=== PATIENT | male | born 1960 | race African-American/Black ===

== ENCOUNTER 2016-09-19 06:49 | Inpatient (IN) | payer SELFPAY ==
[2016-09-19] VITALS (16 sets, daily range): BP systolic 96–126; BP diastolic 43–58; PULSE 84–100; RESP 20–50; TEMP 97.7–98.3; O2SAT 97–100
[~2016-09-19] VITALS: Ht 188 cm; Wt 101.2 kg
[~2016-09-19 06:49] MED LIST: Z.0.NO CURRENT MEDS
[2016-09-19] MEDS ORDERED: SODIUM CHLOR 0.9% 1000 ML INJ 1,000 ML IV ONE ×3 (07:30→08:45)
[2016-09-19] MEDS ORDERED: VANCOMYCIN INJ 1,800 MG in SODIUM CHLORID 0.9% 500 ML INJ 500 ML IV STA (07:30)
[2016-09-19] MEDS ORDERED: PIPERACIL-TAZO 3.375 GM PREMIX 50 ML IV ONE (07:30)
[2016-09-19 07:40] LABS: AUTOMATED NEUTROPHIL # 16.5 TH/MM3 (1.8-7.7); BASOPHIL % 0.1 % (0.0-2.0); HEMO FLAGS DIFF FINAL; LYMPH % 4.4 % (9.0-44.0); LYMPHOCYTE # 0.8 TH/MM3 (1.0-4.8); MEAN CELL VOLUME 91.9 FL (80.0-100.0); MEAN CORPUSCULAR HEMOGLOBIN 30.7 PG (27.0-34.0); MEAN CORPUSCULAR HGB CONC 33.4 % (32.0-36.0); MONO % 6.6 % (0.0-8.0); NEUT % 88.9 % (16.0-70.0); PLATELET COUNT 249 TH/MM3 (150-450); RED CELL DISTRIBUTION WIDTH 16.2 % (11.6-17.2); WHITE BLOOD COUNT 18.6 TH/MM3 (4.0-11.0)
[2016-09-19 07:47] LABS: APTT (PATIENT) 27.5 SEC (24.3-30.1); INTERNATIONAL NORMALIZED RATIO 1.2 RATIO; PROTHROMBIN TIME - PATIENT 13.5 SEC (9.8-11.6)
[2016-09-19] MEDS ORDERED: LISI10TA3 PO (07:50)
[2016-09-19 08:00] LABS: ALT (GPT) 60 U/L (12-78); ANION GAP 16 MEQ/L (5-15); AST (GOT) 208 U/L (15-37); BICARBONATE 17.3 MEQ/L (21.0-32.0); BLOOD UREA NITROGEN 58 MG/DL (7-18); CHLORIDE 102 MEQ/L (98-107); GLOMERULAR FILTRATION RATE 24 ML/MIN (>89); POTASSIUM 3.6 MEQ/L (3.5-5.1); SODIUM (NA) 135 MEQ/L (136-145)
[2016-09-19 08:03] LABS: ALKALINE PHOSPHATASE 83 U/L (45-117); TOTAL BILIRUBIN ADULT 1.3 MG/DL (0.2-1.0)
--- NOTE | 2016-09-19 08:19 | PD ---
HPI Chief Complaint: Altered Mental Status Time Seen by Provider: 07:03 Travel History International Travel<30 days: No Contact w/Intl Traveler<30days: No Traveled to known affect area: No History of Present Illness HPI 56-year-old male arrives due to altered mental status. The patient's significant other provides the history. The patient was asked if he had pain and he stated "not now." The patient is alert and oriented 3 on exam however offers no additional history regarding his symptoms otherwise. No other historical information was offered by the patient. Yesterday throughout the course of the day the patient sat on his couch in his garage and was very inactive. He had no appetite. Over the course of the evening the patient again was very inactive. Significant other tried to bring the patient to the ED yesterday however he refused. This morning he was agreeable with the plan and that's why he came. He is reported to have a neoplastic lesion about the region of the left knee posteriorly. PFSH Past Medical History Cancer: No Cardiovascular Problems: No Chemotherapy: No Diabetes: No Endocrine: No Gastrointestinal Disorders: No Genitourinary: No Immune Disorder: No Implanted Vascular Access Dvce: No Musculoskeletal: Yes Neurologic: No Psychiatric: No Reproductive: No Respiratory: No Radiation Therapy: No Tetanus Vaccination: Never Vaccinated Past Surgical History Other Surgery: No Social History Alcohol Use: Yes Tobacco Use: Yes Substance Use: No Allergies-Medications (Allergen,Severity, Reaction): Uncoded Allergies: NKDA (Allergy, Severe, 11/03/11) Reported Meds & Prescriptions Reported Meds & Active Scripts Active Reported Lisinopril 10 Mg Tab 10 Mg PO DAILY Review of Systems ROS Limitations: Clinical Condition, Altered Mental Status Physical Exam Narrative GENERAL: 56-year-old male well-nourished well-developed pain AO 3, though very hesitant to answer questions SKIN: Generally skin is warm and dry. Posterior to the knee there is a 10 cm ulcerated raised neoplastic appearing lesion with what appears to be pus, foul odor present. No crepitus about the calf or thigh. HEAD: Atraumatic. Normocephalic. EYES: Pupils equal and round. No scleral icterus. No injection or drainage. ENT: No nasal bleeding or discharge. Mucous membranes pink and moist. NECK: Trachea midline. No JVD. CARDIOVASCULAR: Tachycardia present. Regular rhythm. RESPIRATORY: No accessory muscle use. Clear to auscultation. Breath sounds equal bilaterally. GASTROINTESTINAL: Abdomen soft, non-tender, nondistended. Hepatic and splenic margins not palpable. MUSCULOSKELETAL: No obvious deformities. No clubbing. No cyanosis. No edema. Neoplastic lesion as described above. 2+ dorsalis pedis bilaterally. NEUROLOGICAL: Awake and alert. No obvious cranial nerve deficits. Motor grossly within normal limits. Normal speech. PSYCHIATRIC: Appropriate mood and affect; insight and judgment normal. Data Data Last Documented VS Vital Signs Date Time Temp Pulse Resp B/P Pulse Ox O2 Delivery O2 Flow Rate FiO2 09/19/16 08:19 93 20 102/52 98 Room Air 09/19/16 07:10 98.3 Vital signs reviewed Orders Complete Blood Count With Diff (09/19/16 07:17) Comprehensive Metabolic Panel (09/19/16 07:17) Urinalysis - C+S If Indicated (09/19/16 07:17) Lactic Acid Sepsis Protocol (09/19/16 07:17) Blood Culture (09/19/16 07:17) Iv Access Insert/Monitor (09/19/16 07:17) Oxygen Administration (09/19/16 07:17) Oximetry (09/19/16 07:17) Blood Glucose (09/19/16 07:17) Act Partial Throm Time (Ptt) (09/19/16 07:26) Prothrombin Time / Inr (Pt) (09/19/16 07:26) Vancomycin Inj (Vancomycin Inj) (09/19/16 07:30) Piperacil-Tazo 3.375 Gm Premix (Zosyn 3. (09/19/16 07:30) Sodium Chlor 0.9% 1000 Ml Inj (Ns 1000 M (09/19/16 07:30) Sodium Chlor 0.9% 1000 Ml Inj (Ns 1000 M (09/19/16 07:30) Tibia/Fibula (Ap/Lat) (09/19/16 ) Knee, Ltd (1 Or 2vws) (09/19/16 ) Knee, Ltd (1 Or 2vws) (09/19/16 ) Sodium Chlor 0.9% 1000 Ml Inj (Ns 1000 M (09/19/16 08:45) Admit Order (Ed Use Only) (09/19/16 08:37) Labs Laboratory Tests Test 09/19/16 07:25 White Blood Count 18.6 TH/MM3 Red Blood Count 2.50 MIL/MM3 Hemoglobin 7.7 GM/DL Hematocrit 23.0 % Mean Corpuscular Volume 91.9 FL Mean Corpuscular Hemoglobin 30.7 PG Mean Corpuscular Hemoglobin 33.4 % Concent Red Cell Distribution Width 16.2 % Platelet Count 249 TH/MM3 Mean Platelet Volume 8.0 FL Neutrophils (%) (Auto) 88.9 % Lymphocytes (%) (Auto) 4.4 % Monocytes (%) (Auto) 6.6 % Eosinophils (%) (Auto) 0.0 % Basophils (%) (Auto) 0.1 % Neutrophils # (Auto) 16.5 TH/MM3 Lymphocytes # (Auto) 0.8 TH/MM3 Monocytes # (Auto) 1.2 TH/MM3 Eosinophils # (Auto) 0.0 TH/MM3 Basophils # (Auto) 0.0 TH/MM3 CBC Comment DIFF FINAL Differential Comment Prothrombin Time 13.5 SEC Prothromb Time International 1.2 RATIO Ratio Activated Partial 27.5 SEC Thromboplast Time Sodium Level 135 MEQ/L Potassium Level 3.6 MEQ/L Chloride Level 102 MEQ/L Carbon Dioxide Level 17.3 MEQ/L Anion Gap 16 MEQ/L Blood Urea Nitrogen 58 MG/DL Creatinine 3.27 MG/DL Estimat Glomerular Filtration 24 ML/MIN Rate Random Glucose 155 MG/DL Lactic Acid Level 4.5 mmol/L Calcium Level 8.5 MG/DL Total Bilirubin 1.3 MG/DL Aspartate Amino Transf 208 U/L (AST/SGOT) Alanine Aminotransferase 60 U/L (ALT/SGPT) Alkaline Phosphatase 83 U/L Total Protein 7.1 GM/DL Albumin 2.1 GM/DL [facility] Medical Decision Making Medical Screen Exam Complete: Yes Emergency Medical Condition: Yes Medical Record Reviewed: Yes Differential Diagnosis Sepsis, necrotizing fasciitis, cellulitis, abscess, skin cancer Narrative Course CBC & BMP Diagram 09/19/16 07:25 AST 208 Albumin 2.1 The films of the left knee and tib-fib don't demonstrate the entirety of the soft tissue and repeat imaging will be ordered. No evidence of free air/gas/ necrotizing fasciitis on the films visualized. The patient has received vancomycin and Zosyn. 2 L normal saline infused. A third will be ordered. The patient meets septic shock criteria by numerical values however he is hemodynamically stable. Upon reassessment at 8:20 AM the patient states he feels "fair and partly cloudy" in good humor. The pt is hd stable. residential counselor service will be called for admission. At 0820 HR 92 and BP approx 102/52. D/w Dr Burnham at 835AM. Admit to Dr Helm. Sepsis Criteria SIRS Criteria (2 or more): Heart rate over 90, WBC > 70595, < 4000 or > 10% bands Sepsis Criteria (SIRS+source): Infect source susp/known Severe Sepsis (+one): Lactate >2, Acute Oliguria/Renal Failure Septic Shock Criteria: Lactic acid >=4 Diagnosis Primary Impression: Septic shock Additional Impressions: Mass of left lower extremity Cellulitis Qualified Code: L03.116 - Cellulitis of left lower extremity Admitting Information Admitting Physician Requests: Marcio Hernandez MD Sep 19, 2016 08:19
[2016-09-19] MEDS ORDERED: SODIUM CHLOR 0.9% 250 ML INJ 250 ML IV ONE ×3 (08:45→23:15)
--- NOTE | 2016-09-19 08:46 | RADRPT ---
EXAM DATE/TIME: 09/19/2016 07:43 [facility] COMPARISON: No previous studies available for comparison. INDICATIONS : Pain and swelling with open wound left proximal tibia. Denies injury MEDICAL HISTORY : None. SURGICAL HISTORY : None. ENCOUNTER: Initial ACUITY: >1 year PAIN SCORE: 3/10 LOCATION: Left Tibia FINDINGS: No definite fractures, or dislocations are identified. No definite lytic or sclerotic lesion is seen . There is calcification involving the recent chronic in nature with a small calcaneal spur at the at tachment site of the plantar aponeurosis. There are degenerative changes in the joints. CONCLUSION: Chronic changes and no evidence for acute fracture. Claudio Barroso MD on September 19, 2016 at 8:44 Board Certified Radiologist. This report was verified electronically.
--- NOTE | 2016-09-19 08:47 | RADRPT ---
EXAM DATE/TIME: 09/19/2016 07:43 [facility] COMPARISON: No previous studies available for comparison. INDICATIONS : Pain, swelling with open wound left distal knee, denies injury MEDICAL HISTORY : None. SURGICAL HISTORY : None. ENCOUNTER: Initial ACUITY: >1 year PAIN SCORE: 3/10 LOCATION: Left Knee FINDINGS: No definite fractures, dislocations, lytic, or sclerotic lesions are seen. There is osteoarthritis wi th tricompartment worse in the patellofemoral joint. CONCLUSION: Chronic changes and no evidence for acute fracture. Claudio Barroso MD on September 19, 2016 at 8:45 Board Certified Radiologist. This report was verified electronically.
--- NOTE | 2016-09-19 09:07 | HHI.HP ---
HPI Service Family Medicine Primary Care Physician No Primary Care Physician Admission Diagnosis Septic Shock (Cellulitic LLE Mass); Anemia Diagnoses: International Travel<30 Days: No Contact w/Intl Traveler<30days: No Known Affected Area: No History of Present Illness Mr. Burnham is a 56 y/o AAM with a PMHx of HTN presenting with AMS and a LLE wound. He is accompanied by his Sister, Joana Callahan, who is the primary historian , but the patient is able to participate in the interview and exam. 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 However she states that yesterday the patient would not communicate and just "sat on the couch all day." He also has had decreased PO intake over the last 24 hours. This morning she found that he had not moved from the cough since the night before and was disoriented so she decided to bring him to the ER for evaluation. She reports that he has had an ulceration on the posterior aspect of his L knee that she has noticed since May, but she reports that the patient has stated before that the wound had been there for up to a nam. He has had it evaluated by Dr. Juarez at [facility] who believes it is likely neoplastic. He was supposed to have imaging of the mass completed, however never had this completed. Biopsy has not been completed as well. She reports that he has had roughly a 10 pound weight loss over the last month. He endorses lower back pain over the last few days as well that is nonradiating with some chills. Otherwise he denies any chest pain, SOB, NVD, or calf tenderness. (Brian Guadalupe MD R1) Review of Systems Constitutional: COMPLAINS OF: Chills (For 24 hours), DENIES: Fever Endocrine: DENIES: Polyuria Eyes: DENIES: Diplopia Ears, nose, mouth, throat: DENIES: Throat pain, Running Nose Respiratory: DENIES: Cough, Shortness of breath Cardiovascular: COMPLAINS OF: Palpitations, DENIES: Chest pain Gastrointestinal: DENIES: Abdominal pain, Bloody stools, Diarrhea, Nausea, Vomiting Genitourinary: DENIES: Dysuria Musculoskeletal: COMPLAINS OF: Back pain Integumentary: DENIES: Rash Hematologic/lymphatic: DENIES: Lymphadenopathy Neurologic: DENIES: Headache Psychiatric: COMPLAINS OF: Mood changes (Brian Guadalupe MD R1) Past Family Social History Past Medical History Denies PMHx Per chart review from prior visit with Dr. Daniles, possible schizophrenia with depressive features. HTN - on Lisinopril Past Surgical History Denies PSHx (Brian Guadalupe MD R1) Allergies: Uncoded Allergies: NKDA (Allergy, Severe, 11/03/11) Family History Father - HTN, DM, Mother - Colon cancer at 69, Social History Tobacco - Prior history Alcohol - Denies Illicit - Denies Lives with his Sister in [facility]. 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 Full Code (Brian Guadalupe MD R1) Physical Exam Vital Signs Vital Signs Date Time Temp Pulse Resp B/P Pulse Ox O2 Delivery O2 Flow Rate FiO2 09/19/16 08:49 90 20 113/55 99 Room Air 09/19/16 08:34 91 20 100/51 Room Air 09/19/16 08:19 93 20 102/52 98 Room Air 09/19/16 07:38 99 Room Air 09/19/16 07:38 99 Room Air 09/19/16 07:16 100 20 96/49 100 Room Air 09/19/16 07:10 98.3 100 20 105/47 Physical Exam GENERAL: 56 y/o AAM lying in bed diaphoretic and mildly tachypneic. SKIN: Warm and moist. HEENT: Atraumatic, normocephalic with EOMI. Oropharynx clear without exudate. Mucus membranes dry with midline. No LAD. CARDIOVASCULAR: Regular rate and rhythm with 3/6 diastolic murmur more pronounced at the right sternal border. RESPIRATORY: CTAB with very shallow breathing BL. Mildly tachypneic with increased work of breathing. GASTROINTESTINAL: Abdomen soft, non-tender, nondistended with +BS. No masses appreciated. MUSCULOSKELETAL: Extremities without cyanosis or edema. No calf tenderness BL. 2 + DP BL, 2+ PT on RLE, no palpable pulse on LLE likely due to epidermis changes. LLE: 8.5 X 10.5CM circular, fungating, ulcerative lesion on the posterior aspect of the L knee. No hemorrhage or necrosis appreciated. Lesion is foul smelling and appears to involve skin and subcutaneous tissue; does not appear to involve the muscle or bone. 2+ from the ankle to the knee. NEUROLOGICAL: AAOx3, however not at baseline per his Sister. Slowed speech with very short sentences. Laboratory Laboratory Tests Test 09/19/16 07:25 White Blood Count 18.6 Red Blood Count 2.50 Hemoglobin 7.7 Hematocrit 23.0 Mean Corpuscular Volume 91.9 Mean Corpuscular Hemoglobin 30.7 Mean Corpuscular Hemoglobin 33.4 Concent Red Cell Distribution Width 16.2 Platelet Count 249 Mean Platelet Volume 8.0 Neutrophils (%) (Auto) 88.9 Lymphocytes (%) (Auto) 4.4 Monocytes (%) (Auto) 6.6 Eosinophils (%) (Auto) 0.0 Basophils (%) (Auto) 0.1 Neutrophils # (Auto) 16.5 Lymphocytes # (Auto) 0.8 Monocytes # (Auto) 1.2 Eosinophils # (Auto) 0.0 Basophils # (Auto) 0.0 CBC Comment DIFF FINAL Differential Comment Prothrombin Time 13.5 Prothromb Time International 1.2 Ratio Activated Partial 27.5 Thromboplast Time Sodium Level 135 Potassium Level 3.6 Chloride Level 102 Carbon Dioxide Level 17.3 Anion Gap 16 Blood Urea Nitrogen 58 Creatinine 3.27 Estimat Glomerular Filtration 24 Rate Random Glucose 155 Lactic Acid Level 4.5 Calcium Level 8.5 Total Bilirubin 1.3 Aspartate Amino Transf 208 (AST/SGOT) Alanine Aminotransferase 60 (ALT/SGPT) Alkaline Phosphatase 83 Total Protein 7.1 Albumin 2.1 Date/Time Procedure Status Source Growth 09/19/16 07:25 Aerobic Blood Culture Received Blood Peripheral Pending 09/19/16 07:25 Anaerobic Blood Culture Received Blood Peripheral Pending (Brian Guadalupe MD R1) Result Diagram: 09/19/1625 09/19/16724 Imaging Last 72 hours Impressions Tibia/Fibula X-Ray 09/19/16 0000 Signed Impressions: Service Date/Time: Monday, September 19, 2016 07:43 - CONCLUSION: Chronic changes and no evidence for acute fracture. Claudio Barroso MD Renal Ultrasound 09/19/16 0000 Signed Impressions: Service Date/Time: Monday, September 19, 2016 10:40 - CONCLUSION: Unremarkable renal ultrasound. Claudio Barroso MD Lower Extremity MRI 09/19/16 0000 Signed Impressions: Service Date/Time: Monday, September 19, 2016 10:15 - CONCLUSION: Large mass most likely originating from the patient's skin with infiltration of subcutaneous fat and no definite involvement of the muscular structures or marrow. A malignant mass should be entertained and clinical correlation is needed. Claudio Barroso MD Knee X-Ray 09/19/16 0000 Signed Impressions: Service Date/Time: Monday, September 19, 2016 07:43 - CONCLUSION: Osteoarthritis. Claudio Barroso MD Knee X-Ray 09/19/16 0000 Signed Impressions: Service Date/Time: Monday, September 19, 2016 07:43 - CONCLUSION: Chronic changes and no evidence for acute fracture. 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 Claudio Barroso MD (Brian Guadalupe MD R1) Septic Shock Reassessment Lungs: Clear (Brian Guadalupe MD R1) Assessment and Plan Assessment and Plan Mr. Burnham is a 56 y/o AAM with a PMHx of HTN presenting with AMS and a LLE wound found to be in septic shock. Code Status FULL Discussed Condition With Dr. Garcia, ER physician Dr. Alicja Burnham (Brian Guadalupe MD R1) Attending Attestation THIS CASE WAS DISCUSSED WITH THE RESIDENT PHYSICIANS. I HAVE REVIEWED THE RECORD AND AGREE WITH THE ABOVE NOTE AND PLAN OF CARE WAS DISCUSSED. I HAVE AUTHORIZED THE ORDER FOR ADMISSION TO AN IN-PATIENT STATUS. (Jason Helm MD) Problem List: (1) Septic shock Status: Acute Plan: Patient presented with altered mental status left lower extremity lesion. Patient found to be tachycardic to 100 bpm with a white blood cell count of 18.6. Likely source of infection is his left lower extremity lesion. Found to have a lactic acid of 4.5 not responsive to fluid resuscitation. Patient placed on sepsis protocol and [place] [facility] [place]. CBC: WBC 18.6 with 88.9% neutrophils Lactic acid 4.5, repeat 4.3, repeat pending AB.41/14/107/9 Blood cultures 2 09/19: Pending UC: Pending Wound culture: Pending Intensive care consulted, appreciate recommendations Medications: NS 1L bolus x3, continue bolus per protocol NS at 210 mL/h Vancomycin 1 g twice a day, pharmacy consulted Zosyn 2.25 g every 6 hours (2) Skin ulcer of left lower leg, limited to breakdown of skin Status: Acute Plan: Patient with circular, fungating, ulcerative lesion on the posterior aspect of the L knee with edema of the lower extremity. Patient denies any pain currently. Lower extremity neurovascularly intact with appropriate capillary refill. Knee x-ray: Chronic changes with no evidence of acute fracture Tubularfibula x-ray: Chronic changes and no evidence of acute fractures. Lower extremity MRI: Large mass most likely originating from the patient's skin with infiltration of subcutaneous fat and no definite involvement of the muscular structures her marrow. A malignant mass should be entertained and clinical correlation is needed. Consider Gen. surgery consult when patient is more stable for possible biopsy and resection. (3) Acute renal failure (ARF) Status: Acute Plan: Patient found to have a BUN of 58 with a creatinine of 3.27 on admission likely secondary to septic shock. Per chart review, admission in 2012 showed creatinine of 0.81. CMP: BUN 58, creatinine 3.27 Renal ultrasound: Unremarkable Strict I/Os, David catheter placed by urology due to phimosis Avoid nephrotoxic agents Medications: NS 1L bolus x3 NS at 210 mL/h (4) ST segment depression Status: Acute Plan: Patient found to have ST depression in leads aVF, V5, and V6 per medical team's read of EMS strip. Patient currently denying any chest pain, shortness of breath, or palpitations. EKG: Pending 3 every 6 hours Troponin and CK-MB: Pending 3 every 6 hours Cardiac Telemetry (5) Anemia Status: Acute Plan: Patient found to be anemic on admission without prior history. CBC: H/H 7.12/26 Repeat H/H at 1500 Team will plan to transfuse with hemoglobin <7 as needed Hemoccult negative, performed in ER 09/19 (6) Medical contraindication to deep vein thrombosis (DVT) prophylaxis Status: Acute Plan: Pharmacologic prophylaxis contraindicated due to patient's anemia SCD/TEDs (7) Nutrition, metabolism, and development symptoms Status: Acute Plan: Fluids: NS at 210 mL/h and per lactic acid protocol Diet: NPO except medications due to current mental status Electrolytes: Sodium 135, continue to monitor Prophylaxis: Mentor/Morphine when necessary for pain, Tylenol when necessary for fever, Zofran when necessary for nausea or vomiting (Brian Guadalupe MD R1) Physician Certification 2 Midnight Certification Type: Admission for Inpatient Services Order for Inpatient Services The services are ordered in accordance with Medicare regulations or non- Medicare payer requirements, as applicable. In the case of services not specified as inpatient-only, they are appropriately provided as inpatient services in accordance with the 2-midnight benchmark. Estimated LOS (days): 3 3 days is the estimated time the patient will need to remain in the hospital, assuming treatment plan goals are met and no additional complications. Post-Hospital Plan: Home (Brian Guadalupe MD R1) Problem Qualifiers (1) Acute renal failure (ARF): Qualified Code: N17.9 - Acute renal failure, unspecified acute renal failure type Brian Guadalupe MD R1 Sep 19, 2016 09:07 Jason Helm MD Sep 20, 2016 11:07
[2016-09-19 09:34] LABS: LACTIC ACID GHOST NOT REPORTABLE
[2016-09-19] MEDS ORDERED: SODIUM CHLOR 0.9% 1000 ML INJ 1,000 ML IV SCH ×2 (09:40→17:32)
[2016-09-19] MEDS ORDERED: ACETAMINOPHEN/HYDROcodone 325 MG/7.5 MG TAB PO PRN (09:45)
[2016-09-19] MEDS ORDERED: ACETAMINOPHEN 500 MG CPLT PO PRN (09:45)
[2016-09-19] MEDS ORDERED: Vancomycin Consult Pharmacy 1 EA OTHER SCH ×2 (09:45→17:45)
[2016-09-19] MEDS ORDERED: ACETAMINOPHEN/HYDROcodone 325 MG/5 MG TAB PO PRN (09:45)
[2016-09-19] MEDS ORDERED: SODIUM CHLORIDE 0.9% FLUSH 10 ML FLUSH IV FLUSH PRN ×2 (09:45→17:45)
[2016-09-19] MEDS ORDERED: ONDANSETRON HCL 4 MG/2 ML VIAL IV PRN ×2 (10:00→17:45)
[2016-09-19] MEDS ORDERED: SODIUM CHLORIDE 0.9% FLUSH 10 ML FLUSH PRN (10:00)
[2016-09-19] MEDS ORDERED: MORPHINE SULFATE 4 MG/ML INJ IV PRN (10:00)
[2016-09-19] MEDS ORDERED: NALOXONE HCL 0.4 MG/ML AMP IV PRN (10:00)
--- NOTE | 2016-09-19 10:13 | RADRPT ---
EXAM DATE/TIME: 09/19/2016 07:43 [facility] COMPARISON: No previous studies available for comparison. INDICATIONS : Swelling and pain left knee, denies injury Evaluate soft tissue MEDICAL HISTORY : None. SURGICAL HISTORY : None. ENCOUNTER: Initial ACUITY: >1 year PAIN SCORE: 3/10 LOCATION: Left Knee FINDINGS: No definite fractures, dislocations, lytic, or sclerotic lesions are seen. Tricompartment osteoarthri tis is seen worse in the medial compartment and patellofemoral joint. CONCLUSION: Osteoarthritis. K. Segundo Barroso MD on September 19, 2016 at 10:11 Board Certified Radiologist. This report was verified electronically.
[2016-09-19] MEDS ORDERED: DIATRIZOATE MEGLUM/DIATRIZOATE SOD 9 ML CUP PO ONE (10:15)
[2016-09-19] MEDS ORDERED: PIPERACIL-TAZO 3.375 GM PREMIX 50 ML IV SCH (10:15)
[2016-09-19] MEDS ORDERED: VANCOMYCIN INJ 1,000 MG in SODIUM CHLOR 0.9% 250 ML INJ 250 ML IV SCH (10:45)
--- NOTE | 2016-09-19 11:05 | RADRPT ---
EXAM DATE/TIME: 09/19/2016 10:15 [facility] COMPARISON: TIBIA/FIBULA LEFT (AP/LAT), September 19, 2016, 7:43. INDICATIONS : Mass. Left lower extremity mass. MEDICAL HISTORY : None. SURGICAL HISTORY : None. ENCOUNTER: Initial ACUITY: 1 day PAIN SCORE: 0/10 LOCATION: Left leg TECHNIQUE: Multiplanar multisequence MRI examination of the lower leg was performed without contrast. FINDINGS: There are degenerative changes within the knee joint with slight joint effusion. There is edema in the subcutaneous tissues of the lower extremity with a mass which measures almost 9 cm in size in the medial aspect of the patient's calf appears to be basically skin related with infiltration of the subcutaneous fat, however there is no involvement of the adjacent muscular structures. The marrow si gnal appears intact. CONCLUSION: Large mass most likely originating from the patient's skin with infiltration of subcutaneous fat and no definite involvement of the muscular structures or marrow. A malignant mass should be entertained and clinical correlation is needed. Claudio Barroso MD on September 19, 2016 at 11:01 Board Certified Radiologist. This report was verified electronically.
--- NOTE | 2016-09-19 11:43 | RADRPT ---
EXAM DATE/TIME: 09/19/2016 10:40 [facility] COMPARISON: No previous studies available for comparison. INDICATIONS : Increased Bun and Creatinine. MEDICAL HISTORY : Increased Bun and Creatinine. SURGICAL HISTORY : None. ENCOUNTER: Initial ACUITY: 1 day PAIN SCORE: 0/10 LOCATION: Bilateral flank MEASUREMENTS: RIGHT KIDNEY: ?12.8 x 6.1 x 6.2 cm LEFT KIDNEY: 12.9 x 5.9 x 6.2 cm FINDINGS: There is no hydronephrosis. No definite solid mass is identified. No definite stone is identified f or technique. The bladder is grossly intact for technique and not being completely distended during t he exam. CONCLUSION: Unremarkable renal ultrasound. Claudio Barroso MD on September 19, 2016 at 11:41 Board Certified Radiologist. This report was verified electronically.
--- NOTE | 2016-09-19 12:05 | RADRPT ---
EXAM DATE/TIME: 09/19/2016 11:32 [facility] COMPARISON: CT BRAIN W/O CONTRAST, July 01, 2012, 15:56. INDICATIONS : Altered mental status. RADIATION DOSE: 54.45 CTDIvol (mGy) MEDICAL HISTORY : None SURGICAL HISTORY : None. ENCOUNTER: Initial ACUITY: 1 day PAIN SCALE: 0/10 LOCATION: cranial TECHNIQUE: Multiple contiguous axial images were obtained of the head. Using automated exposure control and adj ustment of the mA and/or kV according to patient size, radiation dose was kept as low as reasonably a chievable to obtain optimal diagnostic quality images. FINDINGS: There is no evidence for intracranial hemorrhage, mass effect, mass lesions, edema, or extra-axial fl uid collections. The visualized bony structures appear intact. The ventricles are normal size for t he patient's age. There are no signs of acute infarction for technique. There is encephalomalacia in the watershed distribution of right CORINNE MCA not present previously. 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 Claudio Barroso MD on September 19, 2016 at 12:02 Board Certified Radiologist. This report was verified electronically.
[2016-09-19 12:34] LABS: BLOOD GAS BASE EXCESS -15.5 mmol/L (-2-2); BLOOD GAS CARBOXYHEMOGLOBIN 1.9 % (0-4); BLOOD GAS HCO3 9 mmol/L (22-26); BLOOD GAS METHEMOGLOBIN 0.5 % (0-2); BLOOD GAS O2 HGB SATURATION 96 % (90-100); BLOOD GAS OXYGEN CONTENT 9.2 Vol % (12.0-20.0); BLOOD GAS PCO2 14 mmHg (38-42); BLOOD GAS PO2 107 mmHG (61-120); BLOOD GAS TOTAL HGB 6.7 G/DL (12.0-16.0); TEMP CORR TO 98.6
[2016-09-19 12:36] LABS: CRITICAL VALUE YES; DRAW SITE RT RADIAL; LITER FLOW 2 L/M; NUMBER OF ARTERIAL PUNCTURES 1; OXYGEN DEVICE NASAL CANNULA; STAT YES; ULNAR PULSE PRESENT
--- NOTE | 2016-09-19 15:09 | MB ---
cc: EVAN BARRIENTOS MD DATE OF CONSULTATION: 09/19/2016. REASON FOR CONSULTATION: Abnormal EKG and elevated troponin. HISTORY OF PRESENT ILLNESS: The patient is a 56-year-old gentleman who comes in with altered mental status found to have multiple metabolic abnormalities including an abnormal troponin and thus I was consulted. The patient is unable to provide any history except for saying that he has low back pain but he denies any chest pain. He is a very difficult historian. On arrival and initial workup, he was found to have multiple metabolic abnormalities including an elevated white count, a low hematocrit, lactic acidosis, renal failure, and a significantly abnormal troponin. PAST MEDICAL HISTORY: 1. Hypertension. 2. Possible schizophrenia. ALLERGIES: NO KNOWN DRUG ALLERGIES. HOME MEDICATIONS: Lisinopril. PHYSICAL EXAMINATION: VITAL SIGNS: Afebrile, pulse 92, respiratory rate 16, blood pressure 115/43, satting 100 in room air. GENERAL: Altered -Thai gentleman who does indicate he has no chest pain but history is very difficult. NECK: No jugular venous distention. LUNGS: Clear to auscultation bilaterally. CARDIOVASCULAR: A 3/6 murmur with both systolic and diastolic components is appreciated. ABDOMEN: Benign. LABORATORY DATA: Sodium 135, potassium 3.6, chloride 102, bicarbonate 17.3, BUN 58, creatinine 3.27. Lactic acid is 4.5. Troponin is 11.8. Total CK is 6__98. White count 18.6, hematocrit 23.0, platelets 249,000. EKG shows sinus rhythm with diffuse S-T changes, perhaps minimal S-T elevation in aVr. IMAGING STUDIES: Lower extremity MRI shows most likely originating from the patient's skin with infiltration of subcutaneous fat. IMPRESSION: 1. Sepsis. The patient appears to have signs and symptoms of sepsis with multiple metabolic derangements. His EKG and troponin are negative, though it does not appear that he is having any active chest pain. Certainly with his acute renal failure and lack of chest pain and given the unknown chronicity of any possible cardiac findings, I would not consider him a candidate for acute cardiac catheterization. Thus, he will be medically managed from a cardiac standpoint until his other metabolic conditions have resolved. Further recommendations will be based on the clinical course. Thank you again for the opportunity to participate in this patient's care. MD SINA Maloney/HAYLEE /2:14 PM /2:51 PM
--- NOTE | 2016-09-19 16:04 | EC ---
Study Study Date:09/19/2016 STUDY CONCLUSIONS SUMMARY - Aortic valve: There was a mobile vegetation on the left ventricular aspect. Severe regurgitation directed eccentrically in the LVOT. Valve area: 2.59cm^2(VTI). Valve area: 2.7cm^2 (Vmax). - Left ventricle: The cavity size was normal. Wall thickness was normal. Systolic function was normal. The estimated ejection fraction was in the range of 50% to 55%. Wall motion was normal; there were no regional wall motion abnormalities. - Mitral valve: Mild regurgitation. - Tricuspid valve: Mild regurgitation. - Pulmonary arteries: Systolic pressure was moderately increased. PA peak pressure: 52mm Hg (S). If LV function is below 40, please consider prescribing an ACEI or ARB or document rationale for non-use. PROCEDURE DATA STUDY STATUS: Elective. Procedure: Transthoracic echocardiography. Image quality was good. Scanning was performed from the parasternal, apical, and subcostal acoustic windows. Study completion: The patient tolerated the procedure well. Transthoracic echocardiography. M-mode, complete 2D, complete spectral Doppler, and color Doppler. Height: Height: 73in. Weight: Weight: 199.6lb. Body mass index: BMI: 26.4kg/m^2. Body surface area: BSA: 2.15m^2. Patient status: Inpatient. CARDIAC ANATOMY LEFT VENTRICLE: The cavity size was normal. Wall thickness was normal. Systolic function was normal. The estimated ejection fraction was in the range of 50% to 55%. Wall motion was normal; there were no regional wall motion abnormalities. AORTIC VALVE: Trileaflet; normal thickness leaflets. There was a mobile vegetation on the left ventricular aspect. Doppler: Transvalvular velocity was within the normal range. There was no stenosis. Severe regurgitation directed eccentrically in the LVOT. Valve area: 2.59cm^2(VTI). Indexed valve area: 1.2cm^2/m^2 (VTI). Valve area: 2.7cm^2 (Vmax). Indexed valve area: 1.26cm^2/m^2 (Vmax). Mean gradient: 9mm Hg (S). Peak gradient: 19mm Hg (S). AORTA: Aortic root: The aortic root was normal in size. MITRAL VALVE: Structurally normal valve. Doppler: Transvalvular velocity was within the normal range. There was no evidence for stenosis. Mild regurgitation. Peak gradient: 5mm Hg (D). LEFT ATRIUM: The atrium was normal in size. RIGHT VENTRICLE: The cavity size was normal. Wall thickness was normal. PULMONIC VALVE: Doppler: Transvalvular velocity was within the normal range. There was no evidence for stenosis. No regurgitation. TRICUSPID VALVE: Structurally normal valve. Doppler: Transvalvular velocity was within the normal range. Mild regurgitation. PULMONARY ARTERY: The main pulmonary artery was normal-sized. Systolic pressure was moderately increased. RIGHT ATRIUM: The atrium was normal in size. PERICARDIUM: There was no pericardial effusion. SYSTEMIC VEINS: Inferior vena cava: The vessel was normal in size. Patient weight: 199.6lb _Ejection fraction:_ 65-75% _Fractional shortening:_ 32% up to 5Kg 5-11.5Kg 11.6-22.9Kg 23-45Kg 45-57Kg Aortic Root 7-13 <17 13-22 17-27 17-27 LA diam 6-13 <23 24-38 33-47 37-40 RVID 10-17 7-15 7-15 7-18 8-17 LVIDd 12-22 <32 24-38 33-47 37-40 LVPW 2-4 3-6 5-7 6-8 7-8 IVS 2-4 3-6 5-7 6-8 7-8 BASIC MEASUREMENTS ADULT NORMAL Left ventricle LV internal dimension, ED, chordal *61.7 mm 43-52 level, PLAX LV internal dimension, ES, chordal *47.7 mm 23-38 level, PLAX Fractional shortening, chordal level, *23 % >29 PLAX LV posterior wall thickness, ED 7.98 mm IVS/LVPW ratio, ED 0.99 <1.3 Ventricular septum Septal thickness, ED 7.89 mm Aortic valve Leaflet separation 23 mm 15-26 Aorta Root diameter, ED 34 mm Left atrium Anterior-posterior dimension 48 mm Anterior-posterior dimension index *2.23 cm/m^2 <2.2 Right ventricle RV internal dimension, ED, PLAX *48.4 mm 19-38 BASIC MEASUREMENTS ADULT NORMAL Aortic valve Leaflet separation 23 mm 15-26 DOPPLER MEASUREMENTS ADULT NORMAL Main pulmonary artery Pressure, S *52 mm Hg =30 Aortic valve Peak velocity, S 218 cm/s Mean velocity, S 133 cm/s VTI, S 35.9 cm Mean gradient, S 9 mm Hg Peak gradient, S 19 mm Hg Valve area, VTI 2.59 cm^2 Valve area index, VTI 1.2 cm^2/m^2 Valve area, Vmax 2.7 cm^2 Valve area index, Vmax 1.26 cm^2/m^2 Regurgitant velocity, ED 478 cm/s Regurgitant deceleration 25419 cm/s^2 Regurgitant pressure half-time 118 ms Regurgitant gradient, ED 91 mm Hg Mitral valve Peak E-wave velocity 108 cm/s Peak A-wave velocity 28.6 cm/s Deceleration time 162 ms 150-230 Peak gradient, D 5 mm Hg Peak E/A ratio 3.8 Tricuspid valve Regurgitant peak velocity 326 cm/s Peak RV-RA gradient, S 43 mm Hg Maximal regurgitant velocity 326 cm/s Systemic veins Estimated CVP 10 mm Hg Right ventricle RV pressure, S *53 mm Hg <30 Pulmonic valve Peak velocity, S 43.6 cm/s LEGEND: Mean values are shown as u=mean value. Asterisk (*) rosario values outside specified normal range. Prepared and signed by Schuyler Coombs [id number]
[2016-09-19 16:20] LABS: AMPHETAMINE, URINE NEG (NEG); BARBITURATES, URINE NEG (NEG); COCAINE, URINE NEG (NEG)
[2016-09-19 16:22] LABS: BACTERIA, URINE RARE /hpf; BLOOD, URINE TRACE (NEG); COMMENT (UR) CULTURE INDICATED; CULTURE IF INDICATED CULTURE INDICATED; GLUCOSE,URINE NEG (NEG); HYALINE CAST, URINE 4 /lpf (RARE); KETONE, URINE NEG (NEG); MUCUS URINE FEW /lpf (OCC); NITRITE,URINE NEG (NEG); SQUAMOUS EPITHELIAL CELL URINE 1 /hpf (0-5)
[2016-09-19 16:25] LABS: URINE COLOR ORANGE (YELLW/STRAW)
--- NOTE | 2016-09-19 17:24 | RADRPT ---
EXAM DATE/TIME: 09/19/2016 16:50 [facility] COMPARISON: No previous studies available for comparison. INDICATIONS : Short of breath MEDICAL HISTORY : None. SURGICAL HISTORY : None. ENCOUNTER: Initial ACUITY: 1 day PAIN SCORE: Non-responsive. LOCATION: Bilateral chest FINDINGS: There is cardiomegaly. Mild basilar density most characteristic of atelectasis. Elevated right hemidi aphragm. No effusion. No pneumothorax. CONCLUSION: 1. Minimal basilar atelectasis. Elevated right hemidiaphragm. No effusion. Osteochondral defect right humeral head. Raul Merlos MD on September 19, 2016 at 17:20 Board Certified Radiologist. This report was verified electronically.
[2016-09-19] MEDS: HEPARIN SODIUM - SQ 10,000 UNITS/ML VIAL SQ SCH (17:26)
[2016-09-19] MEDS ORDERED: SODIUM BICARBONATE 8.4% INJ 50 MEQ/50 ML SYR IV PUSH ONE ×2 (17:30→21:45)
[2016-09-19] MEDS: PIPERACIL-TAZO 2.25 GM PREMIX 50 ML IV SCH ×2 (17:41→22:30)
[2016-09-19] MEDS ORDERED: GLUCAGON 1 MG/ML VIAL OTHER PRN ×2 (17:45)
[2016-09-19] MEDS ORDERED: ACETAMINOPHEN 325 MG TAB PO PRN (17:45)
[2016-09-19] MEDS ORDERED: MISCELLANEOUS NURSING INFORMATION XX SCH (17:45)
[2016-09-19] MEDS ORDERED: CHLORHEXIDINE GLUCONATE 2 % 1 PACK (2 CLOTHS) TOP PRN (17:45)
[2016-09-19] MEDS ORDERED: RESP: ALBUTEROL 2.5 MG/IPRATROPIUM 0.5 MG NEB (PRN) INH (17:45)
[2016-09-19] MEDS ORDERED: DEXTROSE 50% IN WATER 50 ML VIAL(D50) IV PUSH PRN (17:45)
--- NOTE | 2016-09-19 18:04 | HHI.HP ---
HPI Service Critical Care Medicine Primary Care Physician No Primary Care Physician Admission Diagnosis Septic Shock (Cellulitic LLE Mass); Anemia Diagnosis: Travel History International Travel<30 Days: No Contact w/Intl Traveler <30 Da: No Traveled to Known Affected Are: No History of Present Illness This is a 56-year-old male that presented secondary to altered mental status. The patient's sister provided the medical information. The patient is alert and oriented 3 .the patient was noted to have a lesion on his left lower extremity and was seen at [facility] by Dr. Carpio at all is felt to be a malignant lesion however the patient was scheduled for follow-up and was noncompliant .over the last several days the patient had began to feel generalized malaise and he lives with his sister who noted that he began to have altered mental status and he presented to the ED .upon presentation to the ED the patient's blood pressure systolic blood pressure was in the 80s laboratory and imaging studies reveal septic shock , with a lactate of 4.5. The patient was bolused with 4 L of normal saline is currently hemodynamically stable , tachypnea , secondary to a bicarbonate level of 9 . He is reported to have a neoplastic lesion about the region of the left knee posteriorly, recent imaging studies suggest malignant neoplasm. The patient underwent a TTE in the ED by Dr. Ryder was noted to have cardiac vegetations tentative plan for a AGUSTIN in the am. Critical care medicine's consult for management. History PFSH Past Medical History Cancer: No Cardiovascular Problems: No Chemotherapy: No Diabetes: No Endocrine: No Gastrointestinal Disorders: No Genitourinary: No Immune Disorder: No Implanted Vascular Access Dvce: No Musculoskeletal: Yes Neurologic: No Psychiatric: No Reproductive: No Respiratory: No Radiation Therapy: No Tetanus Vaccination: Never Vaccinated Past Surgical History Other Surgery: No Social History Alcohol Use: Yes Tobacco Use: Yes Substance Use: No Allergies-Medications Allergies-Medications (Allergen,Severity, Reaction): Uncoded Allergies: NKDA (Allergy, Severe, 11/03/11) Reported Meds & Prescriptions Reported Meds & Active Scripts Active Reported Lisinopril 10 Mg Tab 10 Mg PO DAILY ROS Review of Systems ROS Limitations: Clinical Condition, Altered Mental Status Physical Exam Vital Signs Vital Signs Date Time Temp Pulse Resp B/P Pulse Ox O2 Delivery O2 Flow Rate FiO2 09/19/16 17:30 87 34 111/53 100 Nasal Cannula 2 09/19/16 16:28 89 36 124/54 97 Nasal Cannula 2 09/19/16 12:25 98.0 92 36 117/43 100 Room Air 09/19/16 08:49 90 20 113/55 99 Room Air 09/19/16 08:34 91 20 100/51 Room Air 09/19/16 08:19 93 20 102/52 98 Room Air 09/19/16 07:38 99 Room Air 09/19/16 07:38 99 Room Air 09/19/16 07:16 100 20 96/49 100 Room Air 09/19/16 07:10 98.3 100 20 105/47 Physical Exam GENERAL: This is a clear appearing gentleman answering responding to questions with single word answers, sisters providing medical history. Patient has tachypnea with labored breathing SKIN: Warm and dry. HEAD: Atraumatic. Normocephalic. EYES: Pupils equal and round. No scleral icterus. No injection or drainage. ENT: No nasal bleeding or discharge. Mucous membranes pink and moist. NECK: Trachea midline. No JVD. CARDIOVASCULAR: Normal rate, tachycardia. RESPIRATORY: No accessory muscle use. Clear to auscultation. Breath sounds equal bilaterally. GASTROINTESTINAL: Abdomen soft, non-tender, nondistended. No guarding. MUSCULOSKELETAL: Extremities without clubbing, cyanosis, or edema. No obvious deformities. Noted left lower leg posterior knee lesion wrapped with white gauze currently denies pain. Bilateral feet cool to touch capillary refill greater than 2 seconds, noted 2+ pitting edema left lower extremity NEUROLOGICAL: Awake and alert. RASS 0. No gross focal/sensory deficits. Follows commands in all 4 extremities. Laboratory Laboratory Tests Test 09/19/16 09/19/16 09/19/16 09/19/16 07:25 09:15 11:55 12:28 White Blood Count 18.6 Red Blood Count 2.50 Hemoglobin 7.7 Hematocrit 23.0 Mean Corpuscular Volume 91.9 Mean Corpuscular Hemoglobin 30.7 Mean Corpuscular Hemoglobin 33.4 Concent Red Cell Distribution Width 16.2 Platelet Count 249 Mean Platelet Volume 8.0 Neutrophils (%) (Auto) 88.9 Lymphocytes (%) (Auto) 4.4 Monocytes (%) (Auto) 6.6 Eosinophils (%) (Auto) 0.0 Basophils (%) (Auto) 0.1 Neutrophils # (Auto) 16.5 Lymphocytes # (Auto) 0.8 Monocytes # (Auto) 1.2 Eosinophils # (Auto) 0.0 Basophils # (Auto) 0.0 CBC Comment DIFF FINAL Differential Comment Prothrombin Time 13.5 Prothromb Time International 1.2 Ratio Activated Partial 27.5 Thromboplast Time Sodium Level 135 Potassium Level 3.6 Chloride Level 102 Carbon Dioxide Level 17.3 Anion Gap 16 Blood Urea Nitrogen 58 Creatinine 3.27 Estimat Glomerular Filtration 24 Rate Random Glucose 155 Lactic Acid Level 4.5 4.3 Calcium Level 8.5 Total Bilirubin 1.3 Aspartate Amino Transf 208 (AST/SGOT) Alanine Aminotransferase 60 (ALT/SGPT) Alkaline Phosphatase 83 Total Protein 7.1 Albumin 2.1 Total Creatine Kinase 6698 Creatine Kinase MB 73.0 Creatine Kinase MB % 1.1 Troponin I 11.80 Ethyl Alcohol Level LESS THAN 3 Blood Gas Puncture Site RT RADIAL Blood Gas Patient Temperature 98.6 Blood Gas HCO3 9 Blood Gas Base Excess -15.5 Blood Gas Oxygen Saturation 96 Arterial Blood pH 7.41 Arterial Blood Partial 14 Pressure CO2 Arterial Blood Partial 107 Pressure O2 Arterial Blood Oxygen Content 9.2 Arterial Blood 1.9 Carboxyhemoglobin Arterial Blood Methemoglobin 0.5 Blood Gas Hemoglobin 6.7 Oxygen Delivery Device NASAL CANNULA Blood Gas Liter Flow 2 Test 09/19/16 09/19/16 12:35 15:50 Lactic Acid Level 4.2 Urine Color ORANGE Urine Turbidity HAZY Urine pH 5.0 Urine Specific [place] 1.021 Urine Protein 30 Urine Glucose (UA) NEG Urine Ketones NEG Urine Occult Blood TRACE Urine Nitrite NEG Urine Bilirubin NEG Urine Urobilinogen 2.0 Urine Leukocyte Esterase NEG Urine RBC 7 Urine WBC 14 Urine WBC Clumps MANY Urine Squamous Epithelial 1 Cells Urine Bacteria RARE Urine Hyaline Casts 4 Urine Mucus FEW Microscopic Urinalysis Comment CULTURE INDICATED Urine Opiates Screen NEG Urine Barbiturates Screen NEG Urine Amphetamines Screen NEG Urine Benzodiazepines Screen NEG Urine Cocaine Screen NEG Urine Cannabinoids Screen NEG Date/Time Procedure Status Source Growth 09/19/16 15:50 Urine Culture Received Urine Clean Catch Pending 09/19/16 07:30 Gram Stain - Final Resulted Wound Leg 09/19/16 07:30 Wound Culture Resulted Wound Leg Pending 09/19/16 07:25 Aerobic Blood Culture Received Blood Peripheral Pending 09/19/16 07:25 Anaerobic Blood Culture Received Blood Peripheral Pending Result Diagram: 09/19/16 0725 09/19/16 0725 Imaging Last Impressions Tibia/Fibula X-Ray 09/19/16 0000 Signed Impressions: Service Date/Time: Monday, September 19, 2016 07:43 - CONCLUSION: Chronic changes and no evidence for acute fracture. Claudio Barroso MD Renal Ultrasound 09/19/16 0000 Signed Impressions: Service Date/Time: Monday, September 19, 2016 10:40 - CONCLUSION: Unremarkable renal ultrasound. Claudio Barroso MD Lower Extremity MRI 09/19/16 0000 Signed Impressions: Service Date/Time: Monday, September 19, 2016 10:15 - CONCLUSION: Large mass most likely originating from the patient's skin with infiltration of subcutaneous fat and no definite involvement of the muscular structures or marrow. A malignant mass should be entertained and clinical correlation is needed. Claudio Barroso MD Knee X-Ray 09/19/16 0000 Signed Impressions: Service Date/Time: Monday, September 19, 2016 07:43 - CONCLUSION: Osteoarthritis. 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 Claudio Barroso MD Chest X-Ray 09/19/16 0000 Signed Impressions: Service Date/Time: Monday, September 19, 2016 16:50 - CONCLUSION: 1. Minimal basilar atelectasis. Elevated right hemidiaphragm. No effusion. Osteochondral defect right humeral head. Raul Merlos MD Septic Shock Reassessment Peripheral Pulses: Bounding Right Radial Bounding Left Radial Assessment and Plan Assessment and Plan Plan by systems: Neurologic: CVA infarct Possible schizophrenia Metabolic encephalopathy secondary to sepsis Neurochecks per ICU protocol CT brain old infarction on the right Discontinue sedatives, sedating agent Acetaminophen 650 mg every 6 hours when necessary pain Respiratory: Tachypnea Metabolic acidosis Bronchodilators every 6 hours he has still every 2 hours when necessary Obtain O2 sat greater than 92%, O2 at 2 L nasal cannula Monitor ABG-7.1/14/107/9/-15.5 Cardiovascular: Cardiac vegetations Hypertension Scheduled AGUSTIN in a.m. Cardiology consulted- Dr. [id number] recommendations Elevated .80 follow-up trend, most likely secondary to renal failure and sepsis-patient denies chest pain Renal: Acute kidney injury secondary to sepsis Sodium bicarbonate 100 mEq IV push now Begin sodium bicarbonate infusion at 100 cc/hour Repeat ABG -- Strict I/Os FEN/GI: Dehydration The patient was bolused with 4 L of normal saline in ED currently normal saline at 100 cc/hour Maintain NPO status Follow-up BMP Heme/ID: Chronic anemia Leukocytosis Septic shock Monitor CBC WBC 18, lactate 4.5 Follow up lactate level Empiric antibiotics-Begin vancomycin, continue Zosyn 4.5 g every 6 hours Follow-up blood urine and sputum cultures Endocrine: Hyperglycemia critical illness Glucose monitoring per ICU protocol-low dose regimen Msk: Probable neoplastic lesion left lower extremity Patient complaining of lower back pain spinous processes consider MRI/PET -Dependent on results consider hematology oncology consult, as well as surgical oncology consult -- SSI Prophylaxis: GI Prophylaxis Pepcid twice a day DVT Prophylaxis -- SCDs Heparin SQ Lines: Peripheral IVs 2 Dispo: my billing statement This patient remains critically ill with one or more organ systems which are or may become a threat to life. I have spent in excess of 55 minutes discontinuously in the care and management of this patient. This time is exclusive of procedures, and includes, but is not limited to, evaluation of the patient, review of the medical record, discussions with family, consultants, nursing staff, or respiratory therapy, and documentation in the medical record. Code Status Full Discussed Condition With Dr. Brian Guadalupe, Dr. Garica and family at bedside. Mary Lou Lloyd MD Sep 19, 2016 18:04
[2016-09-19] MEDS ORDERED: SODIUM BICARBONATE 8.4% INJ 150 MEQ in SODIUM CHLOR 0.45% 1000 ML INJ 850 ML IV SCH (19:00)
--- NOTE | 2016-09-19 19:31 | MB ---
cc: MARQUES VENTURA MD DATE OF CONSULTATION: 09/19/2016. REASON FOR CONSULTATION: 1. Phimosis. 2. Difficult David catheter placement. HISTORY OF PRESENT ILLNESS: The patient is a 56-year-old -[place] male who presented to the [place] emergency room earlier this morning with altered mental status and a left lower extremity wound. He is accompanied by his sister, Ms. Bernard , who is the primary historian. The patient's sister states that over the past 24 hours, he was not acting like his normal self lying around on the couch and did not get up. While undergoing evaluation, he did have a septic like picture with a white count of 18,000 and with an elevated creatinine up to 3.27 as well as EKG changes, possibly consistent with myocardial infarction. A David catheter was attempted to be inserted in the emergency room by several different nurses but was unsuccessful due to inability to find his urethral meatus. Urology was consulted for catheter placement. The patient is alert and awake and able to participate in the taking of his own history and physical. He denies any problems urinating other than some mild hesitancy but he states he has a good stream when he gets up several times a night and feels like he empties his bladder. He denies dysuria, hematuria or urinary incontinence. He denies any history of kidney stones or urinary tract infections in the past. He currently denies any pain including abdominal pain or flank pain. He also denies any fever or chills at this time. REVIEW OF SYSTEMS: See the history of present illness, otherwise all systems reviewed are otherwise negative. PAST MEDICAL HISTORY: 1. Hypertension. 2. Questionable schizophrenia. PAST SURGICAL HISTORY: None. ALLERGIES: NO KNOWN DRUG ALLERGIES. FAMILY HISTORY: Negative for urolithiasis. Negative for genitourinary disease. SOCIAL HISTORY: History of tobacco use. Denies alcohol or illicit drugs. He lives with his sister in [place]. 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 PHYSICAL EXAMINATION: VITAL SIGNS: Temperature 98, pulse 92, respiratory rate 36, blood pressure 117/43, satting 100% on room air. GENERAL: He is awake and alert and in no acute distress. He does mumble his words with a slight stutter. SKIN: No evidence any rashes or ulcers: HEAD, EYES, EARS, NOSE, THROAT: Head is normocephalic, atraumatic. Eyes - no scleral icterus. Extraocular muscles intact. NECK: Trachea is midline. No jugular venous distention or lymphadenopathy. The neck is supple. CARDIOVASCULAR: Regular rate and rhythm without murmurs, gallops or rubs. RESPIRATORY: Clear to auscultation bilaterally. No wheezes, rales or rhonchi. Slightly labored inspiration. ABDOMEN: The abdomen is soft, nontender and nondistended. Positive bowel sounds. GENITOURINARY: His penis is uncircumcised with a very tight phimosis, unable to visualize the urethral meatus but his glans is soft. Testes descended bilaterally and normal size and consistent without mass. RECTAL: Exam not indicated time. EXTREMITIES: Nontender. No clubbing, cyanosis, edema. NEUROLOGIC: Cranial nerves II through XII are grossly intact. Strength 05/05 in all four extremities. PSYCHIATRIC: Flat affect. LABORATORY DATA: White count 18.6, hemoglobin 17.7, hematocrit 23.0, platelet count 249,000. Chemistry: Sodium 135, potassium 3.6, chloride 102, bicarbonate 17.3, creatinine 3.27, BUN 58, glucose 155. Troponin 11.8. Lactic acid 4.5. IMAGING STUDIES: Renal ultrasound: Images were reviewed. Agree with the radiologist's report. No evidence of any hydronephrosis, mass or stones. The bladder is nondistended. PLAN: The patient is a 56-year-old -[place] male admitted with altered mental status, possible septic picture due to a lower extremity wound with acute renal failure and phimosis and difficulty with catheter placement. I was able to place a 16 [place] Coude catheter without difficulty. Dark concentrated urine did return. Recommend continuing the David catheter and a void trial just prior to discharge. His ultrasound was reviewed and it was negative for any obstructive uropathy. His acute renal currently likely resolved, possible acute tubular necrosis or intrinsic renal disease. We will send a urine for culture and sensitivity. Thank you for this consult. Will follow along with you. Marques Ventura MD EMEmma/HAYLEE /3:35 PM /7:17 PM
[2016-09-19 20:03] LABS: CKMB 94.5 NG/ML (0.5-3.6)
[2016-09-19 20:58] LABS: BLOOD GAS BASE EXCESS -13.6 mmol/L (-2-2); BLOOD GAS CARBOXYHEMOGLOBIN 1.9 % (0-4); BLOOD GAS HCO3 10 mmol/L (22-26); BLOOD GAS METHEMOGLOBIN 0.6 % (0-2); BLOOD GAS O2 HGB SATURATION 90 % (90-100); BLOOD GAS OXYGEN CONTENT 8.5 Vol % (12.0-20.0); BLOOD GAS PCO2 16 mmHg (38-42); BLOOD GAS PO2 66 mmHG (61-120); BLOOD GAS TOTAL HGB 6.7 G/DL (12.0-16.0); TEMP CORR TO 98.6
[2016-09-19 20:59] LABS: CRITICAL VALUE YES; DRAW SITE RT RADIAL; FIO2 21 %; NUMBER OF ARTERIAL PUNCTURES 1; OXYGEN DEVICE ROOM AIR; STAT YES; ULNAR PULSE PRESENT
[2016-09-19] MEDS ORDERED: SODIUM CHLORIDE 0.9% FLUSH 10 ML FLUSH SCH (21:00)
[2016-09-19] MEDS ORDERED: SODIUM CHLORIDE 0.9% FLUSH 10 ML FLUSH IV FLUSH SCH (21:00)
[2016-09-19] MEDS ORDERED: INSULIN NovoLIN REGULAR SUPPLEMENTAL SCALE SQ SCH (21:00)
[2016-09-19] MEDS ORDERED: FAMOTIDINE 20 MG/2 ML VIAL IV PUSH SCH (21:00)
[2016-09-19 21:06] LABS: LACTIC ACID GHOST NOT REPORTABLE
--- NOTE | 2016-09-19 21:42 | HHI.HP ---
HPI Service Family Medicine Primary Care Physician No Primary Care Physician Admission Diagnosis Septic Shock (Cellulitic LLE Mass); Anemia Diagnoses: (1) Septic shock (2) Acute renal failure (ARF) (3) ST segment depression (4) Skin ulcer of left lower leg, limited to breakdown of skin (5) Anemia International Travel<30 Days: No Contact w/Intl Traveler<30days: No Known Affected Area: No History of Present Illness 56 yo M presenting to the ED with progressive decline of health and altered mental status. He is accompanied by his sister who is the primary historian. She describes Mr. Burnham as a generally active and independent individual, however over the last 2-3 days he has been acting "off" - stating he has been somewhat lethargic, fatigued, and had decreased appetite. Over the last 24 hours he became confused and disoriented, he was unable to walk or care for himself, sleeping on a couch in the garage and unable to get up to walk or bathe. His sister then called for [facility] to bring him to the hospital. He has had a "nodule" on the back of his left knee that has been growing over the last several months. He was supposed to follow with a surgeon to have this removed, however he has been noncompliant in getting this evaluated. He has been able to walk on this leg prior to the last several days. They were told at another hospital that this was cancer and it needed to be removed, however it has never been biopsied or tested. He endorses recent chills associated with decreased appetite and approximately a 10 lb weight loss over the last several months. He denies pain in his legs but has been having some low back pain over the last month or so. His left leg has become swollen from the foot to the thigh. He denies any chest pain, denies nausea/vomiting, denies abdominal pain, denies constipation or diarrhea, denies neck pain. Review of Systems ROS Limitations: Clinical Condition, Altered Mental Status Constitutional: COMPLAINS OF: Fatigue, Weight loss, Chills, DENIES: Fever Eyes: DENIES: Blurred vision Respiratory: DENIES: Cough, Wheezing, Shortness of breath Cardiovascular: COMPLAINS OF: Lower Extremity Edema, DENIES: Chest pain, Palpitations, Dyspnea on Exertion Gastrointestinal: DENIES: Abdominal pain, Bloody stools, Constipation, Diarrhea , Nausea, Vomiting, Difficulty Swallowing Musculoskeletal: COMPLAINS OF: Joint pain, Back pain, DENIES: Muscle aches, Joint Swelling Neurologic: DENIES: Abnormal gait Past Family Social History Past Medical History Denies PMHx Per chart review from prior visit with Dr. Daniels, possible schizophrenia with depressive features. HTN - on Lisinopril Past Surgical History Denies PSHx Allergies: Uncoded Allergies: NKDA (Allergy, Severe, 11/03/11) Family History Father - HTN, DM, Mother - Colon cancer at 69, Social History Tobacco - Prior history Alcohol - Denies Illicit - Denies Lives with his Sister in [facility]. 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 Full Code Physical Exam Vital Signs Vital Signs Date Time Temp Pulse Resp B/P Pulse Ox O2 Delivery O2 Flow Rate FiO2 09/19/16 21:09 90 50 111/52 99 Nasal Cannula 2 09/19/16 19:00 89 36 99 Room Air 09/19/16 18:59 90 36 123/53 99 Nasal Cannula 2 09/19/16 18:00 86 38 110/51 99 Nasal Cannula 2 09/19/16 17:30 87 34 111/53 100 Nasal Cannula 2 09/19/16 16:28 89 36 124/54 97 Nasal Cannula 2 09/19/16 16:00 84 125/56 97 09/19/16 14:00 90 126/58 98 Room Air 09/19/16 12:25 98.0 92 36 117/43 100 Room Air 09/19/16 08:49 90 20 113/55 99 Room Air 09/19/16 08:34 91 20 100/51 Room Air 09/19/16 08:19 93 20 102/52 98 Room Air 09/19/16 07:38 99 Room Air 09/19/16 07:38 99 Room Air 09/19/16 07:16 100 20 96/49 100 Room Air 09/19/16 07:10 98.3 100 20 105/47 Physical Exam GENERAL: 56 y/o AAM lying in bed diaphoretic and mildly tachypneic. SKIN: Warm and moist. HEENT: Atraumatic, normocephalic with EOMI. Oropharynx clear without exudate. Mucus membranes dry with midline. No LAD. CARDIOVASCULAR: Regular rate and rhythm with 2/6 diastolic murmur more pronounced at the right sternal border. RESPIRATORY: CTAB with very shallow breathing BL. Mildly tachypneic with increased work of breathing. GASTROINTESTINAL: Abdomen soft, non-tender, nondistended with +BS. No masses appreciated. MUSCULOSKELETAL: Extremities without cyanosis or edema. No calf tenderness BL. 2 + DP BL, 2+ PT on RLE, no palpable pulse on LLE likely due to epidermis changes. LLE: 8.5 X 10.5CM circular, fungating, ulcerative lesion on the posterior aspect of the L knee. No hemorrhage or necrosis appreciated. Lesion is foul smelling and appears to involve skin and subcutaneous tissue; does not appear to involve the muscle or bone. NEUROLOGICAL: AAOx3, however not at baseline per his Sister. Slowed speech with very short sentences. Laboratory Laboratory Tests Test 09/19/16 09/19/16 09/19/16 09/19/16 07:25 09:15 11:55 12:28 White Blood Count 18.6 Red Blood Count 2.50 Hemoglobin 7.7 Hematocrit 23.0 Mean Corpuscular Volume 91.9 Mean Corpuscular Hemoglobin 30.7 Mean Corpuscular Hemoglobin 33.4 Concent Red Cell Distribution Width 16.2 Platelet Count 249 Mean Platelet Volume 8.0 Neutrophils (%) (Auto) 88.9 Lymphocytes (%) (Auto) 4.4 Monocytes (%) (Auto) 6.6 Eosinophils (%) (Auto) 0.0 Basophils (%) (Auto) 0.1 Neutrophils # (Auto) 16.5 Lymphocytes # (Auto) 0.8 Monocytes # (Auto) 1.2 Eosinophils # (Auto) 0.0 Basophils # (Auto) 0.0 CBC Comment DIFF FINAL Differential Comment Prothrombin Time 13.5 Prothromb Time International 1.2 Ratio Activated Partial 27.5 Thromboplast Time Sodium Level 135 Potassium Level 3.6 Chloride Level 102 Carbon Dioxide Level 17.3 Anion Gap 16 Blood Urea Nitrogen 58 Creatinine 3.27 Estimat Glomerular Filtration 24 Rate Random Glucose 155 Lactic Acid Level 4.5 4.3 Calcium Level 8.5 Total Bilirubin 1.3 Aspartate Amino Transf 208 (AST/SGOT) Alanine Aminotransferase 60 (ALT/SGPT) Alkaline Phosphatase 83 Total Protein 7.1 Albumin 2.1 Total Creatine Kinase 6698 Creatine Kinase MB 73.0 Creatine Kinase MB % 1.1 Troponin I 11.80 Ethyl Alcohol Level LESS THAN 3 Blood Gas Puncture Site RT RADIAL Blood Gas Patient Temperature 98.6 Blood Gas HCO3 9 Blood Gas Base Excess -15.5 Blood Gas Oxygen Saturation 96 Arterial Blood pH 7.41 Arterial Blood Partial 14 Pressure CO2 Arterial Blood Partial 107 Pressure O2 Arterial Blood Oxygen Content 9.2 Arterial Blood 1.9 Carboxyhemoglobin Arterial Blood Methemoglobin 0.5 Blood Gas Hemoglobin 6.7 Oxygen Delivery Device NASAL CANNULA Blood Gas Liter Flow 2 Test 09/19/16 09/19/16 09/19/16 09/19/16 12:35 15:50 19:00 20:42 Lactic Acid Level 4.2 8.7 Urine Color ORANGE Urine Turbidity HAZY Urine pH 5.0 Urine Specific [place] 1.021 Urine Protein 30 Urine Glucose (UA) NEG Urine Ketones NEG Urine Occult Blood TRACE Urine Nitrite NEG Urine Bilirubin NEG Urine Urobilinogen 2.0 Urine Leukocyte Esterase NEG Urine RBC 7 Urine WBC 14 Urine WBC Clumps MANY Urine Squamous Epithelial 1 Cells Urine Bacteria RARE Urine Hyaline Casts 4 Urine Mucus FEW Microscopic Urinalysis Comment CULTURE INDICATED Urine Opiates Screen NEG Urine Barbiturates Screen NEG Urine Amphetamines Screen NEG Urine Benzodiazepines Screen NEG Urine Cocaine Screen NEG Urine Cannabinoids Screen NEG Total Creatine Kinase 7480 Creatine Kinase MB 94.5 Creatine Kinase MB % 1.3 Troponin I 12.40 Blood Gas Puncture Site RT RADIAL Blood Gas Patient Temperature 98.6 Blood Gas HCO3 10 Blood Gas Base Excess -13.6 Blood Gas Oxygen Saturation 90 Arterial Blood pH 7.43 Arterial Blood Partial 16 Pressure CO2 Arterial Blood Partial 66 Pressure O2 Arterial Blood Oxygen Content 8.5 Arterial Blood 1.9 Carboxyhemoglobin Arterial Blood Methemoglobin 0.6 Blood Gas Hemoglobin 6.7 Oxygen Delivery Device ROOM AIR Blood Gas Inspired Oxygen 21 Date/Time Procedure Status Source Growth 09/19/16 15:50 Urine Culture Received Urine Clean Catch Pending 09/19/16 07:30 Gram Stain - Final Resulted Wound Leg 09/19/16 07:30 Wound Culture Resulted Wound Leg Pending 09/19/16 07:25 Aerobic Blood Culture Received Blood Peripheral Pending 09/19/16 07:25 Anaerobic Blood Culture Received Blood Peripheral Pending Result Diagram: 09/19/16 0725 09/19/16 0725 Imaging Last 72 hours Impressions Tibia/Fibula X-Ray 09/19/16 0000 Signed Impressions: Service Date/Time: Monday, September 19, 2016 07:43 - CONCLUSION: Chronic changes and no evidence for acute fracture. Claudio Barroso MD Renal Ultrasound 09/19/16 0000 Signed Impressions: Service Date/Time: Monday, September 19, 2016 10:40 - CONCLUSION: Unremarkable renal ultrasound. Claudio Barroso MD Lower Extremity MRI 09/19/16 0000 Signed Impressions: Service Date/Time: Monday, September 19, 2016 10:15 - CONCLUSION: Large mass most likely originating from the patient's skin with infiltration of subcutaneous fat and no definite involvement of the muscular structures or marrow. A malignant mass should be entertained and clinical correlation is needed. Claudio Barroso MD Knee X-Ray 09/19/16 0000 Signed Impressions: Service Date/Time: Monday, September 19, 2016 07:43 - CONCLUSION: Osteoarthritis. Claudio Barroso MD Knee X-Ray 09/19/16 0000 Signed Impressions: Service Date/Time: Monday, September 19, 2016 07:43 - CONCLUSION: Chronic changes and no evidence for acute fracture. 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 Claudio Barroso MD Septic Shock Reassessment Heart: Regular rate and rhythm, Murmur Lungs: Diminished Skin: Cold, [place] Peripheral Pulses: Bounding Right Radial Bounding Left Radial Capillary Refill: Brisk Assessment and Plan Assessment and Plan 56 yo M presenting with septic shock and likely endocarditis - source may be from an ulcerated lesion on the left lower leg Problem List: (1) Septic shock Status: Acute Plan: Pt. presented to the hospital hypotensive with tachycardia and WBC of 18.6 - Lactic acid 4.5 on arrival Likely source of infection is from the ulcerated lesion on the post. left lower leg Sepsis protocol initiated: - received 4L NS bolus - continue IV fluids of NS at 100ml/hr with sodium bicarb - Broad spectrum ABX with Vancomycin / Zosyn - ID consult placed - Blood cultures - Urine Culture - Wound culture Patient will be placed in the [facility] and critical care consult placed Continue to monitor closely and repeat lactic acid per protocol (2) Endocarditis of aortic valve Status: Acute Plan: Echocardiogram shows mobile vegetation of aortic valve - scheduled for AGUSTIN tomorrow (09/20) with cardiology - CT surgery consult placed - ID consult placed Continue broad spectrum abx with Vancomycin / Zosyn - follow blood cultures (3) Acute renal failure (ARF) Status: Acute Plan: Likely due to severe septic shock and hypoperfusion Renal ultrasound performed showing no hydronephrosis or structural abnormality - Urology was consulted as salmeron catheter could not be placed Monitor strict I's/O's Fluid resuscitation as above with septic shock Follow daily labs Avoid nephrotoxic agents (4) ST segment depression Status: Acute Plan: Diffuse ST depression with initial troponin of 11.8 - No complaints of chest pain Could be due to severe sepsis/shock with acute renal failure - Cardiology has evaluated patient - medical management of sepsis to stabilize patient Monitor on telemetry Cycle cardiac enzymes Resuscitation as above for septic shock Possible catheterization when more stable (5) Skin ulcer of left lower leg, limited to breakdown of skin Status: Acute Plan: MRI of left lower leg shows likely malignant lesion originating from the skin and involving the subcutaneous fat - No involvement of muscle or other tissue Consider general surgery evaluation when patient is more stable (6) Anemia Status: Acute Plan: Multifactorial with septic shock and progressive illness - Monitor H/H and transfuse as needed Physician Certification 2 Midnight Certification Type: Admission for Inpatient Services Order for Inpatient Services The services are ordered in accordance with Medicare regulations or non- Medicare payer requirements, as applicable. In the case of services not specified as inpatient-only, they are appropriately provided as inpatient services in accordance with the 2-midnight benchmark. Estimated LOS (days): 2 2 days is the estimated time the patient will need to remain in the hospital, assuming treatment plan goals are met and no additional complications. Post-Hospital Plan: Not yet determined Problem Qualifiers (1) Acute renal failure (ARF): Qualified Code: N17.9 - Acute renal failure, unspecified acute renal failure type Jason Helm MD Sep 19, 2016 21:42
[2016-09-19] MEDS ORDERED: ETOMIDATE 20 MG/10 ML VIAL IV PUSH ONE (21:45)
[2016-09-19] MEDS ORDERED: ROCURONIUM INJ 50 MG/5 ML VIAL IV ONE (21:45)
--- NOTE | 2016-09-19 22:49 | PD.PROCEDR ---
Procedure Note Procedure PROCEDURE NOTE PROCEDURE: Endotracheal intubation INDICATION: Acute respiratory failure DETAILS OF PROCEDURE: The patient was placed in optimal position and preoxygenated with 100% FiO2 via [id number]. Oximeter oxygen saturation of 100% was obtained prior to direct laryngoscopy. The patient was administered Etomidate 20 mg IV for sedation and rocuronium 50 mg IV. Laryngoscopy was performed with a 4 Glidescope blade and a grade I Cormack-Lehane view was obtained. On single attempt a size 8.0 endotracheal tube was visualized passing through the cords. Correct placement was confirmed with colorimetric CO2 detector. Breath sounds were equal bilaterally. No sounds auscultated over the stomach. The endotracheal tube was secured with a commercial tube sanchez at a depth of 24 cm at the lips. The patient was connected to the ventilator. The patient tolerated the procedure well without any apparent complication. Oxygen saturations were maintained greater than 99% at all times. Stat chest x-ray was ordered. Harleen Rodriguez MD Sep 19, 2016 22:48
[2016-09-19] MEDS: PROPOFOL 1000 MG/100 ML INJ 100 ML IV SCH (22:57)
[2016-09-19] MEDS: SODIUM BICARBONATE 8.4% INJ 150 MEQ in WATER STERILE FOR INJ 850 ML IV SCH (22:58)
[2016-09-19 23:05] LABS: REVIEW FLAG FINAL
--- NOTE | 2016-09-19 23:07 | RADRPT ---
EXAM DATE/TIME: 09/19/2016 22:57 [facility] COMPARISON: No previous studies available for comparison. INDICATIONS : Post reduction. MEDICAL HISTORY : None. SURGICAL HISTORY : None. ENCOUNTER: Initial ACUITY: 1 day PAIN SCORE: 0/10 LOCATION: Bilateral chest FINDINGS: A single view of the chest demonstrates interval placement of the endotracheal tube. Catheter overlie s the left internal jugular region but extends across midline with its tip overlying the right lung a pex. The cardiomediastinal contours are unremarkable. Osseous structures are intact. CONCLUSION: Endotracheal tube is in good position. Central line as described above Sidney Holland MD on September 19, 2016 at 23:04 Board Certified Radiologist. This report was verified electronically.
--- NOTE | 2016-09-19 23:12 | PD.PROCEDR ---
Procedure Note Procedure DATE: 09/19/16 CENTRAL LINE PLACEMENT: Left internal jugular vein. Ultrasound-guided INDICATION: Central venous access CONSENT Patient is not capacitated for medical decision-making. Procedure was performed emergently as patient is in septic shock and in need of central venous access. DESCRIPTION OF THE PROCEDURE The patient was placed in supine position, mild Trendelenburg. The skin was cleansed with Chloraprep x4. Additional barrier precautions included large sterile drape, sterile gloves, sterile gown, face mask, and hat. 1 % lidocaine was used for local anesthesia. Initial attemp x3 at L subclavian site unsucessful. Under direct ultrasound guidance and on single attempt, the left IJ vein was accessed with an introducer needle. The guide wire was advanced and the tract was dilated. Using Seldinger technique a 7 Maori 20 cm antimicrobial coated triple-lumen catheter was advanced to a depth of 20 centimeters. The guide wire was removed. All ports had good return of dark venous blood and flushed easily with saline. The central line was secured with 2.0 silk. A sterile dressing with antibiotic disc was applied. ESTIMATED BLOOD LOSS: Minimal COMPLICATIONS: STAT chest x-ray demonstrates left IJ line with line crossing midline and tip going into distal right IJ region Harleen Rodriguez MD Sep 19, 2016 23:12
[2016-09-19] MEDS: SODIUM CHLORIDE 0.9% FLUSH 10 ML FLUSH IV FLUSH SCH (23:34)
[2016-09-19 23:43] LABS: BLOOD GAS BASE EXCESS -14.4 mmol/L (-2-2); BLOOD GAS CARBOXYHEMOGLOBIN 1.5 % (0-4); BLOOD GAS HCO3 11 mmol/L (22-26); BLOOD GAS METHEMOGLOBIN 0.8 % (0-2); BLOOD GAS O2 HGB SATURATION 97 % (90-100); BLOOD GAS PCO2 22 mmHg (38-42); BLOOD GAS PO2 261 mmHg (61-120); BLOOD GAS TOTAL HGB 6.1 G/DL (12.0-16.0); CRITICAL VALUE YES; OXYGEN DEVICE VENTILATOR; TEMP CORR TO 98.6
[2016-09-19 23:44] LABS: DRAW SITE ART LINE; FIO2 50 %; STAT NO; ULNAR PULSE PRESENT; VENT SETTINGS PRVC/AC
[2016-09-19 23:48] LABS: BLOOD GAS VENOUS BASE EXCESS -12.8 mmol/L (-2-2); BLOOD GAS VENOUS HCO3 13 mmol/L (22-26); BLOOD GAS VENOUS O2 CONTENT 3.8 Vol % (9.0-17.0); BLOOD GAS VENOUS O2 HGB SAT 42 % (70-76); BLOOD GAS VENOUS PCO2 32 mmHg (44-48); BLOOD GAS VENOUS PO2 35 mmHg (35-40); BLOOD GAS VENOUS pH 7.24 (7.360-7.400); TEMP CORR TO 98.6
[2016-09-19 23:49] LABS: CRITICAL VALUE YES; OXYGEN DEVICE VENTILATOR
[2016-09-19 23:50] LABS: DRAW SITE ART LINE; FIO2 50 %; STAT YES; VENT SETTINGS PRVC/AC
[2016-09-20] VITALS (21 sets, daily range): BP systolic 88–135; BP diastolic 28–44; PULSE 70–84; RESP 24–33; TEMP 96.3–98.8; O2SAT 100
[2016-09-20 00:10] LABS: ANION GAP 20 MEQ/L (5-15); BICARBONATE 14.1 MEQ/L (21.0-32.0); BLOOD UREA NITROGEN 73 MG/DL (7-18); CHLORIDE 107 MEQ/L (98-107); CREATINE KINASE 6715 U/L (39-308); GLOMERULAR FILTRATION RATE 25 ML/MIN (>89); HDL CHOLESTEROL 12.1 MG/DL (40.0-60.0); LDH SERUM 609 U/L (87-241); LDL CHOLESTEROL 55 MG/DL (0-99); POTASSIUM 4.4 MEQ/L (3.5-5.1); SODIUM (NA) 141 MEQ/L (136-145); TRANSFERRIN IRON PROFILE 109 MG/DL (200-360)
[2016-09-20] MEDS ORDERED: LACTATED RINGER'S 1000 ML INJ 1,000 ML IV ONE (00:30)
[2016-09-20 00:38] LABS: CKMB 86.5 NG/ML (0.5-3.6)
[2016-09-20] MEDS: PROPOFOL 1000 MG/100 ML INJ 100 ML IV SCH ×5 (00:45→13:39)
[2016-09-20] MEDS: fentaNYL DRIP 250 ML IV SCH (00:56)
[2016-09-20] MEDS ORDERED: TERBUTALINE INJ 1 MG/ML AMP SQ PRN (01:00)
[2016-09-20] MEDS ORDERED: VASOPRESSIN INJ 20 UNITS/ML VIAL ONE (01:13)
[2016-09-20] MEDS: VASOPRESSIN INJ 40 UNITS in DEXTROSE 5% IN WATER 100ML INJ 98 ML IV SCH ×4 (01:34→23:09)
[2016-09-20] MEDS: HYDROCORTISONE SOD SUCCINATE 100 MG VIAL IV PUSH SCH ×4 (02:00→22:12)
[2016-09-20] MEDS: PIPERACIL-TAZO 2.25 GM PREMIX 50 ML IV SCH ×4 (02:00→19:56)
[2016-09-20] MEDS: NOREPINEPHRINE-DEXTROSE DRIP 250 ML IV SCH ×4 (02:00→18:41)
[2016-09-20 03:50] LABS: AUTOMATED NEUTROPHIL # 13.5 TH/MM3 (1.8-7.7); BASOPHIL % 0.2 % (0.0-2.0); HEMO FLAGS DIFF FINAL; LYMPH % 9.8 % (9.0-44.0); LYMPHOCYTE # 1.6 TH/MM3 (1.0-4.8); MEAN CELL VOLUME 92.2 FL (80.0-100.0); MEAN CORPUSCULAR HEMOGLOBIN 29.8 PG (27.0-34.0); MEAN CORPUSCULAR HGB CONC 32.3 % (32.0-36.0); MONO % 7.6 % (0.0-8.0); NEUT % 82.4 % (16.0-70.0); PLATELET COUNT 127 TH/MM3 (150-450); RED BLOOD COUNT 2.61 MIL/MM3 (4.50-5.90); RED CELL DISTRIBUTION WIDTH 18.1 % (11.6-17.2); WHITE BLOOD COUNT 16.4 TH/MM3 (4.0-11.0)
[2016-09-20] MEDS: RESP: ALBUTEROL 2.5 MG/IPRATROPIUM 0.5 MG NEB (SCH) INH ×4 (04:11→20:57)
[2016-09-20] MEDS: CHLORHEXIDINE GLUCONATE 2 % 1 PACK (2 CLOTHS) TOP SCH (04:42)
[2016-09-20] MEDS ORDERED: SODIUM CHLOR 0.9% 250 ML INJ 250 ML IV ONE (04:45)
[2016-09-20] MEDS: INSULIN ASPART SUPPLEMENTAL SCALE SQ SCH ×5 (05:00→21:00)
[2016-09-20] MEDS ORDERED: DEXTROSE 50% IN WATER 50 ML VIAL(D50) IV PUSH PRN (05:00)
[2016-09-20] MEDS ORDERED: SODIUM BICARBONATE 8.4% INJ 150 MEQ in SODIUM CHLOR 0.45% 1000 ML INJ 850 ML IV SCH ×2 (05:00→23:00)
[2016-09-20] MEDS ORDERED: GLUCAGON 1 MG/ML VIAL OTHER PRN (05:00)
[2016-09-20] MEDS ORDERED: DEXMEDETOMIDINE INJ 200 MCG in SODIUM CHLORIDE 0.9% INJ 50 ML IV SCH (05:15)
[2016-09-20] MEDS: SODIUM BICARBONATE 8.4% INJ 150 MEQ in WATER STERILE FOR INJ 850 ML IV SCH ×2 (05:26→12:05)
[2016-09-20 05:38] LABS: BLOOD GAS BASE EXCESS -16.2 mmol/L (-2-2); BLOOD GAS CARBOXYHEMOGLOBIN 1.1 % (0-4); BLOOD GAS HCO3 10 mmol/L (22-26); BLOOD GAS METHEMOGLOBIN 0.9 % (0-2); BLOOD GAS O2 HGB SATURATION 97 % (90-100); BLOOD GAS OXYGEN CONTENT 11.3 Vol % (12.0-20.0); BLOOD GAS PCO2 23 mmHg (38-42); BLOOD GAS PO2 207 mmHg (61-120); BLOOD GAS TOTAL HGB 7.9 G/DL (12.0-16.0); CRITICAL VALUE YES; TEMP CORR TO 98.6
[2016-09-20 05:39] LABS: DRAW SITE ART LINE; FIO2 40 %; OXYGEN DEVICE VENTILATOR; STAT NO; VENT SETTINGS PRVC/AC
[2016-09-20 05:48] LABS: AUTOMATED NEUTROPHIL # 15.1 TH/MM3 (1.8-7.7); BASOPHIL % 0.2 % (0.0-2.0); HEMATOCRIT 23.4 % (39.0-51.0); HEMO FLAGS DIFF FINAL; LYMPH % 5.6 % (9.0-44.0); MEAN CELL VOLUME 90.7 FL (80.0-100.0); MEAN CORPUSCULAR HEMOGLOBIN 30.6 PG (27.0-34.0); MEAN CORPUSCULAR HGB CONC 33.8 % (32.0-36.0); MONO % 6.2 % (0.0-8.0); PLATELET COUNT 129 TH/MM3 (150-450); RED BLOOD COUNT 2.58 MIL/MM3 (4.50-5.90); RED CELL DISTRIBUTION WIDTH 18.8 % (11.6-17.2); WHITE BLOOD COUNT 17.2 TH/MM3 (4.0-11.0)
[2016-09-20 05:55] LABS: APTT (PATIENT) 27.2 SEC (24.3-30.1); INTERNATIONAL NORMALIZED RATIO 1.4 RATIO; PROTHROMBIN TIME - PATIENT 16.1 SEC (9.8-11.6)
[2016-09-20] MEDS: HEPARIN SODIUM - SQ 10,000 UNITS/ML VIAL SQ SCH ×2 (06:00→17:20)
[2016-09-20 06:01] LABS: BICARBONATE 11.2 MEQ/L (21.0-32.0); POTASSIUM 4.9 MEQ/L (3.5-5.1)
[2016-09-20 06:10] LABS: FREE T3 1.1 PG/ML (2.18-3.98)
--- NOTE | 2016-09-20 07:06 | RADRPT ---
EXAM DATE/TIME: 09/20/2016 05:22 [facility] COMPARISON: CHEST SINGLE AP, September 19, 2016, 22:57. INDICATIONS : Shortness of breath. possible pulmonary disease. MEDICAL HISTORY : None. SURGICAL HISTORY : None. ENCOUNTER: Subsequent ACUITY: 2 days PAIN SCORE: Non-responsive. LOCATION: Bilateral chest FINDINGS: The endotracheal tube is in good position. The left-sided central line is unchanged in position. Ther e is an NG tube in place. However, the tip appears to be in the distal esophagus. The right lung is c lear. There is some mild atelectasis in the left lung base. No pleural effusions. No evidence of pneu mothorax. The bony structures are stable. CONCLUSION: 1. The NG tube tip is in the distal esophagus. Recommend advancing the NG tube 10 cm. 2. Mild left lower lung atelectasis. Jason Albert MD on September 20, 2016 at 7:03 Board Certified Radiologist. This report was verified electronically.
[2016-09-20] MEDS: CHLORHEXIDINE 0.12% (ORAL KIT) 15 ML CUP MT SCH ×2 (07:40→19:56)
[2016-09-20] MEDS: DOCUSATE SODIUM 100 MG CAP PO SCH ×2 (09:00→19:47)
--- NOTE | 2016-09-20 09:02 | PD.CARD.PN ---
Subjective Subjective Remarks Pt intubated on pressors Objective Medications Administered Medications Medications (Trade) Dose Ordered Sig/[place] Route PRN Reason Start Time Stop Time Status Last Admin Dose Admin Piperacillin Sod/ Tazobactam Sod (Zosyn 2.25 Gm Premix) 50 ml @ 100 mls/hr Q6H IV 09/19/16 14:00 09/20/16 07:40 Sodium Chloride (NS Flush) 2 ml BID IV FLUSH 09/19/16 21:00 09/19/16 23:34 Famotidine (Pepcid Inj) 20 mg Q12HR IV PUSH 09/19/16 21:00 09/20/16 08:50 Heparin Sodium (Porcine) (Heparin Inj) 5,000 units Q12H SQ 09/19/16 18:00 09/19/16 17:26 Chlorhexidine Gluconate 3 pack 3 pack Taper DAILY@04 TOP 09/20/16 04:00 09/16/17 03:59 09/20/16 04:42 Sodium Chloride 250 ml @ 15 mls/hr ONCE ONCE IV 09/19/16 21:45 09/20/16 14:24 09/19/16 22:51 Sodium Bicarbonate/ Sterile Water (Sodium Bicarbonate 8.4% Inj/Sterile Water For Inj) 1,000 ml @ 150 mls/hr Q6H40M IV 09/19/16 21:45 09/20/16 05:26 Chlorhexidine Gluconate 15 ml 15 ml BID@08,20 MT 09/20/16 08:00 09/20/16 07:40 Fentanyl Citrate 250 ml @ 0 mls/hr TITRATE IV 09/19/16 22:45 09/20/16 00:56 Propofol 100 ml @ 0 mls/hr TITRATE IV 09/19/16 22:45 09/20/16 07:41 Sodium Chloride (NS 250 ml Inj) 250 ml @ 15 mls/hr ONCE ONCE IV 09/19/16 23:15 09/20/16 15:54 09/20/16 01:34 Hydrocortisone Sodium Succinate 100 mg 100 mg Q8HR IV PUSH 09/20/16 01:00 09/20/16 05:33 Vasopressin 40 units/Dextrose 100 ml @ 4.5 mls/hr [id number] IV 09/20/16 00:55 09/20/16 01:34 Norepinephrine Bitartrate 250 ml @ 0 mls/hr TITRATE IV 09/20/16 01:00 09/20/16 07:40 Sodium Chloride (NS 250 ml Inj) 250 ml @ 15 mls/hr ONCE ONCE IV 09/20/16 04:45 09/20/16 21:24 09/20/16 07:21 Vital Signs / I&O Vital Signs Date Time Temp Pulse Resp B/P Pulse Ox O2 Delivery O2 Flow Rate FiO2 09/20/16 07:20 100 40 09/20/16 06:00 97.7 72 25 104/34 100 09/20/16 04:12 100 40 09/20/16 04:00 97.7 75 27 102/35 100 09/20/16 04:00 70 09/20/16 04:00 40 09/20/16 01:14 100 50 09/20/16 00:45 98.8 82 27 88/32 100 09/20/16 00:00 98.3 84 33 112/28 100 09/20/16 00:00 98.3 84 32 112/28 100 09/20/16 00:00 50 09/20/16 00:00 84 09/19/16 22:10 100 50 09/19/16 22:10 50 09/19/16 22:10 100 Mechanical Ventilator 50 09/19/16 22:00 88 09/19/16 22:00 97.7 88 40 110/53 100 09/19/16 22:00 100 Non-Rebreather 100 09/19/16 21:09 90 50 111/52 99 Nasal Cannula 2 09/19/16 19:00 89 36 99 Room Air 09/19/16 18:59 90 36 123/53 99 Nasal Cannula 2 09/19/16 18:00 86 38 110/51 99 Nasal Cannula 2 09/19/16 17:30 87 34 111/53 100 Nasal Cannula 2 09/19/16 16:28 89 36 124/54 97 Nasal Cannula 2 09/19/16 16:00 84 125/56 97 09/19/16 14:00 90 126/58 98 Room Air 09/19/16 12:25 98.0 92 36 117/43 100 Room Air I/O 09/19/16 09/19/16 09/19/16 09/20/16 09/20/16 09/20/16 07:00 15:00 23:00 07:00 15:00 23:00 Intake Total 2641 ml 3450 ml Output Total 350 ml 45 ml Balance 2291 ml 3405 ml Intake IV Total 2641 ml 2950 ml Packed Cells 500 ml Output Urine Total 350 ml 45 ml # Bowel Movements 1 0 Physical Exam GENERAL: Intubated CARDIOVASCULAR: Harsh diastolic murmur RESPIRATORY: vent sounds appreciated GASTROINTESTINAL: Abdomen soft, non-tender, nondistended. Normal active bowel sounds MUSCULOSKELETAL: trace edema (known mass present) NEURO: Intubated Laboratory Laboratory Tests Test 09/19/16 09/19/16 09/19/16 09/19/16 09:15 11:55 12:28 12:35 Lactic Acid Level 4.3 mmol/L 4.2 mmol/L Total Creatine Kinase 6698 U/L Creatine Kinase MB 73.0 NG/ML Creatine Kinase MB % 1.1 % Troponin I 11.80 NG/ML Ethyl Alcohol Level LESS THAN 3 MG/DL Blood Gas Puncture Site RT RADIAL Blood Gas Patient Temperature 98.6 Blood Gas HCO3 9 mmol/L Blood Gas Base Excess -15.5 mmol/L Blood Gas Oxygen Saturation 96 % Arterial Blood pH 7.41 Arterial Blood Partial 14 mmHg Pressure CO2 Arterial Blood Partial 107 mmHG Pressure O2 Arterial Blood Oxygen Content 9.2 Vol % Arterial Blood 1.9 % Carboxyhemoglobin Arterial Blood Methemoglobin 0.5 % Blood Gas Hemoglobin 6.7 G/DL Oxygen Delivery Device NASAL CANNULA Blood Gas Liter Flow 2 L/M Test 09/19/16 09/19/16 09/19/16 09/19/16 15:50 19:00 19:10 20:42 Urine Color ORANGE Urine Turbidity HAZY Urine pH 5.0 Urine Specific [place] 1.021 Urine Protein 30 mg/dL Urine Glucose (UA) NEG mg/dL Urine Ketones NEG mg/dL Urine Occult Blood TRACE Urine Nitrite NEG Urine Bilirubin NEG Urine Urobilinogen 2.0 MG/DL Urine Leukocyte Esterase NEG Urine RBC 7 /hpf Urine WBC 14 /hpf Urine WBC Clumps MANY Urine Squamous Epithelial 1 /hpf Cells Urine Bacteria RARE /hpf Urine Hyaline Casts 4 /lpf Urine Mucus FEW /lpf Microscopic Urinalysis Comment CULTURE INDICATED Urine Opiates Screen NEG Urine Barbiturates Screen NEG Urine Amphetamines Screen NEG Urine Benzodiazepines Screen NEG Urine Cocaine Screen NEG Urine Cannabinoids Screen NEG Lactic Acid Level 8.7 mmol/L Total Creatine Kinase 7480 U/L Creatine Kinase MB 94.5 NG/ML Creatine Kinase MB % 1.3 % Troponin I 12.40 NG/ML Hemoglobin 6.5 GM/DL Hematocrit 20.0 % Blood Gas Puncture Site RT RADIAL Blood Gas Patient Temperature 98.6 Blood Gas HCO3 10 mmol/L Blood Gas Base Excess -13.6 mmol/L Blood Gas Oxygen Saturation 90 % Arterial Blood pH 7.43 Arterial Blood Partial 16 mmHg Pressure CO2 Arterial Blood Partial 66 mmHG Pressure O2 Arterial Blood Oxygen Content 8.5 Vol % Arterial Blood 1.9 % Carboxyhemoglobin Arterial Blood Methemoglobin 0.6 % Blood Gas Hemoglobin 6.7 G/DL Oxygen Delivery Device ROOM AIR Blood Gas Inspired Oxygen 21 % Test 09/19/16 09/19/16 09/19/16 09/19/16 22:45 22:47 23:32 23:36 Lactic Acid Level 9.0 mmol/L Haptoglobin 428 MG/DL Sodium Level 141 MEQ/L Potassium Level 4.4 MEQ/L Chloride Level 107 MEQ/L Carbon Dioxide Level 14.1 MEQ/L Anion Gap 20 MEQ/L Blood Urea Nitrogen 73 MG/DL Creatinine 3.10 MG/DL Estimat Glomerular Filtration 25 ML/MIN Rate Random Glucose 132 MG/DL Calcium Level 7.5 MG/DL Iron Level 102 MCG/DL Total Iron Binding Capacity 153 MCG/DL Percent Iron Saturation 66.8 % Lactate Dehydrogenase 609 U/L Total Creatine Kinase 6715 U/L Creatine Kinase MB 86.5 NG/ML Creatine Kinase MB % 1.3 % Troponin I 11.80 NG/ML Triglycerides Level 216 MG/DL Cholesterol Level 110 MG/DL LDL Cholesterol 55 MG/DL HDL Cholesterol 12.1 MG/DL Cholesterol/HDL Ratio 9.09 RATIO Free Thyroxine 1.50 NG/DL Thyroid Stimulating Hormone 0.316 uIU/ML 3rd Gen Blood Type O POSITIVE O POSITIVE Antibody Screen NEGATIVE Crossmatch Leukocyte-Reduced Red Blood Cells Blood Bank Comment Blood Gas Puncture Site ART LINE ART LINE Blood Gas Patient Temperature 98.6 98.6 Blood Gas HCO3 11 mmol/L Blood Gas Base Excess -14.4 mmol/L Blood Gas Oxygen Saturation 97 % Arterial Blood pH 7.31 Arterial Blood Partial 22 mmHg Pressure CO2 Arterial Blood Partial 261 mmHg Pressure O2 Arterial Blood Oxygen Content 9.0 Vol % Arterial Blood 1.5 % Carboxyhemoglobin Arterial Blood Methemoglobin 0.8 % Blood Gas Hemoglobin 6.1 G/DL Oxygen Delivery Device VENTILATOR VENTILATOR Blood Gas Ventilator Setting PRVC/AC PRVC/AC Blood Gas Inspired Oxygen 50 % 50 % Venous Blood pH 7.24 Venous Blood Partial Pressure 32 mmHg CO2 Venous Blood Partial Pressure 35 mmHg O2 Venous Blood HCO3 13 mmol/L Venous Blood Oxygen Saturation 42 % Venous Blood Oxygen Content 3.8 Vol % Venous Blood Base Excess -12.8 mmol/L Test 09/20/16 09/20/16 09/20/16 09/20/16 03:26 04:55 05:23 05:30 White Blood Count 16.4 TH/MM3 17.2 TH/MM3 Red Blood Count 2.61 MIL/MM3 2.58 MIL/MM3 Hemoglobin 7.8 GM/DL 7.9 GM/DL Hematocrit 24.0 % 23.4 % Mean Corpuscular Volume 92.2 FL 90.7 FL Mean Corpuscular Hemoglobin 29.8 PG 30.6 PG Mean Corpuscular Hemoglobin 32.3 % 33.8 % Concent Red Cell Distribution Width 18.1 % 18.8 % Platelet Count 127 TH/MM3 129 TH/MM3 Mean Platelet Volume 8.3 FL 8.1 FL Neutrophils (%) (Auto) 82.4 % 88.0 % Lymphocytes (%) (Auto) 9.8 % 5.6 % Monocytes (%) (Auto) 7.6 % 6.2 % Eosinophils (%) (Auto) 0.0 % 0.0 % Basophils (%) (Auto) 0.2 % 0.2 % Neutrophils # (Auto) 13.5 TH/MM3 15.1 TH/MM3 Lymphocytes # (Auto) 1.6 TH/MM3 1.0 TH/MM3 Monocytes # (Auto) 1.2 TH/MM3 1.1 TH/MM3 Eosinophils # (Auto) 0.0 TH/MM3 0.0 TH/MM3 Basophils # (Auto) 0.0 TH/MM3 0.0 TH/MM3 CBC Comment DIFF FINAL DIFF FINAL Differential Comment Crossmatch Leukocyte-Reduced Red Blood Cells Blood Bank Comment Prothrombin Time 16.1 SEC Prothromb Time International 1.4 RATIO Ratio Activated Partial 27.2 SEC Thromboplast Time Fibrinogen 226 mg/dL Sodium Level 139 MEQ/L Potassium Level 4.9 MEQ/L Chloride Level 104 MEQ/L Carbon Dioxide Level 11.2 MEQ/L Anion Gap 24 MEQ/L Blood Urea Nitrogen 76 MG/DL Creatinine 3.25 MG/DL Estimat Glomerular Filtration 24 ML/MIN Rate Random Glucose 135 MG/DL Calcium Level 7.6 MG/DL Free Triiodothyronine (T3) 1.10 PG/ML pg/dL Random Vancomycin Level 11.1 COMMENT Blood Gas Puncture Site ART LINE Blood Gas Patient Temperature 98.6 Blood Gas HCO3 10 mmol/L Blood Gas Base Excess -16.2 mmol/L Blood Gas Oxygen Saturation 97 % Arterial Blood pH 7.25 Arterial Blood Partial 23 mmHg Pressure CO2 Arterial Blood Partial 207 mmHg Pressure O2 Arterial Blood Oxygen Content 11.3 Vol % Arterial Blood 1.1 % Carboxyhemoglobin Arterial Blood Methemoglobin 0.9 % Blood Gas Hemoglobin 7.9 G/DL Oxygen Delivery Device VENTILATOR Blood Gas Ventilator Setting PRVC/AC Blood Gas Inspired Oxygen 40 % Imaging Last Impressions Chest X-Ray 09/20/16 0600 Signed Impressions: Service Date/Time: Tuesday, September 20, 2016 05:22 - CONCLUSION: 1. The NG tube tip is in the distal esophagus. Recommend advancing the NG tube 10 cm. 2. Mild left lower lung atelectasis. Jason Albert MD Tibia/Fibula X-Ray 09/19/16 0000 Signed Impressions: Service Date/Time: Monday, September 19, 2016 07:43 - CONCLUSION: Chronic changes and no evidence for acute fracture. Claudio Barroso MD Renal Ultrasound 09/19/16 0000 Signed Impressions: Service Date/Time: Monday, September 19, 2016 10:40 - CONCLUSION: Unremarkable renal ultrasound. Claudio Barroso MD Lower Extremity MRI 09/19/16 0000 Signed Impressions: Service Date/Time: Monday, September 19, 2016 10:15 - CONCLUSION: Large mass most likely originating from the patient's skin with infiltration of subcutaneous fat and no definite involvement of the muscular structures or marrow. A malignant mass should be entertained and clinical correlation is needed. Claudio Barroso MD Knee X-Ray 09/19/16 0000 Signed Impressions: Service Date/Time: Monday, September 19, 2016 07:43 - CONCLUSION: Osteoarthritis. 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 Medina decides the patient is a reasonable candidate. (2) Septic shock Assessment and Plan: on pressors, cx pending (3) Troponin level elevated Assessment and Plan: w/ EKG changes, certainly could have CAD, NSTEMI caused secondarily by septic process (4) ARF (acute renal failure) Assessment and Plan: will be getting HD Assessment and Plan With multi-organ system failure, pt's prognosis is quite grim. Schuyler Coombs MD Sep 20, 2016 09:02
[2016-09-20] MEDS: SODIUM CHLORIDE 0.9% FLUSH 10 ML FLUSH IV FLUSH SCH ×2 (09:31→21:00)
[2016-09-20] MEDS ORDERED: HEPARIN SODIUM - IV 10,000 UNITS/10 ML VIAL ONE (10:16)
--- NOTE | 2016-09-20 10:34 | PD.CONS ---
History of Present Illness Service Infectious disease Consult Requested By Dr. Coombs Reason for Consult Evaluate patient with endocarditis Primary Care Physician No Primary Care Physician Diagnoses: History of Present Illness Patient seen and examined. Records reviewed. History has been obtained mostly from the patient's current records. He is sedated and intubated. Patient is a 56-year-old male, brought into the hospital by the sister for evaluation of altered mental status. The sister had noted that the patient has not been acting like his normal self. He is normally very active. But the day prior to admission patient was noted to be sitting mostly on the couch, and has had very poor by mouth intake. There is some mention that he had some generalized malaise. There was no mention of any fever or chills or sweats. He has not had any nausea or vomiting, and has not really complain of any kind of pain. On presentation to the emergency room he has not been febrile. His WBC was elevated. Creatinine was up, and lactic acid was up. He then became hypotensive, and currently on Levophed and vasopressin. He went into respiratory distress and ended up getting intubated. Patient currently has very minimal urine output. He was found to have a large mass on his left posterior lower medial aspect of his upper leg, which reportedly has been present for at least a year, but the sister had noticed it around May. He had seen a surgeon in [facility], and per report, he was supposed to get imaging studies and biopsy done but those have not been done. On this admission, he had an elevated CPK and troponin, and cardiology evaluated the patient. There was an echocardiogram done and he was found to have a mobile vegetation in his aortic valve. There is no prior history of IV drug use. His blood cultures are now reported as growing gram-positive cocci in piercing chains. Infectious disease consultation has been requested to evaluate the patient for endocarditis. 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 There is mention of smoking Mention of alcohol use No drug use Physical Exam Vital Signs Vital Signs Date Time Temp Pulse Resp B/P Pulse Ox O2 Delivery O2 Flow Rate FiO2 09/20/16 07:20 100 40 09/20/16 07:00 75 09/20/16 07:00 100 Mechanical Ventilator 40 09/20/16 06:00 97.7 72 25 104/34 100 09/20/16 04:12 100 40 09/20/16 04:00 97.7 75 27 102/35 100 09/20/16 04:00 70 09/20/16 04:00 40 09/20/16 01:14 100 50 09/20/16 00:45 98.8 82 27 88/32 100 09/20/16 00:00 98.3 84 33 112/28 100 09/20/16 00:00 98.3 84 32 112/28 100 09/20/16 00:00 50 09/20/16 00:00 84 09/19/16 22:10 100 50 09/19/16 22:10 50 09/19/16 22:10 100 Mechanical Ventilator 50 09/19/16 22:00 88 09/19/16 22:00 97.7 88 40 110/53 100 09/19/16 22:00 100 Non-Rebreather 100 09/19/16 21:09 90 50 111/52 99 Nasal Cannula 2 09/19/16 19:00 89 36 99 Room Air 09/19/16 18:59 90 36 123/53 99 Nasal Cannula 2 09/19/16 18:00 86 38 110/51 99 Nasal Cannula 2 09/19/16 17:30 87 34 111/53 100 Nasal Cannula 2 09/19/16 16:28 89 36 124/54 97 Nasal Cannula 2 09/19/16 16:00 84 125/56 97 09/19/16 14:00 90 126/58 98 Room Air 09/19/16 12:25 98.0 92 36 117/43 100 Room Air Physical Exam GENERAL: This is a well-nourished, well-developed male, sedated and intubated, not in respiratory distress. SKIN: Cool and dry, no generalized rash, no ecchymosis, no embolic lesions noted. No mottling. HEAD: Atraumatic. Normocephalic. No temporal or scalp tenderness. EYES: Pale conjunctivae, no petechia or hemorrhage. Pupils equal round and pinpoint. No scleral icterus. No injection or drainage. ENT: Nose without bleeding, or purulent drainage. Endotracheal tube is in the mouth, he has moist oral mucosa. NECK: Trachea midline. No JVD or lymphadenopathy. Supple, no meningeal signs. CARDIOVASCULAR: Regular rate and rhythm, no rub, with murmur heard at the base of the heart. RESPIRATORY: Equal breath sounds bilaterally. Decreased at the bases. No wheezes, rales, or rhonchi. GASTROINTESTINAL: Abdomen soft, slightly globular, nondistended, no reaction to palpation. Bowel sounds are present and normoactive. No hepato-splenomegaly , or palpable masses. MUSCULOSKELETAL: Extremities without clubbing, cyanosis, or mottling. Feet are cool to touch. His LLE E seems a little larger compared to his RLE. Has some mild pedal edema. There is a large ulcerated and fungating mass in the posterior O medial aspect of his upper leg, with some yellow exudate, and has a foul odor. No joint effusion. NEUROLOGICAL: Sedated on the vent PSYCH: Unable to assess : David in place, urine looks clear LINE: LIJ with no evidence of infection Laboratory Laboratory Tests Test 09/19/16 09/19/16 09/19/16 09/19/16 11:55 12:28 12:35 15:50 Total Creatine Kinase 6698 Creatine Kinase MB 73.0 Creatine Kinase MB % 1.1 Troponin I 11.80 Ethyl Alcohol Level LESS THAN 3 Blood Gas Puncture Site RT RADIAL Blood Gas Patient Temperature 98.6 Blood Gas HCO3 9 Blood Gas Base Excess -15.5 Blood Gas Oxygen Saturation 96 Arterial Blood pH 7.41 Arterial Blood Partial 14 Pressure CO2 Arterial Blood Partial 107 Pressure O2 Arterial Blood Oxygen Content 9.2 Arterial Blood 1.9 Carboxyhemoglobin Arterial Blood Methemoglobin 0.5 Blood Gas Hemoglobin 6.7 Oxygen Delivery Device NASAL CANNULA Blood Gas Liter Flow 2 Lactic Acid Level 4.2 Urine Color ORANGE Urine Turbidity HAZY Urine pH 5.0 Urine Specific [place] 1.021 Urine Protein 30 Urine Glucose (UA) NEG Urine Ketones NEG Urine Occult Blood TRACE Urine Nitrite NEG Urine Bilirubin NEG Urine Urobilinogen 2.0 Urine Leukocyte Esterase NEG Urine RBC 7 Urine WBC 14 Urine WBC Clumps MANY Urine Squamous Epithelial 1 Cells Urine Bacteria RARE Urine Hyaline Casts 4 Urine Mucus FEW Microscopic Urinalysis Comment CULTURE INDICATED Urine Opiates Screen NEG Urine Barbiturates Screen NEG Urine Amphetamines Screen NEG Urine Benzodiazepines Screen NEG Urine Cocaine Screen NEG Urine Cannabinoids Screen NEG Test 09/19/16 09/19/16 09/19/16 09/19/16 19:00 19:10 20:42 22:45 Lactic Acid Level 8.7 9.0 Total Creatine Kinase 7480 6715 Creatine Kinase MB 94.5 86.5 Creatine Kinase MB % 1.3 1.3 Troponin I 12.40 11.80 Hemoglobin 6.5 Hematocrit 20.0 Blood Gas Puncture Site RT RADIAL Blood Gas Patient Temperature 98.6 Blood Gas HCO3 10 Blood Gas Base Excess -13.6 Blood Gas Oxygen Saturation 90 Arterial Blood pH 7.43 Arterial Blood Partial 16 Pressure CO2 Arterial Blood Partial 66 Pressure O2 Arterial Blood Oxygen Content 8.5 Arterial Blood 1.9 Carboxyhemoglobin Arterial Blood Methemoglobin 0.6 Blood Gas Hemoglobin 6.7 Oxygen Delivery Device ROOM AIR Blood Gas Inspired Oxygen 21 Haptoglobin 428 Sodium Level 141 Potassium Level 4.4 Chloride Level 107 Carbon Dioxide Level 14.1 Anion Gap 20 Blood Urea Nitrogen 73 Creatinine 3.10 Estimat Glomerular Filtration 25 Rate Random Glucose 132 Calcium Level 7.5 Iron Level 102 Total Iron Binding Capacity 153 Percent Iron Saturation 66.8 Lactate Dehydrogenase 609 Triglycerides Level 216 Cholesterol Level 110 LDL Cholesterol 55 HDL Cholesterol 12.1 Cholesterol/HDL Ratio 9.09 Free Thyroxine 1.50 Thyroid Stimulating Hormone 0.316 3rd Gen Blood Type O POSITIVE Antibody Screen NEGATIVE Crossmatch Leukocyte-Reduced Red Blood Cells Blood Bank Comment Test 09/19/16 09/19/16 09/19/16 09/20/16 22:47 23:32 23:36 03:26 Blood Type O POSITIVE Blood Gas Puncture Site ART LINE ART LINE Blood Gas Patient Temperature 98.6 98.6 Blood Gas HCO3 11 Blood Gas Base Excess -14.4 Blood Gas Oxygen Saturation 97 Arterial Blood pH 7.31 Arterial Blood Partial 22 Pressure CO2 Arterial Blood Partial 261 Pressure O2 Arterial Blood Oxygen Content 9.0 Arterial Blood 1.5 Carboxyhemoglobin Arterial Blood Methemoglobin 0.8 Blood Gas Hemoglobin 6.1 Oxygen Delivery Device VENTILATOR VENTILATOR Blood Gas Ventilator Setting PRVC/AC PRVC/AC Blood Gas Inspired Oxygen 50 50 Venous Blood pH 7.24 Venous Blood Partial Pressure 32 CO2 Venous Blood Partial Pressure 35 O2 Venous Blood HCO3 13 Venous Blood Oxygen Saturation 42 Venous Blood Oxygen Content 3.8 Venous Blood Base Excess -12.8 White Blood Count 16.4 Red Blood Count 2.61 Hemoglobin 7.8 Hematocrit 24.0 Mean Corpuscular Volume 92.2 Mean Corpuscular Hemoglobin 29.8 Mean Corpuscular Hemoglobin 32.3 Concent Red Cell Distribution Width 18.1 Platelet Count 127 Mean Platelet Volume 8.3 Neutrophils (%) (Auto) 82.4 Lymphocytes (%) (Auto) 9.8 Monocytes (%) (Auto) 7.6 Eosinophils (%) (Auto) 0.0 Basophils (%) (Auto) 0.2 Neutrophils # (Auto) 13.5 Lymphocytes # (Auto) 1.6 Monocytes # (Auto) 1.2 Eosinophils # (Auto) 0.0 Basophils # (Auto) 0.0 CBC Comment DIFF FINAL Differential Comment Test 09/20/16 09/20/16 09/20/16 04:55 05:23 05:30 Crossmatch Leukocyte-Reduced Red Blood Cells Blood Bank Comment White Blood Count 17.2 Red Blood Count 2.58 Hemoglobin 7.9 Hematocrit 23.4 Mean Corpuscular Volume 90.7 Mean Corpuscular Hemoglobin 30.6 Mean Corpuscular Hemoglobin 33.8 Concent Red Cell Distribution Width 18.8 Platelet Count 129 Mean Platelet Volume 8.1 Neutrophils (%) (Auto) 88.0 Lymphocytes (%) (Auto) 5.6 Monocytes (%) (Auto) 6.2 Eosinophils (%) (Auto) 0.0 Basophils (%) (Auto) 0.2 Neutrophils # (Auto) 15.1 Lymphocytes # (Auto) 1.0 Monocytes # (Auto) 1.1 Eosinophils # (Auto) 0.0 Basophils # (Auto) 0.0 CBC Comment DIFF FINAL Differential Comment Prothrombin Time 16.1 Prothromb Time International 1.4 Ratio Activated Partial 27.2 Thromboplast Time Fibrinogen 226 Sodium Level 139 Potassium Level 4.9 Chloride Level 104 Carbon Dioxide Level 11.2 Anion Gap 24 Blood Urea Nitrogen 76 Creatinine 3.25 Estimat Glomerular Filtration 24 Rate Random Glucose 135 Calcium Level 7.6 Free Triiodothyronine (T3) 1.10 pg/dL Random Vancomycin Level 11.1 Blood Gas Puncture Site ART LINE Blood Gas Patient Temperature 98.6 Blood Gas HCO3 10 Blood Gas Base Excess -16.2 Blood Gas Oxygen Saturation 97 Arterial Blood pH 7.25 Arterial Blood Partial 23 Pressure CO2 Arterial Blood Partial 207 Pressure O2 Arterial Blood Oxygen Content 11.3 Arterial Blood 1.1 Carboxyhemoglobin Arterial Blood Methemoglobin 0.9 Blood Gas Hemoglobin 7.9 Oxygen Delivery Device VENTILATOR Blood Gas Ventilator Setting PRVC/AC Blood Gas Inspired Oxygen 40 Date/Time Procedure Status Source Growth 09/19/16 22:00 Gram Stain - Final Resulted Wound Leg 09/19/16 22:00 Wound Culture Resulted Wound Leg Pending 09/19/16 15:50 Urine Culture Received Urine Clean Catch Pending 09/19/16 07:25 Aerobic Blood Culture - Preliminary Resulted Blood Peripheral Gram Positive Cocci 09/19/16 07:25 Anaerobic Blood Culture - Preliminary Resulted Gram Positive Cocci Result Diagram: 09/20/16 0523 09/20/16 0523 Imaging RADIOLOGY STUDIES/FILMS REVIEWED Chest X-Ray 09/20/16 0600 Signed Impressions: Service Date/Time: Tuesday, September 20, 2016 05:22 - CONCLUSION: 1. The NG tube tip is in the distal esophagus. Recommend advancing the NG tube 10 cm. 2. Mild left lower lung atelectasis. Jason Albert MD Tibia/Fibula X-Ray 09/19/16 0000 Signed Impressions: Service Date/Time: Monday, September 19, 2016 07:43 - CONCLUSION: Chronic changes and no evidence for acute fracture. Claudio Barroso MD Renal Ultrasound 09/19/16 0000 Signed Impressions: Service Date/Time: Monday, September 19, 2016 10:40 - CONCLUSION: Unremarkable renal ultrasound. Claudio Barroso MD Lower Extremity MRI 09/19/16 0000 Signed Impressions: Service Date/Time: Monday, September 19, 2016 10:15 - CONCLUSION: Large mass most likely originating from the patient's skin with infiltration of subcutaneous fat and no definite involvement of the muscular structures or marrow. A malignant mass should be entertained and clinical correlation is needed. Claudio Barroso MD Knee X-Ray 09/19/16 0000 Signed Impressions: Service Date/Time: Monday, September 19, 2016 07:43 - CONCLUSION: Osteoarthritis. 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
--- NOTE | 2016-09-20 10:35 | HHI.FPPN ---
Subjective Remarks Patient seen and examined by medical team this morning. Echocardiogram performed yesterday showed mobile vegetation on the aortic valve concerning for endocarditis. Overnight patient became unstable with tachypnea to the 50s and was emergently intubated by critical care. He is currently intubated and sedated requiring multiple vasopressors to maintain his blood pressure. Repeat H /H showed anemia of 6.5/20 therefore patient was transfused 3 units overnight. ( Brian Guadalupe MD R1) Objective Vitals Vital Signs Date Time Temp Pulse Resp B/P Pulse Ox O2 Delivery O2 Flow Rate FiO2 09/20/16 07:20 100 40 09/20/16 07:00 75 09/20/16 07:00 100 Mechanical Ventilator 40 09/20/16 06:00 97.7 72 25 104/34 100 09/20/16 04:12 100 40 09/20/16 04:00 97.7 75 27 102/35 100 09/20/16 04:00 70 09/20/16 04:00 40 09/20/16 01:14 100 50 09/20/16 00:45 98.8 82 27 88/32 100 09/20/16 00:00 98.3 84 33 112/28 100 09/20/16 00:00 98.3 84 32 112/28 100 09/20/16 00:00 50 09/20/16 00:00 84 09/19/16 22:10 100 50 09/19/16 22:10 50 09/19/16 22:10 100 Mechanical Ventilator 50 09/19/16 22:00 88 09/19/16 22:00 97.7 88 40 110/53 100 09/19/16 22:00 100 Non-Rebreather 100 09/19/16 21:09 90 50 111/52 99 Nasal Cannula 2 09/19/16 19:00 89 36 99 Room Air 09/19/16 18:59 90 36 123/53 99 Nasal Cannula 2 09/19/16 18:00 86 38 110/51 99 Nasal Cannula 2 09/19/16 17:30 87 34 111/53 100 Nasal Cannula 2 09/19/16 16:28 89 36 124/54 97 Nasal Cannula 2 09/19/16 16:00 84 125/56 97 09/19/16 14:00 90 126/58 98 Room Air 09/19/16 12:25 98.0 92 36 117/43 100 Room Air I/O 09/19/16 09/19/16 09/19/16 09/20/16 09/20/16 09/20/16 07:00 15:00 23:00 07:00 15:00 23:00 Intake Total 2641 ml 3450 ml Output Total 350 ml 45 ml Balance 2291 ml 3405 ml Intake IV Total 2641 ml 2950 ml Packed Cells 500 ml Output Urine Total 350 ml 45 ml # Bowel Movements 1 0 (Brian Guadalupe MD R1) Result Diagram: 09/20/16 0523 09/20/16 05 Imaging Last 72 hours Impressions Chest X-Ray 09/20/16 0600 Signed Impressions: Service Date/Time: Tuesday, September 20, 2016 05:22 - CONCLUSION: 1. The NG tube tip is in the distal esophagus. Recommend advancing the NG tube 10 cm. 2. Mild left lower lung atelectasis. Jason Albert MD Tibia/Fibula X-Ray 09/19/16 0000 Signed Impressions: Service Date/Time: Monday, September 19, 2016 07:43 - CONCLUSION: Chronic changes and no evidence for acute fracture. Claudio Barroso MD Renal Ultrasound 09/19/16 0000 Signed Impressions: Service Date/Time: Monday, September 19, 2016 10:40 - CONCLUSION: Unremarkable renal ultrasound. Claudio Barroso MD Lower Extremity MRI 09/19/16 0000 Signed Impressions: Service Date/Time: Monday, September 19, 2016 10:15 - CONCLUSION: Large mass most likely originating from the patient's skin with infiltration of subcutaneous fat and no definite involvement of the muscular structures or marrow. A malignant mass should be entertained and clinical correlation is needed. Claudio Barroso MD Knee X-Ray 09/19/16 0000 Signed Impressions: Service Date/Time: Monday, September 19, 2016 07:43 - CONCLUSION: Osteoarthritis. Claudio Barroso MD Knee X-Ray 09/19/16 0000 Signed Impressions: Service Date/Time: Monday, September 19, 2016 07:43 - CONCLUSION: Chronic changes and no evidence for acute fracture. 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 Claudio Barroso MD Chest X-Ray 09/19/16 0000 Signed Impressions: Service Date/Time: Monday, September 19, 2016 22:57 - CONCLUSION: Endotracheal tube is in good position. Central line as described above Sidney Holland MD Chest X-Ray 09/19/16 0000 Signed Impressions: Service Date/Time: Monday, September 19, 2016 16:50 - CONCLUSION: 1. Minimal basilar atelectasis. Elevated right hemidiaphragm. No effusion. Osteochondral defect right humeral head. Raul Merlos MD Objective Remarks GENERAL: 66-year-old [place] male lying in bed intubated and sedated currently on vasopressors. SKIN: Warm and dry. No rash. CARDIOVASCULAR: Regular rate and rhythm with 3/6 diastolic murmur more pronounced at the right sternal border. RESPIRATORY: Equal coarse breath sounds bilaterally at the bases. No CRW. Currently breathing via ventilator. GASTROINTESTINAL: Abdomen soft, non-tender, nondistended with +BS. No masses appreciated. MUSCULOSKELETAL: Extremities without cyanosis or edema. No calf tenderness BL. 2 + DP BL, 2+ PT on RLE, no palpable pulse on LLE likely due to epidermis changes. LLE on admission: 8.5 X 10.5CM circular, fungating, ulcerative lesion on the posterior aspect of the L knee. No hemorrhage or necrosis appreciated. Lesion is foul smelling and appears to involve skin and subcutaneous tissue; does not appear to involve the muscle or bone. 2+ from the ankle to the knee. LLE currently: Currently lesion bandaged with sterile gauze, CDI. NEUROLOGICAL: Patient intubated and sedated. (Brian Guadalupe MD R1) A/P Assessment and Plan Mr. Burnham is a 56 y/o AAM with a PMHx of HTN presenting with AMS and a LLE wound found to be in septic shock admitted for medical therapy. Discharge Planning Pending clinical improvement. Discussed with: Dr. Helm, Dr. Mackay, Dr. Talib Burnham (Brian Guadalupe MD R1) Attending Attestation Pt. examined and case discussed with resident team I have read the above note and agree with the assessment/plan as discussed with me I was involved in all medical decision making for this patient Jason Helm MD (Jason Helm MD) Problem List: (1) Septic shock Status: Acute Plan: Patient presented with altered mental status left lower extremity lesion. Patient found to be tachycardic to 100 bpm with a white blood cell count of 18.6. Likely source of infection is his left lower extremity lesion. Found to have a lactic acid of 4.5 not responsive to fluid resuscitation. Patient placed on sepsis protocol and [place] [facility]. Patient found to have endocarditis with mobile aortic valve vegetation. Blood cultures 2 09/19: Gram-positive cocci in all 4 vitals UC: Pending Wound culture x2: Pending Intensive care consulted, appreciate recommendations Infectious disease consulted, appreciate recommendations * Continue Vancomycin and Zosyn * MRI of brain when more stable * Biopsy of LLE lesion * Repeat BC Medications: Vancomycin 1 g twice a day, pharmacy consulted Zosyn 2.25 g every 6 hours Sodium bicarbonate with sterile water at 150 mL per hour Hydrocortisone 100 mg every 8 hours Vasopressin, Levophed, fentanyl, and to prevent drips per protocol (2) Skin ulcer of left lower leg, limited to breakdown of skin Status: Acute Plan: Patient with circular, fungating, ulcerative lesion on the posterior aspect of the L knee with edema of the lower extremity. Patient denies any pain currently. Lower extremity neurovascularly intact with appropriate capillary refill. Knee x-ray: Chronic changes with no evidence of acute fracture Tubularfibula x-ray: Chronic changes and no evidence of acute fractures. Lower extremity MRI: Large mass most likely originating from the patient's skin with infiltration of subcutaneous fat and no definite involvement of the muscular structures her marrow. A malignant mass should be entertained and clinical correlation is needed. Consider Gen. surgery consult when patient is more stable for possible biopsy and resection. Please see plan as above (3) Endocarditis of aortic valve Status: Acute Plan: On admission patient with elevated CPK to 7480 and troponin to 12.4. Echocardiogram performed and found to have mobile vegetation of the aortic valve. Blood cultures with gram-positive cocci in all 4 vials. TTE 09/20: Aortic valve with mobile vegetation on the left ventricular aspect. Severe aortic regurgitation directed eccentrically in the LVOT. Left ventricle with normal cavity size and wall thickness. Systolic function normal. Estimated ejection fraction in the range of 50-55% with normal wall motion. Mitral valve with mild regurgitation. Tricuspid valve with mild regurgitation. Pulmonary arteries with moderately increased systolic pressure. Cardiology consulted, appreciate recommendations * AGUSTIN scheduled, however due to patient's declining status, currently risks outweigh benefits given good TTE imaging * Severe aortic insufficiency, would require surgical replacement. Patient is a candidate. Cardiothoracic surgery consulted. Cardiothoracic surgery consulted, appreciate recommendations (4) Acute renal failure (ARF) Status: Acute Plan: Patient found to have a BUN of 58 with a creatinine of 3.27 on admission likely secondary to septic shock. Per chart review, admission in 2012 showed creatinine of 0.81. Renal ultrasound: Unremarkable Strict I/Os Avoid nephrotoxic agents Urology consulted to assist with David catheter placement secondary to phimosis Nephrology consulted, appreciate recommendations Medications: Sodium bicarbonate with sterile water at 150 mL per hour (5) Anemia Status: Acute Plan: Patient found to be anemic on admission without prior history. Repeat H/ H show declining hemoglobin. Patient transfused 3 units of PRBC on 09/19. Repeat H/H: 6.5 3 units PRBC transfused, 1 unit ready for possible future transfusion Posttransfusion H/H on 09/20: 7.8/24 (6) Medical contraindication to deep vein thrombosis (DVT) prophylaxis Status: Acute Plan: Pharmacologic prophylaxis contraindicated due to patient's anemia SCD/TEDs (7) Nutrition, metabolism, and development symptoms Status: Acute Plan: Fluids: Sodium bicarbonate with sterile water at 150 mL per hour Diet: NPO as patient is intubated and sedated Electrolytes: Continue to monitor Prophylaxis: [place]/Morphine when necessary for pain, Tylenol when necessary for fever, Zofran when necessary for nausea or vomiting, Pepcid twice a day (Brian Guadaluep MD R1) Problem Qualifiers (1) Acute renal failure (ARF): Qualified Code: N17.9 - Acute renal failure, unspecified acute renal failure type Brian Guadalupe MD R1 Sep 20, 2016 10:35 Jason Helm MD Sep 20, 2016 16:27
--- NOTE | 2016-09-20 11:24 | RADRPT ---
EXAM DATE/TIME: 09/20/2016 10:44 [place] COMPARISON: CHEST SINGLE AP, September 20, 2016, 5:22. INDICATIONS : Central line placement MEDICAL HISTORY : None. SURGICAL HISTORY : None. ENCOUNTER: Initial ACUITY: 1 day PAIN SCORE: Non-responsive. LOCATION: Bilateral chest FINDINGS: A left internal jugular central line has been placed and has its tip in the superior vena cava in goo d position. There is no pneumothorax. The endotracheal tube is in good position 3 cm above the shemar na. A nasogastric tube has its tip below the diaphragm and its side port at the gastroesophageal rex ction. A right internal jugular Vas cath has its tip in the superior vena cava. The heart is enlarg ed. Minimal central pulmonary vascular congestion is noted. The lungs are otherwise clear. CONCLUSION: 1. Left internal jugular central line has its tip in the superior vena cava in good position. No pn eumothorax is noted. 2. Multiple tubes and lines are in good positions. 3. Cardiomegaly. 4. Minimal pulmonary vascular congestion bilaterally. Alex Hurst MD on September 20, 2016 at 11:13 Board Certified Radiologist. This report was verified electronically.
--- NOTE | 2016-09-20 11:44 | EKG ---
Date Performed: 09/19/2016 Time Performed: 17:29:24 PTAGE: 56 years EKG: Sinus rhythm ST DEVIATION AND MODERATE T-WAVE ABNORMALITY, CONSIDER ANTERIOR ISCHEMIA ABNORMAL ECG NO PREVIOUS TRACING DOCTOR: Edison Redding Interpretating Date/Time 09/20/2016 11:43:46
--- NOTE | 2016-09-20 11:48 | EKG ---
Date Performed: 09/19/2016 Time Performed: 14:08:55 PTAGE: 56 years EKG: Sinus rhythm WITH SHORT WY INTERVAL NONSPECIFIC ST & T-WAVE ABNORMALITY BORDERLINE ECG INTERPRETATION BASED ON A DEFAULT AGE OF 40 YEARS NO PREVIOUS TRACING DOCTOR: Edison Redding Interpretating Date/Time 09/20/2016 11:47:08
--- NOTE | 2016-09-20 11:52 | EKG ---
Date Performed: 09/19/2016 Time Performed: 12:16:12 PTAGE: 56 years EKG: Sinus rhythm ST DEPRESSION, CONSIDER SUBENDOCARDIAL INJURY ABNORMAL ECG PREVIOUS TRACING : 07/01/2012 15.40 Compared to the previous tracing ST abnormalities are new DOCTOR: Edison Redding Interpretating Date/Time 09/20/2016 11:51:47
[2016-09-20] MEDS ORDERED: VANCOMYCIN INJ 1,000 MG in SODIUM CHLOR 0.9% 250 ML INJ 250 ML IV ONE (12:00)
[2016-09-20] MEDS ORDERED: PROTAMINE SULFATE 250 MG in NS 250 ML IV SCH (12:15)
[2016-09-20] MEDS ORDERED: HEPARIN 25,000 UNITS-D5W 250 ML IV SCH (12:15)
[2016-09-20] MEDS ORDERED: HEPARIN IV PRN (12:15)
[2016-09-20] MEDS ORDERED: KCL/AQUEOUS SOLN Dialysate additive PRN (12:15)
[2016-09-20] MEDS: SODIUM CHLOR 0.9% 1000 ML INJ 1,000 ML IV SCH ×6 (13:26→22:13)
[2016-09-20 13:46] LABS: APTT (PATIENT) 28.9 SEC (24.3-30.1)
[2016-09-20 13:54] LABS: APTT (PATIENT) 30.6 SEC (24.3-30.1)
[2016-09-20 14:28] LABS: APTT (PATIENT) 28.7 SEC (24.3-30.1); APTT (PATIENT) 32.4 SEC (24.3-30.1)
--- NOTE | 2016-09-20 14:42 | HHI.PR ---
Addendum to Inpatient Note Addendum Reason: Additional Documentation Additional Information Procedure: Punch bx Resident: Dr. Guadalupe Attending: Dr. Helm Risk and benefits explained and informed consent obtained over the phone with Mrs. Sandee Callahan on 09/20/16 at [address] Mackay. Patient is currently intubated and sedated prior to the procedure. Next, area cleaned with Betadyne solution. Then, using a 4mm punch bx; specimen collected and placed into pathology specimen jar with formalin solution. Silver nitrate was used to obtain hemostasis post-procedure. Bandage was applied over biopsy site. Patient tolerated procedure well. EBL <5 cc. Brian Guadalupe MD R1 Sep 20, 2016 14:42
[2016-09-20] MEDS: MIDAZOLAM 100 MG/ML INJ 100 ML IV SCH (14:45)
[2016-09-20] MEDS: PANTOPRAZOLE INJ 80 MG in SODIUM CHLORIDE 0.9% INJ 100 ML IV SCH (14:56)
[2016-09-20] MEDS ORDERED: PANTOPRAZOLE INJ 80 MG in SODIUM CHLORIDE 0.9% INJ 35 ML IV ONE (15:00)
[2016-09-20 15:37] LABS: APTT (PATIENT) 28.2 SEC (24.3-30.1)
[2016-09-20 15:38] LABS: APTT (PATIENT) 32.9 SEC (24.3-30.1)
--- NOTE | 2016-09-20 16:59 | HHI.CCPN ---
Subjective Remarks/Hospital Course 09/19: This is a 56-year-old male that presented secondary to altered mental status. The patient's sister provided the medical information. The patient is alert and oriented 3 .the patient was noted to have a lesion on his left lower extremity and was seen at [facility] by Dr. Carpio at all is felt to be a malignant lesion however the patient was scheduled for follow-up and was noncompliant .over the last several days the patient had began to feel generalized malaise and he lives with his sister who noted that he began to have altered mental status and he presented to the ED .upon presentation to the ED the patient's blood pressure systolic blood pressure was in the 80s laboratory and imaging studies reveal septic shock , with a lactate of 4.5. The patient was bolused with 4 L of normal saline is currently hemodynamically stable , tachypnea , secondary to a bicarbonate level of 9 . He is reported to have a neoplastic lesion about the region of the left knee posteriorly, recent imaging studies suggest malignant neoplasm. The patient underwent a TTE in the ED by Dr. Coombs was noted to have cardiac vegetations tentative plan for a AGUSTIN in the am. Critical care medicine's consult for management. 09/20: Patient was intubated overnight and placed on mechanical ventilation for worsening respiratory status. He is currently sedated, orally intubated on mechanical ventilation. Transfuse 3 units PRBCs overnight. Has some coffee- ground NG aspirate however no melena or rectal bleeding noted. On Levophed 12 mics per minute and vasopressin low-dose for septic shock. Decreasing urine output and significant metabolic acidosis noted for which nephrology consult was requested this morning, vascath was placed and patient has been initiated on CRRT. Discussed with cardiology, severe aortic regurg with aortic valve vegetation for which patient will eventually need an aortic valve replacement following initial stabilization. Awaiting Dr. Medina evaluation. Dr. Coombs has discussed echo with Dr. Medina. Objective Vital Signs Date Time Temp Pulse Resp B/P Pulse Ox O2 Delivery O2 Flow Rate FiO2 09/20/16 15:00 75 09/20/16 14:11 100 35 09/20/16 12:00 97.8 24 133/41 09/20/16 07:00 Mechanical Ventilator 09/19/16 21:09 2 Intake and Output 09/19/16 09/19/16 09/20/16 08:00 16:00 00:00 Intake Total 2641 ml Output Total 350 ml Balance 2291 ml Result Diagram: 09/20/16 0523 09/20/16 0523 Other Results Microbiology Date/Time Procedure Status Source Growth 09/20/16 13:21 Aerobic Blood Culture Received Blood Peripheral Pending 09/20/16 13:21 Anaerobic Blood Culture Received Blood Peripheral Pending 09/19/16 22:00 Gram Stain - Final Resulted Wound Leg 09/19/16 22:00 Wound Culture - Preliminary Resulted Wound Leg RESULTS PENDING 09/19/16 15:50 Urine Culture - Preliminary Resulted Urine Clean Catch NO GROWTH IN 24 HOURS. 09/19/16 07:25 Aerobic Blood Culture - Preliminary Resulted Blood Peripheral Gram Positive Cocci 09/19/16 07:25 Anaerobic Blood Culture - Preliminary Resulted Gram Positive Cocci Laboratory Tests Test 09/19/16 09/19/16 09/19/16 09/19/16 19:00 19:10 20:42 22:45 Lactic Acid Level 8.7 mmol/L 9.0 mmol/L Total Creatine Kinase 7480 U/L 6715 U/L Creatine Kinase MB 94.5 NG/ML 86.5 NG/ML Creatine Kinase MB % 1.3 % 1.3 % Troponin I 12.40 NG/ML 11.80 NG/ML Hemoglobin 6.5 GM/DL Hematocrit 20.0 % Blood Gas Puncture Site RT RADIAL Blood Gas Patient Temperature 98.6 Blood Gas HCO3 10 mmol/L Blood Gas Base Excess -13.6 mmol/L Blood Gas Oxygen Saturation 90 % Arterial Blood pH 7.43 Arterial Blood Partial 16 mmHg Pressure CO2 Arterial Blood Partial 66 mmHG Pressure O2 Arterial Blood Oxygen Content 8.5 Vol % Arterial Blood 1.9 % Carboxyhemoglobin Arterial Blood Methemoglobin 0.6 % Blood Gas Hemoglobin 6.7 G/DL Oxygen Delivery Device ROOM AIR Blood Gas Inspired Oxygen 21 % Haptoglobin 428 MG/DL Sodium Level 141 MEQ/L Potassium Level 4.4 MEQ/L Chloride Level 107 MEQ/L Carbon Dioxide Level 14.1 MEQ/L Anion Gap 20 MEQ/L Blood Urea Nitrogen 73 MG/DL Creatinine 3.10 MG/DL Estimat Glomerular Filtration 25 ML/MIN Rate Random Glucose 132 MG/DL Calcium Level 7.5 MG/DL Iron Level 102 MCG/DL Total Iron Binding Capacity 153 MCG/DL Percent Iron Saturation 66.8 % Lactate Dehydrogenase 609 U/L Triglycerides Level 216 MG/DL Cholesterol Level 110 MG/DL LDL Cholesterol 55 MG/DL HDL Cholesterol 12.1 MG/DL Cholesterol/HDL Ratio 9.09 RATIO Free Thyroxine 1.50 NG/DL Thyroid Stimulating Hormone 0.316 uIU/ML 3rd Gen Blood Type O POSITIVE Antibody Screen NEGATIVE Crossmatch Leukocyte-Reduced Red Blood Cells Blood Bank Comment Test 09/19/16 09/19/16 09/19/16 09/20/16 22:47 23:32 23:36 03:26 Blood Type O POSITIVE Blood Gas Puncture Site ART LINE ART LINE Blood Gas Patient Temperature 98.6 98.6 Blood Gas HCO3 11 mmol/L Blood Gas Base Excess -14.4 mmol/L Blood Gas Oxygen Saturation 97 % Arterial Blood pH 7.31 Arterial Blood Partial 22 mmHg Pressure CO2 Arterial Blood Partial 261 mmHg Pressure O2 Arterial Blood Oxygen Content 9.0 Vol % Arterial Blood 1.5 % Carboxyhemoglobin Arterial Blood Methemoglobin 0.8 % Blood Gas Hemoglobin 6.1 G/DL Oxygen Delivery Device VENTILATOR VENTILATOR Blood Gas Ventilator Setting PRVC/AC PRVC/AC Blood Gas Inspired Oxygen 50 % 50 % Venous Blood pH 7.24 Venous Blood Partial Pressure 32 mmHg CO2 Venous Blood Partial Pressure 35 mmHg O2 Venous Blood HCO3 13 mmol/L Venous Blood Oxygen Saturation 42 % Venous Blood Oxygen Content 3.8 Vol % Venous Blood Base Excess -12.8 mmol/L White Blood Count 16.4 TH/MM3 Red Blood Count 2.61 MIL/MM3 Hemoglobin 7.8 GM/DL Hematocrit 24.0 % Mean Corpuscular Volume 92.2 FL Mean Corpuscular Hemoglobin 29.8 PG Mean Corpuscular Hemoglobin 32.3 % Concent Red Cell Distribution Width 18.1 % Platelet Count 127 TH/MM3 Mean Platelet Volume 8.3 FL Neutrophils (%) (Auto) 82.4 % Lymphocytes (%) (Auto) 9.8 % Monocytes (%) (Auto) 7.6 % Eosinophils (%) (Auto) 0.0 % Basophils (%) (Auto) 0.2 % Neutrophils # (Auto) 13.5 TH/MM3 Lymphocytes # (Auto) 1.6 TH/MM3 Monocytes # (Auto) 1.2 TH/MM3 Eosinophils # (Auto) 0.0 TH/MM3 Basophils # (Auto) 0.0 TH/MM3 CBC Comment DIFF FINAL Differential Comment Test 09/20/16 09/20/16 09/20/16 09/20/16 04:55 05:23 05:30 13:00 Crossmatch Leukocyte-Reduced Red Blood Cells Blood Bank Comment White Blood Count 17.2 TH/MM3 Red Blood Count 2.58 MIL/MM3 Hemoglobin 7.9 GM/DL Hematocrit 23.4 % Mean Corpuscular Volume 90.7 FL Mean Corpuscular Hemoglobin 30.6 PG Mean Corpuscular Hemoglobin 33.8 % Concent Red Cell Distribution Width 18.8 % Platelet Count 129 TH/MM3 Mean Platelet Volume 8.1 FL Neutrophils (%) (Auto) 88.0 % Lymphocytes (%) (Auto) 5.6 % Monocytes (%) (Auto) 6.2 % Eosinophils (%) (Auto) 0.0 % Basophils (%) (Auto) 0.2 % Neutrophils # (Auto) 15.1 TH/MM3 Lymphocytes # (Auto) 1.0 TH/MM3 Monocytes # (Auto) 1.1 TH/MM3 Eosinophils # (Auto) 0.0 TH/MM3 Basophils # (Auto) 0.0 TH/MM3 CBC Comment DIFF FINAL Differential Comment Prothrombin Time 16.1 SEC Prothromb Time International 1.4 RATIO Ratio Activated Partial 27.2 SEC 30.6 SEC Thromboplast Time Fibrinogen 226 mg/dL Sodium Level 139 MEQ/L Potassium Level 4.9 MEQ/L Chloride Level 104 MEQ/L Carbon Dioxide Level 11.2 MEQ/L Anion Gap 24 MEQ/L Blood Urea Nitrogen 76 MG/DL Creatinine 3.25 MG/DL Estimat Glomerular Filtration 24 ML/MIN Rate Random Glucose 135 MG/DL Calcium Level 7.6 MG/DL Free Triiodothyronine (T3) 1.10 PG/ML pg/dL Random Vancomycin Level 11.1 COMMENT Blood Gas Puncture Site ART LINE Blood Gas Patient Temperature 98.6 Blood Gas HCO3 10 mmol/L Blood Gas Base Excess -16.2 mmol/L Blood Gas Oxygen Saturation 97 % Arterial Blood pH 7.25 Arterial Blood Partial 23 mmHg Pressure CO2 Arterial Blood Partial 207 mmHg Pressure O2 Arterial Blood Oxygen Content 11.3 Vol % Arterial Blood 1.1 % Carboxyhemoglobin Arterial Blood Methemoglobin 0.9 % Blood Gas Hemoglobin 7.9 G/DL Oxygen Delivery Device VENTILATOR Blood Gas Ventilator Setting PRVC/AC Blood Gas Inspired Oxygen 40 % Test 09/20/16 09/20/16 09/20/16 13:21 14:00 15:00 Activated Partial 28.9 SEC 32.4 SEC 32.9 SEC Thromboplast Time Imaging Last Impressions Tibia/Fibula X-Ray 09/19/16 0000 Signed Impressions: Service Date/Time: Monday, September 19, 2016 07:43 - CONCLUSION: Chronic changes and no evidence for acute fracture. Claudio Barroso MD Renal Ultrasound 09/19/16 0000 Signed Impressions: Service Date/Time: Monday, September 19, 2016 10:40 - CONCLUSION: Unremarkable renal ultrasound. Claudio Barroso MD Lower Extremity MRI 09/19/16 0000 Signed Impressions: Service Date/Time: Monday, September 19, 2016 10:15 - CONCLUSION: Large mass most likely originating from the patient's skin with infiltration of subcutaneous fat and no definite involvement of the muscular structures or marrow. A malignant mass should be entertained and clinical correlation is needed. Claudio Barroso MD Knee X-Ray 09/19/16 0000 Signed Impressions: Service Date/Time: Monday, September 19, 2016 07:43 - CONCLUSION: Osteoarthritis. 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 Claudio Barroso MD Chest X-Ray 09/19/16 0000 Signed Impressions: Service Date/Time: Monday, September 19, 2016 16:50 - CONCLUSION: 1. Minimal basilar atelectasis. Elevated right hemidiaphragm. No effusion. Osteochondral defect right humeral head. Raul Merlos MD Objective Remarks HEENT/ Neuro: Sedated, orally intubated, Pallor present, no icterus, tongue/ mucosa moist Neck: No JVD. Right IJ Vas-Cath, left IJ central line in place Chest/Pulm: on mech vent, good air entry bilaterally, no wheezing or crackles CVS: S1-S2 regular, significant murmur best heard over aortic area noted. GI/abdomen: soft, nontender, bowel sounds sluggish Extremities: warm bilaterally, no edema. 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 Propofol to be titrated off in view of hypotension. Neurochecks per ICU protocol CT brain old infarction on the right. Will try to obtain MRI brain eventually when CRRT held to evaluate for septic emboli Acetaminophen 650 mg every 6 hours when necessary pain Respiratory: Acute respiratory failure on mechanical ventilation Continue mechanical ventilation, vent bundle, bronchodilators as needed. Start daily CPap trials following correction of metabolic acidosis with CRRT to decide extubation though severe aortic regurgitation may impede successful extubation. Cardiovascular: Aortic valve vegetation Severe aortic regurgitation Septic Shock Transthoracic echo with aortic valve vegetation with severe aortic regurgitation per my discussion with Dr. Coombs. Patient would eventually need aortic valve replacement and he has discussed with Dr. Medina from CT surgery who has been consulted. Elevated [id number] follow-up trend, most likely secondary to rhabdomyolysis/ renal failure and sepsis-patient denied chest pain prior to intubation. I did discuss the case with Dr. Medina from CT surgery who is awaiting improvement in metabolic/ clinical status prior to considering aortic valve surgery. Renal: Acute kidney injury secondary to sepsis Strict intake output, monitor and replete electrolytes, follow BUN/creatinine. Continue bicarbonate drip. Follow CPK levels. Started on CRRT for significant metabolic acidosis and oliguric renal failure. Nephrology following F/u ABG FEN/GI: Dehydration(resolved) The patient was bolused with 4 L of normal saline in ED, currently on bicarbonate drip at 100 cc/hour Maintain NPO status in v/o minimal coffee ground OG aspirate till GI eval, consider starting tube feeds in AM on 09/21 if OK with GI. Started Protonix drip for coffee-ground aspirate from NG tube. GI consult requested. No obvious melena or rectal bleeding. Was transfused 3 units PRBCs on 09/19 Heme/ID: Chronic anemia Leukocytosis Septic shock Bacteremia with gram-positive cocci Aortic valve endocarditis Hyperlipidemia Monitor CBC. Check LDH to evaluate for hemolysis. Follow up lactate level Empiric antibiotics-Continue vancomycin, zosyn 4.5 g every 6 hours Follow-up blood, urine and sputum cultures. Discussed with Dr. Marian JUAREZ. 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 Status post punch biopsy on by family medicine service awaiting pathology results. -Dependent on results we'll decide further management. Wound care consult -Continue bicarbonate drip for rhabdomyolysis -- SSI Prophylaxis: GI Prophylaxis Switched from Pepcid to Protonix drip for coffee-ground aspirate from NG tube DVT Prophylaxis -- SCDs Heparin SQ Lines: LIJ central line placed 09/19 (adjusted position-pulled back to 16cm with tip now reaching SVC) RIJ vascath placed 09/20 Time spent on critical care excluding procedures 90 minutes Dontae Somers MD Sep 20, 2016 16:57
--- NOTE | 2016-09-20 17:05 | PD.CONS ---
HPI History of Present Illness This is a 56 year old male who is currently in the ICU, being treated for severe sepsis/endocarditis. He is currently sedated on the ventilator and therefore the history has been obtained from the nursing staff and EMR. He was brought to the ER for altered mental status. According to his sister, he had been lethargic with decreased appetite x 2-3 days and then became confused and unable to take care of himself and was brought to the ER. He was found to be hypotensive with tachycardia and leukocytosis and admitted for septic shock. His family reports that he has had an ulcerated lesion that has been growing over the past several months and appeared infected. This was biopsied and sent for culture during this admission. Overnight, he went into respiratory distress and required intubation and mechanical ventilation. He was also started on vasopressors for his hypotension and required 3 units of PRBC for a HH of 6.5/ 20.0. This is currently 7.9/23.4. The nurse reports that when his OGT was placed to suction, she had a green bilious output for about 2 hours, but that this then turned to coffee ground gastric secretions, and now has lighted up to a light brownish color drainage. He has not had any xander red bleeding. His blood cultures were positive and he was found to have a mobile vegetation with severe aortic regurgitation on his aortic valve. Cardiology was consulted and AGUSTIN was scheduled, but cancelled secondary to his declining condition. He also was found to have acute renal failure and was started on CVVH. GI has been consulted for further evaluation of coffee ground gastric secretions/anemia. ( Isa Samuels) PFSH Past Medical History HTN Past Surgical History Unable to obtain (Isa Samuels) Uncoded Allergies: NKDA (Allergy, Severe, 11/03/11) Medications Allergies Uncoded Allergies Type Severity Reaction Last Updated Verified NKDA Allergy Severe 11/03/11 Active Scripts Medications Dose Route/Sig Days Date Category Lisinopril 10 Mg Tab 10 Mg PO DAILY 09/19/16 Reported Family History Unable to obtain Social History Unable to obtain (Isa Samuels) Review of Systems ROS Unable to obtain (Isa Samuels) GI Exam Vitals I&O Vital Signs Date Time Temp Pulse Resp B/P Pulse Ox O2 Delivery O2 Flow Rate FiO2 09/20/16 16:00 97.5 72 26 128/40 100 09/20/16 16:00 35 09/20/16 15:00 75 09/20/16 14:11 100 35 09/20/16 12:00 40 09/20/16 12:00 97.8 74 24 133/41 100 09/20/16 11:11 100 35 09/20/16 11:00 76 09/20/16 08:00 97.8 76 24 126/44 100 09/20/16 07:20 100 40 09/20/16 07:00 75 09/20/16 07:00 100 Mechanical Ventilator 40 09/20/16 06:00 97.7 72 25 104/34 100 09/20/16 04:12 100 40 09/20/16 04:00 97.7 75 27 102/35 100 09/20/16 04:00 70 09/20/16 04:00 40 09/20/16 01:14 100 50 09/20/16 00:45 98.8 82 27 88/32 100 09/20/16 00:00 98.3 84 33 112/28 100 09/20/16 00:00 98.3 84 32 112/28 100 09/20/16 00:00 50 09/20/16 00:00 84 09/19/16 22:10 100 50 09/19/16 22:10 50 09/19/16 22:10 100 Mechanical Ventilator 50 09/19/16 22:00 88 09/19/16 22:00 97.7 88 40 110/53 100 09/19/16 22:00 100 Non-Rebreather 100 09/19/16 21:09 90 50 111/52 99 Nasal Cannula 2 09/19/16 19:00 89 36 99 Room Air 09/19/16 18:59 90 36 123/53 99 Nasal Cannula 2 09/19/16 18:00 86 38 110/51 99 Nasal Cannula 2 09/19/16 17:30 87 34 111/53 100 Nasal Cannula 2 I/O 09/19/16 09/19/16 09/19/16 09/20/16 09/20/16 09/20/16 07:00 15:00 23:00 07:00 15:00 23:00 Intake Total 2641 ml 3450 ml 2336 ml Output Total 350 ml 45 ml 250 ml Balance 2291 ml 3405 ml 2086 ml Intake IV Total 2641 ml 2950 ml 2336 ml Packed Cells 500 ml Output Urine Total 350 ml 45 ml 150 ml Gastric Drainage Total 100 ml # Bowel Movements 1 0 0 Imaging Last Impressions Chest X-Ray 09/20/16 0600 Signed Impressions: Service Date/Time: Tuesday, September 20, 2016 05:22 - CONCLUSION: 1. The NG tube tip is in the distal esophagus. Recommend advancing the NG tube 10 cm. 2. Mild left lower lung atelectasis. Jason Albert MD Tibia/Fibula X-Ray 09/19/16 0000 Signed Impressions: Service Date/Time: Monday, September 19, 2016 07:43 - CONCLUSION: Chronic changes and no evidence for acute fracture. Claudio Barroso MD Renal Ultrasound 09/19/16 0000 Signed Impressions: Service Date/Time: Monday, September 19, 2016 10:40 - CONCLUSION: Unremarkable renal ultrasound. Claudio Barroso MD Lower Extremity MRI 09/19/16 0000 Signed Impressions: Service Date/Time: Monday, September 19, 2016 10:15 - CONCLUSION: Large mass most likely originating from the patient's skin with infiltration of subcutaneous fat and no definite involvement of the muscular structures or marrow. A malignant mass should be entertained and clinical correlation is needed. Claudio Barroso MD Knee X-Ray 09/19/16 0000 Signed Impressions: Service Date/Time: Monday, September 19, 2016 07:43 - CONCLUSION: Osteoarthritis. 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 Claudio Barroso MD Laboratory Test 09/19/16 09/19/16 09/19/16 09/19/16 19:00 19:10 20:42 22:45 Lactic Acid Level 8.7 mmol/L 9.0 mmol/L Total Creatine Kinase 7480 U/L 6715 U/L Creatine Kinase MB 94.5 NG/ML 86.5 NG/ML Creatine Kinase MB % 1.3 % 1.3 % Troponin I 12.40 NG/ML 11.80 NG/ML Hemoglobin 6.5 GM/DL Hematocrit 20.0 % Blood Gas Puncture Site RT RADIAL Blood Gas Patient Temperature 98.6 Blood Gas HCO3 10 mmol/L Blood Gas Base Excess -13.6 mmol/L Blood Gas Oxygen Saturation 90 % Arterial Blood pH 7.43 Arterial Blood Partial 16 mmHg Pressure CO2 Arterial Blood Partial 66 mmHG Pressure O2 Arterial Blood Oxygen Content 8.5 Vol % Arterial Blood 1.9 % Carboxyhemoglobin Arterial Blood Methemoglobin 0.6 % Blood Gas Hemoglobin 6.7 G/DL Oxygen Delivery Device ROOM AIR Blood Gas Inspired Oxygen 21 % Haptoglobin 428 MG/DL Sodium Level 141 MEQ/L Potassium Level 4.4 MEQ/L Chloride Level 107 MEQ/L Carbon Dioxide Level 14.1 MEQ/L Anion Gap 20 MEQ/L Blood Urea Nitrogen 73 MG/DL Creatinine 3.10 MG/DL Estimat Glomerular Filtration 25 ML/MIN Rate Random Glucose 132 MG/DL Calcium Level 7.5 MG/DL Iron Level 102 MCG/DL Total Iron Binding Capacity 153 MCG/DL Percent Iron Saturation 66.8 % Lactate Dehydrogenase 609 U/L Triglycerides Level 216 MG/DL Cholesterol Level 110 MG/DL LDL Cholesterol 55 MG/DL HDL Cholesterol 12.1 MG/DL Cholesterol/HDL Ratio 9.09 RATIO Free Thyroxine 1.50 NG/DL Thyroid Stimulating Hormone 0.316 uIU/ML 3rd Gen Blood Type O POSITIVE Antibody Screen NEGATIVE Crossmatch Leukocyte-Reduced Red Blood Cells Blood Bank Comment Test 09/19/16 09/19/16 09/19/16 09/20/16 22:47 23:32 23:36 03:26 Blood Type O POSITIVE Blood Gas Puncture Site ART LINE ART LINE Blood Gas Patient Temperature 98.6 98.6 Blood Gas HCO3 11 mmol/L Blood Gas Base Excess -14.4 mmol/L Blood Gas Oxygen Saturation 97 % Arterial Blood pH 7.31 Arterial Blood Partial 22 mmHg Pressure CO2 Arterial Blood Partial 261 mmHg Pressure O2 Arterial Blood Oxygen Content 9.0 Vol % Arterial Blood 1.5 % Carboxyhemoglobin Arterial Blood Methemoglobin 0.8 % Blood Gas Hemoglobin 6.1 G/DL Oxygen Delivery Device VENTILATOR VENTILATOR Blood Gas Ventilator Setting PRVC/AC PRVC/AC Blood Gas Inspired Oxygen 50 % 50 % Venous Blood pH 7.24 Venous Blood Partial Pressure 32 mmHg CO2 Venous Blood Partial Pressure 35 mmHg O2 Venous Blood HCO3 13 mmol/L Venous Blood Oxygen Saturation 42 % Venous Blood Oxygen Content 3.8 Vol % Venous Blood Base Excess -12.8 mmol/L White Blood Count 16.4 TH/MM3 Red Blood Count 2.61 MIL/MM3 Hemoglobin 7.8 GM/DL Hematocrit 24.0 % Mean Corpuscular Volume 92.2 FL Mean Corpuscular Hemoglobin 29.8 PG Mean Corpuscular Hemoglobin 32.3 % Concent Red Cell Distribution Width 18.1 % Platelet Count 127 TH/MM3 Mean Platelet Volume 8.3 FL Neutrophils (%) (Auto) 82.4 % Lymphocytes (%) (Auto) 9.8 % Monocytes (%) (Auto) 7.6 % Eosinophils (%) (Auto) 0.0 % Basophils (%) (Auto) 0.2 % Neutrophils # (Auto) 13.5 TH/MM3 Lymphocytes # (Auto) 1.6 TH/MM3 Monocytes # (Auto) 1.2 TH/MM3 Eosinophils # (Auto) 0.0 TH/MM3 Basophils # (Auto) 0.0 TH/MM3 CBC Comment DIFF FINAL Differential Comment Test 09/20/16 09/20/16 09/20/16 09/20/16 04:55 05:23 05:30 13:00 Crossmatch Leukocyte-Reduced Red Blood Cells Blood Bank Comment White Blood Count 17.2 TH/MM3 Red Blood Count 2.58 MIL/MM3 Hemoglobin 7.9 GM/DL Hematocrit 23.4 % Mean Corpuscular Volume 90.7 FL Mean Corpuscular Hemoglobin 30.6 PG Mean Corpuscular Hemoglobin 33.8 % Concent Red Cell Distribution Width 18.8 % Platelet Count 129 TH/MM3 Mean Platelet Volume 8.1 FL Neutrophils (%) (Auto) 88.0 % Lymphocytes (%) (Auto) 5.6 % Monocytes (%) (Auto) 6.2 % Eosinophils (%) (Auto) 0.0 % Basophils (%) (Auto) 0.2 % Neutrophils # (Auto) 15.1 TH/MM3 Lymphocytes # (Auto) 1.0 TH/MM3 Monocytes # (Auto) 1.1 TH/MM3 Eosinophils # (Auto) 0.0 TH/MM3 Basophils # (Auto) 0.0 TH/MM3 CBC Comment DIFF FINAL Differential Comment Prothrombin Time 16.1 SEC Prothromb Time International 1.4 RATIO Ratio Activated Partial 27.2 SEC 30.6 SEC Thromboplast Time Fibrinogen 226 mg/dL Sodium Level 139 MEQ/L Potassium Level 4.9 MEQ/L Chloride Level 104 MEQ/L Carbon Dioxide Level 11.2 MEQ/L Anion Gap 24 MEQ/L Blood Urea Nitrogen 76 MG/DL Creatinine 3.25 MG/DL Estimat Glomerular Filtration 24 ML/MIN Rate Random Glucose 135 MG/DL Calcium Level 7.6 MG/DL Free Triiodothyronine (T3) 1.10 PG/ML pg/dL Random Vancomycin Level 11.1 COMMENT Blood Gas Puncture Site ART LINE Blood Gas Patient Temperature 98.6 Blood Gas HCO3 10 mmol/L Blood Gas Base Excess -16.2 mmol/L Blood Gas Oxygen Saturation 97 % Arterial Blood pH 7.25 Arterial Blood Partial 23 mmHg Pressure CO2 Arterial Blood Partial 207 mmHg Pressure O2 Arterial Blood Oxygen Content 11.3 Vol % Arterial Blood 1.1 % Carboxyhemoglobin Arterial Blood Methemoglobin 0.9 % Blood Gas Hemoglobin 7.9 G/DL Oxygen Delivery Device VENTILATOR Blood Gas Ventilator Setting PRVC/AC Blood Gas Inspired Oxygen 40 % Test 09/20/16 09/20/16 09/20/16 13:21 14:00 15:00 Activated Partial 28.9 SEC 32.4 SEC 32.9 SEC Thromboplast Time Date/Time Procedure Status Source Growth 09/20/16 13:21 Aerobic Blood Culture Received Blood Peripheral Pending 09/20/16 13:21 Anaerobic Blood Culture Received Blood Peripheral Pending 09/19/16 22:00 Gram Stain - Final Resulted Wound Leg 09/19/16 22:00 Wound Culture - Preliminary Resulted Wound Leg RESULTS PENDING 09/19/16 15:50 Urine Culture - Preliminary Resulted Urine Clean Catch NO GROWTH IN 24 HOURS. 09/19/16 07:25 Aerobic Blood Culture - Preliminary Resulted Blood Peripheral Gram Positive Cocci 09/19/16 07:25 Anaerobic Blood Culture - Preliminary Resulted Gram Positive Cocci Physical Examination GEN: Sedated on vent. CVVH HEENT: Normocephalic; atraumatic; no jaundice. CHEST: OETT to vent. CARDIAC: RRR, vasopressors ABDOMEN: Soft, nondistended, nontender; no hepatosplenomegaly; bowel sounds are present in all four quadrants. EXTREMITIES: Generalized edema. SKIN: Drsg LLE d/i IN FILE OPERATOR: Sedated on vent (Isa Samuels) Assessment and Plan Plan ASSESSMENT: - Coffee ground gastric secretions and anemia. Pt is in ICU for severe sepsis/ endocarditis/bacteremia, possible source infected lesion LLE (S/P Bx and C/S). Pt was brought for AMS and decompensated overnight, requiring intubation- vasopressors. HH dropped 6.5/20.0 overnight. S/P 3 units PRBC, rpt 7.9/23.4. Protonix Gtt. - Anemia, secondary to acute blood loss. S/P 3 units PRBC. rpt 7.9/23.4. Protonix Gtt. - Sepsis/Bacteremia/Endocarditis. ? Source infected lesion LLE. S/P 2D echo, mobile vegetation with severe aortic regurgitation on aortic valve. Cardiology following. Plan was for AGUSTIN, but cancelled secondary to worsening condition. - Acute renal failure, CVVH per renal - Resp. Failure. Vent. per CCM. - LLE wound. Family reports that this has been increasing in size and he was previously told that this was cancer and it needed to be removed, but he never followed up. Per primary PLAN: - Possible EGD in am - Obtain consents - Protonix - Monitor HH - Transfuse as necessary - Supportive care - Further recommendations to follow based on results of above - PT seen and examined by Dr. Zaragoza and myself and this note is written on her behalf (Isa Samuels) Physician Comments seen, examined agree with above (Nupur Zaragoza MD) Isa Samuels Sep 20, 2016 17:05 Nupur Zaragoza MD Sep 20, 2016 18:00
[2016-09-20 17:36] LABS: APTT (PATIENT) 29.6 SEC (24.3-30.1)
[2016-09-20 17:37] LABS: APTT (PATIENT) 35.8 SEC (24.3-30.1)
--- NOTE | 2016-09-20 18:05 | PD.PROCEDR ---
Procedure Note Procedure Preop diagnosis: Acute renal failure, septic shock, bacterial endocarditis Postop diagnosis: Same Informed consent: Obtained from family and documented on chart Anesthesia: 1% lidocaine for local infiltration anesthesia Procedure: Dialysis catheter placement Site: Right internal jugular vein Ultrasound guidance : Yes After sterile prepping and draping using 1% lidocaine for local infiltration anesthesia, right internal jugular vein was visualized using an ultrasound was finder and under direct visualization was cannulated using an introducer needle with dark nonpulsatile blood return. A Guidewire was passed through the introducer needle without any resistance and the needle was then removed. After making a skin neck and dilation of tract, a 24 cm dual lumen dialysis catheter was passed over the guidewire by modified seldinger's technique into the right internal jugular vein up to the 22 cm geraldine and the guidewire was then removed. Good blood return obtained through both ports which were then flushed with saline and subsequently hep-locked. After suturing the catheter in place, a Bio- occlusive dressing with biopatch was applied to the site. Post procedure chest x -ray was ordered and reviewed with good placement of right IJ dialysis catheter with tip overlying SVC, no pneumothorax on postprocedure film. Patient tolerated the procedure well with no immediate complications noted. Dontae Somers MD Sep 20, 2016 18:05
[2016-09-20 18:37] LABS: BLOOD GAS BASE EXCESS -15.3 mmol/L (-2-2); BLOOD GAS CARBOXYHEMOGLOBIN 0.9 % (0-4); BLOOD GAS HCO3 10 mmol/L (22-26); BLOOD GAS METHEMOGLOBIN 0.9 % (0-2); BLOOD GAS O2 HGB SATURATION 97 % (90-100); BLOOD GAS OXYGEN CONTENT 12.3 Vol % (12.0-20.0); BLOOD GAS PCO2 22 mmHg (38-42); BLOOD GAS PO2 187 mmHg (61-120); BLOOD GAS TOTAL HGB 8.7 G/DL (12.0-16.0); TEMP CORR TO 98.6
[2016-09-20 18:38] LABS: CRITICAL VALUE YES; OXYGEN DEVICE VENTILATOR; VENT SETTINGS 550/24/1SEC/PEEP5
[2016-09-20 18:39] LABS: DRAW SITE ART LINE; FIO2 35 %; STAT NO
[2016-09-20 18:48] LABS: HEMATOCRIT 26.4 % (39.0-51.0); MEAN CELL VOLUME 89.7 FL (80.0-100.0); MEAN CORPUSCULAR HEMOGLOBIN 29.9 PG (27.0-34.0); MEAN CORPUSCULAR HGB CONC 33.3 % (32.0-36.0); PLATELET COUNT 79 TH/MM3 (150-450); RED BLOOD COUNT 2.95 MIL/MM3 (4.50-5.90); RED CELL DISTRIBUTION WIDTH 19.4 % (11.6-17.2); WHITE BLOOD COUNT 19.2 TH/MM3 (4.0-11.0)
[2016-09-20 18:54] LABS: APTT (PATIENT) 29.5 SEC (24.3-30.1)
[2016-09-20 18:55] LABS: APTT (PATIENT) 36.7 SEC (24.3-30.1)
[2016-09-20 18:56] LABS: REVIEW FLAG FINAL
[2016-09-20 19:10] LABS: BICARBONATE 13.2 MEQ/L (21.0-32.0); POTASSIUM 4.5 MEQ/L (3.5-5.1); TOTAL BILIRUBIN ADULT 2.2 MG/DL (0.2-1.0)
[2016-09-20 19:24] LABS: APTT (PATIENT) 35.2 SEC (24.3-30.1)
[2016-09-20 19:46] LABS: CALCIUM-PROTEIN CORRECTED 7.5 MG/DL (8.5-10.1)
[2016-09-20] MEDS ORDERED: FAMOTIDINE 20 MG/2 ML VIAL IV PUSH SCH (21:00)
[2016-09-20] MEDS ORDERED: CALCIUM GLUCONATE INJ 1 GM in SODIUM CHLORIDE 0.9% INJ 100 ML IV ONE (21:15)
[2016-09-20] MEDS ORDERED: SODIUM BICARBONATE 8.4% INJ 150 MEQ in WATER STERILE FOR INJ 850 ML IV SCH (21:15)
[2016-09-20] MEDS ORDERED: POTASSIUM CHLOR 10 MEQ PREMIX 100 ML IV PRN (21:15)
[2016-09-20 21:40] LABS: APTT (PATIENT) 36.5 SEC (24.3-30.1)
[2016-09-20 21:41] LABS: APTT (PATIENT) 29.4 SEC (24.3-30.1)
[2016-09-21] VITALS (18 sets, daily range): BP systolic 118–155; BP diastolic 30–41; PULSE 75–84; RESP 18–26; TEMP 96.4–98.1; O2SAT 0–100
[2016-09-21] MEDS: SODIUM CHLOR 0.9% 1000 ML INJ 1,000 ML IV SCH ×12 (00:38→22:22)
[2016-09-21] MEDS: INSULIN ASPART SUPPLEMENTAL SCALE SQ SCH ×6 (00:39→21:00)
[2016-09-21] MEDS: PANTOPRAZOLE INJ 80 MG in SODIUM CHLORIDE 0.9% INJ 100 ML IV SCH ×3 (01:25→19:49)
[2016-09-21] MEDS: PIPERACIL-TAZO 2.25 GM PREMIX 50 ML IV SCH ×4 (02:35→19:36)
[2016-09-21] MEDS: RESP: ALBUTEROL 2.5 MG/IPRATROPIUM 0.5 MG NEB (SCH) INH ×4 (03:23→20:53)
[2016-09-21] MEDS: CHLORHEXIDINE GLUCONATE 2 % 1 PACK (2 CLOTHS) TOP SCH (03:50)
[2016-09-21 03:51] LABS: AUTOMATED NEUTROPHIL # 13.8 TH/MM3 (1.8-7.7); BASOPHIL # 0.1 TH/MM3 (0-0.2); BASOPHIL % 0.4 % (0.0-2.0); EOSINOPHIL % 0.1 % (0.0-4.0); HEMATOCRIT 24.6 % (39.0-51.0); LYMPH % 5.6 % (9.0-44.0); LYMPHOCYTE # 0.9 TH/MM3 (1.0-4.8); MEAN CELL VOLUME 88.5 FL (80.0-100.0); MEAN CORPUSCULAR HEMOGLOBIN 30.2 PG (27.0-34.0); MEAN CORPUSCULAR HGB CONC 34.2 % (32.0-36.0); MONO % 6.6 % (0.0-8.0); NEUT % 87.3 % (16.0-70.0); PLATELET COUNT 58 TH/MM3 (150-450); RED BLOOD COUNT 2.78 MIL/MM3 (4.50-5.90); RED CELL DISTRIBUTION WIDTH 19.2 % (11.6-17.2); WHITE BLOOD COUNT 15.9 TH/MM3 (4.0-11.0)
[2016-09-21 03:53] LABS: HEMO FLAGS AUTO DIFF
[2016-09-21] MEDS ORDERED: SODIUM BICARBONATE 8.4% INJ 150 MEQ in WATER STERILE FOR INJ 850 ML IV SCH (04:00)
[2016-09-21 04:04] LABS: APTT (PATIENT) 36.1 SEC (24.3-30.1)
[2016-09-21 04:19] LABS: MAGNESIUM 2.4 MG/DL (1.5-2.5)
[2016-09-21 04:25] LABS: INDIRECT BILIRUBIN 0.5 MG/DL (0.0-0.8); TOTAL BILIRUBIN ADULT 2.1 MG/DL (0.2-1.0)
[2016-09-21 04:52] LABS: BANDS 17 % (0-6); CORRECTED NUCLEATED RBC 2 /100 WBC (0-0); NEUTROPHIL # MANUAL DIFF 15.4 TH/MM3 (1.8-7.7); POLYS (SEG NEUTROPHILS) 80 % (16-70); WBC DIFF SAMPLE 100
[2016-09-21 04:53] LABS: ACANTHOCYTES OCC (NORMAL); PLATELET ESTIMATE SMEAR LOW (NORMAL); PLATELET MORPHOLOGY NORMAL (NORMAL); SCAN/DIFF FINAL DIFF MANUAL
[2016-09-21] MEDS ORDERED: SODIUM BICARBONATE 8.4% INJ 150 MEQ in SODIUM CHLOR 0.45% 1000 ML INJ 850 ML IV SCH (05:00)
--- NOTE | 2016-09-21 05:17 | MB ---
cc: KAY ELIZABETH MD DATE OF CONSULTATION 09/20/2016 REASON FOR CONSULTATION Acute kidney injury with elevated BUN and creatinine. HISTORY OF PRESENT ILLNESS This is a 56-year-old male with a past medical history of hypertension, history of schizophrenia and depression, was brought to the hospital because of altered mental status. I was called to see the patient because of elevated BUN and creatinine. The patient was found to have a creatinine of 3.2 on admission. Previously in 2012 his creatinine was normal. The patient was also found to be anemic and his hemoglobin on admission was 7.7 which dropped to 6.5 and he got blood transfusion. The patient was found to have a wound in his left lower leg with cellulitis and there was a mass-like thing. He was evaluated by Dr. Gomez at [facility] and it was felt like he possibly had some kind of malignancy in the leg but there is not much information available but workup was done. The patient has decreased blood pressure, developed respiratory failure, was intubated, developed hypotension and was started on pressors. The patient has decreased urinary output and was started on CVVH today in the afternoon. The patient is not able to give any history. Most of the history was taken from the patient's chart. PAST MEDICAL HISTORY 1. Hypertension. 2. Schizophrenia. 3. Depression. PAST SURGICAL HISTORY None. REVIEW OF SYSTEMS Cannot be taken. SOCIAL HISTORY Positive for smoking and alcoholism. FAMILY HISTORY Not available. ALLERGIES He has no known drug allergies. MEDICATIONS Currently he is on - 1. IV fluid with sodium bicarbonate. 2. Vasopressin. 3. Colace 100 mg b.i.d. 4. Protonix infusion. 5. Heparin subcu 5000 units q. 12 hours. 6. Zosyn 2.25 grams q.6 hours. 7. Solu-Cortef 100 mg q.8 hours. 8. Propofol as needed. 9. Protamine and heparin with CRRT. PHYSICAL EXAMINATION GENERAL: On examination the patient is intubated and sedated on pressors. VITAL SIGNS: His last blood pressure was 128 x 40, temperature is 97.5, oxygen saturation is 100% on 35% FIO2. HEENT: Pupils are mid-constricted. Nonicteric sclerae. Conjunctivae pale. NECK: Supple. JVD is slightly elevated. LUNGS: Bilaterally decreased air entry with scattered wheezing. HEART: S1, S2. Regular rhythm. ABDOMEN: Distended, soft lax. There is no tenderness. EXTREMITIES: He has bilateral edema; left leg is more edematous and it is covered with a dressing. INVESTIGATIONS WBC count is 7.2, hemoglobin 7.9, platelet count 129, neutrophils 88%. Sodium 39, potassium 4.9, chloride 104, bicarb 11.2, BUN 76, creatinine 3.25. Calcium 7.6. Lactic acid level was 9. Urinalysis showing protein of 30. Toxicology screen was negative. Troponin I was 11.8. CPK was 6700. IMAGING STUDY The patient had ultrasound of the kidneys done yesterday. It shows both kidneys are normal in size and there is no hydronephrosis. CT scan of the brain was done and it shows old infarction on the right side. Chest x-ray was done which shows left lower lung atelectasis. ASSESSMENT AND PLAN 1. Acute kidney injury 2. Metabolic acidosis with lactic acidosis. 3. Hypotension and shock status. 4. Severe anemia. 5. Respiratory failure. 6. Endocarditis with aortic wall vegetation. The patient has acute kidney injury. The differential diagnosis will be either ATN because of the hypotension and infection or the possibility of post-infectious glomerulonephritis which is unlikely. At present his urine output was low and the patient has been more acidosis. He is started on CRRT. We are trying to remove fluid of 200 per hour and he is on regional heparinization. Follow the BMP. Thank you for the consultation. I will follow the patient while he is in the hospital. MD JANAK Lama/EDINSON /5:21 PM /5:04 AM
[2016-09-21] MEDS: HEPARIN SODIUM - SQ 10,000 UNITS/ML VIAL SQ SCH ×2 (06:00→18:00)
[2016-09-21] MEDS: HYDROCORTISONE SOD SUCCINATE 100 MG VIAL IV PUSH SCH ×3 (06:39→22:26)
[2016-09-21] MEDS ORDERED: NOREPINEPHRINE-DEXTROSE DRIP 250 ML IV SCH (07:15)
[2016-09-21 07:21] LABS: BLOOD GAS BASE EXCESS -8.8 mmol/L (-2-2); BLOOD GAS CARBOXYHEMOGLOBIN 1.2 % (0-4); BLOOD GAS HCO3 15 mmol/L (22-26); BLOOD GAS O2 HGB SATURATION 97 % (90-100); BLOOD GAS PCO2 22 mmHg (38-42); BLOOD GAS PO2 181 mmHg (61-120); BLOOD GAS TOTAL HGB 7.8 G/DL (12.0-16.0); TEMP CORR TO 98.6
[2016-09-21 07:22] LABS: CRITICAL VALUE YES; DRAW SITE ALINE; FIO2 35 %; OXYGEN DEVICE VENT; STAT YES
[2016-09-21 07:59] LABS: BICARBONATE 14.4 MEQ/L (21.0-32.0); POTASSIUM 4.3 MEQ/L (3.5-5.1)
[2016-09-21] MEDS: CHLORHEXIDINE 0.12% (ORAL KIT) 15 ML CUP MT SCH ×2 (08:00→19:35)
--- NOTE | 2016-09-21 08:10 | HHI.CCPN ---
Subjective Remarks/Hospital Course 09/19: This is a 56-year-old male that presented secondary to altered mental status. The patient's sister provided the medical information. The patient is alert and oriented 3 .the patient was noted to have a lesion on his left lower extremity and was seen at [facility] by Dr. Carpio at all is felt to be a malignant lesion however the patient was scheduled for follow-up and was noncompliant .over the last several days the patient had began to feel generalized malaise and he lives with his sister who noted that he began to have altered mental status and he presented to the ED .upon presentation to the ED the patient's blood pressure systolic blood pressure was in the 80s laboratory and imaging studies reveal septic shock , with a lactate of 4.5. The patient was bolused with 4 L of normal saline is currently hemodynamically stable , tachypnea , secondary to a bicarbonate level of 9 . He is reported to have a neoplastic lesion about the region of the left knee posteriorly, recent imaging studies suggest malignant neoplasm. The patient underwent a TTE in the ED by Dr. Coombs was noted to have cardiac vegetations tentative plan for a AGUSTIN in the am. Critical care medicine's consult for management. 09/20: Patient was intubated overnight and placed on mechanical ventilation for worsening respiratory status. He is currently sedated, orally intubated on mechanical ventilation. Transfuse 3 units PRBCs overnight. Has some coffee- ground NG aspirate however no melena or rectal bleeding noted. On Levophed 12 mics per minute and vasopressin low-dose for septic shock. Decreasing urine output and significant metabolic acidosis noted for which nephrology consult was requested this morning, vascath was placed and patient has been initiated on CRRT. Discussed with cardiology, severe aortic regurg with aortic valve vegetation for which patient will eventually need an aortic valve replacement following initial stabilization. Awaiting Dr. Medina evaluation. Dr. Coombs has discussed echo with Dr. Medina. 09/21: no significant improvements. lactate still 10. persists on 2 vasopressors. pH slightly better. CRRT circuit clotted overnight. Objective Vital Signs Date Time Temp Pulse Resp B/P Pulse Ox O2 Delivery O2 Flow Rate FiO2 09/21/16 06:00 81 09/21/16 04:02 100 35 09/21/16 04:00 97.9 24 147/41 09/20/16 07:00 Mechanical Ventilator 09/19/16 21:09 2 Intake and Output 09/20/16 09/20/16 09/21/16 08:00 16:00 00:00 Intake Total 3450 ml 2336 ml 1690 ml Output Total 45 ml 250 ml 3373 ml Balance 3405 ml 2086 ml -1683 ml Result Diagram: 09/21/16 0340 09/21/16 0340 Other Results Laboratory Tests Test 09/20/16 09/21/16 18:30 07:10 Blood Gas Puncture Site ART LINE RENATE Blood Gas Patient Temperature 98.6 98.6 Blood Gas HCO3 10 mmol/L 15 mmol/L (22-26) (22-26) Blood Gas Base Excess -15.3 mmol/L -8.8 mmol/L (-2-2) (-2-2) Blood Gas Oxygen Saturation 97 % (90-100) 97 % (90-100) Arterial Blood pH 7.28 7.44 (7.380-7.420) (7.380-7.420) Arterial Blood Partial 22 mmHg (38-42) 22 mmHg (38-42) Pressure CO2 Arterial Blood Partial 187 mmHg 181 mmHg Pressure O2 (61-120) (61-120) Arterial Blood Oxygen Content 12.3 Vol % 11.0 Vol % (12.0-20.0) (12.0-20.0) Arterial Blood 0.9 % (0-4) 1.2 % (0-4) Carboxyhemoglobin Arterial Blood Methemoglobin 0.9 % (0-2) 1.0 % (0-2) Blood Gas Hemoglobin 8.7 G/DL 7.8 G/DL (12.0-16.0) (12.0-16.0) Oxygen Delivery Device VENTILATOR VENT Blood Gas Ventilator Setting 550/24/1SEC/PEEP5 PRVC//5/IT1 Blood Gas Inspired Oxygen 35 % 35 % Imaging Last Impressions Tibia/Fibula X-Ray 09/19/16 0000 Signed Impressions: Service Date/Time: Monday, September 19, 2016 07:43 - CONCLUSION: Chronic changes and no evidence for acute fracture. Claudio Barroso MD Renal Ultrasound 09/19/16 0000 Signed Impressions: Service Date/Time: Monday, September 19, 2016 10:40 - CONCLUSION: Unremarkable renal ultrasound. Claudio Barroso MD Lower Extremity MRI 09/19/16 0000 Signed Impressions: Service Date/Time: Monday, September 19, 2016 10:15 - CONCLUSION: Large mass most likely originating from the patient's skin with infiltration of subcutaneous fat and no definite involvement of the muscular structures or marrow. A malignant mass should be entertained and clinical correlation is needed. Claudio Barroso MD Knee X-Ray 09/19/16 0000 Signed Impressions: Service Date/Time: Monday, September 19, 2016 07:43 - CONCLUSION: Osteoarthritis. 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 Claudio Barroso MD Chest X-Ray 09/19/16 0000 Signed Impressions: Service Date/Time: Monday, September 19, 2016 16:50 - CONCLUSION: 1. Minimal basilar atelectasis. Elevated right hemidiaphragm. No effusion. Osteochondral defect right humeral head. Raul Merlos MD Objective Remarks HEENT/ Neuro: Sedated, orally intubated, Pallor present, no icterus, tongue/ mucosa moist Neck: No JVD. Right IJ Vas-Cath, left IJ central line in place Chest/Pulm: on mech vent, good air entry bilaterally, no wheezing or crackles CVS: S1-S2 regular, significant murmur best heard over aortic area noted. GI/abdomen: soft, nontender, bowel sounds sluggish Extremities: warm bilaterally, no edema. Ulcerated lesion/ mass on left leg behind the knee noted Date of Insertion: Sep 19, 2016 Line: Central Venous Catheter Side: Left Location: Jugular A/P Assessment and Plan Assessment: 56yM with infective endocarditis of the [place] aortic valve with subsequent severe acute aortic regurgitation, pulmonary edema, congestive heart failure secondary to valvulopathy, acute mixed septic/cardiogenic shock, multiorgan system dysfunction, acute liver dysfunction likely secondary to shock liver and possible congestive hepatopathy, acute kidney injury requiring renal replacement therapy, metabolic encephalopathy. He remains very critically ill at this time. Will again discuss plan of care with cardiology, cardiac surgery. I am not sure this disease process gets better without a competent aortic valve. 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 frequent neuro checks CT brain old infarction on the right. MRI today while off CRRT. hold acetaminophen given shock liver. Respiratory: Acute hypoxic respiratory failure on mechanical ventilation Pulmonary Edema secondary to valvulopathy and cardiogenic shock Continue mechanical ventilation, vent bundle, bronchodilators as needed. too unstable today for CPAP trials. still significant metabolic acidosis. volume removal with CRRT. Cardiovascular: Aortic valve vegetation Severe aortic regurgitation Septic Shock Cardiogenic Shock Congestive Heart Failure secondary to valvulopathy Transthoracic echo with aortic valve vegetation with severe aortic regurgitation. Cardiology: [facility] CT Surgery: Adam -- will again discuss care with cards/CT surg. will require AVR at some point. I am not sure we will be able to improve him clinically without AVR. continue norepinephrine, vasopressin, goal sbp 110 - 120. given his acute severe AI, higher afterloads may be associated with worsening of his heart failure. this may give us MAP < 65, but we should tolerate this and optimize cardiac function. Renal: Acute kidney injury secondary to sepsis Acute intravascular volume overload. Strict intake output, monitor and replete electrolytes, follow BUN/creatinine. Continue bicarbonate drip. Follow CPK levels. CRRT continues. net negative 200cc/hr. Nephrology following trend ABGs. continue salmeron catheter. FEN/GI: Acute severe intravascular volume overload Acute protein calorie malnutrition- mild Hyperphosphatemia Acute GI bleed Lactic Acidosis Severe metabolic acidosis -- NPO while on high dose vasopressors -- bicarb drip at 150cc/hr -- trend abgs -- continue CRRT, net -200cc/hr. -- protonix drip -- GI following Heme/ID: Chronic anemia Acute anemia secondary to blood loss from GI bleed Leukocytosis Septic shock Bacteremia with gram-positive cocci Aortic valve endocarditis Hyperlipidemia Thrombocytopenia secondary to consumption secondary to severe AI daily CBC wound culture growing MRSA blood growing strep, sensitivities to follow Vanc trough subtherapeutic. discussed with ID and giving additional 1-time dose of vancomycin 1gm iv. continue renally adjusted zosyn. Discussed with Dr. Fonseca ID. 4T score low probability of HIT. does not meet transfusion triggers at this time. 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 Status post punch biopsy on by family medicine service awaiting pathology results. -Dependent on results we'll decide further management. Wound care consult -Continue bicarbonate drip for rhabdomyolysis -- SSI Prophylaxis: GI Prophylaxis protonix drip for GI bleed. DVT Prophylaxis -- SCDs Heparin SQ Lines: LIJ central line placed 09/19 RIJ vascath placed 09/20 Time spent on critical care excluding procedures 82 minutes Perez Aparicio MD Sep 21, 2016 08:10
[2016-09-21 08:13] LABS: CALCIUM-PROTEIN CORRECTED 7.6 MG/DL (8.5-10.1)
--- NOTE | 2016-09-21 08:27 | MB ---
cc: BERNIE JOHANSEN DATE OF CONSULTATION 09/20/2016 HISTORY OF THE PRESENT ILLNESS A 56-year-old male presented to the emergency room with altered mental status, brought in by his sister. The patient's sister noted that he was not acting himself. Normally he is very active. 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 He was not able to communicate, had decreased oral intake and that he became disoriented. She brought him into the emergency room. He states he has had this ulcer on his left posterior aspect of his left knee since May. He was supposed to Dr. Kiran at [facility] for a biopsy. They felt it was likely neoplastic. However the biopsy has not been completed as yet. He has also had a 10 pounds weight loss over the last few months. Most of the information was obtained from the chart. The patient had a initial blood gas that was drawn on admission which showed a pH of 7.4 on a CO2 of 14, base excess of -15. The patient later went into further respiratory failure, was emergently intubated where he remains intubated on multiple pressors. He is currently sedated on fentanyl and propofol. He is on a bicarb drip secondary to the severe metabolic acidosis. He is also on vancomycin, Zosyn, heparin drip, vasopressin, Levophed. He underwent echocardiogram which showed mobile vegetation on the left anterior aspect of the aortic valve, severe AI with EF of 50-55%. He did have blood cultures which did grow gram-negative septicemia. We were consulted to evaluate for aortic valve endocarditis. The patient has no past history of drug use. He had a negative drug screen. Again the information was obtained from the chart since the patient is intubated. PAST MEDICAL HISTORY 1. Possible schizophrenia. 2. Depression. 3. Hypertension. 4. Chronic left leg wound. PAST SURGICAL HISTORY No past surgical history. ALLERGIES NO KNOWN ALLERGIES. MEDICATIONS Home meds include Lisinopril. Current meds as above in HPI. SOCIAL HISTORY Lives with his sister. 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 No mention of alcohol. No illicit drugs. REVIEW OF SYSTEMS Unobtainable. PHYSICAL EXAMINATION VITAL SIGNS: On exam blood pressure 128/40, heart rate 72, 97.5 temperature. GENERAL: The patient is currently sedated and orally intubated. HEENT: He has some poor dentition. He has loss of some lower teeth and some gum disease. NECK: Supple. No JVD. CARDIOVASCULAR: Heart sounds S1-S2 with a grade 2-3 diastolic murmur best noted at the left sternal border. LUNGS: Coarse breath sounds bilaterally. Equal. No wheezes, rales or rhonchi. ABDOMEN: Obese, soft, nontender. He does have an NG tube with some dark brownish drainage. He has a David catheter in place. EXTREMITIES: He has a large dressing to his left lower leg which per Dr. Fonseca's note large, ulcerated fungating mass on the posterior medial aspect of the upper leg with some yellow exudate, foul odor. NEUROLOGIC: He is sedated on the vent. He has got a left IJ, a David catheter and arterial line with a flow track monitor. LABORATORY DATA Lab work shows a repeat gas with pH 7.25, CO2 of 23, pO2 of 207 and base excess -16. He is on PRVC control at 40%. Lab work shows chemistry sodium 139, potassium 4.9, BUN 76, creatinine 3.25. Hemoglobin 7.9, hematocrit of 23, white cell count of 17, platelet count 129. Urine did show many wbc's. Toxicology negative for alcohol and negative for illicit drugs. IMAGING Chest x-ray ET tube at the level of the clavicles. His NG tube was a little bit high needed to be advanced. Head CT scan shows some old infarct in the right MCA. Left knee MRI large mass 9 cm medial aspect of the posterior calf. Infiltration of subcutaneous fat. IMPRESSION 1. This is a 56-year-old unfortunate male with history of non healing wound left lower leg, fungating mass. The patient is to receive a biopsy today. In the meantime the patient has had possible CVA infarct unsure of when. He also has some metabolic acidosis, underlying schizophrenia. 2. Metabolic acidosis with tachypnea. The patient is currently intubated on ventilator. 3. Cardiovascular. The patient has mobile vegetation on the left ventricular aspect of the aortic valve with severe AI, EF of 50-55%, mild MR and mild TR. The patient is currently not a candidate for any surgery due to his overall critically ill with multi organ system involvement to also include chronic anemia, septic shock, hyperglycemia, probable neoplastic lesion left lower extremity, acute kidney injury secondary to sepsis. The patient would need to be stabilized and extubated, free of infection before evaluation for any type of aortic valve surgery, and also to further find out the pathology of the left large mass on his lower upper leg to rule out a neoplastic disorder. DICTATED BY: JARROD Prado Bernie MD MARY Betancourt/PETER /4:42 PM /8:26 AM
[2016-09-21] MEDS: SODIUM CHLORIDE 0.9% FLUSH 10 ML FLUSH IV FLUSH SCH ×2 (09:00→19:38)
[2016-09-21] MEDS: DOCUSATE SODIUM 100 MG CAP PO SCH ×2 (09:00→19:38)
[2016-09-21] MEDS ORDERED: HEPARIN SODIUM - IV 10,000 UNITS/10 ML VIAL ONE (09:25)
--- NOTE | 2016-09-21 09:59 | RADRPT ---
EXAM DATE/TIME: 09/21/2016 07:47 [facility] COMPARISON: CHEST SINGLE AP, September 20, 2016, 10:44. INDICATIONS : Congestive Heart Failure. MEDICAL HISTORY : None. SURGICAL HISTORY : None. ENCOUNTER: Subsequent ACUITY: 3 days PAIN SCORE: Non-responsive. LOCATION: Bilateral chest FINDINGS: ET tube tip well above the keon. Right internal jugular catheter sheath projects over the proximal superior vena cava. Left internal jugular catheter projects over the proximal superior vena cava. Gastric tube tip projects in the stomach. There is consolidation left lower lobe with loss of deline ation of portions of left hemidiaphragm; the consolidation is similar to prior examination. The righ t lung is clear. The heart is upper limits normal size. CONCLUSION: Lines and tubes in good position. Persistent left lower lobe consolidation. Froilan James MD on September 21, 2016 at 9:36 Board Certified Radiologist. This report was verified electronically.
--- NOTE | 2016-09-21 10:02 | HHI.IDPN ---
Subjective Subjective Remarks Notes reviewed Temps ok On 2 pressors: levophed and vasopressin Started on CVVHD yesterday, clotted overnight CV surgery notes reviewed D/W Dr Aparicio ([facility]) Patient currently undergoing CVVHD SEdated on the vent Vanco level 14 Wound C/S MRSA and Strep BC with Strep - B-hemolytic Strep Repeat BC negative so far Sputum C/S pedning Antibiotics VAnco Zosyn Lines Vascath TLC Past Medical History Possible schizophrenia, depression Hypertension Chronic wound left leg Allergies: Uncoded Allergies: NKDA (Allergy, Severe, 11/03/11) Objective . Vital Signs Date Time Temp Pulse Resp B/P Pulse Ox O2 Delivery O2 Flow Rate FiO2 09/21/16 09:00 98 100 09/21/16 08:15 100 35 09/21/16 08:00 98.1 81 24 146/41 100 09/21/16 06:00 81 09/21/16 04:02 100 35 09/21/16 04:00 97.9 82 24 147/41 100 09/21/16 04:00 35 09/21/16 04:00 82 09/21/16 02:00 84 09/21/16 01:05 100 35 09/21/16 00:00 79 09/21/16 00:00 35 09/21/16 00:00 96.8 75 26 130/36 100 09/20/16 22:01 100 35 09/20/16 22:00 75 09/20/16 20:00 75 09/20/16 20:00 96.3 75 26 135/39 100 Automatic Cuff 09/20/16 20:00 35 09/20/16 19:36 100 35 09/20/16 19:00 75 09/20/16 17:38 100 35 09/20/16 16:00 97.5 72 26 128/40 100 09/20/16 16:00 35 09/20/16 15:00 75 09/20/16 14:11 100 35 09/20/16 12:00 40 09/20/16 12:00 97.8 74 24 133/41 100 09/20/16 11:11 100 35 09/20/16 11:00 76 09/20/16 09/20/16 09/21/16 15:00 23:00 07:00 Intake Total 2336 ml 1690 ml 2000 ml Output Total 250 ml 3373 ml 200 ml Balance 2086 ml -1683 ml 1800 ml Intake IV Total 2336 ml 1690 ml 2000 ml Output Urine Total 150 ml 225 ml 200 ml Gastric Drainage Total 100 ml 0 ml 0 ml Hemodialysis 3148 ml # Bowel Movements 0 0 0 . Laboratory Tests Test 09/19/16 09/19/16 09/20/16 09/20/16 19:10 22:45 03:26 05:23 Hemoglobin 6.5 GM/DL 7.8 GM/DL 7.9 GM/DL Hematocrit 20.0 % 24.0 % 23.4 % Haptoglobin 428 MG/DL White Blood Count 16.4 TH/MM3 17.2 TH/MM3 Red Blood Count 2.61 MIL/MM3 2.58 MIL/MM3 Mean Corpuscular Volume 92.2 FL 90.7 FL Mean Corpuscular Hemoglobin 29.8 PG 30.6 PG Mean Corpuscular Hemoglobin 32.3 % 33.8 % Concent Red Cell Distribution Width 18.1 % 18.8 % Platelet Count 127 TH/MM3 129 TH/MM3 Mean Platelet Volume 8.3 FL 8.1 FL Neutrophils (%) (Auto) 82.4 % 88.0 % Lymphocytes (%) (Auto) 9.8 % 5.6 % Monocytes (%) (Auto) 7.6 % 6.2 % Eosinophils (%) (Auto) 0.0 % 0.0 % Basophils (%) (Auto) 0.2 % 0.2 % Neutrophils # (Auto) 13.5 TH/MM3 15.1 TH/MM3 Lymphocytes # (Auto) 1.6 TH/MM3 1.0 TH/MM3 Monocytes # (Auto) 1.2 TH/MM3 1.1 TH/MM3 Eosinophils # (Auto) 0.0 TH/MM3 0.0 TH/MM3 Basophils # (Auto) 0.0 TH/MM3 0.0 TH/MM3 CBC Comment DIFF FINAL DIFF FINAL Differential Comment Test 09/20/16 09/21/16 18:00 03:40 White Blood Count 19.2 TH/MM3 15.9 TH/MM3 Red Blood Count 2.95 MIL/MM3 2.78 MIL/MM3 Hemoglobin 8.8 GM/DL 8.4 GM/DL Hematocrit 26.4 % 24.6 % Mean Corpuscular Volume 89.7 FL 88.5 FL Mean Corpuscular Hemoglobin 29.9 PG 30.2 PG Mean Corpuscular Hemoglobin 33.3 % 34.2 % Concent Red Cell Distribution Width 19.4 % 19.2 % Platelet Count 79 TH/MM3 58 TH/MM3 Mean Platelet Volume 8.2 FL 8.0 FL Neutrophils (%) (Auto) 87.3 % Lymphocytes (%) (Auto) 5.6 % Monocytes (%) (Auto) 6.6 % Eosinophils (%) (Auto) 0.1 % Basophils (%) (Auto) 0.4 % Neutrophils # (Auto) 13.8 TH/MM3 Lymphocytes # (Auto) 0.9 TH/MM3 Monocytes # (Auto) 1.0 TH/MM3 Eosinophils # (Auto) 0.0 TH/MM3 Basophils # (Auto) 0.1 TH/MM3 CBC Comment AUTO DIFF Differential Total Cells 100 Counted Neutrophils % (Manual) 80 % Band Neutrophils % 17 % Lymphocytes % 2 % Monocytes % 1 % Neutrophils # (Manual) 15.4 TH/MM3 Nucleated Red Blood Cells 2 /100 WBC Differential Comment FINAL DIFF MANUAL Platelet Estimate LOW Platelet Morphology Comment NORMAL Acanthocytes OCC Laboratory Tests Test 09/19/16 09/19/16 09/19/16 09/19/16 11:55 12:35 19:00 22:45 Total Creatine Kinase 6698 U/L 7480 U/L 6715 U/L Creatine Kinase MB 73.0 NG/ML 94.5 NG/ML 86.5 NG/ML Creatine Kinase MB % 1.1 % 1.3 % 1.3 % Troponin I 11.80 NG/ML 12.40 NG/ML 11.80 NG/ML Lactic Acid Level 4.2 mmol/L 8.7 mmol/L 9.0 mmol/L Sodium Level 141 MEQ/L Potassium Level 4.4 MEQ/L Chloride Level 107 MEQ/L Carbon Dioxide Level 14.1 MEQ/L Anion Gap 20 MEQ/L Blood Urea Nitrogen 73 MG/DL Creatinine 3.10 MG/DL Estimat Glomerular Filtration 25 ML/MIN Rate Random Glucose 132 MG/DL Calcium Level 7.5 MG/DL Iron Level 102 MCG/DL Total Iron Binding Capacity 153 MCG/DL Percent Iron Saturation 66.8 % Lactate Dehydrogenase 609 U/L Triglycerides Level 216 MG/DL Cholesterol Level 110 MG/DL LDL Cholesterol 55 MG/DL HDL Cholesterol 12.1 MG/DL Cholesterol/HDL Ratio 9.09 RATIO Free Thyroxine 1.50 NG/DL Thyroid Stimulating Hormone 0.316 uIU/ML 3rd Gen Test 09/20/16 09/20/16 09/21/16 05:23 18:00 03:40 Sodium Level 139 MEQ/L 138 MEQ/L 139 MEQ/L Potassium Level 4.9 MEQ/L 4.5 MEQ/L 4.3 MEQ/L Chloride Level 104 MEQ/L 102 MEQ/L 101 MEQ/L Carbon Dioxide Level 11.2 MEQ/L 13.2 MEQ/L 14.4 MEQ/L Anion Gap 24 MEQ/L 23 MEQ/L 24 MEQ/L Blood Urea Nitrogen 76 MG/DL 84 MG/DL 93 MG/DL Creatinine 3.25 MG/DL 3.19 MG/DL 3.32 MG/DL Estimat Glomerular Filtration 24 ML/MIN 25 ML/MIN 23 ML/MIN Rate Random Glucose 135 MG/DL 161 MG/DL 165 MG/DL Calcium Level 7.6 MG/DL 7.0 MG/DL 6.9 MG/DL Free Triiodothyronine (T3) 1.10 PG/ML pg/dL Lactic Acid Level 11.7 mmol/L 10.3 mmol/L Protein Corrected Calcium 7.5 MG/DL 7.6 MG/DL Total Bilirubin 2.2 MG/DL 2.1 MG/DL Aspartate Amino Transf 1185 U/L 1904 U/L (AST/SGOT) Alanine Aminotransferase 381 U/L 666 U/L (ALT/SGPT) Alkaline Phosphatase 76 U/L 75 U/L Lactate Dehydrogenase 1331 U/L Total Protein 6.1 GM/DL 5.7 GM/DL Albumin 1.8 GM/DL 1.7 GM/DL Phosphorus Level 8.3 MG/DL Magnesium Level 2.4 MG/DL Direct Bilirubin 1.6 MG/DL Indirect Bilirubin 0.5 MG/DL Microbiology Date/Time Procedure Status Source Growth 09/19/16 07:20 Aerobic Blood Culture - Preliminary Resulted Blood Peripheral Streptococcus Species 09/19/16 07:20 Anaerobic Blood Culture - Preliminary Resulted Gram Positive Cocci 09/19/16 07:25 Aerobic Blood Culture - Preliminary Resulted Blood Peripheral Gram Positive Cocci 09/19/16 07:25 Anaerobic Blood Culture - Preliminary Resulted Gram Positive Cocci 09/19/16 07:30 Gram Stain - Final Complete Wound Leg 09/19/16 07:30 Wound Culture - Final Complete S. Aureus Mrsa Strep Not A,B D 09/19/16 15:50 Urine Culture - Final Complete Urine Clean Catch NO GROWTH IN 48 HOURS. 09/19/16 22:00 Gram Stain - Final Resulted Wound Leg 09/19/16 22:00 Wound Culture - Preliminary Resulted Wound Leg 09/20/16 13:09 Aerobic Blood Culture Received Blood Peripheral Pending 09/20/16 13:09 Anaerobic Blood Culture Received Blood Peripheral Pending 09/20/16 13:21 Aerobic Blood Culture Received Blood Peripheral Pending 09/20/16 13:21 Anaerobic Blood Culture Received Blood Peripheral Pending Imaging Last Impressions Chest X-Ray 09/20/16 0600 Signed Impressions: Service Date/Time: Tuesday, September 20, 2016 05:22 - CONCLUSION: 1. The NG tube tip is in the distal esophagus. Recommend advancing the NG tube 10 cm. 2. Mild left lower lung atelectasis. Jason Albert MD Tibia/Fibula X-Ray 09/19/16 0000 Signed Impressions: Service Date/Time: Monday, September 19, 2016 07:43 - CONCLUSION: Chronic changes and no evidence for acute fracture. Claudio Barroso MD Renal Ultrasound 09/19/16 0000 Signed Impressions: Service Date/Time: Monday, September 19, 2016 10:40 - CONCLUSION: Unremarkable renal ultrasound. Claudio Barroso MD Lower Extremity MRI 09/19/16 0000 Signed Impressions: Service Date/Time: Monday, September 19, 2016 10:15 - CONCLUSION: Large mass most likely originating from the patient's skin with infiltration of subcutaneous fat and no definite involvement of the muscular structures or marrow. A malignant mass should be entertained and clinical correlation is needed. Claudio Barroso MD Knee X-Ray 09/19/16 0000 Signed Impressions: Service Date/Time: Monday, September 19, 2016 07:43 - CONCLUSION: Osteoarthritis. 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 Claudio Barroso MD Physical Exam GENERAL: sedated and intubated, not in respiratory distress. SKIN: Cool and dry, no generalized rash, no ecchymosis, no embolic lesions noted. No mottling. HEAD: Atraumatic. Normocephalic. No temporal or scalp tenderness. EYES: Pale conjunctivae, no petechia or hemorrhage. No scleral icterus. No injection or drainage. ENT: Nose without bleeding, or purulent drainage. Endotracheal tube is in the mouth, he has moist oral mucosa. NECK: Trachea midline. No JVD or lymphadenopathy. Supple, no meningeal signs. CARDIOVASCULAR: Regular rate and rhythm, no rub, with murmur heard at the base of the heart. RESPIRATORY: Equal breath sounds bilaterally. Decreased at the bases. No wheezes, rales, or rhonchi. GASTROINTESTINAL: Abdomen soft, slightly globular, nondistended, no reaction to palpation. Bowel sounds are present and normoactive. No hepato-splenomegaly , or palpable masses. MUSCULOSKELETAL: Extremities without clubbing, cyanosis, or mottling. Feet are cool to touch. His LLE seems a little larger compared to his RLE. Has some mild pedal edema. There is a large ulcerated and fungating mass in the posterior medial aspect of his L upper leg, with some yellow exudate, and has a foul odor. No joint effusion. 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
--- NOTE | 2016-09-21 10:14 | RADRPT ---
EXAM DATE/TIME: 09/21/2016 08:47 [place] COMPARISON: CT BRAIN W/O CONTRAST, July 01, 2012, 15:56. INDICATIONS : Altered mental status. MEDICAL HISTORY : Hypertension. SURGICAL HISTORY : None. ENCOUNTER: Subsequent ACUITY: 4-6 days PAIN SCORE: 2/10 LOCATION: head TECHNIQUE: Multiplanar, multisequence MRI of the brain was performed without contrast. FINDINGS: The examination is abnormal demonstrating a large area of T2 prolongation with restricted diffusion i n the anterior frontoparietal region measuring 3.9 x 2.8 cm. This involves both hernandez matter and whit e matter and is characteristic of an acute nonhemorrhagic infarct. There are multiple additional sma ll areas of punctate restricted diffusion involving bilateral frontal parietal and occipital lobes, l obe bilateral occipital cortex, and at least 4 small punctate areas in the central cerebellum bilater ally. Midline structures a nondeviated. The ventricles are symmetric in size. The brainstem and 4th ventr icle are intact. Visualized portion of the orbits and paranasal sinuses are intact. The cerebellar pontine angle is intact. Pituitary gland is normal in size. The CONCLUSION: Abnormal scan demonstrating evidence of multifocal nonhemorrhagic acute infarction, the largest is in the right frontoparietal region. The diffuse bilateral nature involving both anterior and posterior circulation suggests embolic source. No evidence of mass effect or cerebral edema at this point. Froilan James MD on September 21, 2016 at 10:04 Board Certified Radiologist. This report was verified electronically.
[2016-09-21] MEDS: SODIUM BICARBONATE 8.4% INJ 150 MEQ in WATER STERILE FOR INJ 850 ML IV SCH ×2 (10:39→17:43)
[2016-09-21 11:15] LABS: APTT (PATIENT) 50.2 SEC (24.3-30.1); APTT (PATIENT) 51.6 SEC (24.3-30.1)
--- NOTE | 2016-09-21 11:34 | HHI.FPPN ---
Subjective Remarks Pt seen and examined this morning. He has been off pressors for the last 2 hrs, per his nurse, BPs 110s/30, may need to be restarted. Pt currently being dialyzed. Sedated and intubated with ventilator settings with PEEP of 5, FiO2 of 35%. (Sharri Burnham MD R2) Objective Vitals Vital Signs Date Time Temp Pulse Resp B/P Pulse Ox O2 Delivery O2 Flow Rate FiO2 09/21/16 10:05 100 35 09/21/16 09:00 98 100 09/21/16 08:15 100 35 09/21/16 08:00 81 09/21/16 08:00 98.1 81 24 146/41 100 09/21/16 08:00 35 09/21/16 06:00 81 09/21/16 04:02 100 35 09/21/16 04:00 97.9 82 24 147/41 100 09/21/16 04:00 35 09/21/16 04:00 82 09/21/16 02:00 84 09/21/16 01:05 100 35 09/21/16 00:00 79 09/21/16 00:00 35 09/21/16 00:00 96.8 75 26 130/36 100 09/20/16 22:01 100 35 09/20/16 22:00 75 09/20/16 20:00 75 09/20/16 20:00 96.3 75 26 135/39 100 Automatic Cuff 09/20/16 20:00 35 09/20/16 19:36 100 35 09/20/16 19:00 75 09/20/16 17:38 100 35 09/20/16 16:00 97.5 72 26 128/40 100 09/20/16 16:00 35 09/20/16 15:00 75 09/20/16 14:11 100 35 09/20/16 12:00 40 09/20/16 12:00 97.8 74 24 133/41 100 I/O 09/20/16 09/20/16 09/20/16 09/21/16 09/21/16 09/21/16 07:00 15:00 23:00 07:00 15:00 23:00 Intake Total 3450 ml 2336 ml 1690 ml 2000 ml Output Total 45 ml 250 ml 3373 ml 200 ml Balance 3405 ml 2086 ml -1683 ml 1800 ml Intake IV Total 2950 ml 2336 ml 1690 ml 2000 ml Packed Cells 500 ml Output Urine Total 45 ml 150 ml 225 ml 200 ml Gastric Drainage Total 100 ml 0 ml 0 ml Hemodialysis 3148 ml # Bowel Movements 0 0 0 0 (Sharri Burnham MD R2) Result Diagram: 09/21/1633909/21/16339 Objective Remarks GENERAL: 66-year-old Kath[place] male lying in bed intubated and sedated. SKIN: Warm and dry. No rash. CARDIOVASCULAR: Regular rate and rhythm with 3/6 diastolic murmur more pronounced at the right sternal border. RESPIRATORY: Equal coarse breath sounds bilaterally at the bases. Currently breathing via ventilator. GASTROINTESTINAL: Abdomen soft, non-tender, nondistended with +BS. No masses appreciated. MUSCULOSKELETAL: Extremities without cyanosis. 1+ edema of left lower extremity. LLE on admission: 8.5 X 10.5CM circular, fungating, ulcerative lesion on the posterior aspect of the L knee. No hemorrhage or necrosis appreciated. Lesion is foul smelling and appears to involve skin and subcutaneous tissue; does not appear to involve the muscle or bone. 2+ from the ankle to the knee. LLE currently: Currently lesion bandaged with sterile gauze, CDI. NEUROLOGICAL: Patient intubated and sedated. (Sharri Burnham MD R2) Date of Insertion: Sep 19, 2016 Line: Central Venous Catheter Side: Left Location: Jugular (Sharri Burnham MD R2) A/P Assessment and Plan Mr. Burnham is a 56 y/o AAM with a PMHx of HTN presenting with AMS and a LLE wound found to be in septic shock admitted for medical therapy. Discharge Planning Pending clinical improvement. Unclear timeframe at this time. WDW: Dr. Helm (Sharri Burnham MD R2) Attending Attestation Patient examined and case discussed with resident physician I have read the above note and agree with the assessment/plan as discussed with me I was involved in all medical decision making for this patient Jason Helm M.D. (Jason Helm MD) Problem List: (1) Septic shock Status: Acute Plan: On admission patient presented with altered mental status left lower extremity lesion. Patient found to be tachycardic to 100 bpm with a white blood cell count of 18.6. Likely source of infection is his left lower extremity lesion. Found to have a lactic acid of 4.5 not responsive to fluid resuscitation. Patient placed on sepsis protocol and transferred to the [facility] for further monitoring. Patient found to have endocarditis with mobile aortic valve vegetation. Blood cultures 2 09/19: Beta hemolytic streptococcus, beta Streptococcus group G UC: Pending Wound culture x2: MRSA, sensitive to vancomycin Intensive care consulted, appreciate recommendations Infectious disease consulted, appreciate recommendations * Continue Vancomycin and Zosyn * MRI of brain from 09/21 significant for multifocal nonhemorrhagic acute infarction, the largest in the right frontoparietal region. Diffuse bilateral nature involving both anterior and posterior circulation suggests embolic source. No evidence of mass effect or cerebral edema at this point. * Biopsy of LLE lesion sent for pathology * Repeat BC with no growth to date Medications: Vancomycin 1 g twice a day, pharmacy consulted Zosyn 2.25 g every 6 hours Sodium bicarbonate with sterile water at 150 mL per hour Hydrocortisone 100 mg every 8 hours Vasopressin, Levophed, fentanyl, propofol, midazolam drips per protocol (2) Skin ulcer of left lower leg, limited to breakdown of skin Status: Acute Plan: Patient with circular, fungating, ulcerative lesion on the posterior aspect of the L knee with edema of the lower extremity. Patient denies any pain currently. Lower extremity neurovascularly intact with appropriate capillary refill. Knee x-ray: Chronic changes with no evidence of acute fracture Tubularfibula x-ray: Chronic changes and no evidence of acute fractures. Lower extremity MRI: Large mass most likely originating from the patient's skin with infiltration of subcutaneous fat and no definite involvement of the muscular structures her marrow. A malignant mass should be entertained and clinical correlation is needed. Consider Gen. surgery consult when patient is more stable for possible biopsy and resection. Please see plan as above (3) Endocarditis of aortic valve Status: Acute Plan: On admission patient with elevated CPK to 7480 and troponin to 12.4. Echocardiogram performed and found to have mobile vegetation of the aortic valve. Blood cultures with gram-positive cocci in all 4 vials. TTE 09/20: Aortic valve with mobile vegetation on the left ventricular aspect. Severe aortic regurgitation directed eccentrically in the LVOT. Left ventricle with normal cavity size and wall thickness. Systolic function normal. Estimated ejection fraction in the range of 50-55% with normal wall motion. Mitral valve with mild regurgitation. Tricuspid valve with mild regurgitation. Pulmonary arteries with moderately increased systolic pressure. Cardiology consulted, appreciate recommendations * AGUSTIN scheduled, however due to patient's declining status, will hold off at this time * Severe aortic insufficiency, would require surgical replacement. Cardiothoracic surgery consulted. Cardiothoracic surgery consulted, appreciate recommendations * Currently not a surgical candidate * Surgery to be considered once pt is stable and extubated. (4) Acute renal failure (ARF) Status: Acute Plan: Patient found to have a BUN of 58 with a creatinine of 3.27 on admission likely secondary to septic shock. Per chart review, admission in 2012 showed creatinine of 0.81. Renal ultrasound: Unremarkable Strict I/Os Avoid nephrotoxic agents Urology consulted to assist with David catheter placement secondary to phimosis Nephrology consulted, appreciate recommendations * Pt currently being dialyzed * Regional heparinization * Goal of fluid removal: 200ml/hr * Monitor BMP Medications: Sodium bicarbonate with sterile water at 150 mL per hour (5) Anemia Status: Acute Plan: Patient found to be anemic on admission without prior history. Repeat H/ H show declining hemoglobin. Patient transfused 3 units of PRBC on 09/19. Pt with Coffee-ground gastric secretions, suggestive of possible upper GI bleed. H/H today: 8.4/24.6 3 units PRBC transfused, 1 unit ready for possible future transfusion Posttransfusion H/H on 09/20: 7.8/24 GI consulted, appreciate recommendations and intervention * Possible EGD today * Monitor H/H * Transfuse as necessary * Supportive care (6) Nutrition, metabolism, and development symptoms Status: Acute Plan: Fluids: Sodium bicarbonate with sterile water at 150 mL per hour Diet: NPO as patient is intubated and sedated Electrolytes: Continue to monitor DVT Prophylaxis: Heparin 5000 units Q12hrs GI prophylaxis: Protonix drip (Sharri Burnham MD R2) Problem Qualifiers (1) Acute renal failure (ARF): Qualified Code: N17.9 - Acute renal failure, unspecified acute renal failure type Sharri Burnham MD R2 Sep 21, 2016 11:34 Jason Helm MD Sep 21, 2016 16:11
[2016-09-21 11:41] LABS: BLOOD GAS BASE EXCESS -5.7 mmol/L (-2-2); BLOOD GAS CARBOXYHEMOGLOBIN 1.2 % (0-4); BLOOD GAS HCO3 17 mmol/L (22-26); BLOOD GAS METHEMOGLOBIN 0.8 % (0-2); BLOOD GAS O2 HGB SATURATION 96 % (90-100); BLOOD GAS OXYGEN CONTENT 11.1 Vol % (12.0-20.0); BLOOD GAS PCO2 21 mmHg (38-42); BLOOD GAS PO2 99 mmHg (61-120); BLOOD GAS TOTAL HGB 8.1 G/DL (12.0-16.0); CRITICAL VALUE YES; OXYGEN DEVICE VENTILATOR; TEMP CORR TO 98.6
[2016-09-21 11:42] LABS: DRAW SITE ART LINE; FIO2 35 %; STAT YES; VENT SETTINGS 550/24/1SEC/PEEP5
[2016-09-21] MEDS ORDERED: VANCOMYCIN INJ 1,000 MG in SODIUM CHLOR 0.9% 250 ML INJ 250 ML IV ONE (12:00)
[2016-09-21 12:09] LABS: APTT (PATIENT) 33.8 SEC (24.3-30.1)
[2016-09-21 13:16] LABS: APTT (PATIENT) 28.1 SEC (24.3-30.1)
[2016-09-21 13:17] LABS: APTT (PATIENT) 31.5 SEC (24.3-30.1)
[2016-09-21 14:14] LABS: APTT (PATIENT) 29.8 SEC (24.3-30.1)
[2016-09-21 14:15] LABS: APTT (PATIENT) 30.7 SEC (24.3-30.1)
[2016-09-21 15:34] LABS: BLOOD GAS BASE EXCESS -4.9 mmol/L (-2-2); BLOOD GAS CARBOXYHEMOGLOBIN 1.3 % (0-4); BLOOD GAS HCO3 18 mmol/L (22-26); BLOOD GAS METHEMOGLOBIN 0.6 % (0-2); BLOOD GAS O2 HGB SATURATION 96 % (90-100); BLOOD GAS OXYGEN CONTENT 11.4 Vol % (12.0-20.0); BLOOD GAS PCO2 27 mmHg (38-42); BLOOD GAS PO2 100 mmHg (61-120); BLOOD GAS TOTAL HGB 8.3 G/DL (12.0-16.0); TEMP CORR TO 98.6
[2016-09-21 15:35] LABS: CRITICAL VALUE NO; DRAW SITE ALINE; FIO2 35 %; OXYGEN DEVICE VENT; STAT NO; VENT SETTINGS PRVC/24/550/5/IT1
--- NOTE | 2016-09-21 15:36 | PD.CAR.PN ---
CVT Progress Note Subjective/Hospital Course: Intubated, sedated, on CVVHD Objective: Vital Signs Date Time Temp Pulse Resp B/P Pulse Ox O2 Delivery O2 Flow Rate FiO2 09/21/16 12:00 97.6 79 20 155/31 100 09/21/16 12:00 79 09/21/16 11:46 98 35 09/21/16 10:05 100 35 09/21/16 09:00 98 100 09/21/16 08:15 100 35 09/21/16 08:00 81 09/21/16 08:00 98.1 81 24 146/41 100 09/21/16 08:00 35 09/21/16 06:00 81 09/21/16 04:02 100 35 09/21/16 04:00 97.9 82 24 147/41 100 09/21/16 04:00 35 09/21/16 04:00 82 09/21/16 02:00 84 09/21/16 01:05 100 35 09/21/16 00:00 79 09/21/16 00:00 35 09/21/16 00:00 96.8 75 26 130/36 100 09/20/16 22:01 100 35 09/20/16 22:00 75 09/20/16 20:00 75 09/20/16 20:00 96.3 75 26 135/39 100 Automatic Cuff 09/20/16 20:00 35 09/20/16 19:36 100 35 09/20/16 19:00 75 09/20/16 17:38 100 35 09/20/16 16:00 97.5 72 26 128/40 100 09/20/16 16:00 35 Labs: Laboratory Tests Test 09/21/16 09/21/16 09/21/16 09/21/16 03:40 07:10 09:30 10:35 White Blood Count 15.9 TH/MM3 (4.0-11.0) Red Blood Count 2.78 MIL/MM3 (4.50-5.90) Hemoglobin 8.4 GM/DL (13.0-17.0) Hematocrit 24.6 % (39.0-51.0) Mean Corpuscular Volume 88.5 FL (80.0-100.0) Mean Corpuscular Hemoglobin 30.2 PG (27.0-34.0) Mean Corpuscular Hemoglobin 34.2 % Concent (32.0-36.0) Red Cell Distribution Width 19.2 % (11.6-17.2) Platelet Count 58 TH/MM3 (150-450) Mean Platelet Volume 8.0 FL (7.0-11.0) Neutrophils (%) (Auto) 87.3 % (16.0-70.0) Lymphocytes (%) (Auto) 5.6 % (9.0-44.0) Monocytes (%) (Auto) 6.6 % (0.0-8.0) Eosinophils (%) (Auto) 0.1 % (0.0-4.0) Basophils (%) (Auto) 0.4 % (0.0-2.0) Neutrophils # (Auto) 13.8 TH/MM3 (1.8-7.7) Lymphocytes # (Auto) 0.9 TH/MM3 (1.0-4.8) Monocytes # (Auto) 1.0 TH/MM3 (0-0.9) Eosinophils # (Auto) 0.0 TH/MM3 (0-0.4) Basophils # (Auto) 0.1 TH/MM3 (0-0.2) CBC Comment AUTO DIFF Differential Total Cells 100 Counted Neutrophils % (Manual) 80 % (16-70) Band Neutrophils % 17 % (0-6) Lymphocytes % 2 % (9-44) Monocytes % 1 % (0-8) Neutrophils # (Manual) 15.4 TH/MM3 (1.8-7.7) Nucleated Red Blood Cells 2 /100 WBC (0-0) Differential Comment FINAL DIFF MANUAL Platelet Estimate LOW (NORMAL) Platelet Morphology Comment NORMAL (NORMAL) Acanthocytes OCC (NORMAL) Activated Partial 36.1 SEC 29.0 SEC 50.2 SEC Thromboplast Time (24.3-30.1) (24.3-30.1) (24.3-30.1) Sodium Level 139 MEQ/L (136-145) Potassium Level 4.3 MEQ/L (3.5-5.1) Chloride Level 101 MEQ/L (98-107) Carbon Dioxide Level 14.4 MEQ/L (21.0-32.0) Anion Gap 24 MEQ/L (5-15) Blood Urea Nitrogen 93 MG/DL (7-18) Creatinine 3.32 MG/DL (0.60-1.30) Estimat Glomerular Filtration 23 ML/MIN (>89) Rate Random Glucose 165 MG/DL (74-106) Lactic Acid Level 10.3 mmol/L (0.4-2.0) Calcium Level 6.9 MG/DL (8.5-10.1) Protein Corrected Calcium 7.6 MG/DL (8.5-10.1) Phosphorus Level 8.3 MG/DL (2.5-4.9) Magnesium Level 2.4 MG/DL (1.5-2.5) Total Bilirubin 2.1 MG/DL (0.2-1.0) Direct Bilirubin 1.6 MG/DL (0.0-0.2) Indirect Bilirubin 0.5 MG/DL (0.0-0.8) Aspartate Amino Transf 1904 U/L (AST/SGOT) (15-37) Alanine Aminotransferase 666 U/L (12-78) (ALT/SGPT) Alkaline Phosphatase 75 U/L (45-117) Total Protein 5.7 GM/DL (6.4-8.2) Albumin 1.7 GM/DL (3.4-5.0) Random Vancomycin Level 14.2 COMMENT Blood Gas Puncture Site RENATE Blood Gas Patient Temperature 98.6 Blood Gas HCO3 15 mmol/L (22-26) Blood Gas Base Excess -8.8 mmol/L (-2-2) Blood Gas Oxygen Saturation 97 % (90-100) Arterial Blood pH 7.44 (7.380-7.420) Arterial Blood Partial 22 mmHg (38-42) Pressure CO2 Arterial Blood Partial 181 mmHg Pressure O2 (61-120) Arterial Blood Oxygen Content 11.0 Vol % (12.0-20.0) Arterial Blood 1.2 % (0-4) Carboxyhemoglobin Arterial Blood Methemoglobin 1.0 % (0-2) Blood Gas Hemoglobin 7.8 G/DL (12.0-16.0) Oxygen Delivery Device VENT Blood Gas [facility]ator [facility]IT1 Blood Gas Inspired Oxygen 35 % Test 09/21/16 09/21/16 09/21/16 09/21/16 11:30 11:31 12:29 12:31 Activated Partial 33.8 SEC 35.0 SEC 28.1 SEC 31.5 SEC Thromboplast Time (24.3-30.1) (24.3-30.1) (24.3-30.1) (24.3-30.1) Blood Gas Puncture Site ART LINE Blood Gas Patient Temperature 98.6 Blood Gas HCO3 17 mmol/L (22-26) Blood Gas Base Excess -5.7 mmol/L (-2-2) Blood Gas Oxygen Saturation 96 % (90-100) Arterial Blood pH 7.52 (7.380-7.420) Arterial Blood Partial 21 mmHg (38-42) Pressure CO2 Arterial Blood Partial 99 mmHg Pressure O2 (61-120) Arterial Blood Oxygen Content 11.1 Vol % (12.0-20.0) Arterial Blood 1.2 % (0-4) Carboxyhemoglobin Arterial Blood Methemoglobin 0.8 % (0-2) Blood Gas Hemoglobin 8.1 G/DL (12.0-16.0) Oxygen Delivery Device VENTILATOR Blood Gas Ventilator Setting 550/24/1SEC/PEEP5 Blood Gas Inspired Oxygen 35 % Test 09/21/16 13:40 Activated Partial 30.7 SEC Thromboplast Time (24.3-30.1) Result Diagram: 09/21/16 0340 09/21/16 0340 Imaging: Last Impressions Chest X-Ray 09/21/16 0000 Signed Impressions: Service Date/Time: Wednesday, September 21, 2016 07:47 - CONCLUSION: Lines and tubes in good position. Persistent left lower lobe consolidation. Froilan James MD Brain MRI 09/21/16 0000 Signed Impressions: Service Date/Time: Wednesday, September 21, 2016 08:47 - CONCLUSION: Abnormal scan demonstrating evidence of multifocal nonhemorrhagic acute infarction, the largest is in the right frontoparietal region. The diffuse bilateral nature involving both anterior and posterior circulation suggests embolic source. No evidence of mass effect or cerebral edema at this point. Froilan James MD Tibia/Fibula X-Ray 09/19/16 0000 Signed Impressions: Service Date/Time: Monday, September 19, 2016 07:43 - CONCLUSION: Chronic changes and no evidence for acute fracture. Cluadio Barroso MD Renal Ultrasound 09/19/16 0000 Signed Impressions: Service Date/Time: Monday, September 19, 2016 10:40 - CONCLUSION: Unremarkable renal ultrasound. Claudio Barroso MD Lower Extremity MRI 09/19/16 0000 Signed Impressions: Service Date/Time: Monday, September 19, 2016 10:15 - CONCLUSION: Large mass most likely originating from the patient's skin with infiltration of subcutaneous fat and no definite involvement of the muscular structures or marrow. A malignant mass should be entertained and clinical correlation is needed. Claudio Barroso MD Knee X-Ray 09/19/16 0000 Signed Impressions: Service Date/Time: Monday, September 19, 2016 07:43 - CONCLUSION: Osteoarthritis. 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 Claudio Barroso MD Cardiovascular: Tachy Telemetry: ST Pulmonary: Bilat crackles GI/: Decreased BS Plan: Unfortunate 56y/o male with AV endocarditis and AI. Cultures are positive for Strep in the blood and MRSA from his wound. He has multisystem organ failure and his prognosis with or without surgery is poor. I would not consider him a surgical candidate for AVR at present. (1) Endocarditis of aortic valve Plan: w/ severe AI; would require surgical replacement if pt a candidate; At this time I do not think the risks of a AGUSTIN are warranted given good TTE imaging , but if it would acid changer, would perform; also could be done intraoperatively if Dr. Medina decides the patient is a reasonable candidate. (2) Septic shock Plan: on pressors, cx pending (3) Troponin level elevated Plan: w/ EKG changes, certainly could have CAD, NSTEMI caused secondarily by septic process (4) ARF (acute renal failure) Plan: will be getting Bernie Mortensen MD Sep 21, 2016 15:36
[2016-09-21] MEDS: MIDAZOLAM 100 MG/ML INJ 100 ML IV SCH (16:21)
[2016-09-21 16:35] LABS: APTT (PATIENT) 30.5 SEC (24.3-30.1)
--- NOTE | 2016-09-21 16:43 | PD.CONS ---
Consult Service Palliative Care Consult Requested By Dr. Aparicio . Primary Care Physician No Primary Care Physician . Reason for Consultation a. To assist with evaluation and management of symptoms including: Encephalopathy b. To assist medical decision maker(s) with: better understanding of current medical conditions; weighing benefits/burdens of medical treatment options; making medical treatment decisions. . HPI History of Present Illness This 56-year-old male, with a past history of hypertension and schizophrenia, presented to the emergency department on the morning of 09/19/16 with malaise and some altered mental status that had developed over the previous 24 hours. The patient had reportedly been declining somewhat in recent weeks, with a 10 pound weight loss, but had reportedly had no other specific complaints or problems. He was living with his sister Sandee and according to her was functioning fairly independently at home. The patient's sister Sandee reports that the patient had his first schizophrenic break at the age of 15 and that he was "institutionalized" for some time then, and she notes that "he hasn't been 100% since then." He lived with his parents , but when they both in 2003, the patient was homeless and living in the streets for some time. His sister finally found him and brought him to live with her, where he has been the past 8 or 9 years. 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 She says that she does not know of any history of substance abuse, and does not know of any history of IV drug abuse. The patient has been an alcohol drinker and cigarette smoker in the past, but not recently. Upon presentation to the emergency department during the morning hours of , findings included: * Alert, no obvious distress * Temp 98.3, pulse 93, respirations 20, blood pressure 102/52, oxygen saturation 98% on room air * White count 18.6, hemoglobin 7.7 * Sodium 135, creatinine 3.27, GFR 24, albumin 2.1 * Lactic acid 4.5 * Bilirubin 1.3 * CT brain scan revealed an old right-sided ischemic stroke * MRI of the left leg revealed a large skin mass/lesion * Renal ultrasound was unremarkable * TTE revealed aortic valve vegetations Cultures were obtained, antibiotics were initiated, and fluid resuscitation was provided. There was difficulty placing a David catheter, as the patient had significant phimosis, and a urologist was consulted and was able to place a 16 Ma[place] coud. The patient was placed in the ISC, and declined rapidly by that evening, developing shock and respiratory failure. He was INTUBATED and had a left IJ line placed. He is on Versed and fentanyl. Cardiology saw the patient and is assisting in management. Nephrology saw the patient and is initiating CRRT. CT surgery saw the patient, and is considering aortic valve replacement. The urine culture has been negative so far. Preliminary results of the blood cultures indicate beta-hemolytic Streptococcus. The chest x-ray today reveals left lower lobe consolidation. The patient's renal function has not improved, and he was begun on CRRT on . His blood pressure has been low at times today, and he was on pressors earlier. However, he had an episode of hypertension that required intervention with Cardene. At the time I am seeing the patient, he is not on pressors, and his BP is 123/82. Palliative Care was consulted to assist with symptom management, and to enter into discussions with the patient's family and decision makers regarding his illnesses, prognosis, and the benefits and burdens of the various treatment options. . 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 He lived at her house and she helped with food preparation, laundry, etc. . Review of Systems ROS Limitations: Clinical Condition (the patient is nonverbal, history is from patient's sister), Intubated Constitutional: COMPLAINS OF: Weight loss Endocrine: DENIES: Polyuria Eyes: DENIES: Eye inflammation Ears, nose, mouth, throat: DENIES: Epistaxis Respiratory: COMPLAINS OF: Cough Cardiovascular: DENIES: Syncope Gastrointestinal: DENIES: Bloody stools, Constipation, Diarrhea, Vomiting Genitourinary: DENIES: Hematuria Musculoskeletal: DENIES: Joint pain, Joint Swelling Integumentary: DENIES: Rash Hematologic/Lymphatics: DENIES: Bruising Immunologic/Allergic: DENIES: Urticaria Neurologic: DENIES: Localized weakness, Seizures Psychiatric: COMPLAINS OF: Mood changes, Depression, Hallucinations ( schizophrenic breaks in the past), DENIES: Agitation Past Family Social History Uncoded Allergies: NKDA (Allergy, Severe, 11/03/11) Past Medical History * Septic shock * Respiratory failure, mechanical ventilation * Endocarditis, with severe aortic insufficiency * Acute renal failure * Pneumonia on x-ray * GI blood loss * Anemia requiring transfusion * Old Ischemic stroke on CT scan * Multiple embolic strokes on MRI * Left leg skin cancer, biopsy pending * Hypertension * Psychiatric illness, with first schizophrenic break at age 15 * Phimosis . Past Surgical History * Vas-Cath and left IJ line during this hospitalization * Other surgical history unknown . Reported Medications Reportedly on blood pressure medicine as an outpatient . Current Medications Medications (Trade) Dose Ordered Sig/[place] Route Start Time Stop Time Status Last Admin (Morphine Inj) 2 mg Q30M PRN IV 09/19/16 10:00 Naloxone HCl 0.4 mg 0.4 mg UNSCH PRN IV 09/19/16 10:00 (Zosyn 2.25 Gm Premix) 50 ml @ 100 mls/hr Q6H IV 09/19/16 14:00 09/21/16 14:00 (NS Flush) 2 ml UNSCH PRN IV FLUSH 09/19/16 17:45 (NS Flush) 2 ml BID IV FLUSH 09/19/16 21:00 09/20/16 09:31 (Tylenol) 650 mg Q6H PRN PO 09/19/16 17:45 Hold (Zofran Inj) 4 mg Q6H PRN IV 09/19/16 17:45 (Colace) 100 mg BID PO 09/19/16 21:00 (Heparin Inj) 5,000 units Q12H SQ 09/19/16 18:00 09/20/16 17:20 Miscellaneous Information 1 [id number] XX 09/19/16 17:45 (Chlorhexidine 2% Cloth) 3 pack Taper DAILY@04 TOP 09/20/16 04:00 09/16/17 03:59 09/21/16 03:50 Chlorhexidine Gluconate 3 pack 3 pack UNSCH PRN TOP 09/19/16 17:45 (Vancomycin Consult Pharmacy) 0 ml @ 0 mls/hr UNSCH OTHER 09/19/16 17:45 Chlorhexidine Gluconate 15 ml 15 ml BID@08,20 MT 09/20/16 08:00 09/21/16 08:00 Fentanyl Citrate 250 ml @ 0 mls/hr TITRATE IV 09/19/16 22:45 09/20/16 00:56 (Diprivan 1000 Mg/100ml Inj) 100 ml @ 0 mls/hr TITRATE IV 09/19/16 22:45 09/20/16 13:39 Hydrocortisone Sodium Succinate 100 mg 100 mg Q8HR IV PUSH 09/20/16 01:00 09/21/16 14:00 (Pitressin Inj/ D5W 100 ml Inj) 100 ml @ 4.5 mls/hr [id number] IV 09/20/16 00:55 09/20/16 23:09 (D50w (Vial) Inj) 25 ml UNSCH PRN IV PUSH 09/20/16 05:00 Insulin Aspart 1 1 Q4H SQ 09/20/16 05:00 09/21/16 13:00 Protamine Sulfate 250 mg/Sodium Chloride 250 ml @ 0 mls/hr TITRATE IV 09/20/16 12:15 Heparin Sodium/ Dextrose 250 ml @ 5 mls/hr TITRATE IV 09/20/16 12:15 Sodium Chloride 1,000 ml @ 0 mls/hr UNSCH PRN OTHER 09/20/16 12:15 Sodium Chloride 1,000 ml @ 500 mls/hr Q2H IV 09/20/16 13:00 09/21/16 13:40 Midazolam HCl 100 ml @ 0 mls/hr TITRATE IV 09/20/16 14:00 09/20/16 14:45 Pantoprazole Sodium 80 mg/ Sodium Chloride 100 ml @ 10 mls/hr Q10H IV 09/20/16 15:00 09/21/16 12:18 Potassium Chloride 100 ml @ 0 mls/hr UNSCH PRN IV 09/20/16 21:15 Sodium Bicarbonate 150 meq/Sterile Water 1,000 ml @ 150 mls/hr Q6H40M IV 09/21/16 08:00 09/21/16 10:39 (Levophed-Dextrose Drip) 250 ml @ 0 mls/hr TITRATE IV 09/21/16 07:15 Family History The patient's father reportedly with diabetes and hypertension, and his mother at age 69 of colon cancer. . Substance Use Tobacco: Former smoker, unknown stop date Alcohol: Former alcohol drinker, unknown stop date Prescription med abuse: None reported Illicits: None known according to patient's sister . Psychosocial History The patient has lived in this area for quite some time. He was living with his parents until they in 2003 and then was homeless for a period of time. His sister Sandee found him and he has been living with her since then. He has never been , but patient's sister Sandee reports that the patient had one son, and that she thinks he is approximately 28 years old. There has been no contact with that son for many years according to Sandee. . 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 . Spiritual/Cultural Factors The patient has a [employer] background, and has attended [facility] locally. The patient's sister does believe that he would appreciate hospice care transitions coordinator visits. . Living Will: Never completed Health Care Surrogate: Never completed Durable Power of Patrol Conductor: Never completed Health Care Surrogate(s): The patient's sister, Sandee Callahan, has been functioning as his proxy decision- maker here. . Family/friends goals: The patient's sister confirms that she and her siblings would want to continue aggressive care at this time. . Ethical and Legal Issues There are no ethical issues that would impact his care or decision-making at this time. The patient lacks capacity for decision-making and it is not known whether he will regain that capacity. His sister, Sandee Callahan, has been functioning as his proxy decision-maker up to this point during this hospitalization. The patient is not , and his parents are . He reportedly has one estranged son whose whereabouts are unknown. The patient has 3 sisters: he lives with his sister Sandee Callahan, there is another sister in [place], and the third sister in [place]; their brother lives in [place]. We will begin a search for the patient's son. . Physical Exam Vital Signs Date Time Temp Pulse Resp B/P Pulse Ox O2 Delivery O2 Flow Rate FiO2 09/21/16 12:00 97.6 79 20 155/31 100 09/21/16 12:00 79 09/21/16 11:46 98 35 09/21/16 10:05 100 35 09/21/16 09:00 98 100 09/21/16 08:15 100 35 09/21/16 08:00 81 09/21/16 08:00 98.1 81 24 146/41 100 09/21/16 08:00 35 09/21/16 06:00 81 09/21/16 04:02 100 35 4/18/17 04:00 97.9 82 24 147/41 100 09/21/16 04:00 35 09/21/16 04:00 82 09/21/16 02:00 84 09/21/16 01:05 100 35 09/21/16 00:00 79 09/21/16 00:00 35 09/21/16 00:00 96.8 75 26 130/36 100 09/20/16 22:01 100 35 09/20/16 22:00 75 09/20/16 20:00 75 09/20/16 20:00 96.3 75 26 135/39 100 Automatic Cuff 09/20/16 20:00 35 09/20/16 19:36 100 35 09/20/16 19:00 75 09/20/16 17:38 100 35 09/20/16 16:00 97.5 72 26 128/40 100 09/20/16 16:00 35 09/20/16 09/21/16 19:00 07:00 Intake Total 2336 ml 3690 ml Output Total 250 ml 3573 ml Balance 2086 ml 117 ml Intake IV Total 2336 ml 3690 ml Output Urine Total 150 ml 425 ml Gastric Drainage Total 100 ml 0 ml Hemodialysis 3148 ml # Bowel Movements 0 0 Exam CONSTITUTIONAL/GENERAL: This is an adequately nourished patient, in no apparent distress. Unresponsive, intubated TUBES/LINES/DRAINS: As catheter right neck, central line and left neck, SCD right lower leg, bandage left knee/leg, David catheter, OG tube SKIN: No jaundice; 10 cm lesion behind left knee. No wounds seen anteriorly. Cool fingers/toes. Not diaphoretic. HEAD: Atraumatic. Normocephalic. EYES: Pupils equal and round and reactive. No scleral icterus. No injection or drainage. Fundi not examined. ENT: Hearing grossly normal. Nose without bleeding or purulent drainage. NECK: Trachea midline. Supple, nontender. No palpable thyroid enlargement or nodularity. CARDIOVASCULAR: Regular rate and rhythm. Grade 2 systolic and grade 3 diastolic aortic murmurs. No JVD. Peripheral pulses symmetric. RESPIRATORY/CHEST: Symmetric, unlabored respirations on the ventilator. Scattered rhonchi GASTROINTESTINAL: Abdomen soft, non-tender, nondistended. No hepato-splenomegaly , or palpable masses. No guarding. Bowel sounds present. GENITOURINARY: Without palpable bladder distension. David catheter in place. MUSCULOSKELETAL: Extremities without clubbing, cyanosis, or edema. No joint tenderness or effusion noted. No mottling or clubbing. LYMPHATICS: No palpable cervical or supraclavicular adenopathy. NEUROLOGICAL: Unresponsive, currently on Versed and fentanyl PSYCHIATRIC: Unable to assess due to clinical condition . Diagnostic Tests Laboratory Laboratory Tests Test 09/19/16 09/19/16 09/19/16 09/19/16 07:25 09:15 11:55 12:28 White Blood Count 18.6 TH/MM3 (4.0-11.0) Red Blood Count 2.50 MIL/MM3 (4.50-5.90) Hemoglobin 7.7 GM/DL (13.0-17.0) Hematocrit 23.0 % (39.0-51.0) Mean Corpuscular Volume 91.9 FL (80.0-100.0) Mean Corpuscular Hemoglobin 30.7 PG (27.0-34.0) Mean Corpuscular Hemoglobin 33.4 % Concent (32.0-36.0) Red Cell Distribution Width 16.2 % (11.6-17.2) Platelet Count 249 TH/MM3 (150-450) Mean Platelet Volume 8.0 FL (7.0-11.0) Neutrophils (%) (Auto) 88.9 % (16.0-70.0) Lymphocytes (%) (Auto) 4.4 % (9.0-44.0) Monocytes (%) (Auto) 6.6 % (0.0-8.0) Eosinophils (%) (Auto) 0.0 % (0.0-4.0) Basophils (%) (Auto) 0.1 % (0.0-2.0) Neutrophils # (Auto) 16.5 TH/MM3 (1.8-7.7) Lymphocytes # (Auto) 0.8 TH/MM3 (1.0-4.8) Monocytes # (Auto) 1.2 TH/MM3 (0-0.9) Eosinophils # (Auto) 0.0 TH/MM3 (0-0.4) Basophils # (Auto) 0.0 TH/MM3 (0-0.2) CBC Comment DIFF FINAL Differential Comment Prothrombin Time 13.5 SEC (9.8-11.6) Prothromb Time International 1.2 RATIO Ratio Activated Partial 27.5 SEC Thromboplast Time (24.3-30.1) Sodium Level 135 MEQ/L (136-145) Potassium Level 3.6 MEQ/L (3.5-5.1) Chloride Level 102 MEQ/L (98-107) Carbon Dioxide Level 17.3 MEQ/L (21.0-32.0) Anion Gap 16 MEQ/L (5-15) Blood Urea Nitrogen 58 MG/DL (7-18) Creatinine 3.27 MG/DL (0.60-1.30) Estimat Glomerular Filtration 24 ML/MIN (>89) Rate Random Glucose 155 MG/DL (74-106) Lactic Acid Level 4.5 mmol/L 4.3 mmol/L (0.4-2.0) (0.4-2.0) Calcium Level 8.5 MG/DL (8.5-10.1) Total Bilirubin 1.3 MG/DL (0.2-1.0) Aspartate Amino Transf 208 U/L (15-37) (AST/SGOT) Alanine Aminotransferase 60 U/L (12-78) (ALT/SGPT) Alkaline Phosphatase 83 U/L (45-117) Total Protein 7.1 GM/DL (6.4-8.2) Albumin 2.1 GM/DL (3.4-5.0) Total Creatine Kinase 6698 U/L (39-308) Creatine Kinase MB 73.0 NG/ML (0.5-3.6) Creatine Kinase MB % 1.1 % (0.0-4.0) Troponin I 11.80 NG/ML (0.02-0.05) Ethyl Alcohol Level LESS THAN 3 MG/DL (0-5) Blood Gas Puncture Site RT RADIAL Blood Gas Patient Temperature 98.6 Blood Gas HCO3 9 mmol/L (22-26) Blood Gas Base Excess -15.5 mmol/L (-2-2) Blood Gas Oxygen Saturation 96 % (90-100) Arterial Blood pH 7.41 (7.380-7.420) Arterial Blood Partial 14 mmHg (38-42) Pressure CO2 Arterial Blood Partial 107 mmHG Pressure O2 (61-120) Arterial Blood Oxygen Content 9.2 Vol % (12.0-20.0) Arterial Blood 1.9 % (0-4) Carboxyhemoglobin Arterial Blood Methemoglobin 0.5 % (0-2) Blood Gas Hemoglobin 6.7 G/DL (12.0-16.0) Oxygen Delivery Device NASAL CANNULA Blood Gas Liter Flow 2 L/M Test 09/19/16 09/19/16 09/19/16 09/19/16 12:35 15:50 19:00 19:10 Lactic Acid Level 4.2 mmol/L 8.7 mmol/L (0.4-2.0) (0.4-2.0) Urine Color ORANGE (YELLW/STRAW) Urine Turbidity HAZY (CLEAR) Urine pH 5.0 (5.0-8.5) Urine Specific [place] 1.021 (1.002-1.035) Urine Protein 30 mg/dL (NEG-TRACE) Urine Glucose (UA) NEG mg/dL (NEG) Urine Ketones NEG mg/dL (NEG) Urine Occult Blood TRACE (NEG) Urine Nitrite NEG (NEG) Urine Bilirubin NEG (NEG) Urine Urobilinogen 2.0 MG/DL (LESS THAN 2.0) Urine Leukocyte Esterase NEG (NEG) Urine RBC 7 /hpf (0-3) Urine WBC 14 /hpf (0-5) Urine WBC Clumps MANY (NONE) Urine Squamous Epithelial 1 /hpf (0-5) Cells Urine Bacteria RARE /hpf (NONE) Urine Hyaline Casts 4 /lpf (RARE) Urine Mucus FEW /lpf (OCC) Microscopic Urinalysis Comment CULTURE INDICATED Urine Opiates Screen NEG (NEG) Urine Barbiturates Screen NEG (NEG) Urine Amphetamines Screen NEG (NEG) Urine Benzodiazepines Screen NEG (NEG) Urine Cocaine Screen NEG (NEG) Urine Cannabinoids Screen NEG (NEG) Total Creatine Kinase 7480 U/L (39-308) Creatine Kinase MB 94.5 NG/ML (0.5-3.6) Creatine Kinase MB % 1.3 % (0.0-4.0) Troponin I 12.40 NG/ML (0.02-0.05) Hemoglobin 6.5 GM/DL (13.0-17.0) Hematocrit 20.0 % (39.0-51.0) Test 09/19/16 09/19/16 09/19/16 09/19/16 20:42 22:45 22:47 23:32 Blood Gas Puncture Site RT RADIAL ART LINE Blood Gas Patient Temperature 98.6 98.6 Blood Gas HCO3 10 mmol/L 11 mmol/L (22-26) (22-26) Blood Gas Base Excess -13.6 mmol/L -14.4 mmol/L (-2-2) (-2-2) Blood Gas Oxygen Saturation 90 % (90-100) 97 % (90-100) Arterial Blood pH 7.43 7.31 (7.380-7.420) (7.380-7.420) Arterial Blood Partial 16 mmHg (38-42) 22 mmHg (38-42) Pressure CO2 Arterial Blood Partial 66 mmHG 261 mmHg Pressure O2 (61-120) (61-120) Arterial Blood Oxygen Content 8.5 Vol % 9.0 Vol % (12.0-20.0) (12.0-20.0) Arterial Blood 1.9 % (0-4) 1.5 % (0-4) Carboxyhemoglobin Arterial Blood Methemoglobin 0.6 % (0-2) 0.8 % (0-2) Blood Gas Hemoglobin 6.7 G/DL 6.1 G/DL (12.0-16.0) (12.0-16.0) Oxygen Delivery Device ROOM AIR VENTILATOR Blood Gas Inspired Oxygen 21 % 50 % Lactic Acid Level 9.0 mmol/L (0.4-2.0) Haptoglobin 428 MG/DL (30-200) Sodium Level 141 MEQ/L (136-145) Potassium Level 4.4 MEQ/L (3.5-5.1) Chloride Level 107 MEQ/L (98-107) Carbon Dioxide Level 14.1 MEQ/L (21.0-32.0) Anion Gap 20 MEQ/L (5-15) Blood Urea Nitrogen 73 MG/DL (7-18) Creatinine 3.10 MG/DL (0.60-1.30) Estimat Glomerular Filtration 25 ML/MIN (>89) Rate Random Glucose 132 MG/DL (74-106) Calcium Level 7.5 MG/DL (8.5-10.1) Iron Level 102 MCG/DL (65-175) Total Iron Binding Capacity 153 MCG/DL (250-450) Percent Iron Saturation 66.8 % (20-50) Lactate Dehydrogenase 609 U/L (87-241) Total Creatine Kinase 6715 U/L (39-308) Creatine Kinase MB 86.5 NG/ML (0.5-3.6) Creatine Kinase MB % 1.3 % (0.0-4.0) Troponin I 11.80 NG/ML (0.02-0.05) Triglycerides Level 216 MG/DL (42-150) Cholesterol Level 110 MG/DL (120-200) LDL Cholesterol 55 MG/DL (0-99) HDL Cholesterol 12.1 MG/DL (40.0-60.0) Cholesterol/HDL Ratio 9.09 RATIO Free Thyroxine 1.50 NG/DL (0.76-1.46) Thyroid Stimulating Hormone 0.316 uIU/ML 3rd Gen (0.358-3.740) Blood Type O POSITIVE O POSITIVE Antibody Screen NEGATIVE Crossmatch Leukocyte-Reduced Red Blood Cells Blood Bank Comment Blood Gas Ventilator Setting [facility]/ Test 09/19/16 09/20/16 09/20/16 09/20/16 23:36 03:26 04:55 05:23 Blood Gas Puncture Site ART LINE Blood Gas Patient Temperature 98.6 Venous Blood pH 7.24 (7.360-7.400) Venous Blood Partial Pressure 32 mmHg (44-48) CO2 Venous Blood Partial Pressure 35 mmHg (35-40) O2 Venous Blood HCO3 13 mmol/L (22-26) Venous Blood Oxygen Saturation 42 % (70-76) Venous Blood Oxygen Content 3.8 Vol % (9.0-17.0) Venous Blood Base Excess -12.8 mmol/L (-2-2) Oxygen Delivery Device VENTILATOR Blood Gas Ventilator Setting [facility]/ Blood Gas Inspired Oxygen 50 % White Blood Count 16.4 TH/MM3 17.2 TH/MM3 (4.0-11.0) (4.0-11.0) Red Blood Count 2.61 MIL/MM3 2.58 MIL/MM3 (4.50-5.90) (4.50-5.90) Hemoglobin 7.8 GM/DL 7.9 GM/DL (13.0-17.0) (13.0-17.0) Hematocrit 24.0 % 23.4 % (39.0-51.0) (39.0-51.0) Mean Corpuscular Volume 92.2 FL 90.7 FL (80.0-100.0) (80.0-100.0) Mean Corpuscular Hemoglobin 29.8 PG 30.6 PG (27.0-34.0) (27.0-34.0) Mean Corpuscular Hemoglobin 32.3 % 33.8 % Concent (32.0-36.0) (32.0-36.0) Red Cell Distribution Width 18.1 % 18.8 % (11.6-17.2) (11.6-17.2) Platelet Count 127 TH/MM3 129 TH/MM3 (150-450) (150-450) Mean Platelet Volume 8.3 FL 8.1 FL (7.0-11.0) (7.0-11.0) Neutrophils (%) (Auto) 82.4 % 88.0 % (16.0-70.0) (16.0-70.0) Lymphocytes (%) (Auto) 9.8 % 5.6 % (9.0-44.0) (9.0-44.0) Monocytes (%) (Auto) 7.6 % (0.0-8.0) 6.2 % (0.0-8.0) Eosinophils (%) (Auto) 0.0 % (0.0-4.0) 0.0 % (0.0-4.0) Basophils (%) (Auto) 0.2 % (0.0-2.0) 0.2 % (0.0-2.0) Neutrophils # (Auto) 13.5 TH/MM3 15.1 TH/MM3 (1.8-7.7) (1.8-7.7) Lymphocytes # (Auto) 1.6 TH/MM3 1.0 TH/MM3 (1.0-4.8) (1.0-4.8) Monocytes # (Auto) 1.2 TH/MM3 1.1 TH/MM3 (0-0.9) (0-0.9) Eosinophils # (Auto) 0.0 TH/MM3 0.0 TH/MM3 (0-0.4) (0-0.4) Basophils # (Auto) 0.0 TH/MM3 0.0 TH/MM3 (0-0.2) (0-0.2) CBC Comment DIFF FINAL DIFF FINAL Differential Comment Crossmatch Leukocyte-Reduced Red Blood Cells Blood Bank Comment Prothrombin Time 16.1 SEC (9.8-11.6) Prothromb Time International 1.4 RATIO Ratio Activated Partial 27.2 SEC Thromboplast Time (24.3-30.1) Fibrinogen 226 mg/dL (181-393) Sodium Level 139 MEQ/L (136-145) Potassium Level 4.9 MEQ/L (3.5-5.1) Chloride Level 104 MEQ/L (98-107) Carbon Dioxide Level 11.2 MEQ/L (21.0-32.0) Anion Gap 24 MEQ/L (5-15) Blood Urea Nitrogen 76 MG/DL (7-18) Creatinine 3.25 MG/DL (0.60-1.30) Estimat Glomerular Filtration 24 ML/MIN (>89) Rate Random Glucose 135 MG/DL (74-106) Calcium Level 7.6 MG/DL (8.5-10.1) Free Triiodothyronine (T3) 1.10 PG/ML pg/dL (2.18-3.98) Random Vancomycin Level 11.1 COMMENT Test 09/20/16 09/20/16 09/20/16 09/20/16 05:30 13:00 13:21 14:00 Blood Gas Puncture Site ART LINE Blood Gas Patient Temperature 98.6 Blood Gas HCO3 10 mmol/L (22-26) Blood Gas Base Excess -16.2 mmol/L (-2-2) Blood Gas Oxygen Saturation 97 % (90-100) Arterial Blood pH 7.25 (7.380-7.420) Arterial Blood Partial 23 mmHg (38-42) Pressure CO2 Arterial Blood Partial 207 mmHg Pressure O2 (61-120) Arterial Blood Oxygen Content 11.3 Vol % (12.0-20.0) Arterial Blood 1.1 % (0-4) Carboxyhemoglobin Arterial Blood Methemoglobin 0.9 % (0-2) Blood Gas Hemoglobin 7.9 G/DL (12.0-16.0) Oxygen Delivery Device VENTILATOR Blood Gas Ventilator Setting PRVC/AC Blood Gas Inspired Oxygen 40 % Activated Partial 30.6 SEC 28.9 SEC 32.4 SEC Thromboplast Time (24.3-30.1) (24.3-30.1) (24.3-30.1) Test 09/20/16 09/20/16 09/20/16 09/20/16 15:00 17:00 18:00 18:30 Activated Partial 32.9 SEC 35.8 SEC 36.7 SEC Thromboplast Time (24.3-30.1) (24.3-30.1) (24.3-30.1) White Blood Count 19.2 TH/MM3 (4.0-11.0) Red Blood Count 2.95 MIL/MM3 (4.50-5.90) Hemoglobin 8.8 GM/DL (13.0-17.0) Hematocrit 26.4 % (39.0-51.0) Mean Corpuscular Volume 89.7 FL (80.0-100.0) Mean Corpuscular Hemoglobin 29.9 PG (27.0-34.0) Mean Corpuscular Hemoglobin 33.3 % Concent (32.0-36.0) Red Cell Distribution Width 19.4 % (11.6-17.2) Platelet Count 79 TH/MM3 (150-450) Mean Platelet Volume 8.2 FL (7.0-11.0) Sodium Level 138 MEQ/L (136-145) Potassium Level 4.5 MEQ/L (3.5-5.1) Chloride Level 102 MEQ/L (98-107) Carbon Dioxide Level 13.2 MEQ/L (21.0-32.0) Anion Gap 23 MEQ/L (5-15) Blood Urea Nitrogen 84 MG/DL (7-18) Creatinine 3.19 MG/DL (0.60-1.30) Estimat Glomerular Filtration 25 ML/MIN (>89) Rate Random Glucose 161 MG/DL (74-106) Lactic Acid Level 11.7 mmol/L (0.4-2.0) Calcium Level 7.0 MG/DL (8.5-10.1) Protein Corrected Calcium 7.5 MG/DL (8.5-10.1) Total Bilirubin 2.2 MG/DL (0.2-1.0) Aspartate Amino Transf 1185 U/L (AST/SGOT) (15-37) Alanine Aminotransferase 381 U/L (12-78) (ALT/SGPT) Alkaline Phosphatase 76 U/L (45-117) Lactate Dehydrogenase 1331 U/L (87-241) Total Protein 6.1 GM/DL (6.4-8.2) Albumin 1.8 GM/DL (3.4-5.0) Nasal Screen MRSA (PCR) NEGATIVE (NEGATIVE) Blood Gas Puncture Site ART LINE Blood Gas Patient Temperature 98.6 Blood Gas HCO3 10 mmol/L (22-26) Blood Gas Base Excess -15.3 mmol/L (-2-2) Blood Gas Oxygen Saturation 97 % (90-100) Arterial Blood pH 7.28 (7.380-7.420) Arterial Blood Partial 22 mmHg (38-42) Pressure CO2 Arterial Blood Partial 187 mmHg Pressure O2 (61-120) Arterial Blood Oxygen Content 12.3 Vol % (12.0-20.0) Arterial Blood 0.9 % (0-4) Carboxyhemoglobin Arterial Blood Methemoglobin 0.9 % (0-2) Blood Gas Hemoglobin 8.7 G/DL (12.0-16.0) Oxygen Delivery Device VENTILATOR Blood Gas Ventilator Setting 550/24/1SEC/PEEP5 Blood Gas Inspired Oxygen 35 % Test 09/20/16 09/20/16 09/21/16 09/21/16 19:00 21:10 03:40 07:10 Activated Partial 35.2 SEC 36.5 SEC 36.1 SEC Thromboplast Time (24.3-30.1) (24.3-30.1) (24.3-30.1) White Blood Count 15.9 TH/MM3 (4.0-11.0) Red Blood Count 2.78 MIL/MM3 (4.50-5.90) Hemoglobin 8.4 GM/DL (13.0-17.0) Hematocrit 24.6 % (39.0-51.0) Mean Corpuscular Volume 88.5 FL (80.0-100.0) Mean Corpuscular Hemoglobin 30.2 PG (27.0-34.0) Mean Corpuscular Hemoglobin 34.2 % Concent (32.0-36.0) Red Cell Distribution Width 19.2 % (11.6-17.2) Platelet Count 58 TH/MM3 (150-450) Mean Platelet Volume 8.0 FL (7.0-11.0) Neutrophils (%) (Auto) 87.3 % (16.0-70.0) Lymphocytes (%) (Auto) 5.6 % (9.0-44.0) Monocytes (%) (Auto) 6.6 % (0.0-8.0) Eosinophils (%) (Auto) 0.1 % (0.0-4.0) Basophils (%) (Auto) 0.4 % (0.0-2.0) Neutrophils # (Auto) 13.8 TH/MM3 (1.8-7.7) Lymphocytes # (Auto) 0.9 TH/MM3 (1.0-4.8) Monocytes # (Auto) 1.0 TH/MM3 (0-0.9) Eosinophils # (Auto) 0.0 TH/MM3 (0-0.4) Basophils # (Auto) 0.1 TH/MM3 (0-0.2) CBC Comment AUTO DIFF Differential Total Cells 100 Counted Neutrophils % (Manual) 80 % (16-70) Band Neutrophils % 17 % (0-6) Lymphocytes % 2 % (9-44) Monocytes % 1 % (0-8) Neutrophils # (Manual) 15.4 TH/MM3 (1.8-7.7) Nucleated Red Blood Cells 2 /100 WBC (0-0) Differential Comment FINAL DIFF MANUAL Platelet Estimate LOW (NORMAL) Platelet Morphology Comment NORMAL (NORMAL) Acanthocytes OCC (NORMAL) Sodium Level 139 MEQ/L (136-145) Potassium Level 4.3 MEQ/L (3.5-5.1) Chloride Level 101 MEQ/L (98-107) Carbon Dioxide Level 14.4 MEQ/L (21.0-32.0) Anion Gap 24 MEQ/L (5-15) Blood Urea Nitrogen 93 MG/DL (7-18) Creatinine 3.32 MG/DL (0.60-1.30) Estimat Glomerular Filtration 23 ML/MIN (>89) Rate Random Glucose 165 MG/DL (74-106) Lactic Acid Level 10.3 mmol/L (0.4-2.0) Calcium Level 6.9 MG/DL (8.5-10.1) Protein Corrected Calcium 7.6 MG/DL (8.5-10.1) Phosphorus Level 8.3 MG/DL (2.5-4.9) Magnesium Level 2.4 MG/DL (1.5-2.5) Total Bilirubin 2.1 MG/DL (0.2-1.0) Direct Bilirubin 1.6 MG/DL (0.0-0.2) Indirect Bilirubin 0.5 MG/DL (0.0-0.8) Aspartate Amino Transf 1904 U/L (AST/SGOT) (15-37) Alanine Aminotransferase 666 U/L (12-78) (ALT/SGPT) Alkaline Phosphatase 75 U/L (45-117) Total Protein 5.7 GM/DL (6.4-8.2) Albumin 1.7 GM/DL (3.4-5.0) Random Vancomycin Level 14.2 COMMENT Blood Gas Puncture Site RENATE Blood Gas Patient Temperature 98.6 Blood Gas HCO3 15 mmol/L (22-26) Blood Gas Base Excess -8.8 mmol/L (-2-2) Blood Gas Oxygen Saturation 97 % (90-100) Arterial Blood pH 7.44 (7.380-7.420) Arterial Blood Partial 22 mmHg (38-42) Pressure CO2 Arterial Blood Partial 181 mmHg Pressure O2 (61-120) Arterial Blood Oxygen Content 11.0 Vol % (12.0-20.0) Arterial Blood 1.2 % (0-4) Carboxyhemoglobin Arterial Blood Methemoglobin 1.0 % (0-2) Blood Gas Hemoglobin 7.8 G/DL (12.0-16.0) Oxygen Delivery Device VENT Blood Gas Ventilator Setting [facility]//5/IT1 Blood Gas Inspired Oxygen 35 % Test 09/21/16 09/21/16 09/21/16 09/21/16 09:30 10:35 11:30 11:31 Activated Partial 29.0 SEC 50.2 SEC 33.8 SEC 35.0 SEC Thromboplast Time (24.3-30.1) (24.3-30.1) (24.3-30.1) (24.3-30.1) Blood Gas Puncture Site ART LINE Blood Gas Patient Temperature 98.6 Blood Gas HCO3 17 mmol/L (22-26) Blood Gas Base Excess -5.7 mmol/L (-2-2) Blood Gas Oxygen Saturation 96 % (90-100) Arterial Blood pH 7.52 (7.380-7.420) Arterial Blood Partial 21 mmHg (38-42) Pressure CO2 Arterial Blood Partial 99 mmHg Pressure O2 (61-120) Arterial Blood Oxygen Content 11.1 Vol % (12.0-20.0) Arterial Blood 1.2 % (0-4) Carboxyhemoglobin Arterial Blood Methemoglobin 0.8 % (0-2) Blood Gas Hemoglobin 8.1 G/DL (12.0-16.0) Oxygen Delivery Device VENTILATOR Blood Gas Ventilator Setting 550/24/1SEC/PEEP5 Blood Gas Inspired Oxygen 35 % Test 09/21/16 09/21/16 09/21/16 12:29 12:31 13:40 Activated Partial 28.1 SEC 31.5 SEC 30.7 SEC Thromboplast Time (24.3-30.1) (24.3-30.1) (24.3-30.1) Result Diagram: 09/21/16 0340 09/21/16 0340 Microbiology Microbiology Date/Time Procedure Status Source Growth 09/19/16 07:20 Aerobic Blood Culture - Preliminary Resulted Blood Peripheral Beta Streptococcus Group G 09/19/16 07:20 Anaerobic Blood Culture - Preliminary Resulted Beta-Hemolytic Streptococcus 09/19/16 07:25 Aerobic Blood Culture - Preliminary Resulted Blood Peripheral Beta-Hemolytic Streptococcus 09/19/16 07:25 Anaerobic Blood Culture - Preliminary Resulted Beta-Hemolytic Streptococcus 09/19/16 07:30 Gram Stain - Final Complete Wound Leg 09/19/16 07:30 Wound Culture - Final Complete S. Aureus Mrsa Strep Not A,B D 09/19/16 15:50 Urine Culture - Final Complete Urine Clean Catch NO GROWTH IN 48 HOURS. 09/19/16 22:00 Gram Stain - Final Resulted Wound Leg 09/19/16 22:00 Wound Culture - Preliminary Resulted Wound Leg 09/20/16 13:09 Aerobic Blood Culture - Preliminary Resulted Blood Peripheral NO GROWTH IN 1 DAY 09/20/16 13:09 Anaerobic Blood Culture - Preliminary Resulted Blood Peripheral NO GROWTH IN 1 DAY 09/20/16 13:21 Aerobic Blood Culture - Preliminary Resulted Blood Peripheral NO GROWTH IN 1 DAY 09/20/16 13:21 Anaerobic Blood Culture - Preliminary Resulted Blood Peripheral NO GROWTH IN 1 DAY 09/21/16 06:00 Aerobic Blood Culture Received Blood Peripheral Pending 09/21/16 06:00 Anaerobic Blood Culture Received Blood Peripheral Pending 09/21/16 13:40 Aerobic Blood Culture Received Blood Peripheral Pending 09/21/16 13:40 Anaerobic Blood Culture Received Blood Peripheral Pending Imaging Last Impressions Chest X-Ray 09/21/16 0000 Signed Impressions: Service Date/Time: Wednesday, September 21, 2016 07:47 - CONCLUSION: Lines and tubes in good position. Persistent left lower lobe consolidation. Froilan James MD Brain MRI 09/21/16 0000 Signed Impressions: Service Date/Time: Wednesday, September 21, 2016 08:47 - CONCLUSION: Abnormal scan demonstrating evidence of multifocal nonhemorrhagic acute infarction, the largest is in the right frontoparietal region. The diffuse bilateral nature involving both anterior and posterior circulation suggests embolic source. No evidence of mass effect or cerebral edema at this point. Froilan James MD Tibia/Fibula X-Ray 09/19/16 0000 Signed Impressions: Service Date/Time: Monday, September 19, 2016 07:43 - CONCLUSION: Chronic changes and no evidence for acute fracture. Claudio Barroso MD Renal Ultrasound 09/19/16 0000 Signed Impressions: Service Date/Time: Monday, September 19, 2016 10:40 - CONCLUSION: Unremarkable renal ultrasound. Claudio Barroso MD Lower Extremity MRI 09/19/16 0000 Signed Impressions: Service Date/Time: Monday, September 19, 2016 10:15 - CONCLUSION: Large mass most likely originating from the patient's skin with infiltration of subcutaneous fat and no definite involvement of the muscular structures or marrow. A malignant mass should be entertained and clinical correlation is needed. Claudio Barroso MD Knee X-Ray 09/19/16 0000 Signed Impressions: Service Date/Time: Monday, September 19, 2016 07:43 - CONCLUSION: Osteoarthritis. 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 Claudio Barroso MD Procedures * Coude catheter placement by urologist 09/19/16 * INTUBATION 09/19/16 * Left IJ line 09/19/16 * CRRT 09/20/16 . Patient/Family Conference Present at Family Conference: Patient's sister, Sandee Callahan by telephone . Family Conference Time (mins): 31 Family Conference Location: Telephone Issues Discussed: * Palliative care role, purpose, approach * Additional medical, psychosocial, and spiritual history * Patients general health, functional status, and cognitive changes in the months leading up to the current hospitalization * Patient/family understanding of the current medical problems * Patient/family understanding of prognosis * Patients goals of care as best understood from advance directives and/or conversations and/or values * Current medical treatment options and benefits/burdens of those options * Likely scenarios comparing ongoing aggressive care with a transition to comfort measures only * Questions answered to the best of my ability * Palliative care contact information provided Family does want to continue aggressive care at this time. . 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 Spiritual: [employer]ism background, spirituality has been important for him, hospice care transitions coordinator visit requested. Legal: The patient lacks capacity for decision-making and it is not known whether he will regain that capacity. His sister, Sandee Callahan, has been functioning as his proxy decision-maker up to this point during this hospitalization. The patient is not , and his parents are . He reportedly has one estranged son whose whereabouts are unknown. The patient has 3 sisters: he lives with his sister Sandee Callahan, there is another sister in [place], and the third sister in [place]; their brother lives in [place]. We will begin a search for the patient's son. Ethical issues impacting care: None. . Important Contacts Patient's sister: Sandee Callahan . Prognosis This patient is critically ill, with multisystem organ failure, and overall his prognosis is guarded. . Code Status: Full Code Plan * FULL CODE * DECISION-MAKING: The patient lacks capacity for decision-making and it is not known whether he will regain that capacity. His sister, Sandee Callahan, has been functioning as his proxy decision-maker up to this point during this hospitalization. The patient is not , and his parents are . He reportedly has one estranged son whose whereabouts are unknown. The patient has 3 sisters: he lives with his sister Sandee Callahan, there is another sister in [place], and the third sister in [place]; their brother lives in [place]. We will begin a search for the patient's son. * We are beginning a search for the patient's son. * Label Cutter visits requested. * SYMPTOMS: His dyspnea is being managed by mechanical ventilation and appropriate sedation. His encephalopathy will be addressed at the appropriate time. He has no obvious pain. No specific new medication orders are offered at this time. * GOALS: The patient's sister reports that the family wants to continue aggressive care, noting that the patient is "young and strong." * Palliative Care will continue to follow the patient during this hospitalization. . Time Spent Total Floor Time (mins): 78 Face to Face Time (mins): 18 >50% Counseling/Coord of Care: Yes (d/w Dr. Aparicio and with RN) Thank you for the opportunity to participate in the care of Mr. Burnham. Shante Monaco MD Sep 21, 2016 16:30
--- NOTE | 2016-09-21 16:50 | GIPROC ---
[facility] [address] [facility]. [facility], [address] EGD PROCEDURE REPORT EXAM DATE: 09/21/2016 PATIENT NAME: Jamey Burnham MR #: [id number] BIRTHDATE: 1960 ATTENDING: Nupur Zaragoza MD ORDER #: [id number] AREA SECRETARY: Kim Hollis and Maxine Logan STATUS: inpatient INDICATIONS: The patient is a 56 yr old male here for an EGD due to gi bleeding PROCEDURE PERFORMED: EGD, diagnostic MEDICATIONS: None and Per Anesthesia. TOPICAL ANESTHETIC: none CONSENT: The patient understands the risks and benefits of the procedure and understands that these risks include, but are not limited to: sedation, allergic reaction, infection, perforation and/or bleeding. Alternative means of evaluation and treatment include, among others: physical exam, x-rays, and/or surgical intervention. The patient elects to proceed with this endoscopic procedure. medical equipment was checked for proper function. Hand hygiene and appropriate measures for infection prevention was taken. After the risks, benefits and alternatives of the procedure were thoroughly explained, Informed consent was verified, confirmed and timeout was successfully executed by the treatment team. The patient was anesthetized with topical anesthesia and the Pentax EG-[id number] endoscope was introduced through the mouth and advanced to the second portion of the duodenum. Retroflexed views revealed a hiatal hernia The gastroscope was then slowly withdrawn and removed. Esophagitis ngt suction trauma in gastric body no active bleeding. ADVERSE EVENTS: There were no complications. IMPRESSIONS: 1. Esophagitis ngt suction trauma in gastric body no active bleeding 2. Retroflexed views revealed a hiatal hernia RECOMMENDATIONS: Restart feeding abdominal x ray ppi supportive care PATIENT CONDITION: stable DISPOSITION: Inpatient REPEAT EXAM: Return as needed for EGD Nupur Zaragoza MD eSigned: Nupur Zaragoza MD 09/21/2016 4:50 PM cc:
[2016-09-21] MEDS ORDERED: PROPOFOL 200 MG/20 ML AMP IV ONE (17:26)
[2016-09-21 17:56] LABS: APTT (PATIENT) 30.1 SEC (24.3-30.1)
--- NOTE | 2016-09-21 18:04 | PD.PROCEDR ---
Procedure Note Procedure Procedure: Arterial Line Placement Left radial arterial line Diagnosis: Infective endocarditis with acute aortic insufficiency Indications: And need for [id number] hemodynamic monitoring Consent: Consent is deemed emergent or medically necessary Description of the Procedure: The left wrist was prepped and draped sterilely. The pulse was located and a needle was advanced into the artery. A 18 gauge, 16 cm catheter was advanced into the artery using a modified Seldinger technique. The catheter was sutured to the skin and a sterile dressing was applied. The catheter was connected to a pressure transducer and an arterial waveform was noted. There were no immediate complications noted. There was minimal EBL. I personally performed the procedure. Perez Aparicio MD Sep 21, 2016 18:04
[2016-09-21] MEDS: VASOPRESSIN INJ 40 UNITS in DEXTROSE 5% IN WATER 100ML INJ 98 ML IV SCH ×2 (21:23)
[2016-09-22] VITALS (15 sets, daily range): BP systolic 120–129; BP diastolic 30–35; PULSE 82–87; RESP 22–32; TEMP 99.1–100; O2SAT 98–100
[2016-09-22] MEDS: SODIUM CHLOR 0.9% 1000 ML INJ 1,000 ML IV SCH ×3 (00:41→00:43)
[2016-09-22] MEDS: INSULIN ASPART SUPPLEMENTAL SCALE SQ SCH ×6 (01:00→21:00)
[2016-09-22] MEDS: PIPERACIL-TAZO 2.25 GM PREMIX 50 ML IV SCH ×2 (01:08→09:06)
[2016-09-22] MEDS: RESP: ALBUTEROL 2.5 MG/IPRATROPIUM 0.5 MG NEB (SCH) INH ×4 (03:20→20:46)
[2016-09-22] MEDS ORDERED: SODIUM BICARBONATE 8.4% INJ 150 MEQ in WATER STERILE FOR INJ 850 ML IV SCH (04:00)
[2016-09-22] MEDS: CHLORHEXIDINE GLUCONATE 2 % 1 PACK (2 CLOTHS) TOP SCH (04:00)
[2016-09-22 05:16] LABS: HEMATOCRIT 24.5 % (39.0-51.0); MEAN CELL VOLUME 88.2 FL (80.0-100.0); MEAN CORPUSCULAR HEMOGLOBIN 29.2 PG (27.0-34.0); MEAN CORPUSCULAR HGB CONC 33.1 % (32.0-36.0); PLATELET COUNT 74 TH/MM3 (150-450); RED BLOOD COUNT 2.78 MIL/MM3 (4.50-5.90); RED CELL DISTRIBUTION WIDTH 18.4 % (11.6-17.2)
[2016-09-22 05:17] LABS: REVIEW FLAG FINAL
[2016-09-22 05:40] LABS: BICARBONATE 25.3 MEQ/L (21.0-32.0); MAGNESIUM 2.4 MG/DL (1.5-2.5); POTASSIUM 3.5 MEQ/L (3.5-5.1)
[2016-09-22] MEDS: HYDROCORTISONE SOD SUCCINATE 100 MG VIAL IV PUSH SCH (05:55)
[2016-09-22] MEDS: HEPARIN SODIUM - SQ 10,000 UNITS/ML VIAL SQ SCH ×2 (06:19→18:11)
[2016-09-22] MEDS: fentaNYL DRIP 250 ML IV SCH (06:20)
[2016-09-22 06:47] LABS: BLOOD GAS BASE EXCESS 0.9 mmol/L (-2-2); BLOOD GAS CARBOXYHEMOGLOBIN 1.4 % (0-4); BLOOD GAS HCO3 24 mmol/L (22-26); BLOOD GAS O2 HGB SATURATION 97 % (90-100); BLOOD GAS OXYGEN CONTENT 11.4 Vol % (12.0-20.0); BLOOD GAS PCO2 31 mmHg (38-42); BLOOD GAS PO2 179 mmHg (61-120); CRITICAL VALUE NO; OXYGEN DEVICE VENTILATOR; TEMP CORR TO 98.6
[2016-09-22 06:48] LABS: DRAW SITE ART LINE; FIO2 35 %; STAT YES; VENT SETTINGS SEE COMMENTS
[2016-09-22] MEDS: PROPOFOL 1000 MG/100 ML INJ 100 ML IV SCH (06:55)
--- NOTE | 2016-09-22 07:04 | HHI.CCPN ---
Subjective Remarks/Hospital Course 09/19: This is a 56-year-old male that presented secondary to altered mental status. The patient's sister provided the medical information. The patient is alert and oriented 3 .the patient was noted to have a lesion on his left lower extremity and was seen at [facility] by Dr. Carpio at all is felt to be a malignant lesion however the patient was scheduled for follow-up and was noncompliant .over the last several days the patient had began to feel generalized malaise and he lives with his sister who noted that he began to have altered mental status and he presented to the ED .upon presentation to the ED the patient's blood pressure systolic blood pressure was in the 80s laboratory and imaging studies reveal septic shock , with a lactate of 4.5. The patient was bolused with 4 L of normal saline is currently hemodynamically stable , tachypnea , secondary to a bicarbonate level of 9 . He is reported to have a neoplastic lesion about the region of the left knee posteriorly, recent imaging studies suggest malignant neoplasm. The patient underwent a TTE in the ED by Dr. Coombs was noted to have cardiac vegetations tentative plan for a AGUSTIN in the am. Critical care medicine's consult for management. 09/20: Patient was intubated overnight and placed on mechanical ventilation for worsening respiratory status. He is currently sedated, orally intubated on mechanical ventilation. Transfuse 3 units PRBCs overnight. Has some coffee- ground NG aspirate however no melena or rectal bleeding noted. On Levophed 12 mics per minute and vasopressin low-dose for septic shock. Decreasing urine output and significant metabolic acidosis noted for which nephrology consult was requested this morning, vascath was placed and patient has been initiated on CRRT. Discussed with cardiology, severe aortic regurg with aortic valve vegetation for which patient will eventually need an aortic valve replacement following initial stabilization. Awaiting Dr. Medina evaluation. Dr. Coombs has discussed echo with Dr. Medina. 09/21: no significant improvements. lactate still 10. persists on 2 vasopressors. pH slightly better. CRRT circuit clotted overnight. 09/22: off vasopressors this morning. MRI yesterday with multiple acute strokes, largest in right fronto-parietal region. acidosis better. CRRT clotted at 2100 overnight. plan to likely transition to IHD today. Objective Vital Signs Date Time Temp Pulse Resp B/P Pulse Ox O2 Delivery O2 Flow Rate FiO2 4/19/17 06:00 83 09/22/16 04:04 100 35 09/22/16 04:00 99.5 22 124/30 09/20/16 07:00 Mechanical Ventilator 09/19/16 21:09 2 Intake and Output 09/21/16 09/21/16 09/22/16 08:00 16:00 00:00 Intake Total 2000 ml 1821 ml 1514 ml Output Total 200 ml 250 ml 4556 ml Balance 1800 ml 1571 ml -3042 ml Result Diagram: 09/22/16 0445 09/22/16 0445 Other Results Microbiology Date/Time Procedure Status Source Growth 09/19/16 07:30 Gram Stain - Final Complete Wound Leg 09/19/16 07:30 Wound Culture - Final Complete S. Aureus Mrsa Strep Not A,B D 09/19/16 15:50 Urine Culture - Final Complete Urine Clean Catch NO GROWTH IN 48 HOURS. Laboratory Tests Test 09/21/16 09/21/16 09/21/16 07:10 11:30 15:20 Blood Gas Puncture Site RENATE ART LINE RENATE Blood Gas Patient Temperature 98.6 98.6 98.6 Blood Gas HCO3 15 mmol/L 17 mmol/L 18 mmol/L (22-26) (22-26) (22-26) Blood Gas Base Excess -8.8 mmol/L -5.7 mmol/L -4.9 mmol/L (-2-2) (-2-2) (-2-2) Blood Gas Oxygen Saturation 97 % (90-100) 96 % (90-100) 96 % (90-100) Arterial Blood pH 7.44 7.52 7.45 (7.380-7.420) (7.380-7.420) (7.380-7.420) Arterial Blood Partial 22 mmHg (38-42) 21 mmHg (38-42) 27 mmHg (38-42) Pressure CO2 Arterial Blood Partial 181 mmHg 99 mmHg 100 mmHg Pressure O2 (61-120) (61-120) (61-120) Arterial Blood Oxygen Content 11.0 Vol % 11.1 Vol % 11.4 Vol % (12.0-20.0) (12.0-20.0) (12.0-20.0) Arterial Blood 1.2 % (0-4) 1.2 % (0-4) 1.3 % (0-4) Carboxyhemoglobin Arterial Blood Methemoglobin 1.0 % (0-2) 0.8 % (0-2) 0.6 % (0-2) Blood Gas Hemoglobin 7.8 G/DL 8.1 G/DL 8.3 G/DL (12.0-16.0) (12.0-16.0) (12.0-16.0) Oxygen Delivery Device VENT VENTILATOR VENT Blood Gas Ventilator Setting PRVC//5/IT1 550/24/1SEC/PEEP5 PRVC/24/550/5/ IT1 Blood Gas Inspired Oxygen 35 % 35 % 35 % Imaging Last Impressions Tibia/Fibula X-Ray 09/19/16 0000 Signed Impressions: Service Date/Time: Monday, September 19, 2016 07:43 - CONCLUSION: Chronic changes and no evidence for acute fracture. Claudio Barroso MD Renal Ultrasound 09/19/16 0000 Signed Impressions: Service Date/Time: Monday, September 19, 2016 10:40 - CONCLUSION: Unremarkable renal ultrasound. Claudio Barroso MD Lower Extremity MRI 09/19/16 0000 Signed Impressions: Service Date/Time: Monday, September 19, 2016 10:15 - CONCLUSION: Large mass most likely originating from the patient's skin with infiltration of subcutaneous fat and no definite involvement of the muscular structures or marrow. A malignant mass should be entertained and clinical correlation is needed. Claudio Braroso MD Knee X-Ray 09/19/16 0000 Signed Impressions: Service Date/Time: Monday, September 19, 2016 07:43 - CONCLUSION: Osteoarthritis. 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 Claudio Barroso MD Chest X-Ray 09/19/16 0000 Signed Impressions: Service Date/Time: Monday, September 19, 2016 16:50 - CONCLUSION: 1. Minimal basilar atelectasis. Elevated right hemidiaphragm. No effusion. Osteochondral defect right humeral head. Raul Merlos MD Objective Remarks HEENT/ Neuro: Sedated, orally intubated, Pallor present, no icterus, tongue/ mucosa moist Neck: Right IJ Vas-Cath, left IJ central line in place. trachea midline. Chest/Pulm: on mech vent, equal chest rise, coarse BS bilaterally. CVS: S1-S2 regular, III/ diastolic murmur best heard over aortic area noted. GI/abdomen: soft, nontender, nondistended. no guarding. Extremities: warm bilaterally, no edema. Ulcerated lesion/ mass on left leg behind the knee noted Neuro: RASS -4. does not follow commands. Date of Insertion: Sep 19, 2016 Line: Central Venous Catheter Side: Left Location: Jugular A/P Assessment and Plan Assessment: 56yM with infective endocarditis of [place] aortic valve with subsequent severe acute aortic regurgitation, pulmonary edema, congestive heart failure secondary to valvulopathy, acute mixed septic/cardiogenic shock, new acute strokes secondary to septic emboli, multiorgan system dysfunction, acute liver dysfunction likely secondary to shock liver and possible congestive hepatopathy, acute kidney injury requiring renal replacement therapy, metabolic encephalopathy. He remains very critically ill at this time. Certainly, will need to wait at least a week from time of strokes to pursue cardiac surgery, but now has two indications for urgent AVR. Plan by systems: Neurologic: Old CVA infarct Possible schizophrenia Metabolic encephalopathy secondary to sepsis New Acute CVA secondary to septic emboli d/c versed start propofol. continue fentanyl goal RASS -2. sedation vacation today. frequent neuro checks MRI 09/22: multifocal infarcts, largest in right frontoparietal region. hold acetaminophen given shock liver. Respiratory: Acute hypoxic respiratory failure on mechanical ventilation Pulmonary Edema secondary to valvulopathy and cardiogenic shock Continue mechanical ventilation, vent bundle, bronchodilators as needed. too unstable today for CPAP trials. new acute stroke and volume overload. volume removal with SWEEPER OPERATOR HIGHWAYS. Cardiovascular: Aortic valve vegetation Severe aortic regurgitation Septic Shock- resolving. Cardiogenic Shock Congestive Heart Failure secondary to valvulopathy Transthoracic echo with aortic valve vegetation with severe aortic regurgitation. Cardiology: [facility] CT Surgery: Adam -- will need anti-platelet therapy, but with his multiple acute issues and his thrombocytopenia, will hold off on ASA at this time. if platelet count improves , will consider starting. -- lipid panel -- goal SBP 110 - 120 to optimize cardiac function. will tolerate MAP > 50 in order to accomplish this. -- will need AVR at some point, will hold off for at least a week post-stroke. Renal: Acute kidney injury secondary to sepsis Acute intravascular volume overload. Strict intake output, monitor and replete electrolytes, follow BUN/creatinine. --Likely plan for IHD today. will need daily IHD for volume removal. -- d/c bicarb drip. trend ABGs. continue salmeron catheter. FEN/GI: Acute severe intravascular volume overload Acute protein calorie malnutrition- mild Hyperphosphatemia Acute GI bleed Lactic Acidosis Severe metabolic acidosis -- NPO. will consider trickle TF later today. -- trend abgs -- d/c protonix drip. start iv bid ppi. -- EGD without evidence of ulcers. -- GI following Heme/ID: Chronic anemia Acute anemia secondary to blood loss from GI bleed Leukocytosis Septic shock Bacteremia with gram-positive cocci Aortic valve endocarditis Hyperlipidemia Thrombocytopenia secondary to consumption secondary to severe AI daily CBC wound culture growing MRSA blood growing strep, sensitivities to follow Goal vanc trough 15 - 20. continue renally adjusted zosyn. Dr. Fonseca ID. 4T score low probability of HIT. does not meet transfusion triggers at this time. Endocrine: Hyperglycemia critical illness Glucose monitoring per ICU protocol-low dose regimen Msk: Rhabdomyolysis- resolved. Probable ulcerated neoplastic lesion left lower extremity behind left knee Most likely squamous cell carcinoma clinically. Status post punch biopsy on by family medicine service awaiting pathology results. -Dependent on results we'll decide further management. Wound care consult -- SSI Prophylaxis: GI Prophylaxis iv bid ppi. DVT Prophylaxis -- SCDs Heparin SQ Lines: LIJ central line placed 09/19 ARIANNA vaslaw placed 09/20 Time spent on critical care excluding procedures 51 minutes Perez Aparicio MD Sep 22, 2016 07:04 ARIANNA parker placed 09/20 Time spent on critical care excluding procedures 82 minutes Perez Aparicio MD Sep 22, 2016 07:04
[2016-09-22] MEDS: CHLORHEXIDINE 0.12% (ORAL KIT) 15 ML CUP MT SCH ×2 (08:00→19:46)
[2016-09-22 08:59] LABS: HDL CHOLESTEROL 9.7 MG/DL (40.0-60.0)
[2016-09-22] MEDS: SODIUM CHLORIDE 0.9% FLUSH 10 ML FLUSH IV FLUSH SCH ×2 (09:00→19:45)
[2016-09-22] MEDS: PANTOPRAZOLE SODIUM 40 MG VIAL IV PUSH SCH ×2 (09:08→19:45)
[2016-09-22] MEDS: DOCUSATE SODIUM 100 MG CAP PO SCH ×2 (09:08→19:45)
[2016-09-22] MEDS ORDERED: VANCOMYCIN INJ 1,000 MG in SODIUM CHLOR 0.9% 250 ML INJ 250 ML IV ONE (11:00)
--- NOTE | 2016-09-22 11:01 | HHI.FPPN ---
Subjective Remarks Patient seen and examined this morning. No acute events overnight and vital signs stable. Patient remains intubated and sedated. Per nursing staff, vasopressors were successfully weaned off last night and patient has been stable since. He has had no new episodes of coffee-ground emesis via NG tube. Objective Vitals Vital Signs Date Time Temp Pulse Resp B/P Pulse Ox O2 Delivery O2 Flow Rate FiO2 09/22/16 09:52 100 35 09/22/16 08:00 84 09/22/16 08:00 99.9 84 24 120/34 100 09/22/16 08:00 35 09/22/16 06:52 100 35 09/22/16 06:00 83 09/22/16 04:04 100 35 09/22/16 04:00 35 09/22/16 04:00 84 09/22/16 04:00 99.5 84 22 124/30 100 09/22/16 02:00 82 09/22/16 01:14 98 35 09/22/16 00:00 99.1 84 23 123/32 100 09/22/16 00:00 84 09/22/16 00:00 35 09/21/16 22:09 100 35 09/21/16 22:00 80 09/21/16 20:00 97.5 80 18 124/30 Arterial Line 09/21/16 20:00 80 09/21/16 20:00 35 09/21/16 19:33 0 35 09/21/16 17:00 96 35 09/21/16 16:00 77 09/21/16 16:00 96.4 77 21 118/33 96 09/21/16 12:00 97.6 79 20 155/31 100 09/21/16 12:00 79 09/21/16 11:46 98 35 I/O 09/21/16 09/21/16 09/21/16 09/22/16 09/22/16 09/22/16 07:00 15:00 23:00 07:00 15:00 23:00 Intake Total 2000 ml 1821 ml 1514 ml 1145 ml Output Total 200 ml 250 ml 4556 ml 150 ml Balance 1800 ml 1571 ml -3042 ml 995 ml Intake IV Total 2000 ml 1821 ml 1514 ml 1145 ml Output Urine Total 200 ml 250 ml 100 ml 150 ml Gastric Drainage Total 0 ml 0 ml 50 ml 0 ml Hemodialysis 4406 ml # Bowel Movements 0 0 0 0 Result Diagram: 09/22/1644409/22/16444 Objective Remarks GENERAL: 66-year-old Kathi male lying in bed intubated and sedated. SKIN: Warm and dry. No rash. CARDIOVASCULAR: Regular rate and rhythm with 3/6 diastolic murmur more pronounced at the right sternal border. RESPIRATORY: Equal coarse breath sounds bilaterally at the bases. Currently breathing via ventilator. GASTROINTESTINAL: Abdomen soft, non-tender, nondistended with +BS. No masses appreciated. MUSCULOSKELETAL: Extremities without cyanosis. 1+ edema of left lower extremity. LLE on admission: 8.5 X 10.5CM circular, fungating, ulcerative lesion on the posterior aspect of the L knee. No hemorrhage or necrosis appreciated. Lesion is foul smelling and appears to involve skin and subcutaneous tissue; does not appear to involve the muscle or bone. 2+ from the ankle to the knee. LLE currently: Currently lesion bandaged with sterile gauze, CDI. NEUROLOGICAL: Patient intubated and sedated. Date of Insertion: Sep 19, 2016 Line: Central Venous Catheter Side: Left Location: Jugular A/P Assessment and Plan Mr. Burnham is a 56 y/o AAM with a PMHx of HTN presenting with AMS and a LLE wound found to be in septic shock admitted for medical therapy. Discharge Planning Pending clinical improvement. Unclear timeframe at this time. WDW: Dr. Helm Problem List: (1) Septic shock Status: Acute Plan: On admission patient presented with altered mental status left lower extremity lesion. Patient found to be tachycardic to 100 bpm with a white blood cell count of 18.6. Likely source of infection is his left lower extremity lesion. Found to have a lactic acid of 4.5 not responsive to fluid resuscitation. Patient placed on sepsis protocol and transferred to the [facility] [place]. Patient found to have endocarditis with mobile aortic valve vegetation. Blood cultures 2 09/19: Beta hemolytic streptococcus, beta Streptococcus group G; both pansensitive UC: Pending Wound culture x2: MRSA, sensitive to vancomycin Blood culture 09/20: Negative to date Blood culture 09/21: Pending Intensive care consulted, appreciate recommendations Infectious disease consulted, appreciate recommendations * Continue Vancomycin and Zosyn * MRI of brain from 09/21 significant for multifocal nonhemorrhagic acute infarction, the largest in the right frontoparietal region. Diffuse bilateral nature involving both anterior and posterior circulation suggests embolic source. No evidence of mass effect or cerebral edema at this point. * Biopsy of LLE lesion sent for pathology * Repeat BC with no growth to date Medications: Vancomycin 1 g twice a day, pharmacy consulted Zosyn 2.25 g every 6 hours Sodium bicarbonate with sterile water at 150 mL per hour Hydrocortisone 100 mg every 8 hours Fentanyl, propofol, Versed drips per protocol (2) Skin ulcer of left lower leg, limited to breakdown of skin Status: Acute Plan: Patient with circular, fungating, ulcerative lesion on the posterior aspect of the L knee with edema of the lower extremity. Patient denies any pain currently. Lower extremity neurovascularly intact with appropriate capillary refill. Knee x-ray: Chronic changes with no evidence of acute fracture Tubularfibula x-ray: Chronic changes and no evidence of acute fractures. Lower extremity MRI: Large mass most likely originating from the patient's skin with infiltration of subcutaneous fat and no definite involvement of the muscular structures her marrow. A malignant mass should be entertained and clinical correlation is needed. Punch biopsy 09/20: Pending Gen. surgery consulted for possible excision biopsy, appreciate recommendations -Please see plan as above (3) Endocarditis of aortic valve Status: Acute Plan: On admission patient with elevated CPK to 7480 and troponin to 12.4. Echocardiogram performed and found to have mobile vegetation of the aortic valve. Blood cultures with gram-positive cocci in all 4 vials. TTE 09/20: Aortic valve with mobile vegetation on the left ventricular aspect. Severe aortic regurgitation directed eccentrically in the LVOT. Left ventricle with normal cavity size and wall thickness. Systolic function normal. Estimated ejection fraction in the range of 50-55% with normal wall motion. Mitral valve with mild regurgitation. Tricuspid valve with mild regurgitation. Pulmonary arteries with moderately increased systolic pressure. Cardiology consulted, appreciate recommendations * AGUSTIN scheduled, however due to patient's declining status, will hold off at this time * Severe aortic insufficiency, would require surgical replacement. Cardiothoracic surgery consulted. Cardiothoracic surgery consulted, appreciate recommendations * Currently not a surgical candidate * Surgery to be considered once pt is stable and extubated. (4) Acute embolic stroke Status: Acute Plan: Patient presented with altered mental status with septic shock found to have endocarditis. CT head: Old infarction with encephalomalacia in the watershed distribution of the right CORINNE and MCA. Brain MRI: Abnormal scan demonstrating evidence of multi-focal nonhemorrhagic acute infarction with the largest in the right frontoparietal region. Diffuse bilateral nature involving both anterior and posterior circulation suggest embolic source. No evidence of mass effect or cerebral edema at this point. Prognosis currently unclear as patient is intubated and sedated Permissive hypertension, however patient currently septic with severe aortic regurgitation Frequent neuro checks Please see plan as above (5) Acute renal failure (ARF) Status: Acute Plan: Patient found to have a BUN of 58 with a creatinine of 3.27 on admission likely secondary to septic shock. Per chart review, admission in 2013 showed creatinine of 0.81. Renal ultrasound: Unremarkable Strict I/Os Avoid nephrotoxic agents Urology consulted to assist with David catheter placement secondary to phimosis Nephrology consulted, appreciate recommendations * Transitioned to intermittent hemodialysis today as CRRT clotted overnight * Monitor BMP (6) Anemia Status: Acute Plan: Patient found to be anemic on admission without prior history. Repeat H/ H show declining hemoglobin. Patient transfused 3 units of PRBC on 09/19. Pt with Coffee-ground gastric secretions, suggestive of possible upper GI bleed. H/H today: 8 8.1/24.5 3 units PRBC transfused, 1 unit ready for possible future transfusion Posttransfusion H/H on 09/20: 7.8/24 GI consulted, appreciate recommendations and intervention * EGD 09/21: No active bleeding, NG tube suction injury to gastric body * Monitor H/H * Transfuse as necessary * Supportive care (7) Nutrition, metabolism, and development symptoms Status: Acute Plan: Fluids: Currently discontinued Diet: NPO as patient is intubated and sedated Electrolytes: Continue to monitor DVT Prophylaxis: Heparin 5000 units Q12hrs GI prophylaxis: Protonix twice a day Problem Qualifiers (1) Acute renal failure (ARF): Qualified Code: N17.9 - Acute renal failure, unspecified acute renal failure type Brian Guadalupe MD R1 Sep 22, 2016 11:01
--- NOTE | 2016-09-22 11:38 | PD.CARD.PN ---
Subjective Subjective Remarks critically ill Objective Medications Current Medications Medications (Trade) Dose Ordered Sig/[place] Route Start Time Stop Time Status Last Admin (Narcan Inj) 0.4 mg UNSCH PRN IV 09/19/16 10:00 (NS Flush) 2 ml UNSCH PRN IV FLUSH 09/19/16 17:45 (NS Flush) 2 ml BID IV FLUSH 09/19/16 21:00 09/20/16 09:31 (Tylenol) 650 mg Q6H PRN PO 09/19/16 17:45 Hold (Zofran Inj) 4 mg Q6H PRN IV 09/19/16 17:45 (Colace) 100 mg BID PO 09/19/16 21:00 09/22/16 09:08 (Heparin Inj) 5,000 units Q12H SQ 09/19/16 18:00 09/22/16 06:19 Miscellaneous Information 1 Q361D XX 09/19/16 17:45 (Chlorhexidine 2% Cloth) 3 pack Taper DAILY@04 TOP 09/20/16 04:00 09/16/17 03:59 09/22/16 04:00 Chlorhexidine Gluconate 3 pack 3 pack UNSCH PRN TOP 09/19/16 17:45 (Vancomycin Consult Pharmacy) 0 ml @ 0 mls/hr UNSCH OTHER 09/19/16 17:45 Chlorhexidine Gluconate 15 ml 15 ml BID@08,20 MT 09/20/16 08:00 09/22/16 08:00 Fentanyl Citrate 250 ml @ 0 mls/hr TITRATE IV 09/19/16 22:45 09/22/16 06:20 (Diprivan 1000 Mg/100ml Inj) 100 ml @ 0 mls/hr TITRATE IV 09/19/16 22:45 09/22/16 06:55 (D50w (Vial) Inj) 25 ml UNSCH PRN IV PUSH 09/20/16 05:00 Insulin Aspart 1 1 Q4H SQ 09/20/16 05:00 09/22/16 05:00 Protamine Sulfate 250 mg/Sodium Chloride 250 ml @ 0 mls/hr TITRATE IV 09/20/16 12:15 09/21/16 19:49 Heparin Sodium/ Dextrose 250 ml @ 5 mls/hr TITRATE IV 09/20/16 12:15 Sodium Chloride 1,000 ml @ 0 mls/hr UNSCH PRN OTHER 09/20/16 12:15 Potassium Chloride 100 ml @ 0 mls/hr UNSCH PRN IV 09/20/16 21:15 (Levophed-Dextrose Drip) 250 ml @ 0 mls/hr TITRATE IV 09/21/16 07:15 Pantoprazole Sodium 40 mg 40 mg Q12H IV PUSH 09/22/16 09:00 09/22/16 09:08 Vancomycin HCl 1000 mg/Sodium Chloride 250 ml @ 250 mls/hr ONCE ONCE IV 09/22/16 11:00 09/22/16 11:59 (Rocephin Inj/NS Inj) 100 ml @ 200 mls/hr Q24H IV 09/22/16 12:00 (Pneumovax-23 Inj) 25 mcg ONCE ONCE IM 09/23/16 10:00 09/23/16 10:01 (Flu (Quadrivalent) Vaccine Inj) 0.5 ml ONCE ONCE IM 09/23/16 10:00 09/23/16 10:01 Vital Signs / I&O Vital Signs Date Time Temp Pulse Resp B/P Pulse Ox O2 Delivery O2 Flow Rate FiO2 09/22/16 09:52 100 35 09/22/16 08:00 84 09/22/16 08:00 99.9 84 24 120/34 100 09/22/16 08:00 35 09/22/16 06:52 100 35 09/22/16 06:00 83 09/22/16 04:04 100 35 09/22/16 04:00 35 09/22/16 04:00 84 09/22/16 04:00 99.5 84 22 124/30 100 09/22/16 02:00 82 09/22/16 01:14 98 35 09/22/16 00:00 99.1 84 23 123/32 100 09/22/16 00:00 84 09/22/16 00:00 35 09/21/16 22:09 100 35 09/21/16 22:00 80 09/21/16 20:00 97.5 80 18 124/30 Arterial Line 09/21/16 20:00 80 09/21/16 20:00 35 09/21/16 19:33 0 35 09/21/16 17:00 96 35 09/21/16 16:00 77 09/21/16 16:00 96.4 77 21 118/33 96 09/21/16 12:00 97.6 79 20 155/31 100 09/21/16 12:00 79 09/21/16 11:46 98 35 I/O 09/21/16 09/21/16 09/21/16 09/22/16 09/22/16 09/22/16 07:00 15:00 23:00 07:00 15:00 23:00 Intake Total 2000 ml 1821 ml 1514 ml 1145 ml Output Total 200 ml 250 ml 4556 ml 150 ml Balance 1800 ml 1571 ml -3042 ml 995 ml Intake IV Total 2000 ml 1821 ml 1514 ml 1145 ml Output Urine Total 200 ml 250 ml 100 ml 150 ml Gastric Drainage Total 0 ml 0 ml 50 ml 0 ml Hemodialysis 4406 ml # Bowel Movements 0 0 0 0 Physical Exam GENERAL: Sedated, intubated SKIN: Warm and dry. HEAD: Normocephalic. EYES: No scleral icterus. No injection or drainage. NECK: Supple, trachea midline. No JVD or lymphadenopathy. CARDIOVASCULAR: Regular rate and rhythm without murmurs, gallops, or rubs. RESPIRATORY: Breath sounds equal bilaterally. No accessory muscle use. GASTROINTESTINAL: Abdomen soft, non-tender, nondistended. EXTREMITIES: +2 edema. . Laboratory Laboratory Tests Test 09/21/16 09/21/16 09/21/16 09/21/16 12:29 12:31 13:40 15:20 Activated Partial 28.1 SEC 31.5 SEC 30.7 SEC Thromboplast Time Blood Gas Puncture Site RENATE Blood Gas Patient Temperature 98.6 Blood Gas HCO3 18 mmol/L Blood Gas Base Excess -4.9 mmol/L Blood Gas Oxygen Saturation 96 % Arterial Blood pH 7.45 Arterial Blood Partial 27 mmHg Pressure CO2 Arterial Blood Partial 100 mmHg Pressure O2 Arterial Blood Oxygen Content 11.4 Vol % Arterial Blood 1.3 % Carboxyhemoglobin Arterial Blood Methemoglobin 0.6 % Blood Gas Hemoglobin 8.3 G/DL Oxygen Delivery Device VENT Blood Gas Ventilator Setting PRVC/24/550/5/IT1 Blood Gas Inspired Oxygen 35 % Test 09/21/16 09/21/16 09/21/16 09/21/16 15:32 15:33 17:26 17:27 Activated Partial 30.5 SEC 32.0 SEC 30.1 SEC 30.0 SEC Thromboplast Time Test 09/22/16 09/22/16 09/22/16 04:45 06:36 06:37 White Blood Count 13.0 TH/MM3 Red Blood Count 2.78 MIL/MM3 Hemoglobin 8.1 GM/DL Hematocrit 24.5 % Mean Corpuscular Volume 88.2 FL Mean Corpuscular Hemoglobin 29.2 PG Mean Corpuscular Hemoglobin 33.1 % Concent Red Cell Distribution Width 18.4 % Platelet Count 74 TH/MM3 Mean Platelet Volume 10.3 FL Sodium Level 141 MEQ/L Potassium Level 3.5 MEQ/L Chloride Level 103 MEQ/L Carbon Dioxide Level 25.3 MEQ/L Anion Gap 13 MEQ/L Blood Urea Nitrogen 97 MG/DL Creatinine 3.15 MG/DL Estimat Glomerular Filtration 25 ML/MIN Rate Random Glucose 138 MG/DL Calcium Level 7.0 MG/DL Protein Corrected Calcium 8.0 MG/DL Phosphorus Level 4.7 MG/DL Magnesium Level 2.4 MG/DL Total Protein 5.2 GM/DL Triglycerides Level 375 MG/DL Cholesterol Level 115 MG/DL LDL Cholesterol 30 MG/DL HDL Cholesterol 9.7 MG/DL Cholesterol/HDL Ratio 11.85 RATIO Random Vancomycin Level 16.3 COMMENT Blood Gas Puncture Site ART LINE Blood Gas Patient Temperature 98.6 Blood Gas HCO3 24 mmol/L Blood Gas Base Excess 0.9 mmol/L Blood Gas Oxygen Saturation 97 % Arterial Blood pH 7.50 Arterial Blood Partial 31 mmHg Pressure CO2 Arterial Blood Partial 179 mmHg Pressure O2 Arterial Blood Oxygen Content 11.4 Vol % Arterial Blood 1.4 % Carboxyhemoglobin Arterial Blood Methemoglobin 1.0 % Blood Gas Hemoglobin 8.0 G/DL Oxygen Delivery Device VENTILATOR Blood Gas Ventilator Setting SEE COMMENTS Blood Gas Inspired Oxygen 35 % Lactic Acid Level 2.7 mmol/L Imaging Last Impressions Chest X-Ray 09/21/16 0000 Signed Impressions: Service Date/Time: Wednesday, September 21, 2016 07:47 - CONCLUSION: Lines and tubes in good position. Persistent left lower lobe consolidation. Froilan James MD Brain MRI 09/21/16 0000 Signed Impressions: Service Date/Time: Wednesday, September 21, 2016 08:47 - CONCLUSION: Abnormal scan demonstrating evidence of multifocal nonhemorrhagic acute infarction, the largest is in the right frontoparietal region. The diffuse bilateral nature involving both anterior and posterior circulation suggests embolic source. No evidence of mass effect or cerebral edema at this point. Froilan James MD Tibia/Fibula X-Ray 09/19/16 0000 Signed Impressions: Service Date/Time: Monday, September 19, 2016 07:43 - CONCLUSION: Chronic changes and no evidence for acute fracture. Claudio Barroso MD Renal Ultrasound 09/19/16 0000 Signed Impressions: Service Date/Time: Monday, September 19, 2016 10:40 - CONCLUSION: Unremarkable renal ultrasound. Claudio Barroso MD Lower Extremity MRI 09/19/16 0000 Signed Impressions: Service Date/Time: Monday, September 19, 2016 10:15 - CONCLUSION: Large mass most likely originating from the patient's skin with infiltration of subcutaneous fat and no definite involvement of the muscular structures or marrow. A malignant mass should be entertained and clinical correlation is needed. Claudio Barroso MD Knee X-Ray 09/19/16 0000 Signed Impressions: Service Date/Time: Monday, September 19, 2016 07:43 - CONCLUSION: Osteoarthritis. 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 Claudio Barroso MD Assessment and Plan Problem List: (1) Endocarditis of aortic valve Assessment and Plan: Severe AI in the setting of IE with multi-organ system failure Critically ill Very poor prognosis Case re-discuss with CT surgery/Dr. Medina. Per CT he is not candidate for AVR at this time. Continue supportive care (2) Septic shock (3) Troponin level elevated (4) ARF (acute renal failure) Fabrice Mohan MD Sep 22, 2016 11:38
--- NOTE | 2016-09-22 11:43 | HHI.NPPN ---
Subjective History of Present Illness 56-year-old male with a past medical history of hypertension, history of schizophrenia and depression, was brought to the hospital because of altered mental status. I was called to see the patient because of elevated BUN and creatinine. The patient was found to have a creatinine of 3.2 on admission. Previously in 2012 his creatinine was normal. Additional Remarks This is a late entry, note for 09/21/16. Patient remain on the vent. and was on CRRT when I saw him yesterday gabriella. Review of Systems General General Remarks Cannot take, intubated. Objective Data Data 09/21/16 09/22/16 19:00 07:00 Intake Total 1821 ml 2659 ml Output Total 250 ml 4706 ml Balance 1571 ml -2047 ml Intake IV Total 1821 ml 2659 ml Output Urine Total 250 ml 250 ml Gastric Drainage Total 0 ml 50 ml Hemodialysis 4406 ml # Bowel Movements 0 0 Vital Signs Date Time Temp Pulse Resp B/P Pulse Ox O2 Delivery O2 Flow Rate FiO2 09/22/16 09:52 100 35 09/22/16 08:00 84 09/22/16 08:00 99.9 84 24 120/34 100 09/22/16 08:00 35 09/22/16 06:52 100 35 09/22/16 06:00 83 09/22/16 04:04 100 35 09/22/16 04:00 35 09/22/16 04:00 84 09/22/16 04:00 99.5 84 22 124/30 100 09/22/16 02:00 82 09/22/16 01:14 98 35 09/22/16 00:00 99.1 84 23 123/32 100 09/22/16 00:00 84 09/22/16 00:00 35 09/21/16 22:09 100 35 09/21/16 22:00 80 09/21/16 20:00 97.5 80 18 124/30 Arterial Line 09/21/16 20:00 80 09/21/16 20:00 35 09/21/16 19:33 0 35 09/21/16 17:00 96 35 09/21/16 16:00 77 09/21/16 16:00 96.4 77 21 118/33 96 09/21/16 12:00 97.6 79 20 155/31 100 09/21/16 12:00 79 09/21/16 11:46 98 35 -: 09/22/16 0445 09/22/16 0445 Microbiology 09/21/16 Aerobic Blood Culture, Received Pending 09/21/16 Anaerobic Blood Culture, Received Pending Physical Exam General Appearance Remarks Intubated and sedated. Eyes Eye Exam: Pupils Equal Neck Neck Exam: Neck Supple Pulmonary Resp Exam: Crackles, Rhonchi, Decreased Bases, Diminished Breath Sounds, Poor Inspiratory Effort Gastrointestinal/Abdomen GI Exam: Soft, Non-Tender, Bowel Sounds Present, Distended Extremeties Extremities Exam: Moderate Edema, Pitting Edema, Dependent Edema Neurologic Neuro Exam: Sedated Assessment/Plan Assessment Summary: RACHAEL/Acute Renal Failure Problem List: (1) Cellulitis (2) Mass of left lower extremity (3) Septic shock (4) Anemia (5) ARF (acute renal failure) Plan Patient has low urine out put. BP is now better and off pressors. CRRT is working well since AM. Remove fluid as tolerated. To get conventional HD. Will hold CRRT once clotted. Continue antibiotics, skin Biopsy is PND. Problem Qualifiers (1) Cellulitis: Qualified Code: L03.116 - Cellulitis of left lower extremity Manoj Liu MD Sep 22, 2016 11:43
--- NOTE | 2016-09-22 12:19 | HHI.IDPN ---
Subjective Subjective Remarks Notes reviewed Temps low grade Off pressors On CVVHD, possibly switched to HD Sedated on the vent Wound C/S MRSA and Strep BC with Strep - B-hemolytic Strep Group G Repeat BC negative so far Biopsy pending Antibiotics VAnco Zosyn Lines Vascath TLC Past Medical History Possible schizophrenia, depression Hypertension Chronic wound left leg Allergies: Coded Allergies: *MDRO Multi-Drug Resistant Organism (Verified Adverse Reaction, Unknown, ) MRSA (leg wound) - 09/19/16 Uncoded Allergies: NKDA (Allergy, Severe, 11/03/11) Objective . Vital Signs Date Time Temp Pulse Resp B/P Pulse Ox O2 Delivery O2 Flow Rate FiO2 09/22/16 11:59 100 35 09/22/16 09:52 100 35 09/22/16 08:00 84 09/22/16 08:00 99.9 84 24 120/34 100 09/22/16 08:00 35 09/22/16 06:52 100 35 09/22/16 06:00 83 09/22/16 04:04 100 35 09/22/16 04:00 35 09/22/16 04:00 84 09/22/16 04:00 99.5 84 22 124/30 100 09/22/16 02:00 82 09/22/16 01:14 98 35 09/22/16 00:00 99.1 84 23 123/32 100 09/22/16 00:00 84 09/22/16 00:00 35 09/21/16 22:09 100 35 09/21/16 22:00 80 09/21/16 20:00 97.5 80 18 124/30 Arterial Line 09/21/16 20:00 80 09/21/16 20:00 35 09/21/16 19:33 0 35 09/21/16 17:00 96 35 09/21/16 16:00 77 09/21/16 16:00 96.4 77 21 118/33 96 09/21/16 09/21/16 09/22/16 15:00 23:00 07:00 Intake Total 1821 ml 1514 ml 1145 ml Output Total 250 ml 4556 ml 150 ml Balance 1571 ml -3042 ml 995 ml Intake IV Total 1821 ml 1514 ml 1145 ml Output Urine Total 250 ml 100 ml 150 ml Gastric Drainage Total 0 ml 50 ml 0 ml Hemodialysis 4406 ml # Bowel Movements 0 0 0 . Laboratory Tests Test 09/20/16 09/21/16 09/22/16 18:00 03:40 04:45 White Blood Count 19.2 TH/MM3 15.9 TH/MM3 13.0 TH/MM3 Red Blood Count 2.95 MIL/MM3 2.78 MIL/MM3 2.78 MIL/MM3 Hemoglobin 8.8 GM/DL 8.4 GM/DL 8.1 GM/DL Hematocrit 26.4 % 24.6 % 24.5 % Mean Corpuscular Volume 89.7 FL 88.5 FL 88.2 FL Mean Corpuscular Hemoglobin 29.9 PG 30.2 PG 29.2 PG Mean Corpuscular Hemoglobin 33.3 % 34.2 % 33.1 % Concent Red Cell Distribution Width 19.4 % 19.2 % 18.4 % Platelet Count 79 TH/MM3 58 TH/MM3 74 TH/MM3 Mean Platelet Volume 8.2 FL 8.0 FL 10.3 FL Neutrophils (%) (Auto) 87.3 % Lymphocytes (%) (Auto) 5.6 % Monocytes (%) (Auto) 6.6 % Eosinophils (%) (Auto) 0.1 % Basophils (%) (Auto) 0.4 % Neutrophils # (Auto) 13.8 TH/MM3 Lymphocytes # (Auto) 0.9 TH/MM3 Monocytes # (Auto) 1.0 TH/MM3 Eosinophils # (Auto) 0.0 TH/MM3 Basophils # (Auto) 0.1 TH/MM3 CBC Comment AUTO DIFF Differential Total Cells 100 Counted Neutrophils % (Manual) 80 % Band Neutrophils % 17 % Lymphocytes % 2 % Monocytes % 1 % Neutrophils # (Manual) 15.4 TH/MM3 Nucleated Red Blood Cells 2 /100 WBC Differential Comment FINAL DIFF MANUAL Platelet Estimate LOW Platelet Morphology Comment NORMAL Acanthocytes OCC Laboratory Tests Test 09/20/16 09/21/16 09/22/16 09/22/16 18:00 03:40 04:45 06:37 Sodium Level 138 MEQ/L 139 MEQ/L 141 MEQ/L Potassium Level 4.5 MEQ/L 4.3 MEQ/L 3.5 MEQ/L Chloride Level 102 MEQ/L 101 MEQ/L 103 MEQ/L Carbon Dioxide Level 13.2 MEQ/L 14.4 MEQ/L 25.3 MEQ/L Anion Gap 23 MEQ/L 24 MEQ/L 13 MEQ/L Blood Urea Nitrogen 84 MG/DL 93 MG/DL 97 MG/DL Creatinine 3.19 MG/DL 3.32 MG/DL 3.15 MG/DL Estimat Glomerular Filtration 25 ML/MIN 23 ML/MIN 25 ML/MIN Rate Random Glucose 161 MG/DL 165 MG/DL 138 MG/DL Lactic Acid Level 11.7 mmol/L 10.3 mmol/L 2.7 mmol/L Calcium Level 7.0 MG/DL 6.9 MG/DL 7.0 MG/DL Protein Corrected Calcium 7.5 MG/DL 7.6 MG/DL 8.0 MG/DL Total Bilirubin 2.2 MG/DL 2.1 MG/DL Aspartate Amino Transf 1185 U/L 1904 U/L (AST/SGOT) Alanine Aminotransferase 381 U/L 666 U/L (ALT/SGPT) Alkaline Phosphatase 76 U/L 75 U/L Lactate Dehydrogenase 1331 U/L Total Protein 6.1 GM/DL 5.7 GM/DL 5.2 GM/DL Albumin 1.8 GM/DL 1.7 GM/DL Phosphorus Level 8.3 MG/DL 4.7 MG/DL Magnesium Level 2.4 MG/DL 2.4 MG/DL Direct Bilirubin 1.6 MG/DL Indirect Bilirubin 0.5 MG/DL Triglycerides Level 375 MG/DL Cholesterol Level 115 MG/DL LDL Cholesterol 30 MG/DL HDL Cholesterol 9.7 MG/DL Cholesterol/HDL Ratio 11.85 RATIO Microbiology Date/Time Procedure Status Source Growth 09/19/16 15:50 Urine Culture - Final Complete Urine Clean Catch NO GROWTH IN 48 HOURS. 09/19/16 22:00 Gram Stain - Final Complete Wound Leg 09/19/16 22:00 Wound Culture - Final Complete S. Aureus Mrsa 09/20/16 13:09 Aerobic Blood Culture - Preliminary Resulted Blood Peripheral NO GROWTH IN 2 DAYS 09/20/16 13:09 Anaerobic Blood Culture - Preliminary Resulted Blood Peripheral NO GROWTH IN 2 DAYS 09/20/16 13:21 Aerobic Blood Culture - Preliminary Resulted Blood Peripheral NO GROWTH IN 2 DAYS 09/20/16 13:21 Anaerobic Blood Culture - Preliminary Resulted Blood Peripheral NO GROWTH IN 2 DAYS 09/21/16 06:00 Aerobic Blood Culture - Preliminary Resulted Blood Peripheral NO GROWTH IN 1 DAY 09/21/16 06:00 Anaerobic Blood Culture - Preliminary Resulted Blood Peripheral NO GROWTH IN 1 DAY 09/21/16 13:40 Aerobic Blood Culture Received Blood Peripheral Pending 09/21/16 13:40 Anaerobic Blood Culture Received Blood Peripheral Pending Imaging Last Impressions Chest X-Ray 09/20/16 0600 Signed Impressions: Service Date/Time: Tuesday, September 20, 2016 05:22 - CONCLUSION: 1. The NG tube tip is in the distal esophagus. Recommend advancing the NG tube 10 cm. 2. Mild left lower lung atelectasis. Jason Albert MD Tibia/Fibula X-Ray 09/19/16 0000 Signed Impressions: Service Date/Time: Monday, September 19, 2016 07:43 - CONCLUSION: Chronic changes and no evidence for acute fracture. Claudio Barroso MD Renal Ultrasound 09/19/16 0000 Signed Impressions: Service Date/Time: Monday, September 19, 2016 10:40 - CONCLUSION: Unremarkable renal ultrasound. Claudio Barroso MD Lower Extremity MRI 09/19/16 0000 Signed Impressions: Service Date/Time: Monday, September 19, 2016 10:15 - CONCLUSION: Large mass most likely originating from the patient's skin with infiltration of subcutaneous fat and no definite involvement of the muscular structures or marrow. A malignant mass should be entertained and clinical correlation is needed. Claudio Barroso MD Knee X-Ray 09/19/16 0000 Signed Impressions: Service Date/Time: Monday, September 19, 2016 07:43 - CONCLUSION: Osteoarthritis. 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 Claudio Barroso MD Physical Exam GENERAL: sedated and intubated, not in respiratory distress. SKIN: Cool and dry, no generalized rash, no ecchymosis, no embolic lesions noted. No mottling. HEAD: Atraumatic. Normocephalic. No temporal or scalp tenderness. EYES: Pale conjunctivae, no petechia or hemorrhage. No scleral icterus. No injection or drainage. ENT: Nose without bleeding, or purulent drainage. Endotracheal tube is in the mouth, he has moist oral mucosa. NECK: Trachea midline. No JVD or lymphadenopathy. Supple, no meningeal signs. CARDIOVASCULAR: Regular rate and rhythm, no rub, with murmur heard at the base of the heart. RESPIRATORY: Equal breath sounds bilaterally. Decreased at the bases. No wheezes, rales, or rhonchi. GASTROINTESTINAL: Abdomen soft, slightly globular, nondistended, no reaction to palpation. Bowel sounds are present and normoactive. No hepato-splenomegaly , or palpable masses. MUSCULOSKELETAL: Extremities without clubbing, cyanosis, or mottling. Feet are cool to touch. His LLE seems a little larger compared to his RLE. Has some mild pedal edema. There is a large ulcerated and fungating mass in the posterior medial aspect of his L upper leg, with some yellow exudate, and has a foul odor. No joint effusion. 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
[2016-09-22] MEDS: cefTRIAXone INJ 2,000 MG in SODIUM CHLORIDE 0.9% INJ 100 ML IV SCH (12:41)
--- NOTE | 2016-09-22 14:47 | HHI.HCPN ---
Reason for visit a. To assist with evaluation and management of symptoms including: Encephalopathy b. To assist medical decision maker(s) with: better understanding of current medical conditions; weighing benefits/burdens of medical treatment options; making medical treatment decisions. . Subjective/Interval History INTERVAL NOTE: Patient is seen in the [facility], intubated. He has been off all sedation for the past 7 hours, and he remains unresponsive. The nurse reports his arms and legs were flaccid as she turned him and changed the bedding, and there were no signs of any response noted. Cardiothoracic surgery has indicated that the patient is not a candidate for aortic valve replacement (but perhaps could be if he becomes free of infection and off the ventilator). Case management has not had any luck locating the son yet. . Advance Directives Living Will: Never completed Health Care Surrogate: Never completed Durable Power of Night Order Selector: Never completed Advance Directive Specifics Health Care Surrogate(s): The patient's sister, Sandee Callahan, has been functioning as his proxy decision- maker here. . Objective Vital Signs Date Time Temp Pulse Resp B/P Pulse Ox O2 Delivery O2 Flow Rate FiO2 09/22/16 12:00 99.9 83 28 122/35 100 09/22/16 12:00 83 09/22/16 11:59 100 35 09/22/16 09:52 100 35 09/22/16 08:00 84 09/22/16 08:00 99.9 84 24 120/34 100 09/22/16 08:00 35 09/22/16 06:52 100 35 09/22/16 06:00 83 09/22/16 04:04 100 35 09/22/16 04:00 35 09/22/16 04:00 84 09/22/16 04:00 99.5 84 22 124/30 100 09/22/16 02:00 82 09/22/16 01:14 98 35 09/22/16 00:00 99.1 84 23 123/32 100 09/22/16 00:00 84 09/22/16 00:00 35 09/21/16 22:09 100 35 09/21/16 22:00 80 09/21/16 20:00 97.5 80 18 124/30 Arterial Line 09/21/16 20:00 80 09/21/16 20:00 35 4/18/17 19:33 0 35 09/21/16 17:00 96 35 09/21/16 16:00 77 09/21/16 16:00 96.4 77 21 118/33 96 Intake & Output 09/22/16 09/22/16 07:00 19:00 Intake Total 2659 ml 284 ml Output Total 4706 ml 175 ml Balance -2047 ml 109 ml Intake IV Total 2659 ml 284 ml Output Urine Total 250 ml 175 ml Gastric Drainage Total 50 ml 0 ml Hemodialysis 4406 ml # Bowel Movements 0 0 Physical Exam CONSTITUTIONAL/GENERAL: This is an adequately nourished patient, in no apparent distress. Unresponsive, intubated TUBES/LINES/DRAINS: vas cath right neck, central line left neck, SCD right lower leg, bandage left knee/leg, David catheter, OG tube SKIN: No jaundice; 10 cm lesion behind left knee. No wounds seen anteriorly. Cool fingers/toes. Not diaphoretic. EYES: Pupils equal and round and reactive. No scleral icterus. No injection or drainage. Fundi not examined. NECK: Trachea midline. Supple, nontender. No palpable thyroid enlargement or nodularity. CARDIOVASCULAR: Regular rate and rhythm. Grade 2 systolic and grade 3 diastolic aortic murmurs. No JVD. Peripheral pulses symmetric. RESPIRATORY/CHEST: Symmetric, unlabored respirations on the ventilator. Scattered rhonchi GASTROINTESTINAL: Abdomen soft, non-tender, nondistended. No hepato-splenomegaly , or palpable masses. No guarding. Bowel sounds present. GENITOURINARY: Without palpable bladder distension. David catheter in place. MUSCULOSKELETAL: Extremities without clubbing, cyanosis, or edema. No joint tenderness or effusion noted. No mottling or clubbing. NEUROLOGICAL: Unresponsive PSYCHIATRIC: Unable to assess due to clinical condition . Diagnostic Tests Laboratory Laboratory Tests Test 09/19/16 09/19/16 09/19/16 09/19/16 15:50 19:00 19:10 20:42 Urine Color ORANGE (YELLW/STRAW) Urine Turbidity HAZY (CLEAR) Urine pH 5.0 (5.0-8.5) Urine Specific [place] 1.021 (1.002-1.035) Urine Protein 30 mg/dL (NEG-TRACE) Urine Glucose (UA) NEG mg/dL (NEG) Urine Ketones NEG mg/dL (NEG) Urine Occult Blood TRACE (NEG) Urine Nitrite NEG (NEG) Urine Bilirubin NEG (NEG) Urine Urobilinogen 2.0 MG/DL (LESS THAN 2.0) Urine Leukocyte Esterase NEG (NEG) Urine RBC 7 /hpf (0-3) Urine WBC 14 /hpf (0-5) Urine WBC Clumps MANY (NONE) Urine Squamous Epithelial 1 /hpf (0-5) Cells Urine Bacteria RARE /hpf (NONE) Urine Hyaline Casts 4 /lpf (RARE) Urine Mucus FEW /lpf (OCC) Microscopic Urinalysis Comment CULTURE INDICATED Urine Opiates Screen NEG (NEG) Urine Barbiturates Screen NEG (NEG) Urine Amphetamines Screen NEG (NEG) Urine Benzodiazepines Screen NEG (NEG) Urine Cocaine Screen NEG (NEG) Urine Cannabinoids Screen NEG (NEG) Lactic Acid Level 8.7 mmol/L (0.4-2.0) Total Creatine Kinase 7480 U/L (39-308) Creatine Kinase MB 94.5 NG/ML (0.5-3.6) Creatine Kinase MB % 1.3 % (0.0-4.0) Troponin I 12.40 NG/ML (0.02-0.05) Hemoglobin 6.5 GM/DL (13.0-17.0) Hematocrit 20.0 % (39.0-51.0) Blood Gas Puncture Site RT RADIAL Blood Gas Patient Temperature 98.6 Blood Gas HCO3 10 mmol/L (22-26) Blood Gas Base Excess -13.6 mmol/L (-2-2) Blood Gas Oxygen Saturation 90 % (90-100) Arterial Blood pH 7.43 (7.380-7.420) Arterial Blood Partial 16 mmHg (38-42) Pressure CO2 Arterial Blood Partial 66 mmHG Pressure O2 (61-120) Arterial Blood Oxygen Content 8.5 Vol % (12.0-20.0) Arterial Blood 1.9 % (0-4) Carboxyhemoglobin Arterial Blood Methemoglobin 0.6 % (0-2) Blood Gas Hemoglobin 6.7 G/DL (12.0-16.0) Oxygen Delivery Device ROOM AIR Blood Gas Inspired Oxygen 21 % Test 09/19/16 09/19/16 09/19/16 09/19/16 22:45 22:47 23:32 23:36 Lactic Acid Level 9.0 mmol/L (0.4-2.0) Haptoglobin 428 MG/DL (30-200) Sodium Level 141 MEQ/L (136-145) Potassium Level 4.4 MEQ/L (3.5-5.1) Chloride Level 107 MEQ/L (98-107) Carbon Dioxide Level 14.1 MEQ/L (21.0-32.0) Anion Gap 20 MEQ/L (5-15) Blood Urea Nitrogen 73 MG/DL (7-18) Creatinine 3.10 MG/DL (0.60-1.30) Estimat Glomerular Filtration 25 ML/MIN (>89) Rate Random Glucose 132 MG/DL (74-106) Calcium Level 7.5 MG/DL (8.5-10.1) Iron Level 102 MCG/DL (65-175) Total Iron Binding Capacity 153 MCG/DL (250-450) Percent Iron Saturation 66.8 % (20-50) Lactate Dehydrogenase 609 U/L (87-241) Total Creatine Kinase 6715 U/L (39-308) Creatine Kinase MB 86.5 NG/ML (0.5-3.6) Creatine Kinase MB % 1.3 % (0.0-4.0) Troponin I 11.80 NG/ML (0.02-0.05) Triglycerides Level 216 MG/DL (42-150) Cholesterol Level 110 MG/DL (120-200) LDL Cholesterol 55 MG/DL (0-99) HDL Cholesterol 12.1 MG/DL (40.0-60.0) Cholesterol/HDL Ratio 9.09 RATIO Free Thyroxine 1.50 NG/DL (0.76-1.46) Thyroid Stimulating Hormone 0.316 uIU/ML 3rd Gen (0.358-3.740) Blood Type O POSITIVE O POSITIVE Antibody Screen NEGATIVE Crossmatch Leukocyte-Reduced Red Blood Cells Blood Bank Comment Blood Gas Puncture Site ART LINE ART LINE Blood Gas Patient Temperature 98.6 98.6 Blood Gas HCO3 11 mmol/L (22-26) Blood Gas Base Excess -14.4 mmol/L (-2-2) Blood Gas Oxygen Saturation 97 % (90-100) Arterial Blood pH 7.31 (7.380-7.420) Arterial Blood Partial 22 mmHg (38-42) Pressure CO2 Arterial Blood Partial 261 mmHg Pressure O2 (61-120) Arterial Blood Oxygen Content 9.0 Vol % (12.0-20.0) Arterial Blood 1.5 % (0-4) Carboxyhemoglobin Arterial Blood Methemoglobin 0.8 % (0-2) Blood Gas Hemoglobin 6.1 G/DL (12.0-16.0) Oxygen Delivery Device VENTILATOR VENTILATOR Blood Gas Ventilator Setting PRVC/AC PRVC/AC Blood Gas Inspired Oxygen 50 % 50 % Venous Blood pH 7.24 (7.360-7.400) Venous Blood Partial Pressure 32 mmHg (44-48) CO2 Venous Blood Partial Pressure 35 mmHg (35-40) O2 Venous Blood HCO3 13 mmol/L (22-26) Venous Blood Oxygen Saturation 42 % (70-76) Venous Blood Oxygen Content 3.8 Vol % (9.0-17.0) Venous Blood Base Excess -12.8 mmol/L (-2-2) Test 09/20/16 09/20/16 09/20/16 09/20/16 03:26 04:55 05:23 05:30 White Blood Count 16.4 TH/MM3 17.2 TH/MM3 (4.0-11.0) (4.0-11.0) Red Blood Count 2.61 MIL/MM3 2.58 MIL/MM3 (4.50-5.90) (4.50-5.90) Hemoglobin 7.8 GM/DL 7.9 GM/DL (13.0-17.0) (13.0-17.0) Hematocrit 24.0 % 23.4 % (39.0-51.0) (39.0-51.0) Mean Corpuscular Volume 92.2 FL 90.7 FL (80.0-100.0) (80.0-100.0) Mean Corpuscular Hemoglobin 29.8 PG 30.6 PG (27.0-34.0) (27.0-34.0) Mean Corpuscular Hemoglobin 32.3 % 33.8 % Concent (32.0-36.0) (32.0-36.0) Red Cell Distribution Width 18.1 % 18.8 % (11.6-17.2) (11.6-17.2) Platelet Count 127 TH/MM3 129 TH/MM3 (150-450) (150-450) Mean Platelet Volume 8.3 FL 8.1 FL (7.0-11.0) (7.0-11.0) Neutrophils (%) (Auto) 82.4 % 88.0 % (16.0-70.0) (16.0-70.0) Lymphocytes (%) (Auto) 9.8 % 5.6 % (9.0-44.0) (9.0-44.0) Monocytes (%) (Auto) 7.6 % (0.0-8.0) 6.2 % (0.0-8.0) Eosinophils (%) (Auto) 0.0 % (0.0-4.0) 0.0 % (0.0-4.0) Basophils (%) (Auto) 0.2 % (0.0-2.0) 0.2 % (0.0-2.0) Neutrophils # (Auto) 13.5 TH/MM3 15.1 TH/MM3 (1.8-7.7) (1.8-7.7) Lymphocytes # (Auto) 1.6 TH/MM3 1.0 TH/MM3 (1.0-4.8) (1.0-4.8) Monocytes # (Auto) 1.2 TH/MM3 1.1 TH/MM3 (0-0.9) (0-0.9) Eosinophils # (Auto) 0.0 TH/MM3 0.0 TH/MM3 (0-0.4) (0-0.4) Basophils # (Auto) 0.0 TH/MM3 0.0 TH/MM3 (0-0.2) (0-0.2) CBC Comment DIFF FINAL DIFF FINAL Differential Comment Crossmatch Leukocyte-Reduced Red Blood Cells Blood Bank Comment Prothrombin Time 16.1 SEC (9.8-11.6) Prothromb Time International 1.4 RATIO Ratio Activated Partial 27.2 SEC Thromboplast Time (24.3-30.1) Fibrinogen 226 mg/dL (181-393) Sodium Level 139 MEQ/L (136-145) Potassium Level 4.9 MEQ/L (3.5-5.1) Chloride Level 104 MEQ/L (98-107) Carbon Dioxide Level 11.2 MEQ/L (21.0-32.0) Anion Gap 24 MEQ/L (5-15) Blood Urea Nitrogen 76 MG/DL (7-18) Creatinine 3.25 MG/DL (0.60-1.30) Estimat Glomerular Filtration 24 ML/MIN (>89) Rate Random Glucose 135 MG/DL (74-106) Calcium Level 7.6 MG/DL (8.5-10.1) Free Triiodothyronine (T3) 1.10 PG/ML pg/dL (2.18-3.98) Random Vancomycin Level 11.1 COMMENT Blood Gas Puncture Site ART LINE Blood Gas Patient Temperature 98.6 Blood Gas HCO3 10 mmol/L (22-26) Blood Gas Base Excess -16.2 mmol/L (-2-2) Blood Gas Oxygen Saturation 97 % (90-100) Arterial Blood pH 7.25 (7.380-7.420) Arterial Blood Partial 23 mmHg (38-42) Pressure CO2 Arterial Blood Partial 207 mmHg Pressure O2 (61-120) Arterial Blood Oxygen Content 11.3 Vol % (12.0-20.0) Arterial Blood 1.1 % (0-4) Carboxyhemoglobin Arterial Blood Methemoglobin 0.9 % (0-2) Blood Gas Hemoglobin 7.9 G/DL (12.0-16.0) Oxygen Delivery Device VENTILATOR Blood Gas Ventilator Setting [facility]/AC Blood Gas Inspired Oxygen 40 % Test 09/20/16 09/20/16 09/20/16 09/20/16 13:00 13:21 14:00 15:00 Activated Partial 30.6 SEC 28.9 SEC 32.4 SEC 32.9 SEC Thromboplast Time (24.3-30.1) (24.3-30.1) (24.3-30.1) (24.3-30.1) Test 09/20/16 09/20/16 09/20/16 09/20/16 17:00 18:00 18:30 19:00 Activated Partial 35.8 SEC 36.7 SEC 35.2 SEC Thromboplast Time (24.3-30.1) (24.3-30.1) (24.3-30.1) White Blood Count 19.2 TH/MM3 (4.0-11.0) Red Blood Count 2.95 MIL/MM3 (4.50-5.90) Hemoglobin 8.8 GM/DL (13.0-17.0) Hematocrit 26.4 % (39.0-51.0) Mean Corpuscular Volume 89.7 FL (80.0-100.0) Mean Corpuscular Hemoglobin 29.9 PG (27.0-34.0) Mean Corpuscular Hemoglobin 33.3 % Concent (32.0-36.0) Red Cell Distribution Width 19.4 % (11.6-17.2) Platelet Count 79 TH/MM3 (150-450) Mean Platelet Volume 8.2 FL (7.0-11.0) Sodium Level 138 MEQ/L (136-145) Potassium Level 4.5 MEQ/L (3.5-5.1) Chloride Level 102 MEQ/L (98-107) Carbon Dioxide Level 13.2 MEQ/L (21.0-32.0) Anion Gap 23 MEQ/L (5-15) Blood Urea Nitrogen 84 MG/DL (7-18) Creatinine 3.19 MG/DL (0.60-1.30) Estimat Glomerular Filtration 25 ML/MIN (>89) Rate Random Glucose 161 MG/DL (74-106) Lactic Acid Level 11.7 mmol/L (0.4-2.0) Calcium Level 7.0 MG/DL (8.5-10.1) Protein Corrected Calcium 7.5 MG/DL (8.5-10.1) Total Bilirubin 2.2 MG/DL (0.2-1.0) Aspartate Amino Transf 1185 U/L (AST/SGOT) (15-37) Alanine Aminotransferase 381 U/L (12-78) (ALT/SGPT) Alkaline Phosphatase 76 U/L (45-117) Lactate Dehydrogenase 1331 U/L (87-241) Total Protein 6.1 GM/DL (6.4-8.2) Albumin 1.8 GM/DL (3.4-5.0) Nasal Screen MRSA (PCR) NEGATIVE (NEGATIVE) Blood Gas Puncture Site ART LINE Blood Gas Patient Temperature 98.6 Blood Gas HCO3 10 mmol/L (22-26) Blood Gas Base Excess -15.3 mmol/L (-2-2) Blood Gas Oxygen Saturation 97 % (90-100) Arterial Blood pH 7.28 (7.380-7.420) Arterial Blood Partial 22 mmHg (38-42) Pressure CO2 Arterial Blood Partial 187 mmHg Pressure O2 (61-120) Arterial Blood Oxygen Content 12.3 Vol % (12.0-20.0) Arterial Blood 0.9 % (0-4) Carboxyhemoglobin Arterial Blood Methemoglobin 0.9 % (0-2) Blood Gas Hemoglobin 8.7 G/DL (12.0-16.0) Oxygen Delivery Device VENTILATOR Blood Gas Ventilator Setting 550/24/1SEC/PEEP5 Blood Gas Inspired Oxygen 35 % Test 09/20/16 09/21/16 09/21/16 09/21/16 21:10 03:40 07:10 09:30 Activated Partial 36.5 SEC 36.1 SEC 29.0 SEC Thromboplast Time (24.3-30.1) (24.3-30.1) (24.3-30.1) White Blood Count 15.9 TH/MM3 (4.0-11.0) Red Blood Count 2.78 MIL/MM3 (4.50-5.90) Hemoglobin 8.4 GM/DL (13.0-17.0) Hematocrit 24.6 % (39.0-51.0) Mean Corpuscular Volume 88.5 FL (80.0-100.0) Mean Corpuscular Hemoglobin 30.2 PG (27.0-34.0) Mean Corpuscular Hemoglobin 34.2 % Concent (32.0-36.0) Red Cell Distribution Width 19.2 % (11.6-17.2) Platelet Count 58 TH/MM3 (150-450) Mean Platelet Volume 8.0 FL (7.0-11.0) Neutrophils (%) (Auto) 87.3 % (16.0-70.0) Lymphocytes (%) (Auto) 5.6 % (9.0-44.0) Monocytes (%) (Auto) 6.6 % (0.0-8.0) Eosinophils (%) (Auto) 0.1 % (0.0-4.0) Basophils (%) (Auto) 0.4 % (0.0-2.0) Neutrophils # (Auto) 13.8 TH/MM3 (1.8-7.7) Lymphocytes # (Auto) 0.9 TH/MM3 (1.0-4.8) Monocytes # (Auto) 1.0 TH/MM3 (0-0.9) Eosinophils # (Auto) 0.0 TH/MM3 (0-0.4) Basophils # (Auto) 0.1 TH/MM3 (0-0.2) CBC Comment AUTO DIFF Differential Total Cells 100 Counted Neutrophils % (Manual) 80 % (16-70) Band Neutrophils % 17 % (0-6) Lymphocytes % 2 % (9-44) Monocytes % 1 % (0-8) Neutrophils # (Manual) 15.4 TH/MM3 (1.8-7.7) Nucleated Red Blood Cells 2 /100 WBC (0-0) Differential Comment FINAL DIFF MANUAL Platelet Estimate LOW (NORMAL) Platelet Morphology Comment NORMAL (NORMAL) Acanthocytes OCC (NORMAL) Sodium Level 139 MEQ/L (136-145) Potassium Level 4.3 MEQ/L (3.5-5.1) Chloride Level 101 MEQ/L (98-107) Carbon Dioxide Level 14.4 MEQ/L (21.0-32.0) Anion Gap 24 MEQ/L (5-15) Blood Urea Nitrogen 93 MG/DL (7-18) Creatinine 3.32 MG/DL (0.60-1.30) Estimat Glomerular Filtration 23 ML/MIN (>89) Rate Random Glucose 165 MG/DL (74-106) Lactic Acid Level 10.3 mmol/L (0.4-2.0) Calcium Level 6.9 MG/DL (8.5-10.1) Protein Corrected Calcium 7.6 MG/DL (8.5-10.1) Phosphorus Level 8.3 MG/DL (2.5-4.9) Magnesium Level 2.4 MG/DL (1.5-2.5) Total Bilirubin 2.1 MG/DL (0.2-1.0) Direct Bilirubin 1.6 MG/DL (0.0-0.2) Indirect Bilirubin 0.5 MG/DL (0.0-0.8) Aspartate Amino Transf 1904 U/L (AST/SGOT) (15-37) Alanine Aminotransferase 666 U/L (12-78) (ALT/SGPT) Alkaline Phosphatase 75 U/L (45-117) Total Protein 5.7 GM/DL (6.4-8.2) Albumin 1.7 GM/DL (3.4-5.0) Random Vancomycin Level 14.2 COMMENT Blood Gas Puncture Site RENATE Blood Gas Patient Temperature 98.6 Blood Gas HCO3 15 mmol/L (22-26) Blood Gas Base Excess -8.8 mmol/L (-2-2) Blood Gas Oxygen Saturation 97 % (90-100) Arterial Blood pH 7.44 (7.380-7.420) Arterial Blood Partial 22 mmHg (38-42) Pressure CO2 Arterial Blood Partial 181 mmHg Pressure O2 (61-120) Arterial Blood Oxygen Content 11.0 Vol % (12.0-20.0) Arterial Blood 1.2 % (0-4) Carboxyhemoglobin Arterial Blood Methemoglobin 1.0 % (0-2) Blood Gas Hemoglobin 7.8 G/DL (12.0-16.0) Oxygen Delivery Device VENT Blood Gas Ventilator Setting [facility]//5/IT1 Blood Gas Inspired Oxygen 35 % Test 09/21/16 09/21/16 09/21/16 09/21/16 10:35 11:30 11:31 12:29 Activated Partial 50.2 SEC 33.8 SEC 35.0 SEC 28.1 SEC Thromboplast Time (24.3-30.1) (24.3-30.1) (24.3-30.1) (24.3-30.1) Blood Gas Puncture Site ART LINE Blood Gas Patient Temperature 98.6 Blood Gas HCO3 17 mmol/L (22-26) Blood Gas Base Excess -5.7 mmol/L (-2-2) Blood Gas Oxygen Saturation 96 % (90-100) Arterial Blood pH 7.52 (7.380-7.420) Arterial Blood Partial 21 mmHg (38-42) Pressure CO2 Arterial Blood Partial 99 mmHg Pressure O2 (61-120) Arterial Blood Oxygen Content 11.1 Vol % (12.0-20.0) Arterial Blood 1.2 % (0-4) Carboxyhemoglobin Arterial Blood Methemoglobin 0.8 % (0-2) Blood Gas Hemoglobin 8.1 G/DL (12.0-16.0) Oxygen Delivery Device VENTILATOR Blood Gas Ventilator Setting 550/24/1SEC/PEEP5 Blood Gas Inspired Oxygen 35 % Test 09/21/16 09/21/16 09/21/16 09/21/16 12:31 13:40 15:20 15:32 Activated Partial 31.5 SEC 30.7 SEC 30.5 SEC Thromboplast Time (24.3-30.1) (24.3-30.1) (24.3-30.1) Blood Gas Puncture Site RENATE Blood Gas Patient Temperature 98.6 Blood Gas HCO3 18 mmol/L (22-26) Blood Gas Base Excess -4.9 mmol/L (-2-2) Blood Gas Oxygen Saturation 96 % (90-100) Arterial Blood pH 7.45 (7.380-7.420) Arterial Blood Partial 27 mmHg (38-42) Pressure CO2 Arterial Blood Partial 100 mmHg Pressure O2 (61-120) Arterial Blood Oxygen Content 11.4 Vol % (12.0-20.0) Arterial Blood 1.3 % (0-4) Carboxyhemoglobin Arterial Blood Methemoglobin 0.6 % (0-2) Blood Gas Hemoglobin 8.3 G/DL (12.0-16.0) Oxygen Delivery Device VENT Blood Gas Ventilator Setting [facility]/24/550/5/IT1 Blood Gas Inspired Oxygen 35 % Test 09/21/16 09/21/16 09/21/16 09/22/16 15:33 17:26 17:27 04:45 Activated Partial 32.0 SEC 30.1 SEC 30.0 SEC Thromboplast Time (24.3-30.1) (24.3-30.1) (24.3-30.1) White Blood Count 13.0 TH/MM3 (4.0-11.0) Red Blood Count 2.78 MIL/MM3 (4.50-5.90) Hemoglobin 8.1 GM/DL (13.0-17.0) Hematocrit 24.5 % (39.0-51.0) Mean Corpuscular Volume 88.2 FL (80.0-100.0) Mean Corpuscular Hemoglobin 29.2 PG (27.0-34.0) Mean Corpuscular Hemoglobin 33.1 % Concent (32.0-36.0) Red Cell Distribution Width 18.4 % (11.6-17.2) Platelet Count 74 TH/MM3 (150-450) Mean Platelet Volume 10.3 FL (7.0-11.0) Sodium Level 141 MEQ/L (136-145) Potassium Level 3.5 MEQ/L (3.5-5.1) Chloride Level 103 MEQ/L (98-107) Carbon Dioxide Level 25.3 MEQ/L (21.0-32.0) Anion Gap 13 MEQ/L (5-15) Blood Urea Nitrogen 97 MG/DL (7-18) Creatinine 3.15 MG/DL (0.60-1.30) Estimat Glomerular Filtration 25 ML/MIN (>89) Rate Random Glucose 138 MG/DL (74-106) Calcium Level 7.0 MG/DL (8.5-10.1) Protein Corrected Calcium 8.0 MG/DL (8.5-10.1) Phosphorus Level 4.7 MG/DL (2.5-4.9) Magnesium Level 2.4 MG/DL (1.5-2.5) Total Protein 5.2 GM/DL (6.4-8.2) Triglycerides Level 375 MG/DL (42-150) Cholesterol Level 115 MG/DL (120-200) LDL Cholesterol 30 MG/DL (0-99) HDL Cholesterol 9.7 MG/DL (40.0-60.0) Cholesterol/HDL Ratio 11.85 RATIO Random Vancomycin Level 16.3 COMMENT Test 09/22/16 09/22/16 06:36 06:37 Blood Gas Puncture Site ART LINE Blood Gas Patient Temperature 98.6 Blood Gas HCO3 24 mmol/L (22-26) Blood Gas Base Excess 0.9 mmol/L (-2-2) Blood Gas Oxygen Saturation 97 % (90-100) Arterial Blood pH 7.50 (7.380-7.420) Arterial Blood Partial 31 mmHg (38-42) Pressure CO2 Arterial Blood Partial 179 mmHg Pressure O2 (61-120) Arterial Blood Oxygen Content 11.4 Vol % (12.0-20.0) Arterial Blood 1.4 % (0-4) Carboxyhemoglobin Arterial Blood Methemoglobin 1.0 % (0-2) Blood Gas Hemoglobin 8.0 G/DL (12.0-16.0) Oxygen Delivery Device VENTILATOR Blood Gas Ventilator Setting SEE COMMENTS Blood Gas Inspired Oxygen 35 % Lactic Acid Level 2.7 mmol/L (0.4-2.0) Result Diagram: 09/22/16 0445 09/22/16 0445 Microbiology Microbiology Date/Time Procedure Status Source Growth 09/19/16 15:50 Urine Culture - Final Complete Urine Clean Catch NO GROWTH IN 48 HOURS. 09/19/16 22:00 Gram Stain - Final Complete Wound Leg 09/19/16 22:00 Wound Culture - Final Complete S. Aureus Mrsa 09/20/16 13:09 Aerobic Blood Culture - Preliminary Resulted Blood Peripheral NO GROWTH IN 2 DAYS 09/20/16 13:09 Anaerobic Blood Culture - Preliminary Resulted Blood Peripheral NO GROWTH IN 2 DAYS 09/20/16 13:21 Aerobic Blood Culture - Preliminary Resulted Blood Peripheral NO GROWTH IN 2 DAYS 09/20/16 13:21 Anaerobic Blood Culture - Preliminary Resulted Blood Peripheral NO GROWTH IN 2 DAYS 09/21/16 06:00 Aerobic Blood Culture - Preliminary Resulted Blood Peripheral NO GROWTH IN 1 DAY 09/21/16 06:00 Anaerobic Blood Culture - Preliminary Resulted Blood Peripheral NO GROWTH IN 1 DAY 09/21/16 13:40 Aerobic Blood Culture Received Blood Peripheral Pending 09/21/16 13:40 Anaerobic Blood Culture Received Blood Peripheral Pending Imaging Last Impressions Chest X-Ray 09/21/16 0000 Signed Impressions: Service Date/Time: Wednesday, September 21, 2016 07:47 - CONCLUSION: Lines and tubes in good position. Persistent left lower lobe consolidation. Froilan James MD Brain MRI 09/21/16 0000 Signed Impressions: Service Date/Time: Wednesday, September 21, 2016 08:47 - CONCLUSION: Abnormal scan demonstrating evidence of multifocal nonhemorrhagic acute infarction, the largest is in the right frontoparietal region. The diffuse bilateral nature involving both anterior and posterior circulation suggests embolic source. No evidence of mass effect or cerebral edema at this point. Froilan James MD Tibia/Fibula X-Ray 09/19/16 0000 Signed Impressions: Service Date/Time: Monday, September 19, 2016 07:43 - CONCLUSION: Chronic changes and no evidence for acute fracture. Claudio Barroso MD Renal Ultrasound 09/19/16 0000 Signed Impressions: Service Date/Time: Monday, September 19, 2016 10:40 - CONCLUSION: Unremarkable renal ultrasound. Claudio Barroso MD Lower Extremity MRI 09/19/16 0000 Signed Impressions: Service Date/Time: Monday, September 19, 2016 10:15 - CONCLUSION: Large mass most likely originating from the patient's skin with infiltration of subcutaneous fat and no definite involvement of the muscular structures or marrow. A malignant mass should be entertained and clinical correlation is needed. Claudio Barroso MD Knee X-Ray 09/19/16 0000 Signed Impressions: Service Date/Time: Monday, September 19, 2016 07:43 - CONCLUSION: Osteoarthritis. 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 Claudio Barroso MD Procedures * Coude catheter placement by urologist 09/19/16 * INTUBATION 09/19/16 * Left IJ line 09/19/16 * CRRT 09/20/16 * HD 09/22/16 . 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 Legal: The patient lacks capacity for decision-making and it is not known whether he will regain that capacity. His sister, Sandee Callahan, has been functioning as his proxy decision-maker up to this point during this hospitalization. The patient is not , and his parents are . He reportedly has one estranged son whose whereabouts are unknown. The patient has 3 sisters: he lives with his sister Sandee Callahan, there is another sister in [place], and the third sister in [place]; their brother lives in [place]. We will begin a search for the patient's son. Ethical issues impacting care: None. . Important Contacts Patient's sister: Sandee Callahan . Prognosis This patient is critically ill, with multisystem organ failure, and overall his prognosis is guarded. . Code Status: Full Code Plan * FULL CODE * DECISION-MAKING: The patient lacks capacity for decision-making and it is not known whether he will regain that capacity. His sister, Sandee Callahan, has been functioning as his proxy decision-maker up to this point during this hospitalization. The patient is not , and his parents are . He reportedly has one estranged son whose whereabouts are unknown. The patient has 3 sisters: he lives with his sister Sandee Callahan, there is another sister in [place], and the third sister in [place]; their brother lives in [place]. We will begin a search for the patient's son. * We have initiated a search for the patient's son. * SYMPTOMS: His dyspnea is being managed by mechanical ventilation and appropriate sedation. His encephalopathy will be addressed at the appropriate time. He has no obvious pain. No specific new medication orders are offered at this time. * GOALS: The patient's sister reports that the family wants to continue aggressive care, noting that the patient is "young and strong." * Palliative Care will continue to follow the patient during this hospitalization. . Time Spent Total Floor Time (mins): 36 Face to Face Time (mins): 12 >50% Counseling/Coord of Care: Yes (d/w RN and w Dr. Aparicio) Attestation To help prompt me to consider important information that might be impacting today's encounter and assessment, information from prior notes written by myself or my colleagues may have been "brought forward" into today's note. My signature on this note, however, is an attestation that I personally performed the exam, history, and/or decision-making noted today, and, unless otherwise indicated, the interactions with patient, family, and staff as well as the review of records all occurred today. I also attest that the listed assessment and stated plan reflect my best clinical judgment today based on the combination of historical information, prior notes, and today's exam/ interactions. When time spent is documented, it refers only to time spent today by the signer, or if indicated, combined time spent today by collaborating physician/nurse practitioner. Shante Monaco MD Sep 22, 2016 14:47
[2016-09-22] MEDS ORDERED: SODIUM CHLOR 0.9% 1000 ML INJ 1,000 ML IV PRN ×3 (14:50)
[2016-09-22] MEDS ORDERED: NITROGLYCERIN 0.4 MG SL 25 TABS/BTL SL PRN (15:00)
[2016-09-22] MEDS ORDERED: GELATIN 12 MM/7 MM FOAM TOP PRN (15:00)
[2016-09-22] MEDS ORDERED: diphenhydrAMINE HCL 25 MG CAP PO PRN (15:00)
[2016-09-22] MEDS ORDERED: cloNIDine HCL 0.1 MG TAB PO PRN (15:00)
[2016-09-22] MEDS ORDERED: ACETAMINOPHEN 325 MG TAB PO PRN (15:00)
[2016-09-22] MEDS ORDERED: SODIUM CHLORIDE 0.9% FLUSH 10 ML FLUSH IV FLUSH PRN (15:00)
[2016-09-22] MEDS ORDERED: ONDANSETRON HCL 4 MG/2 ML VIAL IV PRN (15:00)
[2016-09-22] MEDS ORDERED: HEPARIN SODIUM - IV 10,000 UNITS/10 ML VIAL IVF PRN (15:00)
[2016-09-22] MEDS ORDERED: MANNITOL 12.5 GM/50 ML VIAL IV PRN (15:00)
[2016-09-22] MEDS: ALBUMIN HUMAN 25% 25 GM/100 ML BAGP IV PRN ×2 (15:20→15:21)
[2016-09-22] MEDS: GENTAMICIN SULFATE (DIALYSIS USE ONLY) 20 MG/2 ML VIAL IV PRN (15:21)
[2016-09-22] MEDS: HEPARIN SODIUM - IV 10,000 UNITS/10 ML VIAL PRN (15:21)
--- NOTE | 2016-09-22 19:13 | HHI.NPPN ---
Subjective History of Present Illness 56-year-old male with a past medical history of hypertension, history of schizophrenia and depression, was brought to the hospital because of altered mental status. I was called to see the patient because of elevated BUN and creatinine. The patient was found to have a creatinine of 3.2 on admission. Previously in 2012 his creatinine was normal. Additional Remarks Patient remain on the vent. and sedated, seen after HD. Review of Systems General General Remarks Cannot take, intubated. Objective Data Data 09/21/16 09/22/16 19:00 07:00 Intake Total 1821 ml 2659 ml Output Total 250 ml 4706 ml Balance 1571 ml -2047 ml Intake IV Total 1821 ml 2659 ml Output Urine Total 250 ml 250 ml Gastric Drainage Total 0 ml 50 ml Hemodialysis 4406 ml # Bowel Movements 0 0 Vital Signs Date Time Temp Pulse Resp B/P Pulse Ox O2 Delivery O2 Flow Rate FiO2 09/22/16 16:00 87 09/22/16 16:00 99.7 87 32 129/35 100 09/22/16 12:00 99.9 83 28 122/35 100 09/22/16 12:00 83 09/22/16 11:59 100 35 09/22/16 09:52 100 35 09/22/16 08:00 84 09/22/16 08:00 99.9 84 24 120/34 100 09/22/16 08:00 35 09/22/16 06:52 100 35 09/22/16 06:00 83 09/22/16 04:04 100 35 09/22/16 04:00 35 09/22/16 04:00 84 09/22/16 04:00 99.5 84 22 124/30 100 09/22/16 02:00 82 09/22/16 01:14 98 35 09/22/16 00:00 99.1 84 23 123/32 100 09/22/16 00:00 84 09/22/16 00:00 35 09/21/16 22:09 100 35 09/21/16 22:00 80 09/21/16 20:00 97.5 80 18 124/30 Arterial Line 09/21/16 20:00 80 09/21/16 20:00 35 09/21/16 19:33 0 35 -: 09/22/16 0445 09/22/16 0445 Microbiology 09/22/16 Gram Stain, Received Pending 09/22/16 Sputum Culture, Received Pending Physical Exam General Appearance Remarks Intubated and sedated. Eyes Eye Exam: Pupils Equal Neck Neck Exam: Neck Supple Pulmonary Resp Exam: Crackles, Rhonchi, Decreased Bases, Diminished Breath Sounds, Poor Inspiratory Effort Gastrointestinal/Abdomen GI Exam: Soft, Non-Tender, Bowel Sounds Present, Distended Extremeties Extremities Exam: Moderate Edema, Pitting Edema, Dependent Edema Neurologic Neuro Exam: Sedated Assessment/Plan Assessment Summary: RACHAEL/Acute Renal Failure Problem List: (1) Cellulitis (2) Mass of left lower extremity (3) Septic shock (4) Anemia (5) ARF (acute renal failure) Plan Patient has low urine out put. BP is now better and off pressors. Started on HD, and tolerated well. 3.8 liters removed. Urine out put is still low. Possibly has RACHAEL due to ATN from Hypotension. Follow urine out put and BMP. HD as needed. Problem Qualifiers (1) Cellulitis: Qualified Code: L03.116 - Cellulitis of left lower extremity Manoj Liu MD Sep 22, 2016 19:13
[2016-09-23] VITALS (19 sets, daily range): BP systolic 122–138; BP diastolic 33–38; PULSE 86–91; RESP 22–34; TEMP 100–101.1; O2SAT 98–100
[2016-09-23] MEDS: INSULIN ASPART SUPPLEMENTAL SCALE SQ SCH ×6 (01:00→21:00)
[2016-09-23] MEDS: CHLORHEXIDINE GLUCONATE 2 % 1 PACK (2 CLOTHS) TOP SCH (04:00)
[2016-09-23] MEDS: RESP: ALBUTEROL 2.5 MG/IPRATROPIUM 0.5 MG NEB (SCH) INH ×4 (04:43→21:24)
[2016-09-23 05:59] LABS: HEMATOCRIT 21.4 % (39.0-51.0); MEAN CELL VOLUME 89.1 FL (80.0-100.0); MEAN CORPUSCULAR HGB CONC 33.6 % (32.0-36.0); PLATELET COUNT 83 TH/MM3 (150-450); RED CELL DISTRIBUTION WIDTH 18.4 % (11.6-17.2); WHITE BLOOD COUNT 18.7 TH/MM3 (4.0-11.0)
[2016-09-23 06:14] LABS: REVIEW FLAG FINAL
[2016-09-23 06:21] LABS: BICARBONATE 26.1 MEQ/L (21.0-32.0); INDIRECT BILIRUBIN 1.9 MG/DL (0.0-0.8); MAGNESIUM 2.6 MG/DL (1.5-2.5); POTASSIUM 3.5 MEQ/L (3.5-5.1); TOTAL BILIRUBIN ADULT 7.2 MG/DL (0.2-1.0)
[2016-09-23] MEDS: HEPARIN SODIUM - SQ 10,000 UNITS/ML VIAL SQ SCH ×2 (06:24→18:08)
--- NOTE | 2016-09-23 06:57 | HHI.CCPN ---
Subjective Remarks/Hospital Course 09/19: This is a 56-year-old male that presented secondary to altered mental status. The patient's sister provided the medical information. The patient is alert and oriented 3 .the patient was noted to have a lesion on his left lower extremity and was seen at [facility] by Dr. Carpio at all is felt to be a malignant lesion however the patient was scheduled for follow-up and was noncompliant .over the last several days the patient had began to feel generalized malaise and he lives with his sister who noted that he began to have altered mental status and he presented to the ED .upon presentation to the ED the patient's blood pressure systolic blood pressure was in the 80s laboratory and imaging studies reveal septic shock , with a lactate of 4.5. The patient was bolused with 4 L of normal saline is currently hemodynamically stable , tachypnea , secondary to a bicarbonate level of 9 . He is reported to have a neoplastic lesion about the region of the left knee posteriorly, recent imaging studies suggest malignant neoplasm. The patient underwent a TTE in the ED by Dr. Coombs was noted to have cardiac vegetations tentative plan for a AGUSTIN in the am. Critical care medicine's consult for management. 09/20: Patient was intubated overnight and placed on mechanical ventilation for worsening respiratory status. He is currently sedated, orally intubated on mechanical ventilation. Transfuse 3 units PRBCs overnight. Has some coffee- ground NG aspirate however no melena or rectal bleeding noted. On Levophed 12 mics per minute and vasopressin low-dose for septic shock. Decreasing urine output and significant metabolic acidosis noted for which nephrology consult was requested this morning, vascath was placed and patient has been initiated on CRRT. Discussed with cardiology, severe aortic regurg with aortic valve vegetation for which patient will eventually need an aortic valve replacement following initial stabilization. Awaiting Dr. Medina evaluation. Dr. Coombs has discussed echo with Dr. Medina. 09/21: no significant improvements. lactate still 10. persists on 2 vasopressors. pH slightly better. CRRT circuit clotted overnight. 09/22: off vasopressors this morning. MRI yesterday with multiple acute strokes, largest in right fronto-parietal region. acidosis better. CRRT clotted at 2100 overnight. plan to likely transition to IHD today. 09/23: neuro exam remains poor. acidosis resolving. IHD yesterday with 4L removed. hgb downtrended to 7 this AM. off vasopressors. Objective Vital Signs Date Time Temp Pulse Resp B/P Pulse Ox O2 Delivery O2 Flow Rate FiO2 09/23/16 06:00 90 09/23/16 04:41 98 35 09/23/16 04:00 100.4 24 138/34 09/20/16 07:00 Mechanical Ventilator 09/19/16 21:09 2 Intake and Output 09/22/16 09/22/16 09/23/16 08:00 16:00 00:00 Intake Total 1145 ml 284 ml 273 ml Output Total 150 ml 3975 ml 50 ml Balance 995 ml -3691 ml 223 ml Result Diagram: 09/23/16 0545 09/23/16 0545 Imaging Last Impressions Tibia/Fibula X-Ray 09/19/16 0000 Signed Impressions: Service Date/Time: Monday, September 19, 2016 07:43 - CONCLUSION: Chronic changes and no evidence for acute fracture. Claudio Barroso MD Renal Ultrasound 09/19/16 0000 Signed Impressions: Service Date/Time: Monday, September 19, 2016 10:40 - CONCLUSION: Unremarkable renal ultrasound. Claudio Barroso MD Lower Extremity MRI 09/19/16 0000 Signed Impressions: Service Date/Time: Monday, September 19, 2016 10:15 - CONCLUSION: Large mass most likely originating from the patient's skin with infiltration of subcutaneous fat and no definite involvement of the muscular structures or marrow. A malignant mass should be entertained and clinical correlation is needed. Claudio Barroso MD Knee X-Ray 09/19/16 0000 Signed Impressions: Service Date/Time: Monday, September 19, 2016 07:43 - CONCLUSION: Osteoarthritis. 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 Claudio Barroso MD Chest X-Ray 09/19/16 0000 Signed Impressions: Service Date/Time: Monday, September 19, 2016 16:50 - CONCLUSION: 1. Minimal basilar atelectasis. Elevated right hemidiaphragm. No effusion. Osteochondral defect right humeral head. Raul Merlos MD Objective Remarks HEENT/ Neuro: Sedated, orally intubated, Pallor present, no icterus, tongue/ mucosa moist Neck: Right IJ Vas-Cath, left IJ central line in place. trachea midline. Chest/Pulm: on mech vent, equal chest rise, coarse BS bilaterally. CVS: S1-S2 regular, III/ diastolic murmur best heard over aortic area noted. GI/abdomen: soft, nontender, nondistended. no guarding. Extremities: warm bilaterally, no edema. Ulcerated lesion/ mass on left leg behind the knee noted Neuro: RASS -5. pupils 2mm equal and reactive. Date of Insertion: Sep 19, 2016 Line: Central Venous Catheter Side: Left Location: Jugular A/P Assessment and Plan Assessment: 56yM with infective endocarditis of the [place] aortic valve with subsequent severe acute aortic regurgitation, pulmonary edema, congestive heart failure secondary to valvulopathy, acute mixed septic/cardiogenic shock, new acute strokes secondary to septic emboli, multiorgan system dysfunction, acute liver dysfunction likely secondary to shock liver and possible congestive hepatopathy, acute kidney injury requiring renal replacement therapy, metabolic encephalopathy. He remains very critically ill at this time. Certainly, will need to wait at least a week from time of strokes to pursue cardiac surgery, but now has two indications for urgent AVR. His persistent encephalopathy off all vasopressors is concerning. will check ammonia and continue off sedation. CT scan in the next 24h if no improvement. Continue daily IHD for volume removal. Plan by systems: Neurologic: Old CVA infarct Possible schizophrenia Metabolic encephalopathy secondary to sepsis New Acute CVA secondary to septic emboli continue off sedation. goal RASS -2. frequent neuro checks MRI 09/22: multifocal infarcts, largest in right frontoparietal region. hold acetaminophen given shock liver. Respiratory: Acute hypoxic respiratory failure on mechanical ventilation Pulmonary Edema secondary to valvulopathy and cardiogenic shock Continue mechanical ventilation, vent bundle, bronchodilators as needed. too unstable today for CPAP trials. new acute stroke and volume overload. volume removal with [employer]. Cardiovascular: Aortic valve vegetation Severe aortic regurgitation Septic Shock- resolved. Cardiogenic Shock Congestive Heart Failure secondary to valvulopathy Transthoracic echo with aortic valve vegetation with severe aortic regurgitation. Cardiology: [facility] CT Surgery: Adam -- will need anti-platelet therapy, but with his multiple acute issues and his thrombocytopenia, will hold off on ASA at this time. if platelet count improves , will consider starting. -- lipid panel -- goal SBP 110 - 120 to optimize cardiac function. will tolerate MAP > 50 in order to accomplish this. -- will need AVR at some point, will hold off for at least a week post-stroke. Renal: Acute kidney injury secondary to sepsis Acute intravascular volume overload. Strict intake output, monitor and replete electrolytes, follow BUN/creatinine. -- will need daily IHD for volume removal. continue salmeron catheter. FEN/GI: Acute severe intravascular volume overload Acute protein calorie malnutrition- mild Hyperphosphatemia- resolving. Acute GI bleed- resolving. Lactic Acidosis- resolving. Severe metabolic acidosis- resolved. -- start TF today. -- iv bid ppi. -- EGD without evidence of ulcers. -- GI following Heme/ID: Chronic anemia Acute anemia secondary to blood loss from GI bleed Leukocytosis Septic shock- resolved. Bacteremia with Beta Hemolytic Strep Aortic valve endocarditis Hyperlipidemia Thrombocytopenia secondary to consumption secondary to severe AI daily CBC wound culture growing MRSA blood growing beta hemolytic strep Goal vanc trough 15 - 20. d/c zosyn and started Rocephin per ID. Dr. Fonseca ID. 4T score low probability of HIT. 1 unit prbc with IHD today. Endocrine: Hyperglycemia critical illness Glucose monitoring per ICU protocol-low dose regimen Msk: Rhabdomyolysis- resolved. Probable ulcerated neoplastic lesion left lower extremity behind left knee Most likely squamous cell carcinoma clinically. Status post punch biopsy on by family medicine service awaiting pathology results. -Dependent on results we'll decide further management. Wound care consult -- SSI Prophylaxis: GI Prophylaxis iv bid ppi. DVT Prophylaxis -- SCDs Heparin SQ Lines: LIJ central line placed 09/19 RIJ vascath placed 09/20 Time spent on critical care excluding procedures 38 minutes Perez Aparicio MD Sep 23, 2016 06:57
[2016-09-23] MEDS ORDERED: SODIUM CHLOR 0.9% 250 ML INJ 250 ML IV ONE (07:00)
[2016-09-23] MEDS: CHLORHEXIDINE 0.12% (ORAL KIT) 15 ML CUP MT SCH ×2 (08:00→20:48)
--- NOTE | 2016-09-23 08:15 | MB ---
cc: KEMAL KAUFMAN M.D. DATE OF CONSULTATION 09/22/2016 REASON FOR CONSULTATION Left posterior leg wound in the posterior popliteal fossa. HISTORY OF PRESENT ILLNESS The patient is an unfortunate 56-year-old -[place] male who had altered mental status and presented on 09/19. He has since had respiratory failure requiring sedation and multisystem failure with renal insufficiency. He has a longstanding left knee posterior popliteal wound with a growth. The patient has undergone workup including MRI of the extremity which reveals a large mass with infiltration of subcutaneous fat but no definite involvement of the muscular structures or bone. Apparently the mass was biopsied 48 hours ago, but final pathology is pending. The patient remains intubated. PAST MEDICAL HISTORY The past medical history is able to be obtained. PHYSICAL EXAM Physical exam reveals an -B[place] male who is sedated and on the ventilator. VITALS: BP 125/33, pulse 84, respirations 24, 100% saturation on 35% FIO2 temperature 100.0. HEAD, EYES, EARS, NOSE, AND THROAT: sclerae anicteric. CHEST: Clear. CARDIAC: Exam reveals a regular rate and rhythm. ABDOMEN: Soft. Pulses are present. There is a large over 10 cm mass and loss of tissue epidermis in the left posterior popliteal fossa. There is a substantial exophytic lesion which is not fixed to the skin. This has apparently been present for quite some time. LABORATORY DATA Laboratory values demonstrate WBCs 13.0, hemoglobin 8.1, hematocrit 24.5, platelet count 74,000. Chemistries demonstrate BUN and creatinine 97 and 3.15, potassium is 3.5. Liver function tests yesterday demonstrate bilirubin of 2.1 with direct 1.6, AST was 1904, ALT 666, alkaline phosphatase 75. Coagulation profile demonstrates an INR elevated at 1.4 two days ago. ASSESSMENT Left posterior popliteal fossa mass already biopsied. The patient is not an operative candidate at this time. He would likely require wide excision with skin grafting of flap. This would best be performed in conjunction with or by plastic surgery. Please reconsult us when the patient is stable, extubated and doing well. This is a lesion that has been present for some time and urgent or emergent removal is not indicated as it is not bleeding and is not fixed to the underlying tissues. MD MIRIAM Avilez/DJL /11:20 PM /8:06 AM
--- NOTE | 2016-09-23 08:37 | HHI.FPPN ---
Subjective Remarks Pt seen and examined this morning. Tmax of 100.8, Bp ranging from 120-130s/30s. Pt is off sedation and pressors. Does not respond to verbal commands. Pt nurse responds that he does respond to painful stimuli. Ventilator setting with PEEP 5 , FiO2 35%. (Sharri Burnham MD R2) Objective Vitals Vital Signs Date Time Temp Pulse Resp B/P Pulse Ox O2 Delivery O2 Flow Rate FiO2 09/23/16 08:15 100 35 09/23/16 08:00 89 09/23/16 08:00 100.8 89 28 129/33 100 09/23/16 06:00 90 09/23/16 04:41 98 35 09/23/16 04:00 35 09/23/16 04:00 100.4 88 24 138/34 100 09/23/16 04:00 88 09/23/16 02:00 88 09/23/16 01:40 100 35 09/23/16 00:00 86 09/23/16 00:00 100.0 86 26 130/36 100 09/23/16 00:00 35 09/22/16 22:00 83 09/22/16 20:46 100 35 09/22/16 20:00 100.0 84 24 125/33 100 09/22/16 20:00 35 09/22/16 20:00 84 09/22/16 16:00 87 09/22/16 16:00 99.7 87 32 129/35 100 09/22/16 12:00 99.9 83 28 122/35 100 09/22/16 12:00 83 09/22/16 11:59 100 35 09/22/16 09:52 100 35 I/O 09/22/16 09/22/16 09/22/16 09/23/16 09/23/16 09/23/16 07:00 15:00 23:00 07:00 15:00 23:00 Intake Total 1145 ml 284 ml 273 ml 41 ml Output Total 150 ml 175 ml 3850 ml 20 ml Balance 995 ml 109 ml -3577 ml 21 ml Intake IV Total 1145 ml 284 ml 273 ml 41 ml Output Urine Total 150 ml 175 ml 50 ml 20 ml Gastric Drainage Total 0 ml 0 ml 0 ml Hemodialysis 3800 ml # Voids 1 # Bowel Movements 0 0 0 0 (Sharri Burnham MD R2) Result Diagram: 09/23/1645 09/23/16544 Objective Remarks GENERAL: 66-year-old [place] male lying in bed intubated. SKIN: Warm and dry. No rash. CARDIOVASCULAR: Regular rate and rhythm with 3/6 diastolic murmur more pronounced at the right sternal border. RESPIRATORY: Equal diffuse coarse breath sounds. Currently breathing via ventilator. GASTROINTESTINAL: Abdomen soft, nondistended with +BS. No masses appreciated. MUSCULOSKELETAL: Extremities without cyanosis. 1+ edema of left lower extremity. LLE on admission: 8.5 X 10.5CM circular, fungating, ulcerative lesion on the posterior aspect of the L knee. No hemorrhage or necrosis appreciated. Lesion is foul smelling and appears to involve skin and subcutaneous tissue; does not appear to involve the muscle or bone. 2+ edema from the ankle to the knee. LLE currently: Currently lesion bandaged with sterile gauze, CDI. NEUROLOGICAL: Patient intubated and sedated. (Sharri Burnham MD R2) Date of Insertion: Sep 19, 2016 Line: Central Venous Catheter Side: Left Location: Jugular (Sharri Burnham MD R2) A/P Assessment and Plan Mr. Burnham is a 56 y/o AAM with a PMHx of HTN presenting with AMS and a LLE wound found to be in septic shock, with endocarditis admitted for medical therapy. Discharge Planning Pending clinical improvement. Unclear timeframe at this time. WDW: Dr. Helm (Sharri Burnham MD R2) Attending Attestation Pt. examined and case discussed with resident physicians I have read the above note and agree with the assessment/plan as discussed with me I was involved in all medical decision making for this patient Jason Helm MD (Jason Helm MD) Problem List: (1) Septic shock Status: Acute Plan: On admission patient presented with altered mental status left lower extremity lesion. Patient found to be tachycardic to 100 bpm with a white blood cell count of 18.6. Likely source of infection is his left lower extremity lesion. Found to have a lactic acid of 4.5 not responsive to fluid resuscitation. Patient placed on sepsis protocol and transferred to the [facility] for further monitoring. Patient found to have endocarditis with mobile aortic valve vegetation. Blood cultures 2 09/19: Beta hemolytic streptococcus, beta Streptococcus group G; both pansensitive UC: Pending Wound culture x2: MRSA, sensitive to vancomycin Blood culture 09/20: Negative to date Blood culture 09/21: Negative to date Intensive care consulted, appreciate recommendations Infectious disease consulted, appreciate recommendations * Continue Vancomycin and Zosyn * MRI of brain from 09/21 significant for multifocal nonhemorrhagic acute infarction, the largest in the right frontoparietal region. Diffuse bilateral nature involving both anterior and posterior circulation suggests embolic source. No evidence of mass effect or cerebral edema at this point. * Biopsy of LLE lesion sent for pathology * Repeat BC with no growth to date Medications: Vancomycin 1 g twice a day, pharmacy consulted Zosyn 2.25 g every 6 hours Hydrocortisone 100 mg every 8 hours Fentanyl, propofol, Versed drips per protocol (2) Skin ulcer of left lower leg, limited to breakdown of skin Status: Acute Plan: Patient with circular, fungating, ulcerative lesion on the posterior aspect of the L knee with edema of the lower extremity. Patient denies any pain currently. Lower extremity neurovascularly intact with appropriate capillary refill. Knee x-ray: Chronic changes with no evidence of acute fracture Tubularfibula x-ray: Chronic changes and no evidence of acute fractures. Lower extremity MRI: Large mass most likely originating from the patient's skin with infiltration of subcutaneous fat and no definite involvement of the muscular structures her marrow. A malignant mass should be entertained and clinical correlation is needed. Punch biopsy 09/20: Pending Gen. surgery consulted for possible excision biopsy, appreciate recommendations * No further interventions until pt is extubated and clinically improved -Please see plan as above (3) Endocarditis of aortic valve Status: Acute Plan: On admission patient with elevated CPK to 7480 and troponin to 12.4. Echocardiogram performed and found to have mobile vegetation of the aortic valve. Blood cultures with gram-positive cocci in all 4 vials. TTE 09/20: Aortic valve with mobile vegetation on the left ventricular aspect. Severe aortic regurgitation directed eccentrically in the LVOT. Left ventricle with normal cavity size and wall thickness. Systolic function normal. Estimated ejection fraction in the range of 50-55% with normal wall motion. Mitral valve with mild regurgitation. Tricuspid valve with mild regurgitation. Pulmonary arteries with moderately increased systolic pressure. Cardiology consulted, appreciate recommendations * AGUSTIN scheduled, however due to patient's declining status, will hold off at this time * Severe aortic insufficiency, would require surgical replacement. Cardiothoracic surgery consulted. Cardiothoracic surgery consulted, appreciate recommendations * Currently not a surgical candidate * Surgery to be considered once pt is stable and extubated. (4) Acute embolic stroke Status: Acute Plan: Patient presented with altered mental status with septic shock found to have endocarditis. CT head: Old infarction with encephalomalacia in the watershed distribution of the right CORINNE and MCA. Brain MRI: Abnormal scan demonstrating evidence of multi-focal nonhemorrhagic acute infarction with the largest in the right frontoparietal region. Diffuse bilateral nature involving both anterior and posterior circulation suggest embolic source. No evidence of mass effect or cerebral edema at this point. Prognosis currently unclear as patient is intubated and sedated Permissive hypertension, however patient currently septic with severe aortic regurgitation Frequent neuro checks Please see plan as above (5) Acute renal failure (ARF) Status: Acute Plan: Patient found to have a BUN of 58 with a creatinine of 3.27 on admission likely secondary to septic shock. Per chart review, admission in 2012 showed creatinine of 0.81. Renal ultrasound: Unremarkable Strict I/Os Avoid nephrotoxic agents Urology consulted to assist with David catheter placement secondary to phimosis Nephrology consulted, appreciate recommendations * Hemodialysis as needed * Monitor BMP (6) Anemia Status: Acute Plan: Patient found to be anemic on admission without prior history. H/H shows declining hemoglobin. Patient transfused 3 units of PRBC on 09/19. Pt with Coffee-ground gastric secretions, suggestive of possible upper GI bleed. H/H today: 7.2/21.4 3 units PRBC transfused, 1 unit ready for possible future transfusion on 09/19- Posttransfusion H/H on 09/20: 7.8/24 GI consulted, appreciate recommendations and intervention * EGD 09/21: No active bleeding, NG tube suction injury to gastric body * Monitor H/H * Transfuse as necessary * Supportive care (7) Nutrition, metabolism, and development symptoms Status: Acute Plan: Fluids: Currently discontinued Diet: NPO as patient is intubated and sedated Electrolytes: Continue to monitor DVT Prophylaxis: Heparin 5000 units Q12hrs GI prophylaxis: Protonix twice a day (Sharri Burnham MD R2) Problem Qualifiers (1) Acute renal failure (ARF): Qualified Code: N17.9 - Acute renal failure, unspecified acute renal failure type Sharri Burnham MD R2 Sep 23, 2016 08:37 Jason Helm MD Sep 23, 2016 10:02
[2016-09-23] MEDS: SODIUM CHLORIDE 0.9% FLUSH 10 ML FLUSH IV FLUSH SCH ×2 (09:00→20:48)
[2016-09-23] MEDS ORDERED: INFLUENZA VIRUS VACCINE (QUADRIVALENT) 0.5 ML SYR IM ONE (10:00)
[2016-09-23] MEDS ORDERED: PNEUMOCOCCAL POLYVALENT INJ 25 MCG/0.5 ML SYR IM ONE (10:00)
[2016-09-23] MEDS: PANTOPRAZOLE SODIUM 40 MG VIAL IV PUSH SCH ×2 (10:16→20:48)
[2016-09-23] MEDS: DOCUSATE SODIUM 100 MG CAP PO SCH ×2 (10:19→20:48)
[2016-09-23] MEDS: cefTRIAXone INJ 2,000 MG in SODIUM CHLORIDE 0.9% INJ 100 ML IV SCH (12:07)
[2016-09-23] MEDS: GENTAMICIN SULFATE (DIALYSIS USE ONLY) 20 MG/2 ML VIAL IV PRN (12:08)
--- NOTE | 2016-09-23 12:10 | HHI.HCPN ---
Reason for visit a. To assist with evaluation and management of symptoms including: Encephalopathy, dyspnea b. To assist medical decision maker(s) with: better understanding of current medical conditions; weighing benefits/burdens of medical treatment options; making medical treatment decisions. . Subjective/Interval History INTERVAL NOTE: Patient is seen in the [facility], intubated, remains off all sedation now for more than 24 hours. While off sedation, he remains unresponsive; there was a note that he responded with slight arm movement to painful stimuli, but I am not getting any response this morning. He remains on the ventilator, and does not appear dyspneic or tachypneic. His encephalopathy remains quite profound, becoming more concerning as time passes and he does not improve. Cardiothoracic surgery has indicated that the patient is not a candidate for aortic valve replacement (but perhaps could be if he becomes free of infection and off the ventilator). Case management has not had any luck locating the son, but I am provided with a couple phone numbers of "possible relatives;" see below. . Family/friend interactions Telephone discussion with the patient's sister Sandee; she provided me with the names and phone numbers of the other 3 siblings: Wang Tej [phone] Mary Lou Tej [phone] Brettrosalba Brittany [phone] I shared with Sandee my increasing concern about his markedly diminished neurologic status, i.e., the post-stroke versus severe sepsis encephalopathy, and we briefly discussed decisions that she and her siblings would face in the upcoming days/weeks if there are no signs of improvement (decisions including revisiting the CODE STATUS and possibly entertaining the idea of withdrawal of life support if additional embolic strokes occur and/or the encephalopathy does not improve). . Advance Directives Living Will: Never completed Health Care Surrogate: Never completed Durable Power of Sample Steamer: Never completed Advance Directive Specifics Health Care Surrogate(s): The patient's sister, Sandee Callahan, has been functioning as his proxy decision- maker here. After a diligent search, the patient's son cannot be located (by us or by any of the patient's siblings), so the decision making will be up to the 4 siblings. They are designating the patient's sister Sandee as the decision- maker, and she is keeping in close contact with the 3 of them on a daily basis. . Objective Vital Signs Date Time Temp Pulse Resp B/P Pulse Ox O2 Delivery O2 Flow Rate FiO2 09/23/16 10:25 100 35 09/23/16 08:15 100 35 09/23/16 08:00 89 09/23/16 08:00 40 09/23/16 08:00 100.8 89 28 129/33 100 09/23/16 06:00 90 09/23/16 04:41 98 35 09/23/16 04:00 35 09/23/16 04:00 100.4 88 24 138/34 100 09/23/16 04:00 88 09/23/16 02:00 88 09/23/16 01:40 100 35 09/23/16 00:00 86 09/23/16 00:00 100.0 86 26 130/36 100 09/23/16 00:00 35 09/22/16 22:00 83 09/22/16 20:46 100 35 09/22/16 20:00 100.0 84 24 125/33 100 09/22/16 20:00 35 09/22/16 20:00 84 09/22/16 16:00 87 09/22/16 16:00 99.7 87 32 129/35 100 09/22/16 12:00 99.9 83 28 122/35 100 09/22/16 12:00 83 09/22/16 11:59 100 35 Intake & Output 09/23/16 09/23/16 07:00 19:00 Intake Total 314 ml Output Total 70 ml 0 ml Balance 244 ml 0 ml Intake IV Total 314 ml Output Urine Total 70 ml Gastric Drainage Total 0 ml Tube Feeding Residual Discard 0 ml # Voids 1 # Bowel Movements 0 Physical Exam CONSTITUTIONAL/GENERAL: This is an adequately nourished patient, in no apparent distress. Unresponsive, intubated TUBES/LINES/DRAINS: vas cath right neck, central line left neck, SCD right lower leg, bandage left knee/leg, David catheter, OG tube SKIN: No jaundice; 10 cm lesion behind left knee. No wounds seen anteriorly. Cool fingers/toes. Not diaphoretic. EYES: Pupils equal and round and reactive. No scleral icterus. No injection or drainage. Fundi not examined. CARDIOVASCULAR: Regular rate and rhythm. Grade 2 systolic and grade 3 diastolic aortic murmurs. No JVD. Peripheral pulses symmetric. RESPIRATORY/CHEST: Symmetric, unlabored respirations on the ventilator. Scattered rhonchi GASTROINTESTINAL: Abdomen soft, non-tender, nondistended. No hepato-splenomegaly , or palpable masses. No guarding. Bowel sounds present. GENITOURINARY: Without palpable bladder distension. David catheter in place. MUSCULOSKELETAL: Extremities without clubbing, cyanosis, or edema. No joint tenderness or effusion noted. No mottling or clubbing. NEUROLOGICAL: Unresponsive PSYCHIATRIC: Unable to assess due to clinical condition . Diagnostic Tests Laboratory Laboratory Tests Test 09/20/16 09/20/16 09/20/16 09/20/16 13:00 13:21 14:00 15:00 Activated Partial 30.6 SEC 28.9 SEC 32.4 SEC 32.9 SEC Thromboplast Time (24.3-30.1) (24.3-30.1) (24.3-30.1) (24.3-30.1) Test 09/20/16 09/20/16 09/20/16 09/20/16 17:00 18:00 18:30 19:00 Activated Partial 35.8 SEC 36.7 SEC 35.2 SEC Thromboplast Time (24.3-30.1) (24.3-30.1) (24.3-30.1) White Blood Count 19.2 TH/MM3 (4.0-11.0) Red Blood Count 2.95 MIL/MM3 (4.50-5.90) Hemoglobin 8.8 GM/DL (13.0-17.0) Hematocrit 26.4 % (39.0-51.0) Mean Corpuscular Volume 89.7 FL (80.0-100.0) Mean Corpuscular Hemoglobin 29.9 PG (27.0-34.0) Mean Corpuscular Hemoglobin 33.3 % Concent (32.0-36.0) Red Cell Distribution Width 19.4 % (11.6-17.2) Platelet Count 79 TH/MM3 (150-450) Mean Platelet Volume 8.2 FL (7.0-11.0) Sodium Level 138 MEQ/L (136-145) Potassium Level 4.5 MEQ/L (3.5-5.1) Chloride Level 102 MEQ/L (98-107) Carbon Dioxide Level 13.2 MEQ/L (21.0-32.0) Anion Gap 23 MEQ/L (5-15) Blood Urea Nitrogen 84 MG/DL (7-18) Creatinine 3.19 MG/DL (0.60-1.30) Estimat Glomerular Filtration 25 ML/MIN (>89) Rate Random Glucose 161 MG/DL (74-106) Lactic Acid Level 11.7 mmol/L (0.4-2.0) Calcium Level 7.0 MG/DL (8.5-10.1) Protein Corrected Calcium 7.5 MG/DL (8.5-10.1) Total Bilirubin 2.2 MG/DL (0.2-1.0) Aspartate Amino Transf 1185 U/L (AST/SGOT) (15-37) Alanine Aminotransferase 381 U/L (12-78) (ALT/SGPT) Alkaline Phosphatase 76 U/L (45-117) Lactate Dehydrogenase 1331 U/L (87-241) Total Protein 6.1 GM/DL (6.4-8.2) Albumin 1.8 GM/DL (3.4-5.0) Nasal Screen MRSA (PCR) NEGATIVE (NEGATIVE) Blood Gas Puncture Site ART LINE Blood Gas Patient Temperature 98.6 Blood Gas HCO3 10 mmol/L (22-26) Blood Gas Base Excess -15.3 mmol/L (-2-2) Blood Gas Oxygen Saturation 97 % (90-100) Arterial Blood pH 7.28 (7.380-7.420) Arterial Blood Partial 22 mmHg (38-42) Pressure CO2 Arterial Blood Partial 187 mmHg Pressure O2 (61-120) Arterial Blood Oxygen Content 12.3 Vol % (12.0-20.0) Arterial Blood 0.9 % (0-4) Carboxyhemoglobin Arterial Blood Methemoglobin 0.9 % (0-2) Blood Gas Hemoglobin 8.7 G/DL (12.0-16.0) Oxygen Delivery Device VENTILATOR Blood Gas Ventilator Setting 550/24/1SEC/PEEP5 Blood Gas Inspired Oxygen 35 % Test 09/20/16 09/21/16 09/21/16 09/21/16 21:10 03:40 07:10 09:30 Activated Partial 36.5 SEC 36.1 SEC 29.0 SEC Thromboplast Time (24.3-30.1) (24.3-30.1) (24.3-30.1) White Blood Count 15.9 TH/MM3 (4.0-11.0) Red Blood Count 2.78 MIL/MM3 (4.50-5.90) Hemoglobin 8.4 GM/DL (13.0-17.0) Hematocrit 24.6 % (39.0-51.0) Mean Corpuscular Volume 88.5 FL (80.0-100.0) Mean Corpuscular Hemoglobin 30.2 PG (27.0-34.0) Mean Corpuscular Hemoglobin 34.2 % Concent (32.0-36.0) Red Cell Distribution Width 19.2 % (11.6-17.2) Platelet Count 58 TH/MM3 (150-450) Mean Platelet Volume 8.0 FL (7.0-11.0) Neutrophils (%) (Auto) 87.3 % (16.0-70.0) Lymphocytes (%) (Auto) 5.6 % (9.0-44.0) Monocytes (%) (Auto) 6.6 % (0.0-8.0) Eosinophils (%) (Auto) 0.1 % (0.0-4.0) Basophils (%) (Auto) 0.4 % (0.0-2.0) Neutrophils # (Auto) 13.8 TH/MM3 (1.8-7.7) Lymphocytes # (Auto) 0.9 TH/MM3 (1.0-4.8) Monocytes # (Auto) 1.0 TH/MM3 (0-0.9) Eosinophils # (Auto) 0.0 TH/MM3 (0-0.4) Basophils # (Auto) 0.1 TH/MM3 (0-0.2) CBC Comment AUTO DIFF Differential Total Cells 100 Counted Neutrophils % (Manual) 80 % (16-70) Band Neutrophils % 17 % (0-6) Lymphocytes % 2 % (9-44) Monocytes % 1 % (0-8) Neutrophils # (Manual) 15.4 TH/MM3 (1.8-7.7) Nucleated Red Blood Cells 2 /100 WBC (0-0) Differential Comment FINAL DIFF MANUAL Platelet Estimate LOW (NORMAL) Platelet Morphology Comment NORMAL (NORMAL) Acanthocytes OCC (NORMAL) Sodium Level 139 MEQ/L (136-145) Potassium Level 4.3 MEQ/L (3.5-5.1) Chloride Level 101 MEQ/L (98-107) Carbon Dioxide Level 14.4 MEQ/L (21.0-32.0) Anion Gap 24 MEQ/L (5-15) Blood Urea Nitrogen 93 MG/DL (7-18) Creatinine 3.32 MG/DL (0.60-1.30) Estimat Glomerular Filtration 23 ML/MIN (>89) Rate Random Glucose 165 MG/DL (74-106) Lactic Acid Level 10.3 mmol/L (0.4-2.0) Calcium Level 6.9 MG/DL (8.5-10.1) Protein Corrected Calcium 7.6 MG/DL (8.5-10.1) Phosphorus Level 8.3 MG/DL (2.5-4.9) Magnesium Level 2.4 MG/DL (1.5-2.5) Total Bilirubin 2.1 MG/DL (0.2-1.0) Direct Bilirubin 1.6 MG/DL (0.0-0.2) Indirect Bilirubin 0.5 MG/DL (0.0-0.8) Aspartate Amino Transf 1904 U/L (AST/SGOT) (15-37) Alanine Aminotransferase 666 U/L (12-78) (ALT/SGPT) Alkaline Phosphatase 75 U/L (45-117) Total Protein 5.7 GM/DL (6.4-8.2) Albumin 1.7 GM/DL (3.4-5.0) Random Vancomycin Level 14.2 COMMENT Blood Gas Puncture Site RENATE Blood Gas Patient Temperature 98.6 Blood Gas HCO3 15 mmol/L (22-26) Blood Gas Base Excess -8.8 mmol/L (-2-2) Blood Gas Oxygen Saturation 97 % (90-100) Arterial Blood pH 7.44 (7.380-7.420) Arterial Blood Partial 22 mmHg (38-42) Pressure CO2 Arterial Blood Partial 181 mmHg Pressure O2 (61-120) Arterial Blood Oxygen Content 11.0 Vol % (12.0-20.0) Arterial Blood 1.2 % (0-4) Carboxyhemoglobin Arterial Blood Methemoglobin 1.0 % (0-2) Blood Gas Hemoglobin 7.8 G/DL (12.0-16.0) Oxygen Delivery Device VENT Blood Gas Ventilator Setting PRVC//5/IT1 Blood Gas Inspired Oxygen 35 % Test 09/21/16 09/21/16 09/21/16 09/21/16 10:35 11:30 11:31 12:29 Activated Partial 50.2 SEC 33.8 SEC 35.0 SEC 28.1 SEC Thromboplast Time (24.3-30.1) (24.3-30.1) (24.3-30.1) (24.3-30.1) Blood Gas Puncture Site ART LINE Blood Gas Patient Temperature 98.6 Blood Gas HCO3 17 mmol/L (22-26) Blood Gas Base Excess -5.7 mmol/L (-2-2) Blood Gas Oxygen Saturation 96 % (90-100) Arterial Blood pH 7.52 (7.380-7.420) Arterial Blood Partial 21 mmHg (38-42) Pressure CO2 Arterial Blood Partial 99 mmHg Pressure O2 (61-120) Arterial Blood Oxygen Content 11.1 Vol % (12.0-20.0) Arterial Blood 1.2 % (0-4) Carboxyhemoglobin Arterial Blood Methemoglobin 0.8 % (0-2) Blood Gas Hemoglobin 8.1 G/DL (12.0-16.0) Oxygen Delivery Device VENTILATOR Blood Gas Ventilator Setting 550/24/1SEC/PEEP5 Blood Gas Inspired Oxygen 35 % Test 09/21/16 09/21/16 09/21/16 09/21/16 12:31 13:40 15:20 15:32 Activated Partial 31.5 SEC 30.7 SEC 30.5 SEC Thromboplast Time (24.3-30.1) (24.3-30.1) (24.3-30.1) Blood Gas Puncture Site RENATE Blood Gas Patient Temperature 98.6 Blood Gas HCO3 18 mmol/L (22-26) Blood Gas Base Excess -4.9 mmol/L (-2-2) Blood Gas Oxygen Saturation 96 % (90-100) Arterial Blood pH 7.45 (7.380-7.420) Arterial Blood Partial 27 mmHg (38-42) Pressure CO2 Arterial Blood Partial 100 mmHg Pressure O2 (61-120) Arterial Blood Oxygen Content 11.4 Vol % (12.0-20.0) Arterial Blood 1.3 % (0-4) Carboxyhemoglobin Arterial Blood Methemoglobin 0.6 % (0-2) Blood Gas Hemoglobin 8.3 G/DL (12.0-16.0) Oxygen Delivery Device VENT Blood Gas Ventilator Setting [facility]/24/550/5/IT1 Blood Gas Inspired Oxygen 35 % Test 09/21/16 09/21/16 09/21/16 09/22/16 15:33 17:26 17:27 04:45 Activated Partial 32.0 SEC 30.1 SEC 30.0 SEC Thromboplast Time (24.3-30.1) (24.3-30.1) (24.3-30.1) White Blood Count 13.0 TH/MM3 (4.0-11.0) Red Blood Count 2.78 MIL/MM3 (4.50-5.90) Hemoglobin 8.1 GM/DL (13.0-17.0) Hematocrit 24.5 % (39.0-51.0) Mean Corpuscular Volume 88.2 FL (80.0-100.0) Mean Corpuscular Hemoglobin 29.2 PG (27.0-34.0) Mean Corpuscular Hemoglobin 33.1 % Concent (32.0-36.0) Red Cell Distribution Width 18.4 % (11.6-17.2) Platelet Count 74 TH/MM3 (150-450) Mean Platelet Volume 10.3 FL (7.0-11.0) Sodium Level 141 MEQ/L (136-145) Potassium Level 3.5 MEQ/L (3.5-5.1) Chloride Level 103 MEQ/L (98-107) Carbon Dioxide Level 25.3 MEQ/L (21.0-32.0) Anion Gap 13 MEQ/L (5-15) Blood Urea Nitrogen 97 MG/DL (7-18) Creatinine 3.15 MG/DL (0.60-1.30) Estimat Glomerular Filtration 25 ML/MIN (>89) Rate Random Glucose 138 MG/DL (74-106) Calcium Level 7.0 MG/DL (8.5-10.1) Protein Corrected Calcium 8.0 MG/DL (8.5-10.1) Phosphorus Level 4.7 MG/DL (2.5-4.9) Magnesium Level 2.4 MG/DL (1.5-2.5) Total Protein 5.2 GM/DL (6.4-8.2) Triglycerides Level 375 MG/DL (42-150) Cholesterol Level 115 MG/DL (120-200) LDL Cholesterol 30 MG/DL (0-99) HDL Cholesterol 9.7 MG/DL (40.0-60.0) Cholesterol/HDL Ratio 11.85 RATIO Random Vancomycin Level 16.3 COMMENT Test 09/22/16 09/22/16 09/23/16 09/23/16 06:36 06:37 05:45 07:50 Blood Gas Puncture Site ART LINE Blood Gas Patient Temperature 98.6 Blood Gas HCO3 24 mmol/L (22-26) Blood Gas Base Excess 0.9 mmol/L (-2-2) Blood Gas Oxygen Saturation 97 % (90-100) Arterial Blood pH 7.50 (7.380-7.420) Arterial Blood Partial 31 mmHg (38-42) Pressure CO2 Arterial Blood Partial 179 mmHg Pressure O2 (61-120) Arterial Blood Oxygen Content 11.4 Vol % (12.0-20.0) Arterial Blood 1.4 % (0-4) Carboxyhemoglobin Arterial Blood Methemoglobin 1.0 % (0-2) Blood Gas Hemoglobin 8.0 G/DL (12.0-16.0) Oxygen Delivery Device VENTILATOR Blood Gas Ventilator Setting SEE COMMENTS Blood Gas Inspired Oxygen 35 % Lactic Acid Level 2.7 mmol/L (0.4-2.0) White Blood Count 18.7 TH/MM3 (4.0-11.0) Red Blood Count 2.40 MIL/MM3 (4.50-5.90) Hemoglobin 7.2 GM/DL (13.0-17.0) Hematocrit 21.4 % (39.0-51.0) Mean Corpuscular Volume 89.1 FL (80.0-100.0) Mean Corpuscular Hemoglobin 30.0 PG (27.0-34.0) Mean Corpuscular Hemoglobin 33.6 % Concent (32.0-36.0) Red Cell Distribution Width 18.4 % (11.6-17.2) Platelet Count 83 TH/MM3 (150-450) Mean Platelet Volume 10.7 FL (7.0-11.0) Sodium Level 142 MEQ/L (136-145) Potassium Level 3.5 MEQ/L (3.5-5.1) Chloride Level 102 MEQ/L (98-107) Carbon Dioxide Level 26.1 MEQ/L (21.0-32.0) Anion Gap 14 MEQ/L (5-15) Blood Urea Nitrogen 95 MG/DL (7-18) Creatinine 4.48 MG/DL (0.60-1.30) Estimat Glomerular Filtration 17 ML/MIN (>89) Rate Random Glucose 147 MG/DL (74-106) Calcium Level 8.0 MG/DL (8.5-10.1) Phosphorus Level 4.5 MG/DL (2.5-4.9) Magnesium Level 2.6 MG/DL (1.5-2.5) Total Bilirubin 7.2 MG/DL (0.2-1.0) Direct Bilirubin 5.3 MG/DL (0.0-0.2) Indirect Bilirubin 1.9 MG/DL (0.0-0.8) Aspartate Amino Transf 804 U/L (15-37) (AST/SGOT) Alanine Aminotransferase 743 U/L (12-78) (ALT/SGPT) Alkaline Phosphatase 71 U/L (45-117) Total Protein 5.8 GM/DL (6.4-8.2) Albumin 2.1 GM/DL (3.4-5.0) Random Vancomycin Level 20.1 COMMENT Blood Type O POSITIVE Antibody Screen NEGATIVE Crossmatch Leukocyte-Reduced Red Blood Cells Blood Bank Comment Test 09/23/16 08:36 Ammonia 35 MCMOL/L (11-32) Result Diagram: 09/23/16 0545 09/23/16 0545 Microbiology Microbiology Date/Time Procedure Status Source Growth 09/20/16 13:09 Aerobic Blood Culture - Preliminary Resulted Blood Peripheral NO GROWTH IN 3 DAYS 09/20/16 13:09 Anaerobic Blood Culture - Preliminary Resulted Blood Peripheral NO GROWTH IN 3 DAYS 09/20/16 13:21 Aerobic Blood Culture - Preliminary Resulted Blood Peripheral NO GROWTH IN 3 DAYS 09/20/16 13:21 Anaerobic Blood Culture - Preliminary Resulted Blood Peripheral NO GROWTH IN 3 DAYS 09/21/16 06:00 Aerobic Blood Culture - Preliminary Resulted Blood Peripheral NO GROWTH IN 2 DAYS 09/21/16 06:00 Anaerobic Blood Culture - Preliminary Resulted Blood Peripheral NO GROWTH IN 2 DAYS 09/21/16 13:40 Aerobic Blood Culture Received Blood Peripheral Pending 09/21/16 13:40 Anaerobic Blood Culture Received Blood Peripheral Pending 09/22/16 17:42 Gram Stain - Final Resulted Sputum Endotracheal 09/22/16 17:42 Sputum Culture Resulted Sputum Endotracheal Pending Imaging Last Impressions Chest X-Ray 09/21/16 0000 Signed Impressions: Service Date/Time: Wednesday, September 21, 2016 07:47 - CONCLUSION: Lines and tubes in good position. Persistent left lower lobe consolidation. Froilan James MD Brain MRI 09/21/16 0000 Signed Impressions: Service Date/Time: Wednesday, September 21, 2016 08:47 - CONCLUSION: Abnormal scan demonstrating evidence of multifocal nonhemorrhagic acute infarction, the largest is in the right frontoparietal region. The diffuse bilateral nature involving both anterior and posterior circulation suggests embolic source. No evidence of mass effect or cerebral edema at this point. Froilan James MD Tibia/Fibula X-Ray 09/19/16 0000 Signed Impressions: Service Date/Time: Monday, September 19, 2016 07:43 - CONCLUSION: Chronic changes and no evidence for acute fracture. Claudio Barroso MD Renal Ultrasound 09/19/16 0000 Signed Impressions: Service Date/Time: Monday, September 19, 2016 10:40 - CONCLUSION: Unremarkable renal ultrasound. Claudio Barroso MD Lower Extremity MRI 09/19/16 0000 Signed Impressions: Service Date/Time: Monday, September 19, 2016 10:15 - CONCLUSION: Large mass most likely originating from the patient's skin with infiltration of subcutaneous fat and no definite involvement of the muscular structures or marrow. A malignant mass should be entertained and clinical correlation is needed. Claudio Barroso MD Knee X-Ray 09/19/16 0000 Signed Impressions: Service Date/Time: Monday, September 19, 2016 07:43 - CONCLUSION: Osteoarthritis. 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 Claudio Barroso MD Procedures * Coude catheter placement by urologist 09/19/16 * INTUBATION 09/19/16 * Left IJ line 09/19/16 * CRRT 09/20/16 * HD 09/22/16 . 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 Spiritual: Christian background, spirituality has been important for him, copy cutter visit requested. Legal: The patient lacks capacity for decision-making and it seems unlikely that he will regain that capacity. His sister, Sandee Callahan, has been functioning as his proxy decision-maker up to this point during this hospitalization. The patient is not , and his parents are . His estranged son, Kevin Burnham, whose whereabouts are unknown, cannot be located by Case Management's diligent search or by any of the patient's 4 siblings. The patient has 3 sisters: he lives with his sister Sandee Callahan, there is another sister in [place], and the third sister in [place]; their brother lives in [place]. They have agreed to allow sandee to be the point person and decision maker here. Ethical issues impacting care: None. . Important Contacts Patient's sister: Sandee Callahan <--- designated by her siblings as the primary point of contact and decision-maker Other siblings: Wang Burnham [phone] Mary Lou Burnham [phone] - discussed by phone 09/23/16 at 1205 hrs; she agrees with the designation of Sandee as primary decision maker. Brettrosalba Brittany [phone] - discussed by phone 09/23/16 at 1145 hrs; she agrees with designation of Sandee as primary decision maker. . Prognosis This patient is critically ill, with multisystem organ failure, and overall his prognosis is guarded; now that he is apparently unresponsive even off of sedation, the prognosis is even more poor. . Code Status: Full Code Plan * FULL CODE * DECISION-MAKING: The patient lacks capacity for decision-making and it seems unlikely that he will regain that capacity. His sister, Sandee Callahan, has been functioning as his proxy decision-maker during this hospitalization. The patient is not , and his parents are . His estranged son, Kevin Burnham, whose whereabouts are unknown, cannot be located by Case Management's diligent search or by any of the patient's 4 siblings. The patient has 3 sisters: he lives with his sister Sandee Callahan, there is another sister in [place], and the third sister in [place]; their brother lives in [place]. They all have agreed to allow Sandee to be the point person and decision maker here. * SYMPTOMS: His dyspnea is being managed by mechanical ventilation and appropriate sedation. His encephalopathy is profound and is being watched closely. He has no obvious pain. No specific new medication orders are offered at this time. * GOALS: The patient's sister Sandee reports that the family wants to continue aggressive care for now, noting that the patient is "young and strong." On 09/23, I shared with sisters Sandee and Mary Lou my increasing concern about his markedly diminished neurologic status, i.e., the post-stroke versus severe sepsis encephalopathy, and we briefly discussed decisions that they would face in the upcoming days/weeks if there are no signs of improvement (decisions including revisiting the CODE STATUS and possibly entertaining the idea of withdrawal of life support if additional embolic strokes occur and/or the encephalopathy does not improve). * Palliative Care will continue to follow the patient during this hospitalization. . Time Spent Total Floor Time (mins): 44 Face to Face Time (mins): 10 >50% Counseling/Coord of Care: Yes Attestation To help prompt me to consider important information that might be impacting today's encounter and assessment, information from prior notes written by myself or my colleagues may have been "brought forward" into today's note. My signature on this note, however, is an attestation that I personally performed the exam, history, and/or decision-making noted today, and, unless otherwise indicated, the interactions with patient, family, and staff as well as the review of records all occurred today. I also attest that the listed assessment and stated plan reflect my best clinical judgment today based on the combination of historical information, prior notes, and today's exam/ interactions. When time spent is documented, it refers only to time spent today by the signer, or if indicated, combined time spent today by collaborating physician/nurse practitioner. Shante Monaco MD Sep 23, 2016 12:10
[2016-09-23] MEDS: HEPARIN SODIUM - IV 10,000 UNITS/10 ML VIAL PRN (12:11)
[2016-09-23] MEDS ORDERED: VANCOMYCIN INJ 1,000 MG in SODIUM CHLOR 0.9% 250 ML INJ 250 ML IV ONE (12:15)
--- NOTE | 2016-09-23 12:16 | HHI.IDPN ---
Subjective Subjective Remarks Notes reviewed Temps low grade Off pressors Getting HD Sedated on the vent Wound C/S MRSA and Strep BC with Strep - B-hemolytic Strep Group G Repeat BC negative so far Biopsy pending Antibiotics VAnco Rocephin Lines Vascath TLC Past Medical History Possible schizophrenia, depression Hypertension Chronic wound left leg Allergies: Coded Allergies: *MDRO Multi-Drug Resistant Organism (Verified Adverse Reaction, Unknown, ) MRSA (leg wound) - 09/19/16 Uncoded Allergies: NKDA (Allergy, Severe, 11/03/11) Objective . Vital Signs Date Time Temp Pulse Resp B/P Pulse Ox O2 Delivery O2 Flow Rate FiO2 09/23/16 12:00 100.4 91 34 128/37 100 09/23/16 12:00 91 09/23/16 10:25 100 35 09/23/16 08:15 100 35 09/23/16 08:00 89 09/23/16 08:00 40 09/23/16 08:00 100.8 89 28 129/33 100 09/23/16 06:00 90 09/23/16 04:41 98 35 09/23/16 04:00 35 09/23/16 04:00 100.4 88 24 138/34 100 09/23/16 04:00 88 09/23/16 02:00 88 09/23/16 01:40 100 35 09/23/16 00:00 86 09/23/16 00:00 100.0 86 26 130/36 100 09/23/16 00:00 35 09/22/16 22:00 83 09/22/16 20:46 100 35 09/22/16 20:00 100.0 84 24 125/33 100 09/22/16 20:00 35 09/22/16 20:00 84 09/22/16 16:00 87 09/22/16 16:00 99.7 87 32 129/35 100 09/22/16 09/22/16 09/23/16 15:00 23:00 07:00 Intake Total 284 ml 273 ml 41 ml Output Total 175 ml 3850 ml 20 ml Balance 109 ml -3577 ml 21 ml Intake IV Total 284 ml 273 ml 41 ml Output Urine Total 175 ml 50 ml 20 ml Gastric Drainage Total 0 ml 0 ml Hemodialysis 3800 ml # Voids 1 # Bowel Movements 0 0 0 . Laboratory Tests Test 09/22/16 09/23/16 04:45 05:45 White Blood Count 13.0 TH/MM3 18.7 TH/MM3 Red Blood Count 2.78 MIL/MM3 2.40 MIL/MM3 Hemoglobin 8.1 GM/DL 7.2 GM/DL Hematocrit 24.5 % 21.4 % Mean Corpuscular Volume 88.2 FL 89.1 FL Mean Corpuscular Hemoglobin 29.2 PG 30.0 PG Mean Corpuscular Hemoglobin 33.1 % 33.6 % Concent Red Cell Distribution Width 18.4 % 18.4 % Platelet Count 74 TH/MM3 83 TH/MM3 Mean Platelet Volume 10.3 FL 10.7 FL Laboratory Tests Test 09/22/16 09/22/16 09/23/16 09/23/16 04:45 06:37 05:45 08:36 Sodium Level 141 MEQ/L 142 MEQ/L Potassium Level 3.5 MEQ/L 3.5 MEQ/L Chloride Level 103 MEQ/L 102 MEQ/L Carbon Dioxide Level 25.3 MEQ/L 26.1 MEQ/L Anion Gap 13 MEQ/L 14 MEQ/L Blood Urea Nitrogen 97 MG/DL 95 MG/DL Creatinine 3.15 MG/DL 4.48 MG/DL Estimat Glomerular Filtration 25 ML/MIN 17 ML/MIN Rate Random Glucose 138 MG/DL 147 MG/DL Calcium Level 7.0 MG/DL 8.0 MG/DL Protein Corrected Calcium 8.0 MG/DL Phosphorus Level 4.7 MG/DL 4.5 MG/DL Magnesium Level 2.4 MG/DL 2.6 MG/DL Total Protein 5.2 GM/DL 5.8 GM/DL Triglycerides Level 375 MG/DL Cholesterol Level 115 MG/DL LDL Cholesterol 30 MG/DL HDL Cholesterol 9.7 MG/DL Cholesterol/HDL Ratio 11.85 RATIO Lactic Acid Level 2.7 mmol/L Total Bilirubin 7.2 MG/DL Direct Bilirubin 5.3 MG/DL Indirect Bilirubin 1.9 MG/DL Aspartate Amino Transf 804 U/L (AST/SGOT) Alanine Aminotransferase 743 U/L (ALT/SGPT) Alkaline Phosphatase 71 U/L Albumin 2.1 GM/DL Ammonia 35 MCMOL/L Microbiology Date/Time Procedure Status Source Growth 09/20/16 13:09 Aerobic Blood Culture - Preliminary Resulted Blood Peripheral NO GROWTH IN 3 DAYS 09/20/16 13:09 Anaerobic Blood Culture - Preliminary Resulted Blood Peripheral NO GROWTH IN 3 DAYS 09/20/16 13:21 Aerobic Blood Culture - Preliminary Resulted Blood Peripheral NO GROWTH IN 3 DAYS 09/20/16 13:21 Anaerobic Blood Culture - Preliminary Resulted Blood Peripheral NO GROWTH IN 3 DAYS 09/21/16 06:00 Aerobic Blood Culture - Preliminary Resulted Blood Peripheral NO GROWTH IN 2 DAYS 09/21/16 06:00 Anaerobic Blood Culture - Preliminary Resulted Blood Peripheral NO GROWTH IN 2 DAYS 09/21/16 13:40 Aerobic Blood Culture Received Blood Peripheral Pending 09/21/16 13:40 Anaerobic Blood Culture Received Blood Peripheral Pending 09/22/16 17:42 Gram Stain - Final Resulted Sputum Endotracheal 09/22/16 17:42 Sputum Culture Resulted Sputum Endotracheal Pending Imaging Last Impressions Chest X-Ray 09/20/16 0600 Signed Impressions: Service Date/Time: Tuesday, September 20, 2016 05:22 - CONCLUSION: 1. The NG tube tip is in the distal esophagus. Recommend advancing the NG tube 10 cm. 2. Mild left lower lung atelectasis. Jason Albert MD Tibia/Fibula X-Ray 09/19/16 0000 Signed Impressions: Service Date/Time: Monday, September 19, 2016 07:43 - CONCLUSION: Chronic changes and no evidence for acute fracture. Claduio Barroso MD Renal Ultrasound 09/19/16 0000 Signed Impressions: Service Date/Time: Monday, September 19, 2016 10:40 - CONCLUSION: Unremarkable renal ultrasound. Claudio Barroso MD Lower Extremity MRI 09/19/16 0000 Signed Impressions: Service Date/Time: Monday, September 19, 2016 10:15 - CONCLUSION: Large mass most likely originating from the patient's skin with infiltration of subcutaneous fat and no definite involvement of the muscular structures or marrow. A malignant mass should be entertained and clinical correlation is needed. Claudio Barroso MD Knee X-Ray 09/19/16 0000 Signed Impressions: Service Date/Time: Monday, September 19, 2016 07:43 - CONCLUSION: Osteoarthritis. 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 Claudio Barroso MD Physical Exam GENERAL: sedated and intubated, not in respiratory distress. SKIN: Cool and dry, no generalized rash, no ecchymosis, no embolic lesions noted. No mottling. HEAD: Atraumatic. Normocephalic. No temporal or scalp tenderness. EYES: Pale conjunctivae, no petechia or hemorrhage. No scleral icterus. No injection or drainage. ENT: Nose without bleeding, or purulent drainage. Endotracheal tube is in the mouth, he has moist oral mucosa. NECK: Trachea midline. No JVD or lymphadenopathy. Supple, no meningeal signs. CARDIOVASCULAR: Regular rate and rhythm, no rub, with murmur heard at the base of the heart. RESPIRATORY: Equal breath sounds bilaterally. Decreased at the bases. No wheezes, rales, or rhonchi. GASTROINTESTINAL: Abdomen soft, slightly globular, nondistended, no reaction to palpation. Bowel sounds are present and normoactive. No hepato-splenomegaly , or palpable masses. MUSCULOSKELETAL: Extremities without clubbing, cyanosis, or mottling. Feet are cool to touch. His LLE seems a little larger compared to his RLE. Has some mild pedal edema. There is a large ulcerated and fungating mass in the posterior medial aspect of his L upper leg, with some yellow exudate, and has a foul odor. No joint effusion. NEUROLOGICAL: Sedated on the vent PSYCH: Unable to assess : David in place, urine looks clear LINE: LIJ with no evidence of infection Assessment & Plan Remarks IMPRESSION Sepsis on presentation, with MOSF, shock - has Strep Group G in his BC - has mobile vegetation in his AV and has AI - no hx IVDU - prob source is his large open wound L leg which has been present for a year - no mention of previous dental problem, unable to get good exam of his oropharynx - off pressors Fevers Respiratory failure Renal failure Septic emboli to brain, multiple Has anemia and leukocytosis UTI Fungating ulcer/mass leg, C/S MRSA and Strep RECOMMENDATION Follow repeat BC to document clearing Give Vanco today Continue IV Rocephin Follow C/S Monitor progress Wound care Follow path report Rosi Fonseca MD Sep 23, 2016 12:15
--- NOTE | 2016-09-23 12:28 | HHI.GIFU ---
Subjective Remarks Sedated on vent, mildly tachypneic. Getting HD at this time. TF going at 10cc/ hr. (Isa Samuels) Objective Vitals I&O Vital Signs Date Time Temp Pulse Resp B/P Pulse Ox O2 Delivery O2 Flow Rate FiO2 09/23/16 12:00 100.4 91 34 128/37 100 09/23/16 12:00 91 09/23/16 10:25 100 35 09/23/16 08:15 100 35 09/23/16 08:00 89 09/23/16 08:00 40 09/23/16 08:00 100.8 89 28 129/33 100 09/23/16 06:00 90 09/23/16 04:41 98 35 09/23/16 04:00 35 09/23/16 04:00 100.4 88 24 138/34 100 09/23/16 04:00 88 09/23/16 02:00 88 09/23/16 01:40 100 35 09/23/16 00:00 86 09/23/16 00:00 100.0 86 26 130/36 100 09/23/16 00:00 35 09/22/16 22:00 83 09/22/16 20:46 100 35 09/22/16 20:00 100.0 84 24 125/33 100 09/22/16 20:00 35 09/22/16 20:00 84 09/22/16 16:00 87 09/22/16 16:00 99.7 87 32 129/35 100 I/O 09/22/16 09/22/16 09/22/16 09/23/16 09/23/16 09/23/16 07:00 15:00 23:00 07:00 15:00 23:00 Intake Total 1145 ml 284 ml 273 ml 41 ml Output Total 150 ml 175 ml 3850 ml 20 ml 0 ml Balance 995 ml 109 ml -3577 ml 21 ml 0 ml Intake IV Total 1145 ml 284 ml 273 ml 41 ml Output Urine Total 150 ml 175 ml 50 ml 20 ml Gastric Drainage Total 0 ml 0 ml 0 ml Tube Feeding Residual Discard 0 ml Hemodialysis 3800 ml # Voids 1 # Bowel Movements 0 0 0 0 Laboratory Laboratory Tests Test 09/23/16 09/23/16 09/23/16 05:45 07:50 08:36 White Blood Count 18.7 Red Blood Count 2.40 Hemoglobin 7.2 Hematocrit 21.4 Mean Corpuscular Volume 89.1 Mean Corpuscular Hemoglobin 30.0 Mean Corpuscular Hemoglobin 33.6 Concent Red Cell Distribution Width 18.4 Platelet Count 83 Mean Platelet Volume 10.7 Sodium Level 142 Potassium Level 3.5 Chloride Level 102 Carbon Dioxide Level 26.1 Anion Gap 14 Blood Urea Nitrogen 95 Creatinine 4.48 Estimat Glomerular Filtration 17 Rate Random Glucose 147 Calcium Level 8.0 Phosphorus Level 4.5 Magnesium Level 2.6 Total Bilirubin 7.2 Direct Bilirubin 5.3 Indirect Bilirubin 1.9 Aspartate Amino Transf 804 (AST/SGOT) Alanine Aminotransferase 743 (ALT/SGPT) Alkaline Phosphatase 71 Total Protein 5.8 Albumin 2.1 Random Vancomycin Level 20.1 Blood Type O POSITIVE Antibody Screen NEGATIVE Crossmatch Leukocyte-Reduced Red Blood Cells Blood Bank Comment Ammonia 35 Date/Time Procedure Status Source Growth 09/22/16 17:42 Gram Stain - Final Resulted Sputum Endotracheal 09/22/16 17:42 Sputum Culture - Preliminary Resulted S. Aureus Mrsa 09/21/16 13:40 Aerobic Blood Culture Received Blood Peripheral Pending 09/21/16 13:40 Anaerobic Blood Culture Received Blood Peripheral Pending 09/21/16 06:00 Aerobic Blood Culture - Preliminary Resulted Blood Peripheral NO GROWTH IN 2 DAYS 09/21/16 06:00 Anaerobic Blood Culture - Preliminary Resulted Blood Peripheral NO GROWTH IN 2 DAYS 09/19/16 15:50 Urine Culture - Final Complete Urine Clean Catch NO GROWTH IN 48 HOURS. 09/19/16 07:25 Aerobic Blood Culture - Final Complete Blood Peripheral Beta-Hemolytic Streptococcus 09/19/16 07:25 Anaerobic Blood Culture - Final Complete Beta-Hemolytic Streptococcus Imaging Last Impressions Chest X-Ray 09/21/16 0000 Signed Impressions: Service Date/Time: Wednesday, September 21, 2016 07:47 - CONCLUSION: Lines and tubes in good position. Persistent left lower lobe consolidation. Froilan James MD Brain MRI 09/21/16 0000 Signed Impressions: Service Date/Time: Wednesday, September 21, 2016 08:47 - CONCLUSION: Abnormal scan demonstrating evidence of multifocal nonhemorrhagic acute infarction, the largest is in the right frontoparietal region. The diffuse bilateral nature involving both anterior and posterior circulation suggests embolic source. No evidence of mass effect or cerebral edema at this point. Froilan James MD Tibia/Fibula X-Ray 09/19/16 0000 Signed Impressions: Service Date/Time: Monday, September 19, 2016 07:43 - CONCLUSION: Chronic changes and no evidence for acute fracture. Claudio Barroso MD Renal Ultrasound 09/19/16 0000 Signed Impressions: Service Date/Time: Monday, September 19, 2016 10:40 - CONCLUSION: Unremarkable renal ultrasound. Claudio Barroso MD Lower Extremity MRI 09/19/16 0000 Signed Impressions: Service Date/Time: Monday, September 19, 2016 10:15 - CONCLUSION: Large mass most likely originating from the patient's skin with infiltration of subcutaneous fat and no definite involvement of the muscular structures or marrow. A malignant mass should be entertained and clinical correlation is needed. Claudio Barroso MD Knee X-Ray 09/19/16 0000 Signed Impressions: Service Date/Time: Monday, September 19, 2016 07:43 - CONCLUSION: Osteoarthritis. 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 Claudio Barroso MD Physical Exam GEN: Sedated on vent. HD HEENT: Normocephalic; atraumatic; no jaundice. CHEST: OETT to vent. Mildly tachypneic CARDIAC: RRR, ABDOMEN: Soft, nondistended, nontender; no hepatosplenomegaly; bowel sounds are present in all four quadrants. EXTREMITIES: Generalized edema. SKIN: Drsg LLE d/i BAGGAGE SMASHER: Sedated on vent (Isa Samuels) Assessment and Plan Plan ASSESSMENT: - Coffee ground gastric secretions and anemia. Pt is in ICU for severe sepsis/ endocarditis/bacteremia, possible source infected lesion LLE (S/P Bx and C/S). Pt was brought for AMS and decompensated overnight, requiring intubation- vasopressors. HH dropped 6.5/20.0 on 09/19. S/P EGD (09/21/16)----> 1. Esophagitis ngt suction trauma in gastric body no active bleeding 2. Retroflexed views revealed a hiatal hernia. No further episodes. S/P 4 units of PRBC. HH 7.2/21.4. Protonix. - Anemia, secondary to acute blood loss. S/P 4 units PRBC. HH 7.2/21.4. PPI - Elevated LFTs, Shocked liver. On admission, T. Bili 1.3, AST 208, ALT 60, Alk PHosph 83. These then spiked on 09/20 and are now trending down. Today's labs T. Bili 7.2, Direct 5.3, Indirect 1.9, AST 804, ALT 743, Alk Phosph 71. Will get hepatitis panel and RUQ US, but suspect this is shocked liver. Iron saturation 66.8%. - Sepsis/Bacteremia/Endocarditis. ? Source infected lesion LLE. S/P 2D echo, mobile vegetation with severe aortic regurgitation on aortic valve. Cardiology following. - Acute renal failure, now on HD. - Resp. Failure. Vent. per CCM. - LLE wound. Family reports that this has been increasing in size and he was previously told that this was cancer and it needed to be removed, but he never followed up. Per primary PLAN: - Nepro 10cc/hr, increase to GR as recommended by Woodwork Salvage Inspector - Woodwork Salvage Inspector consult for TF recommendations - Protonix 40mg IV daily - Monitor HH - Transfuse as necessary - Hepatitis panel. - RUQ US - Supportive care - Further recommendations to follow based on results of above - PT seen and examined by Dr. Zaragoza and myself and this note is written on her behalf (Isa Samuels) Physician Comments seen, examined agree with above (Nupur Zaragoza MD) Isa Samuels Sep 23, 2016 12:28 Nupur Zaragoza MD Sep 23, 2016 14:47
[2016-09-23] MEDS ORDERED: PANTOPRAZOLE SODIUM 40 MG VIAL IV PUSH SCH (12:30)
[2016-09-23] MEDS ORDERED: VANCOMYCIN 1,000 MG/NS 250 ML IV ONE ×2 (14:00)
--- NOTE | 2016-09-23 18:44 | HHI.NPPN ---
Subjective History of Present Illness 56-year-old male with a past medical history of hypertension, history of schizophrenia and depression, was brought to the hospital because of altered mental status. I was called to see the patient because of elevated BUN and creatinine. The patient was found to have a creatinine of 3.2 on admission. Previously in 2012 his creatinine was normal. Additional Remarks Patient remain on the vent. and sedated, seen after HD. Review of Systems General General Remarks Cannot take, intubated. Objective Data Data 09/22/16 09/23/16 19:00 07:00 Intake Total 284 ml 314 ml Output Total 3975 ml 70 ml Balance -3691 ml 244 ml Intake IV Total 284 ml 314 ml Output Urine Total 175 ml 70 ml Gastric Drainage Total 0 ml 0 ml Hemodialysis 3800 ml # Voids 1 # Bowel Movements 0 0 Vital Signs Date Time Temp Pulse Resp B/P Pulse Ox O2 Delivery O2 Flow Rate FiO2 09/23/16 18:00 91 09/23/16 17:00 91 09/23/16 16:03 100 35 09/23/16 16:00 100.8 90 22 122/35 100 09/23/16 16:00 91 09/23/16 16:00 40 09/23/16 15:00 89 09/23/16 15:00 40 09/23/16 13:50 100 35 09/23/16 12:00 100.4 91 34 128/37 100 09/23/16 12:00 91 09/23/16 10:25 100 35 09/23/16 08:15 100 35 09/23/16 08:00 89 09/23/16 08:00 40 09/23/16 08:00 100.8 89 28 129/33 100 09/23/16 06:00 90 09/23/16 04:41 98 35 09/23/16 04:00 35 09/23/16 04:00 100.4 88 24 138/34 100 09/23/16 04:00 88 09/23/16 02:00 88 09/23/16 01:40 100 35 09/23/16 00:00 86 09/23/16 00:00 100.0 86 26 130/36 100 09/23/16 00:00 35 09/22/16 22:00 83 09/22/16 20:46 100 35 09/22/16 20:00 100.0 84 24 125/33 100 09/22/16 20:00 35 09/22/16 20:00 84 -: 09/23/16 0545 09/23/16 0545 Physical Exam General Appearance Remarks Intubated and sedated. Eyes Eye Exam: Pupils Equal Neck Neck Exam: Neck Supple Pulmonary Resp Exam: Crackles, Rhonchi, Decreased Bases, Diminished Breath Sounds, Poor Inspiratory Effort Gastrointestinal/Abdomen GI Exam: Soft, Non-Tender, Bowel Sounds Present, Distended Extremeties Extremities Exam: Moderate Edema, Pitting Edema, Dependent Edema Neurologic Neuro Exam: Sedated Assessment/Plan Assessment Summary: RACHAEL/Acute Renal Failure Problem List: (1) Cellulitis (2) Mass of left lower extremity (3) Septic shock (4) Anemia (5) ARF (acute renal failure) Plan Patient has low urine out put. BP is now better and off pressors. Started on HD, and tolerated well. 3.8 liters removed. Urine out put is still low. Possibly has RACHAEL due to ATN from Hypotension. Follow urine out put and BMP. HD as needed. Problem Qualifiers (1) Cellulitis: Qualified Code: L03.116 - Cellulitis of left lower extremity Manoj Liu MD Sep 23, 2016 18:44
[2016-09-24] VITALS (17 sets, daily range): BP systolic 102–135; BP diastolic 36–45; PULSE 88–94; RESP 26–40; TEMP 97.7–101.1; O2SAT 94–100
[2016-09-24] MEDS: INSULIN ASPART SUPPLEMENTAL SCALE SQ SCH ×6 (01:00→21:00)
[2016-09-24] MEDS: RESP: ALBUTEROL 2.5 MG/IPRATROPIUM 0.5 MG NEB (SCH) INH ×4 (03:21→20:03)
[2016-09-24] MEDS: CHLORHEXIDINE GLUCONATE 2 % 1 PACK (2 CLOTHS) TOP SCH (04:00)
[2016-09-24 05:08] LABS: HEMATOCRIT 23.1 % (39.0-51.0); MEAN CELL VOLUME 90.2 FL (80.0-100.0); MEAN CORPUSCULAR HEMOGLOBIN 30.8 PG (27.0-34.0); MEAN CORPUSCULAR HGB CONC 34.1 % (32.0-36.0); PLATELET COUNT 75 TH/MM3 (150-450); RED BLOOD COUNT 2.56 MIL/MM3 (4.50-5.90); RED CELL DISTRIBUTION WIDTH 18.3 % (11.6-17.2)
[2016-09-24 05:18] LABS: REVIEW FLAG FINAL
[2016-09-24 05:22] LABS: BICARBONATE 25.1 MEQ/L (21.0-32.0); POTASSIUM 3.9 MEQ/L (3.5-5.1)
[2016-09-24 05:39] LABS: INDIRECT BILIRUBIN 1.8 MG/DL (0.0-0.8); TOTAL BILIRUBIN ADULT 10.4 MG/DL (0.2-1.0)
--- NOTE | 2016-09-24 06:11 | RADRPT ---
EXAM DATE/TIME: 09/24/2016 05:13 [facility] COMPARISON: CHEST SINGLE AP, September 21, 2016, 7:47. INDICATIONS : Fever. Evaluate for pneumonia. MEDICAL HISTORY : None. SURGICAL HISTORY : None. ENCOUNTER: Subsequent ACUITY: 1 week PAIN SCORE: Non-responsive. LOCATION: chest FINDINGS: A single portable frontal view of the chest shows consolidation involving the left lung base. This is unchanged. Right lung is clear. Heart is at the upper limits of normal in terms of size. Tip of the endotracheal tube 3 cm proximal to the keon. Nasogastric tube tip courses off the inferior margin o f the film. Left sided central line and right sided dialysis catheter. CONCLUSION: Unchanged left lower lobe infiltrate. Froilan Ba Jr., MD on September 24, 2016 at 6:10 Board Certified Radiologist. This report was verified electronically.
[2016-09-24] MEDS: HEPARIN SODIUM - SQ 10,000 UNITS/ML VIAL SQ SCH ×2 (06:29→17:26)
--- NOTE | 2016-09-24 07:08 | HHI.CCPN ---
Subjective Remarks/Hospital Course 09/19: This is a 56-year-old male that presented secondary to altered mental status. The patient's sister provided the medical information. The patient is alert and oriented 3 .the patient was noted to have a lesion on his left lower extremity and was seen at [facility] by Dr. Carpio at all is felt to be a malignant lesion however the patient was scheduled for follow-up and was noncompliant .over the last several days the patient had began to feel generalized malaise and he lives with his sister who noted that he began to have altered mental status and he presented to the ED .upon presentation to the ED the patient's blood pressure systolic blood pressure was in the 80s laboratory and imaging studies reveal septic shock , with a lactate of 4.5. The patient was bolused with 4 L of normal saline is currently hemodynamically stable , tachypnea , secondary to a bicarbonate level of 9 . He is reported to have a neoplastic lesion about the region of the left knee posteriorly, recent imaging studies suggest malignant neoplasm. The patient underwent a TTE in the ED by Dr. Coombs was noted to have cardiac vegetations tentative plan for a AGUSTIN in the am. Critical care medicine's consult for management. 09/20: Patient was intubated overnight and placed on mechanical ventilation for worsening respiratory status. He is currently sedated, orally intubated on mechanical ventilation. Transfuse 3 units PRBCs overnight. Has some coffee- ground NG aspirate however no melena or rectal bleeding noted. On Levophed 12 mics per minute and vasopressin low-dose for septic shock. Decreasing urine output and significant metabolic acidosis noted for which nephrology consult was requested this morning, vascath was placed and patient has been initiated on CRRT. Discussed with cardiology, severe aortic regurg with aortic valve vegetation for which patient will eventually need an aortic valve replacement following initial stabilization. Awaiting Dr. Medina evaluation. Dr. Coombs has discussed echo with Dr. Medina. 09/21: no significant improvements. lactate still 10. persists on 2 vasopressors. pH slightly better. CRRT circuit clotted overnight. 09/22: off vasopressors this morning. MRI yesterday with multiple acute strokes, largest in right fronto-parietal region. acidosis better. CRRT clotted at 2100 overnight. plan to likely transition to IHD today. 09/23: neuro exam remains poor. acidosis resolving. IHD yesterday with 4L removed. hgb downtrended to 7 this AM. off vasopressors. 09/24: 4.5L removed yesterday with IHD. still neuro exam remains poor. sputum growing MRSA. vanc trough therapeutic. persistently anemic despite prbc transfusion yesterday. Objective Vital Signs Date Time Temp Pulse Resp B/P Pulse Ox O2 Delivery O2 Flow Rate FiO2 09/24/16 04:07 100 35 09/24/16 02:00 92 09/24/16 00:00 101.1 26 102/40 09/20/16 07:00 Mechanical Ventilator Intake and Output 09/23/16 09/23/16 09/24/16 08:00 16:00 00:00 Intake Total 41 ml 390 ml 450 ml Output Total 20 ml 4625 ml 5 ml Balance 21 ml -4235 ml 445 ml Result Diagram: 09/24/16 0430 09/24/16 0430 Imaging Last Impressions Tibia/Fibula X-Ray 09/19/16 0000 Signed Impressions: Service Date/Time: Monday, September 19, 2016 07:43 - CONCLUSION: Chronic changes and no evidence for acute fracture. Claudio Barroso MD Renal Ultrasound 09/19/16 0000 Signed Impressions: Service Date/Time: Monday, September 19, 2016 10:40 - CONCLUSION: Unremarkable renal ultrasound. Claudio Barroso MD Lower Extremity MRI 09/19/16 0000 Signed Impressions: Service Date/Time: Monday, September 19, 2016 10:15 - CONCLUSION: Large mass most likely originating from the patient's skin with infiltration of subcutaneous fat and no definite involvement of the muscular structures or marrow. A malignant mass should be entertained and clinical correlation is needed. Claudio Barroso MD Knee X-Ray 09/19/16 0000 Signed Impressions: Service Date/Time: Monday, September 19, 2016 07:43 - CONCLUSION: Osteoarthritis. 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 Claudio Barroso MD Chest X-Ray 09/19/16 0000 Signed Impressions: Service Date/Time: Monday, September 19, 2016 16:50 - CONCLUSION: 1. Minimal basilar atelectasis. Elevated right hemidiaphragm. No effusion. Osteochondral defect right humeral head. Raul Merlos MD Objective Remarks HEENT/ Neuro: Sedated, orally intubated, Pallor present, no icterus, tongue/ mucosa moist Neck: Right IJ Vas-Cath, left IJ central line in place. trachea midline. Chest/Pulm: on mech vent, equal chest rise, coarse BS bilaterally. CVS: S1-S2 regular, III/ diastolic murmur best heard over aortic area noted. GI/abdomen: soft, nontender, nondistended. no guarding. Extremities: warm bilaterally, no edema. Ulcerated lesion/ mass on left leg behind the knee noted Neuro: RASS -5. pupils 2mm equal and reactive. 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 He remains very critically ill at this time. Certainly, will need to wait at least a week from time of strokes to pursue cardiac surgery, but now has two indications for urgent AVR. His persistent encephalopathy off all sedation is concerning. ammonia low. will repeat CT head today. Continue daily IHD for volume removal. Plan by systems: Neurologic: Old CVA infarct Possible schizophrenia Metabolic encephalopathy secondary to sepsis New Acute CVA secondary to septic emboli continue off sedation. goal RASS -2. frequent neuro checks MRI 09/22: multifocal infarcts, largest in right frontoparietal region. hold acetaminophen given shock liver. repeat head CT today. Respiratory: Acute hypoxic respiratory failure on mechanical ventilation Pulmonary Edema secondary to valvulopathy and cardiogenic shock Continue mechanical ventilation, vent bundle, bronchodilators as needed. too unstable today for CPAP trials. new acute stroke and volume overload. volume removal with [employer]. Cardiovascular: Aortic valve vegetation Severe aortic regurgitation Septic Shock- resolved. Cardiogenic Shock Congestive Heart Failure secondary to valvulopathy Transthoracic echo with aortic valve vegetation with severe aortic regurgitation. Cardiology: [facility] CT Surgery: Adam -- will need anti-platelet therapy, but with his multiple acute issues and his thrombocytopenia, will hold off on ASA at this time. if platelet count improves , will consider starting. -- lipid panel appropriate. -- goal SBP 110 - 120 to optimize cardiac function. will tolerate MAP > 50 in order to accomplish this. -- will need AVR at some point, will hold off for at least a week post-stroke. Renal: Acute kidney injury secondary to sepsis Acute intravascular volume overload. Strict intake output, monitor and replete electrolytes, follow BUN/creatinine. -- will need daily IHD for volume removal. continue salmeron catheter. FEN/GI: Acute severe intravascular volume overload Acute protein calorie malnutrition- mild Hyperphosphatemia- resolving. Acute GI bleed- resolving. Lactic Acidosis- resolving. Severe metabolic acidosis- resolved. -- TF nepro @ 40. -- iv bid ppi. -- EGD without evidence of ulcers. -- GI following Heme/ID: Chronic anemia Acute anemia secondary to blood loss from GI bleed Leukocytosis Septic shock- resolved. Bacteremia with Beta Hemolytic Strep Aortic valve endocarditis Hyperlipidemia Thrombocytopenia secondary to consumption secondary to severe AI daily CBC wound culture growing MRSA blood growing beta hemolytic strep sputum growing MRSA Goal vanc trough 15 - 20. Rocephin per ID. Dr. Fonseca ID. 4T score low probability of HIT. 1 unit prbc again today with IHD today. Endocrine: Hyperglycemia critical illness Glucose monitoring per ICU protocol-low dose regimen Msk: Rhabdomyolysis- resolved. Probable ulcerated neoplastic lesion left lower extremity behind left knee Most likely squamous cell carcinoma clinically. Status post punch biopsy on by family medicine service awaiting pathology results. -Dependent on results we'll decide further management. Wound care consult -- SSI Prophylaxis: GI Prophylaxis iv bid ppi. DVT Prophylaxis -- SCDs Heparin SQ Lines: LIJ central line placed 09/19 RIJ vascath placed 09/20 Time spent on critical care excluding procedures 35 minutes Perez Aparicio MD Sep 24, 2016 07:08
[2016-09-24] MEDS ORDERED: SODIUM CHLOR 0.9% 250 ML INJ 250 ML IV ONE (07:15)
[2016-09-24] MEDS: CHLORHEXIDINE 0.12% (ORAL KIT) 15 ML CUP MT SCH ×2 (08:00→20:51)
[2016-09-24] MEDS: DOCUSATE SODIUM 100 MG CAP PO SCH ×2 (08:29→21:00)
[2016-09-24] MEDS: PANTOPRAZOLE SODIUM 40 MG VIAL IV PUSH SCH ×2 (08:29→20:51)
[2016-09-24] MEDS: SODIUM CHLORIDE 0.9% FLUSH 10 ML FLUSH IV FLUSH SCH ×2 (08:30→20:51)
[2016-09-24] MEDS: cefTRIAXone INJ 2,000 MG in SODIUM CHLORIDE 0.9% INJ 100 ML IV SCH (11:53)
--- NOTE | 2016-09-24 12:13 | HHI.FPPN ---
Subjective Remarks Patient seen and examined this morning. No acute events overnight. Fever up to 101.1 overnight. Patient intubated and currently off all sedation, however continues to have poor neurologic exam. Critical care we will repeat head CT today. Answers 1 unit of PRBC yesterday and will be transfused another unit today due to anemia. A total of 3.85 L removed yesterday with IHD. Objective Vitals Vital Signs Date Time Temp Pulse Resp B/P Pulse Ox O2 Delivery O2 Flow Rate FiO2 09/24/16 10:00 94 09/24/16 08:31 100 35 09/24/16 08:00 101.1 88 34 126/42 94 09/24/16 08:00 88 09/24/16 08:00 35 09/24/16 06:00 94 09/24/16 04:07 100 35 09/24/16 04:00 35 09/24/16 04:00 94 09/24/16 04:00 101.1 94 30 122/44 100 09/24/16 02:00 92 09/24/16 00:10 100 35 09/24/16 00:00 90 09/24/16 00:00 101.1 88 26 102/40 100 09/24/16 00:00 35 09/23/16 22:00 100 35 09/23/16 22:00 90 09/23/16 20:00 40 09/23/16 20:00 90 09/23/16 20:00 101.1 90 24 130/38 100 09/23/16 19:55 100 35 09/23/16 18:00 91 09/23/16 17:00 91 09/23/16 16:03 100 35 09/23/16 16:00 100.8 90 22 122/35 100 09/23/16 16:00 91 09/23/16 16:00 40 09/23/16 15:00 89 09/23/16 15:00 40 09/23/16 13:50 100 35 I/O 09/23/16 09/23/16 09/23/16 09/24/16 09/24/16 09/24/16 07:00 15:00 23:00 07:00 15:00 23:00 Intake Total 41 ml 390 ml 450 ml 470 ml Output Total 20 ml 4625 ml 5 ml 150 ml 0 ml Balance 21 ml -4235 ml 445 ml 320 ml 0 ml Intake IV Total 41 ml 140 ml 300 ml 150 ml Tube Feeding 150 ml 320 ml Packed Cells 250 ml Output Urine Total 20 ml 125 ml 5 ml 150 ml Gastric Drainage Total 0 ml 0 ml 0 ml Tube Feeding Residual Discard 0 ml 0 ml Hemodialysis 4500 ml # Voids 1 # Bowel Movements 0 0 0 0 Result Diagram: 09/24/1642909/24/16429 Objective Remarks GENERAL: 66-year-old Kathi male lying in bed intubated. SKIN: Warm and dry. No rash. CARDIOVASCULAR: Regular rate and rhythm with 3/6 diastolic murmur more pronounced at the right sternal border. RESPIRATORY: Equal diffuse coarse breath sounds. Currently breathing via ventilator. GASTROINTESTINAL: Abdomen soft, nondistended with +BS. No masses appreciated. MUSCULOSKELETAL: Extremities without cyanosis. 1+ edema of left lower extremity. LLE on admission: 8.5 X 10.5CM circular, fungating, ulcerative lesion on the posterior aspect of the L knee. No hemorrhage or necrosis appreciated. Lesion is foul smelling and appears to involve skin and subcutaneous tissue; does not appear to involve the muscle or bone. 2+ edema from the ankle to the knee. LLE currently: Currently lesion bandaged with sterile gauze, CDI. NEUROLOGICAL: Patient intubated and off sedation. RASS-5. Date of Insertion: Sep 19, 2016 Line: Central Venous Catheter Side: Left Location: Jugular A/P Assessment and Plan Mr. Burnham is a 56 y/o AAM with a PMHx of HTN presenting with AMS and a LLE wound found to be in septic shock, with endocarditis admitted for medical therapy. Discharge Planning Pending clinical improvement. Unclear timeframe at this time. WDW: Dr. Helm, Dr. Mackay Problem List: (1) Septic shock Status: Acute Plan: On admission patient presented with altered mental status left lower extremity lesion. Patient found to be tachycardic to 100 bpm with a white blood cell count of 18.6. Likely source of infection is his left lower extremity lesion. Found to have a lactic acid of 4.5 not responsive to fluid resuscitation. Patient placed on sepsis protocol and transferred to the [facility] for further monitoring. Patient found to have endocarditis with mobile aortic valve vegetation. Blood cultures 2 09/19: Beta hemolytic streptococcus, beta Streptococcus group G; both pansensitive UC: Pending Wound culture x2: MRSA, sensitive to vancomycin Blood culture 09/20: Negative to date Blood culture 09/21: Negative to date Sputum culture 09/22: MRSA, sensitive to vancomycin Intensive care consulted, appreciate recommendations Infectious disease consulted, appreciate recommendations * Continue Vancomycin and Zosyn * MRI of brain from 09/21 significant for multifocal nonhemorrhagic acute infarction, the largest in the right frontoparietal region. Diffuse bilateral nature involving both anterior and posterior circulation suggests embolic source. No evidence of mass effect or cerebral edema at this point. * Biopsy of LLE lesion sent for pathology * Repeat BC with no growth to date * Chest x-ray 09/24: Unchanged left lower lobe infiltrate Medications: Vancomycin 1 g twice a day, pharmacy consulted Zosyn 2.25 g every 6 hours Hydrocortisone 100 mg every 8 hours Fentanyl, propofol, Versed discontinued (2) Skin ulcer of left lower leg, limited to breakdown of skin Status: Acute Plan: Patient with circular, fungating, ulcerative lesion on the posterior aspect of the L knee with edema of the lower extremity. Patient denies any pain currently. Lower extremity neurovascularly intact with appropriate capillary refill. Knee x-ray: Chronic changes with no evidence of acute fracture Tubularfibula x-ray: Chronic changes and no evidence of acute fractures. Lower extremity MRI: Large mass most likely originating from the patient's skin with infiltration of subcutaneous fat and no definite involvement of the muscular structures her marrow. A malignant mass should be entertained and clinical correlation is needed. Punch biopsy 09/20: Pending Gen. surgery consulted for possible excision biopsy, appreciate recommendations * No further interventions until pt is extubated and clinically improved -Please see plan as above (3) Endocarditis of aortic valve Status: Acute Plan: On admission patient with elevated CPK to 7480 and troponin to 12.4. Echocardiogram performed and found to have mobile vegetation of the aortic valve. Blood cultures with gram-positive cocci in all 4 vials. TTE 09/20: Aortic valve with mobile vegetation on the left ventricular aspect. Severe aortic regurgitation directed eccentrically in the LVOT. Left ventricle with normal cavity size and wall thickness. Systolic function normal. Estimated ejection fraction in the range of 50-55% with normal wall motion. Mitral valve with mild regurgitation. Tricuspid valve with mild regurgitation. Pulmonary arteries with moderately increased systolic pressure. Cardiology consulted, appreciate recommendations * AGUSTIN scheduled, however due to patient's declining status, will hold off at this time * Severe aortic insufficiency, would require surgical replacement. Cardiothoracic surgery consulted. Cardiothoracic surgery consulted, appreciate recommendations * Currently not a surgical candidate * Surgery to be considered once pt is stable and extubated. (4) Acute embolic stroke Status: Acute Plan: Patient presented with altered mental status with septic shock found to have endocarditis. Patient currently off sedation with poor neurological exam. CT head: Old infarction with encephalomalacia in the watershed distribution of the right CORINNE and MCA. Brain MRI: Abnormal scan demonstrating evidence of multi-focal nonhemorrhagic acute infarction with the largest in the right frontoparietal region. Diffuse bilateral nature involving both anterior and posterior circulation suggest embolic source. No evidence of mass effect or cerebral edema at this point. Prognosis currently unclear as patient is intubated and sedated Permissive hypertension, however patient currently septic with severe aortic regurgitation Frequent neuro checks Please see plan as above (5) Acute renal failure (ARF) Status: Acute Plan: Patient found to have a BUN of 58 with a creatinine of 3.27 on admission likely secondary to septic shock. Per chart review, admission in 2012 showed creatinine of 0.81. Renal ultrasound: Unremarkable Strict I/Os Avoid nephrotoxic agents Urology consulted to assist with David catheter placement secondary to phimosis Nephrology consulted, appreciate recommendations * Hemodialysis as needed * Possibly has a candidate due to ATN from hypotension. * Monitor BMP (6) Anemia Status: Acute Plan: Patient found to be anemic on admission without prior history. H/H shows declining hemoglobin. Patient transfused 3 units of PRBC on 09/19. Pt with Coffee-ground gastric secretions, suggestive of possible upper GI bleed. H/H today: 7.9/23.1 4 units PRBC transfused since admission, critical care will transfer her one additional unit today,09/24/16 GI consulted, appreciate recommendations and intervention * EGD 09/21: No active bleeding, NG tube suction injury to gastric body * Discontinue Protonix drip * Protonix 40 mg IV twice a day * Adjust tube feeds as needed * Monitor H/H * Transfuse as necessary * Supportive care (7) Nutrition, metabolism, and development symptoms Status: Acute Plan: Fluids: Currently discontinued Diet: NPO as patient is intubated and sedated Electrolytes: Continue to monitor DVT Prophylaxis: Heparin 5000 units Q12hrs GI prophylaxis: Protonix twice a day Problem Qualifiers (1) Acute renal failure (ARF): Qualified Code: N17.9 - Acute renal failure, unspecified acute renal failure type Brian Guadalupe MD R1 Sep 24, 2016 12:13
--- NOTE | 2016-09-24 13:09 | HHI.HCPN ---
Reason for visit a. To assist with evaluation and management of symptoms including: Encephalopathy, dyspnea b. To assist medical decision maker(s) with: better understanding of current medical conditions; weighing benefits/burdens of medical treatment options; making medical treatment decisions. . Subjective/Interval History INTERVAL NOTE: Patient is seen in the [facility], intubated, remains off all sedation now for more than 3 days. While off sedation, he remains unresponsive. He remains on the ventilator, and does not appear dyspneic or tachypneic. His encephalopathy remains quite profound, becoming more concerning as time passes and he does not improve. Cardiothoracic surgery has indicated that the patient is not a candidate for aortic valve replacement (but perhaps could be if he becomes free of infection and off the ventilator). Fever to 101 the past couple days; sputum growing MRSA, most recent blood cultures negative. The patient's sister Sandee is now the decision-maker. . Advance Directives Living Will: Never completed Health Care Surrogate: Never completed Durable Power of Log Haul Operator: Never completed Advance Directive Specifics Health Care Surrogate(s): The patient's sister, Sandee Callahan, is the proxy decision-maker here, as the other siblings have opted out. After a diligent search, the patient's son cannot be located (by us or by any of the patient's siblings). . Objective Vital Signs Date Time Temp Pulse Resp B/P Pulse Ox O2 Delivery O2 Flow Rate FiO2 09/24/16 12:00 35 09/24/16 12:00 98.6 92 40 135/45 100 09/24/16 12:00 92 09/24/16 10:00 94 09/24/16 08:31 100 35 09/24/16 08:00 101.1 88 34 126/42 94 09/24/16 08:00 88 09/24/16 08:00 35 09/24/16 06:00 94 09/24/16 04:07 100 35 09/24/16 04:00 35 09/24/16 04:00 94 09/24/16 04:00 101.1 94 30 122/44 100 09/24/16 02:00 92 09/24/16 00:10 100 35 09/24/16 00:00 90 09/24/16 00:00 101.1 88 26 102/40 100 09/24/16 00:00 35 09/23/16 22:00 100 35 09/23/16 22:00 90 09/23/16 20:00 40 09/23/16 20:00 90 09/23/16 20:00 101.1 90 24 130/38 100 09/23/16 19:55 100 35 09/23/16 18:00 91 09/23/16 17:00 91 09/23/16 16:03 100 35 09/23/16 16:00 100.8 90 22 122/35 100 09/23/16 16:00 91 09/23/16 16:00 40 09/23/16 15:00 89 09/23/16 15:00 40 09/23/16 13:50 100 35 Intake & Output 09/24/16 09/24/16 07:00 19:00 Intake Total 920 ml Output Total 155 ml 0 ml Balance 765 ml 0 ml Intake IV Total 450 ml Tube Feeding 470 ml Output Urine Total 155 ml Gastric Drainage Total 0 ml Tube Feeding Residual Discard 0 ml # Bowel Movements 0 Physical Exam CONSTITUTIONAL/GENERAL: This is an adequately nourished patient, in no apparent distress. Unresponsive, intubated TUBES/LINES/DRAINS: vas cath right neck, central line left neck, SCD right lower leg, bandage left knee/leg, David catheter, OG tube SKIN: No jaundice; 10 cm lesion behind left knee. No wounds seen anteriorly. Cool fingers/toes. Not diaphoretic. EYES: Pupils equal and round and reactive. No scleral icterus. No injection or drainage. Fundi not examined. CARDIOVASCULAR: Regular rate and rhythm. Grade 2 systolic and grade 3 diastolic aortic murmurs. No JVD. Peripheral pulses symmetric. RESPIRATORY/CHEST: Symmetric, unlabored respirations on the ventilator. Scattered rhonchi GASTROINTESTINAL: Abdomen soft, non-tender, nondistended. No hepato-splenomegaly , or palpable masses. No guarding. Bowel sounds present. GENITOURINARY: Without palpable bladder distension. David catheter in place. MUSCULOSKELETAL: Extremities without clubbing, cyanosis, or edema. No joint tenderness or effusion noted. No mottling or clubbing. NEUROLOGICAL: Unresponsive PSYCHIATRIC: Unable to assess due to clinical condition . Diagnostic Tests Laboratory Laboratory Tests Test 09/21/16 09/21/16 09/21/16 09/21/16 13:40 15:20 15:32 15:33 Activated Partial 30.7 SEC 30.5 SEC 32.0 SEC Thromboplast Time (24.3-30.1) (24.3-30.1) (24.3-30.1) Blood Gas Puncture Site RENATE Blood Gas Patient Temperature 98.6 Blood Gas HCO3 18 mmol/L (22-26) Blood Gas Base Excess -4.9 mmol/L (-2-2) Blood Gas Oxygen Saturation 96 % (90-100) Arterial Blood pH 7.45 (7.380-7.420) Arterial Blood Partial 27 mmHg (38-42) Pressure CO2 Arterial Blood Partial 100 mmHg Pressure O2 (61-120) Arterial Blood Oxygen Content 11.4 Vol % (12.0-20.0) Arterial Blood 1.3 % (0-4) Carboxyhemoglobin Arterial Blood Methemoglobin 0.6 % (0-2) Blood Gas Hemoglobin 8.3 G/DL (12.0-16.0) Oxygen Delivery Device VENT Blood Gas Ventilator Setting [facility]/24/550/5/IT1 Blood Gas Inspired Oxygen 35 % Test 09/21/16 09/21/16 09/22/16 09/22/16 17:26 17:27 04:45 06:36 Activated Partial 30.1 SEC 30.0 SEC Thromboplast Time (24.3-30.1) (24.3-30.1) White Blood Count 13.0 TH/MM3 (4.0-11.0) Red Blood Count 2.78 MIL/MM3 (4.50-5.90) Hemoglobin 8.1 GM/DL (13.0-17.0) Hematocrit 24.5 % (39.0-51.0) Mean Corpuscular Volume 88.2 FL (80.0-100.0) Mean Corpuscular Hemoglobin 29.2 PG (27.0-34.0) Mean Corpuscular Hemoglobin 33.1 % Concent (32.0-36.0) Red Cell Distribution Width 18.4 % (11.6-17.2) Platelet Count 74 TH/MM3 (150-450) Mean Platelet Volume 10.3 FL (7.0-11.0) Sodium Level 141 MEQ/L (136-145) Potassium Level 3.5 MEQ/L (3.5-5.1) Chloride Level 103 MEQ/L (98-107) Carbon Dioxide Level 25.3 MEQ/L (21.0-32.0) Anion Gap 13 MEQ/L (5-15) Blood Urea Nitrogen 97 MG/DL (7-18) Creatinine 3.15 MG/DL (0.60-1.30) Estimat Glomerular Filtration 25 ML/MIN (>89) Rate Random Glucose 138 MG/DL (74-106) Calcium Level 7.0 MG/DL (8.5-10.1) Protein Corrected Calcium 8.0 MG/DL (8.5-10.1) Phosphorus Level 4.7 MG/DL (2.5-4.9) Magnesium Level 2.4 MG/DL (1.5-2.5) Total Protein 5.2 GM/DL (6.4-8.2) Triglycerides Level 375 MG/DL (42-150) Cholesterol Level 115 MG/DL (120-200) LDL Cholesterol 30 MG/DL (0-99) HDL Cholesterol 9.7 MG/DL (40.0-60.0) Cholesterol/HDL Ratio 11.85 RATIO Random Vancomycin Level 16.3 COMMENT Blood Gas Puncture Site ART LINE Blood Gas Patient Temperature 98.6 Blood Gas HCO3 24 mmol/L (22-26) Blood Gas Base Excess 0.9 mmol/L (-2-2) Blood Gas Oxygen Saturation 97 % (90-100) Arterial Blood pH 7.50 (7.380-7.420) Arterial Blood Partial 31 mmHg (38-42) Pressure CO2 Arterial Blood Partial 179 mmHg Pressure O2 (61-120) Arterial Blood Oxygen Content 11.4 Vol % (12.0-20.0) Arterial Blood 1.4 % (0-4) Carboxyhemoglobin Arterial Blood Methemoglobin 1.0 % (0-2) Blood Gas Hemoglobin 8.0 G/DL (12.0-16.0) Oxygen Delivery Device VENTILATOR Blood Gas Ventilator Setting SEE COMMENTS Blood Gas Inspired Oxygen 35 % Test 09/22/16 09/23/16 09/23/16 09/23/16 06:37 05:45 07:50 08:36 Lactic Acid Level 2.7 mmol/L (0.4-2.0) White Blood Count 18.7 TH/MM3 (4.0-11.0) Red Blood Count 2.40 MIL/MM3 (4.50-5.90) Hemoglobin 7.2 GM/DL (13.0-17.0) Hematocrit 21.4 % (39.0-51.0) Mean Corpuscular Volume 89.1 FL (80.0-100.0) Mean Corpuscular Hemoglobin 30.0 PG (27.0-34.0) Mean Corpuscular Hemoglobin 33.6 % Concent (32.0-36.0) Red Cell Distribution Width 18.4 % (11.6-17.2) Platelet Count 83 TH/MM3 (150-450) Mean Platelet Volume 10.7 FL (7.0-11.0) Sodium Level 142 MEQ/L (136-145) Potassium Level 3.5 MEQ/L (3.5-5.1) Chloride Level 102 MEQ/L (98-107) Carbon Dioxide Level 26.1 MEQ/L (21.0-32.0) Anion Gap 14 MEQ/L (5-15) Blood Urea Nitrogen 95 MG/DL (7-18) Creatinine 4.48 MG/DL (0.60-1.30) Estimat Glomerular Filtration 17 ML/MIN (>89) Rate Random Glucose 147 MG/DL (74-106) Calcium Level 8.0 MG/DL (8.5-10.1) Phosphorus Level 4.5 MG/DL (2.5-4.9) Magnesium Level 2.6 MG/DL (1.5-2.5) Total Bilirubin 7.2 MG/DL (0.2-1.0) Direct Bilirubin 5.3 MG/DL (0.0-0.2) Indirect Bilirubin 1.9 MG/DL (0.0-0.8) Aspartate Amino Transf 804 U/L (15-37) (AST/SGOT) Alanine Aminotransferase 743 U/L (12-78) (ALT/SGPT) Alkaline Phosphatase 71 U/L (45-117) Total Protein 5.8 GM/DL (6.4-8.2) Albumin 2.1 GM/DL (3.4-5.0) Random Vancomycin Level 20.1 COMMENT Blood Type O POSITIVE Antibody Screen NEGATIVE Crossmatch Leukocyte-Reduced Red Blood Cells Blood Bank Comment Ammonia 35 MCMOL/L (11-32) Test 09/23/16 09/24/16 09/24/16 14:12 04:30 07:04 Hepatitis A IgM Antibody NEGATIVE (NEGATIVE) Hepatitis B Surface Antigen NEGATIVE (NEGATIVE) Hepatitis B Core IgM Antibody NEGATIVE (NEGATIVE) Hepatitis C Antibody NEGATIVE (NEGATIVE) White Blood Count 15.0 TH/MM3 (4.0-11.0) Red Blood Count 2.56 MIL/MM3 (4.50-5.90) Hemoglobin 7.9 GM/DL (13.0-17.0) Hematocrit 23.1 % (39.0-51.0) Mean Corpuscular Volume 90.2 FL (80.0-100.0) Mean Corpuscular Hemoglobin 30.8 PG (27.0-34.0) Mean Corpuscular Hemoglobin 34.1 % Concent (32.0-36.0) Red Cell Distribution Width 18.3 % (11.6-17.2) Platelet Count 75 TH/MM3 (150-450) Mean Platelet Volume 10.6 FL (7.0-11.0) Sodium Level 142 MEQ/L (136-145) Potassium Level 3.9 MEQ/L (3.5-5.1) Chloride Level 103 MEQ/L (98-107) Carbon Dioxide Level 25.1 MEQ/L (21.0-32.0) Anion Gap 14 MEQ/L (5-15) Blood Urea Nitrogen 102 MG/DL (7-18) Creatinine 5.40 MG/DL (0.60-1.30) Estimat Glomerular Filtration 13 ML/MIN (>89) Rate Random Glucose 163 MG/DL (74-106) Calcium Level 8.3 MG/DL (8.5-10.1) Total Bilirubin 10.4 MG/DL (0.2-1.0) Direct Bilirubin 8.6 MG/DL (0.0-0.2) Indirect Bilirubin 1.8 MG/DL (0.0-0.8) Aspartate Amino Transf 307 U/L (15-37) (AST/SGOT) Alanine Aminotransferase 522 U/L (12-78) (ALT/SGPT) Alkaline Phosphatase 93 U/L (45-117) Total Protein 5.8 GM/DL (6.4-8.2) Albumin 2.0 GM/DL (3.4-5.0) Blood Type O POSITIVE Crossmatch Leukocyte-Reduced Red Blood Cells Blood Bank Comment Result Diagram: 09/24/16 0430 09/24/16 043 Microbiology Microbiology Date/Time Procedure Status Source Growth 09/21/16 13:40 Aerobic Blood Culture Received Blood Peripheral Pending 09/21/16 13:40 Anaerobic Blood Culture Received Blood Peripheral Pending 09/22/16 17:42 Gram Stain - Final Complete Sputum Endotracheal 09/22/16 17:42 Sputum Culture - Final Complete S. Aureus [facility] Imaging Last Impressions Chest X-Ray 09/24/16 0000 Signed Impressions: Service Date/Time: Saturday, September 24, 2016 05:13 - CONCLUSION: Unchanged left lower lobe infiltrate. Froilan Ba Jr., MD Brain MRI 09/21/16 0000 Signed Impressions: Service Date/Time: Wednesday, September 21, 2016 08:47 - CONCLUSION: Abnormal scan demonstrating evidence of multifocal nonhemorrhagic acute infarction, the largest is in the right frontoparietal region. The diffuse bilateral nature involving both anterior and posterior circulation suggests embolic source. No evidence of mass effect or cerebral edema at this point. Froilan James MD Tibia/Fibula X-Ray 09/19/16 0000 Signed Impressions: Service Date/Time: Monday, September 19, 2016 07:43 - CONCLUSION: Chronic changes and no evidence for acute fracture. Claudio Barroso MD Renal Ultrasound 09/19/16 0000 Signed Impressions: Service Date/Time: Monday, September 19, 2016 10:40 - CONCLUSION: Unremarkable renal ultrasound. Claudio Barroso MD Lower Extremity MRI 09/19/16 0000 Signed Impressions: Service Date/Time: Monday, September 19, 2016 10:15 - CONCLUSION: Large mass most likely originating from the patient's skin with infiltration of subcutaneous fat and no definite involvement of the muscular structures or marrow. A malignant mass should be entertained and clinical correlation is needed. Claudio Barroso MD Knee X-Ray 09/19/16 0000 Signed Impressions: Service Date/Time: Monday, September 19, 2016 07:43 - CONCLUSION: Osteoarthritis. 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 Claudio Barroso MD Procedures * Coude catheter placement by urologist 09/19/16 * INTUBATION 09/19/16 * Left IJ line 09/19/16 * CRRT 09/20/16 * HD 09/22/16 . 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 Legal: The patient lacks capacity for decision-making and it seems unlikely that he will regain that capacity. His sister, Sandee Callahan, is the decision- maker proxy, as the other siblings have opted out and the patient's son cannot be found after diligent search. Ethical issues impacting care: None. . Important Contacts Patient's sister: Sandee Callahan <--- designated by her siblings as the primary point of contact and decision-maker Other siblings: Wang Burnham [phone] Mary Lou Burnham [phone] - discussed by phone 09/23/16 at 1205 hrs; she agrees with the designation of Sandee as primary decision maker. Randell Soto [phone] - discussed by phone 09/23/16 at 1145 hrs; she agrees with designation of Sandee as primary decision maker. . Prognosis This patient is critically ill, with multisystem organ failure, and overall his prognosis is guarded; now that he is apparently unresponsive even off of sedation, the prognosis is even more poor. . Code Status: Full Code Plan * FULL CODE * DECISION-MAKING: The patient lacks capacity for decision-making and it seems unlikely that he will regain that capacity. His sister, Sandee Callahan, has been functioning as his proxy decision-maker during this hospitalization. The patient is not , and his parents are . His estranged son, Kevin Burnham, cannot be located by Case Management's diligent search or by any of the patient's 4 siblings. The patient's other siblings have opted out and defer decision making to sister Sandee. * SYMPTOMS: His dyspnea is being managed by mechanical ventilation and appropriate sedation. His encephalopathy is profound and is being watched closely. He has no obvious pain. No specific new medication orders are offered at this time. * GOALS: The patient's sister Sandee requests that we continue aggressive care for now, noting that the patient is "young and strong." Sandee and the family are aware of my increasing concern about his markedly diminished neurologic status, i.e., the post-stroke versus severe sepsis encephalopathy, and we briefly discussed decisions that they would face in the upcoming days/weeks if there are no signs of improvement (decisions including revisiting the CODE STATUS and possibly entertaining the idea of withdrawal of life support if additional embolic strokes occur and/or the encephalopathy does not improve). * Palliative Care will continue to follow the patient during this hospitalization. . Time Spent Total Floor Time (mins): 28 Face to Face Time (mins): 9 >50% Counseling/Coord of Care: Yes Attestation To help prompt me to consider important information that might be impacting today's encounter and assessment, information from prior notes written by myself or my colleagues may have been "brought forward" into today's note. My signature on this note, however, is an attestation that I personally performed the exam, history, and/or decision-making noted today, and, unless otherwise indicated, the interactions with patient, family, and staff as well as the review of records all occurred today. I also attest that the listed assessment and stated plan reflect my best clinical judgment today based on the combination of historical information, prior notes, and today's exam/ interactions. When time spent is documented, it refers only to time spent today by the signer, or if indicated, combined time spent today by collaborating physician/nurse practitioner. Shante Monaco MD Sep 24, 2016 13:09
--- NOTE | 2016-09-24 14:19 | HHI.IDPN ---
Subjective Subjective Remarks Notes reviewed Temps 101 this morning To get HD again today On the vent No change in neuro status Wound C/S MRSA and Strep BC with Strep - B-hemolytic Strep Group G Repeat BC negative so far Biopsy pending Antibiotics VAnco Rocephin Lines Vascath TLC Past Medical History Possible schizophrenia, depression Hypertension Chronic wound left leg Allergies: Coded Allergies: *MDRO Multi-Drug Resistant Organism (Verified Adverse Reaction, Unknown, ) MRSA (leg wound) - 09/19/16; (sputum) - 09/22/16 Uncoded Allergies: NKDA (Allergy, Severe, 11/03/11) Objective . Vital Signs Date Time Temp Pulse Resp B/P Pulse Ox O2 Delivery O2 Flow Rate FiO2 09/24/16 14:00 90 09/24/16 12:00 35 09/24/16 12:00 98.6 92 40 135/45 100 09/24/16 12:00 92 09/24/16 10:00 94 09/24/16 08:31 100 35 09/24/16 08:00 101.1 88 34 126/42 94 09/24/16 08:00 88 09/24/16 08:00 35 09/24/16 06:00 94 09/24/16 04:07 100 35 09/24/16 04:00 35 09/24/16 04:00 94 09/24/16 04:00 101.1 94 30 122/44 100 09/24/16 02:00 92 09/24/16 00:10 100 35 09/24/16 00:00 90 09/24/16 00:00 101.1 88 26 102/40 100 09/24/16 00:00 35 09/23/16 22:00 100 35 09/23/16 22:00 90 09/23/16 20:00 40 09/23/16 20:00 90 09/23/16 20:00 101.1 90 24 130/38 100 09/23/16 19:55 100 35 09/23/16 18:00 91 09/23/16 17:00 91 09/23/16 16:03 100 35 09/23/16 16:00 100.8 90 22 122/35 100 09/23/16 16:00 91 09/23/16 16:00 40 09/23/16 15:00 89 09/23/16 15:00 40 09/23/16 09/23/16 09/24/16 15:00 23:00 07:00 Intake Total 390 ml 450 ml 470 ml Output Total 4625 ml 5 ml 150 ml Balance -4235 ml 445 ml 320 ml Intake IV Total 140 ml 300 ml 150 ml Tube Feeding 150 ml 320 ml Packed Cells 250 ml Output Urine Total 125 ml 5 ml 150 ml Gastric Drainage Total 0 ml 0 ml 0 ml Tube Feeding Residual Discard 0 ml Hemodialysis 4500 ml # Bowel Movements 0 0 0 . Laboratory Tests Test 09/23/16 09/24/16 05:45 04:30 White Blood Count 18.7 TH/MM3 15.0 TH/MM3 Red Blood Count 2.40 MIL/MM3 2.56 MIL/MM3 Hemoglobin 7.2 GM/DL 7.9 GM/DL Hematocrit 21.4 % 23.1 % Mean Corpuscular Volume 89.1 FL 90.2 FL Mean Corpuscular Hemoglobin 30.0 PG 30.8 PG Mean Corpuscular Hemoglobin 33.6 % 34.1 % Concent Red Cell Distribution Width 18.4 % 18.3 % Platelet Count 83 TH/MM3 75 TH/MM3 Mean Platelet Volume 10.7 FL 10.6 FL Laboratory Tests Test 09/23/16 09/23/16 09/24/16 05:45 08:36 04:30 Sodium Level 142 MEQ/L 142 MEQ/L Potassium Level 3.5 MEQ/L 3.9 MEQ/L Chloride Level 102 MEQ/L 103 MEQ/L Carbon Dioxide Level 26.1 MEQ/L 25.1 MEQ/L Anion Gap 14 MEQ/L 14 MEQ/L Blood Urea Nitrogen 95 MG/DL 102 MG/DL Creatinine 4.48 MG/DL 5.40 MG/DL Estimat Glomerular Filtration 17 ML/MIN 13 ML/MIN Rate Random Glucose 147 MG/DL 163 MG/DL Calcium Level 8.0 MG/DL 8.3 MG/DL Phosphorus Level 4.5 MG/DL Magnesium Level 2.6 MG/DL Total Bilirubin 7.2 MG/DL 10.4 MG/DL Direct Bilirubin 5.3 MG/DL 8.6 MG/DL Indirect Bilirubin 1.9 MG/DL 1.8 MG/DL Aspartate Amino Transf 804 U/L 307 U/L (AST/SGOT) Alanine Aminotransferase 743 U/L 522 U/L (ALT/SGPT) Alkaline Phosphatase 71 U/L 93 U/L Total Protein 5.8 GM/DL 5.8 GM/DL Albumin 2.1 GM/DL 2.0 GM/DL Ammonia 35 MCMOL/L Microbiology Date/Time Procedure Status Source Growth 09/22/16 17:42 Gram Stain - Final Complete Sputum Endotracheal 09/22/16 17:42 Sputum Culture - Final Complete S. Aureus [facility]sa Imaging Last Impressions Chest X-Ray 09/20/16 0600 Signed Impressions: Service Date/Time: Tuesday, September 20, 2016 05:22 - CONCLUSION: 1. The NG tube tip is in the distal esophagus. Recommend advancing the NG tube 10 cm. 2. Mild left lower lung atelectasis. Jason Albert MD Tibia/Fibula X-Ray 09/19/16 0000 Signed Impressions: Service Date/Time: Monday, September 19, 2016 07:43 - CONCLUSION: Chronic changes and no evidence for acute fracture. Claudio Barroso MD Renal Ultrasound 09/19/16 0000 Signed Impressions: Service Date/Time: Monday, September 19, 2016 10:40 - CONCLUSION: Unremarkable renal ultrasound. Claudio Barroso MD Lower Extremity MRI 09/19/16 0000 Signed Impressions: Service Date/Time: Monday, September 19, 2016 10:15 - CONCLUSION: Large mass most likely originating from the patient's skin with infiltration of subcutaneous fat and no definite involvement of the muscular structures or marrow. A malignant mass should be entertained and clinical correlation is needed. Claudio Barroso MD Knee X-Ray 09/19/16 0000 Signed Impressions: Service Date/Time: Monday, September 19, 2016 07:43 - CONCLUSION: Osteoarthritis. 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 Claudio Barroso MD Physical Exam GENERAL: sedated and intubated, not in respiratory distress. SKIN: Cool and dry, no generalized rash, no ecchymosis, no embolic lesions noted. No mottling. HEAD: Atraumatic. Normocephalic. No temporal or scalp tenderness. EYES: Pale conjunctivae, no petechia or hemorrhage. No scleral icterus. No injection or drainage. ENT: Nose without bleeding, or purulent drainage. Endotracheal tube is in the mouth, he has moist oral mucosa. NECK: Trachea midline. No JVD or lymphadenopathy. Supple, no meningeal signs. CARDIOVASCULAR: Regular rate and rhythm, no rub, with murmur heard at the base of the heart. RESPIRATORY: Equal breath sounds bilaterally. Decreased at the bases. No wheezes, rales, or rhonchi. GASTROINTESTINAL: Abdomen soft, slightly globular, nondistended, no reaction to palpation. Bowel sounds are present and normoactive. No hepato-splenomegaly , or palpable masses. MUSCULOSKELETAL: Extremities without clubbing, cyanosis, or mottling. Feet are cool to touch. His LLE seems a little larger compared to his RLE. Has some mild pedal edema. Dry dressing L leg wound. No joint effusion. NEUROLOGICAL: Sedated on the vent PSYCH: Unable to assess : David in place, urine looks clear LINE: LIJ with no evidence of infection Assessment & Plan Remarks IMPRESSION Sepsis on presentation, with MOSF, shock - has Strep Group G in his BC - has mobile vegetation in his AV and has AI - no hx IVDU - prob source is his large open wound L leg which has been present for a year - no mention of previous dental problem, unable to get good exam of his oropharynx - off pressors MRSA PNA Fevers Respiratory failure Renal failure Septic emboli to brain, multiple Has anemia and leukocytosis UTI Fungating ulcer/mass leg, C/S MRSA and Strep RECOMMENDATION Use IV Zyvox for MRSA in sputum - follow CBC Continue IV Rocephin Follow C/S Monitor progress Wound care Follow path report Follow temps US liver to evaluate abnormal LFT, ?hemolysis Rosi Fonseca MD Sep 24, 2016 14:19
[2016-09-24] MEDS: LINEZOLID 600 MG PREMIX 300 ML IV SCH (14:53)
[2016-09-24] MEDS: GENTAMICIN SULFATE (DIALYSIS USE ONLY) 20 MG/2 ML VIAL IV PRN (16:00)
[2016-09-24] MEDS: HEPARIN SODIUM - IV 10,000 UNITS/10 ML VIAL PRN (16:00)
[2016-09-24] MEDS ORDERED: VANCOMYCIN 1,000 MG/NS 250 ML IV ONE ×2 (18:00)
--- NOTE | 2016-09-24 19:01 | HHI.NPPN ---
Subjective History of Present Illness 56-year-old male with a past medical history of hypertension, history of schizophrenia and depression, was brought to the hospital because of altered mental status. I was called to see the patient because of elevated BUN and creatinine. The patient was found to have a creatinine of 3.2 on admission. Previously in 2012 his creatinine was normal. Additional Remarks Patient remain on the vent. and sedated, seen after HD. Review of Systems General General Remarks Cannot take, intubated. Objective Data Data 09/23/16 09/24/16 19:00 07:00 Intake Total 390 ml 920 ml Output Total 4625 ml 155 ml Balance -4235 ml 765 ml Intake IV Total 140 ml 450 ml Tube Feeding 470 ml Packed Cells 250 ml Output Urine Total 125 ml 155 ml Gastric Drainage Total 0 ml 0 ml Tube Feeding Residual Discard 0 ml Hemodialysis 4500 ml # Bowel Movements 0 0 Vital Signs Date Time Temp Pulse Resp B/P Pulse Ox O2 Delivery O2 Flow Rate FiO2 09/24/16 18:00 92 09/24/16 16:42 100 35 09/24/16 16:00 35 09/24/16 16:00 97.7 90 40 129/44 100 09/24/16 16:00 90 09/24/16 14:00 90 09/24/16 12:00 35 09/24/16 12:00 98.6 92 40 135/45 100 09/24/16 12:00 92 09/24/16 10:00 94 09/24/16 08:31 100 35 09/24/16 08:00 101.1 88 34 126/42 94 09/24/16 08:00 88 09/24/16 08:00 35 09/24/16 06:00 94 09/24/16 04:07 100 35 09/24/16 04:00 35 09/24/16 04:00 94 09/24/16 04:00 101.1 94 30 122/44 100 09/24/16 02:00 92 09/24/16 00:10 100 35 09/24/16 00:00 90 09/24/16 00:00 101.1 88 26 102/40 100 09/24/16 00:00 35 09/23/16 22:00 100 35 09/23/16 22:00 90 09/23/16 20:00 40 09/23/16 20:00 90 09/23/16 20:00 101.1 90 24 130/38 100 09/23/16 19:55 100 35 -: 09/24/16 0430 09/24/16 043 Physical Exam General Appearance Remarks Intubated and sedated. Eyes Eye Exam: Pupils Equal Neck Neck Exam: Neck Supple Pulmonary Resp Exam: Crackles, Rhonchi, Decreased Bases, Diminished Breath Sounds, Poor Inspiratory Effort Gastrointestinal/Abdomen GI Exam: Soft, Non-Tender, Bowel Sounds Present, Distended Extremeties Extremities Exam: Moderate Edema, Pitting Edema, Dependent Edema Neurologic Neuro Exam: Sedated Assessment/Plan Assessment Summary: RACHAEL/Acute Renal Failure Problem List: (1) Cellulitis (2) Mass of left lower extremity (3) Septic shock (4) Anemia (5) ARF (acute renal failure) Plan Patient has low urine out put. BP is now better and off pressors. Started on HD, and tolerated well. 3.8 liters removed. Urine out put is still low. Possibly has RACHAEL due to ATN from Hypotension. Follow urine out put and BMP. HD as needed. Problem Qualifiers (1) Cellulitis: Qualified Code: L03.116 - Cellulitis of left lower extremity Manoj Liu MD Sep 24, 2016 19:01
--- NOTE | 2016-09-24 21:52 | RADRPT ---
EXAM DATE/TIME: 09/24/2016 21:43 [facility] COMPARISON: CT BRAIN W/O CONTRAST, September 19, 2016, 11:32. INDICATIONS : Encephalopathy. Previous embolic stroke. Altered mental status. RADIATION DOSE: 54.69 CTDIvol (mGy) MEDICAL HISTORY : Hypertension. Stroke SURGICAL HISTORY : None. ENCOUNTER: Subsequent ACUITY: 3 days PAIN SCALE: Non-responsive LOCATION: cranial TECHNIQUE: Multiple contiguous axial images were obtained of the head. Using automated exposure control and adj ustment of the mA and/or kV according to patient size, radiation dose was kept as low as reasonably a chievable to obtain optimal diagnostic quality images. FINDINGS: CEREBRUM: Evolving infarct right frontal lobe. The ventricles are normal for age. No evidence of midline shift , mass lesion or hemorrhage. No extra-axial fluid collections are seen. POSTERIOR FOSSA: The cerebellum and brainstem are intact. The 4th ventricle is midline. The cerebellopontine angle i s unremarkable. EXTRACRANIAL: The visualized portion of the orbits is intact. SKULL: The calvaria is intact. No evidence of skull fracture. CONCLUSION: 1. Evolving right frontal infarct. 2. No midline shift or mass effect. Fitz Carrasco MD on September 24, 2016 at 21:47 Board Certified Radiologist. This report was verified electronically.
--- NOTE | 2016-09-24 23:06 | RADRPT ---
EXAM DATE/TIME: 09/24/2016 22:17 [facility] COMPARISON: No previous studies available for comparison. INDICATIONS : Increased labs. MEDICAL HISTORY : Hypertension. Back pain. Schizophrenia. Depression. Anxiety. SURGICAL HISTORY : None. ENCOUNTER: Initial ACUITY: 1 day PAIN SCORE: Nonresponsive. LOCATION: Right Abdomen. MEASUREMENTS: LIVER: 18.8 cm length COMMON DUCT: 10 mm RIGHT KIDNEY: 13.6 x 7.1 x 6.4 cm SPLEEN: 10.6 cm length FINDINGS: LIVER: Normal echotexture without focal lesion or ductal dilatation. Hepatopedal flow within the portal vein . COMMON DUCT: No intraluminal mass or stone visualized. GALLBLADDER: Multiple small calcified gallstones are seen layering within the gallbladder. Gallbladder wall is at the upper limits of normal in terms of thickness. No pericholecystic fluid. PANCREAS: The visualized portions are within normal limits. RIGHT KIDNEY: No hydronephrosis, stone or mass. SPLEEN: No focal lesion. CONCLUSION: 1. Cholelithiasis. The gallbladder wall is at the upper limits of normal in terms of thickness. I see no pericholecystic fluid. If there is concern for acute cholecystitis consider HIDA scan. 2. Common bile duct is dilated measuring 10 mm. No discernible stone observed. Froilan Ba Jr., MD on September 24, 2016 at 23:03 Board Certified Radiologist. This report was verified electronically.
[2016-09-25] VITALS (16 sets, daily range): BP systolic 107–146; BP diastolic 40–92; PULSE 84–91; RESP 27–37; TEMP 98–99.4; O2SAT 94–100
[2016-09-25] MEDS: INSULIN ASPART SUPPLEMENTAL SCALE SQ SCH ×5 (01:00→17:26)
[2016-09-25] MEDS: LINEZOLID 600 MG PREMIX 300 ML IV SCH ×2 (03:10→15:59)
[2016-09-25] MEDS: RESP: ALBUTEROL 2.5 MG/IPRATROPIUM 0.5 MG NEB (SCH) INH ×3 (03:12→21:55)
[2016-09-25] MEDS: CHLORHEXIDINE GLUCONATE 2 % 1 PACK (2 CLOTHS) TOP SCH (04:00)
[2016-09-25] MEDS: HEPARIN SODIUM - SQ 10,000 UNITS/ML VIAL SQ SCH ×2 (05:24→17:26)
[2016-09-25 06:08] LABS: HEMATOCRIT 25.1 % (39.0-51.0); MEAN CELL VOLUME 91.7 FL (80.0-100.0); MEAN CORPUSCULAR HEMOGLOBIN 30.2 PG (27.0-34.0); PLATELET COUNT 74 TH/MM3 (150-450); RED BLOOD COUNT 2.74 MIL/MM3 (4.50-5.90); RED CELL DISTRIBUTION WIDTH 17.8 % (11.6-17.2); WHITE BLOOD COUNT 16.3 TH/MM3 (4.0-11.0)
[2016-09-25 06:09] LABS: REVIEW FLAG FINAL
[2016-09-25 06:55] LABS: BICARBONATE 22.2 MEQ/L (21.0-32.0); POTASSIUM 4.4 MEQ/L (3.5-5.1)
[2016-09-25 06:59] LABS: TOTAL BILIRUBIN ADULT 5.9 MG/DL (0.2-1.0)
[2016-09-25] MEDS: CHLORHEXIDINE 0.12% (ORAL KIT) 15 ML CUP MT SCH ×2 (08:07→20:09)
--- NOTE | 2016-09-25 09:02 | HHI.FPPN ---
Subjective Remarks Patient seen and examined this morning. No acute events overnight. Patient remains intubated without sedation. Neuro status has improved as patient is able to follow brief commands and move his R extremities. For myself he is unable to move his L extremities, however nursing staff reports that he was able to move his LLE on her exam while the LUE remains flaccid. Objective Vitals Vital Signs Date Time Temp Pulse Resp B/P Pulse Ox O2 Delivery O2 Flow Rate FiO2 09/25/16 08:00 98.5 91 33 119/55 100 09/25/16 06:00 90 09/25/16 04:00 98.9 88 37 146/92 100 09/25/16 04:00 35 09/25/16 04:00 90 09/25/16 03:15 100 35 09/25/16 02:00 88 09/25/16 00:00 99.4 90 36 136/40 100 09/25/16 00:00 35 09/25/16 00:00 90 09/24/16 22:00 88 09/24/16 21:40 100 100 09/24/16 20:00 35 09/24/16 20:00 99.4 89 27 124/36 100 09/24/16 20:00 100 35 09/24/16 20:00 88 09/24/16 18:00 92 09/24/16 16:42 100 35 09/24/16 16:00 35 09/24/16 16:00 97.7 90 40 129/44 100 09/24/16 16:00 90 09/24/16 14:00 90 09/24/16 12:00 35 09/24/16 12:00 98.6 92 40 135/45 100 09/24/16 12:00 92 09/24/16 10:00 94 I/O 09/24/16 09/24/16 09/24/16 09/25/16 09/25/16 09/25/16 07:00 15:00 23:00 07:00 15:00 23:00 Intake Total 470 ml 118 ml 800 ml 555 ml Output Total 150 ml 25 ml 2750 ml 25 ml 0 ml Balance 320 ml 93 ml -1950 ml 530 ml 0 ml Intake IV Total 150 ml 118 ml 550 ml 330 ml Tube Feeding 320 ml 225 ml Packed Cells 250 ml Output Urine Total 150 ml 25 ml 0 ml 25 ml Gastric Drainage Total 0 ml Tube Feeding Residual Discard 0 ml 0 ml Hemodialysis 2750 ml # Bowel Movements 0 0 0 0 Result Diagram: 09/25/16 0500 09/25/16 0500 Objective Remarks GENERAL: 66-year-old Kath[place] male lying in bed intubated. SKIN: Warm and dry. No rash. CARDIOVASCULAR: Regular rate and rhythm with 3/6 diastolic murmur more pronounced at the right sternal border. RESPIRATORY: Equal diffuse coarse breath sounds. Currently breathing via ventilator without sedation. GASTROINTESTINAL: Abdomen soft, nondistended with +BS. No masses appreciated. MUSCULOSKELETAL: Extremities without cyanosis. 1+ edema of left lower extremity. LLE on admission: 8.5 X 10.5CM circular, fungating, ulcerative lesion on the posterior aspect of the L knee. No hemorrhage or necrosis appreciated. Lesion is foul smelling and appears to involve skin and subcutaneous tissue; does not appear to involve the muscle or bone. 2+ edema from the ankle to the knee. LLE currently: Currently lesion bandaged with sterile gauze, CDI. NEUROLOGICAL: Patient intubated and off sedation. Patient able to move R lower and upper extremities on command, but his L upper and lower extremities remain flaccid. Patient is able to open his eyes to verbal and tactile sensation. PERRL with mild strabismus. Date of Insertion: Sep 19, 2016 Line: Central Venous Catheter Side: Left Location: Jugular A/P Assessment and Plan Mr. Burnham is a 56 y/o AAM with a PMHx of HTN presenting with AMS and a LLE wound found to be in septic shock, with endocarditis admitted for medical therapy. Discharge Planning Pending clinical improvement. Unclear timeframe at this time. WDW: Dr. Helm, Dr. Mackay Problem List: (1) Septic shock Status: Acute Plan: On admission patient presented with altered mental status left lower extremity lesion. Patient found to be tachycardic to 100 bpm with a white blood cell count of 18.6. Likely source of infection is his left lower extremity lesion. Found to have a lactic acid of 4.5 not responsive to fluid resuscitation. Patient placed on sepsis protocol and transferred to the [facility] for further monitoring. Patient found to have endocarditis with mobile aortic valve vegetation. Blood cultures 2 09/19: Beta hemolytic streptococcus, beta Streptococcus group G; both pansensitive UC: Pending Wound culture x2: MRSA, sensitive to vancomycin Blood culture 09/20: Negative to date Blood culture 09/21: Negative to date Sputum culture 09/22: MRSA, sensitive to vancomycin Intensive care consulted, appreciate recommendations Infectious disease consulted, appreciate recommendations * Continue Vancomycin and Zosyn * MRI of brain from 09/21 significant for multifocal nonhemorrhagic acute infarction, the largest in the right frontoparietal region. Diffuse bilateral nature involving both anterior and posterior circulation suggests embolic source. No evidence of mass effect or cerebral edema at this point. * Biopsy of LLE lesion sent for pathology * Repeat BC with no growth to date * Chest x-ray 09/24: Unchanged left lower lobe infiltrate * Hepatic US: Cholelithiasis. Gallbladder wall is at the upper limits of normal in terms of thickness. No pericholecystic fluid.Consider HIDA scan. Common bile duct is dilated measuring 10mm. No discernible stone. Medications: Vancomycin 1 g twice a day (09/19-09/24); discontinued due to poor renal function Linezolid 600mg B ID (09/24- ) Zosyn 2.25 g every 6 hours (09/19- ) Hydrocortisone (09/20-09/22) Fentanyl, propofol, Versed discontinued (2) Skin ulcer of left lower leg, limited to breakdown of skin Status: Acute Plan: Patient with circular, fungating, ulcerative lesion on the posterior aspect of the L knee with edema of the lower extremity. Patient denies any pain currently. Lower extremity neurovascularly intact with appropriate capillary refill. Knee x-ray: Chronic changes with no evidence of acute fracture Tubularfibula x-ray: Chronic changes and no evidence of acute fractures. Lower extremity MRI: Large mass most likely originating from the patient's skin with infiltration of subcutaneous fat and no definite involvement of the muscular structures her marrow. A malignant mass should be entertained and clinical correlation is needed. Punch biopsy 09/20: Pending Gen. surgery consulted for possible excision biopsy, appreciate recommendations * No further interventions until pt is extubated and clinically improved -Please see plan as above (3) Endocarditis of aortic valve Status: Acute Plan: On admission patient with elevated CPK to 7480 and troponin to 12.4. Echocardiogram performed and found to have mobile vegetation of the aortic valve. Blood cultures with gram-positive cocci in all 4 vials. TTE 09/20: Aortic valve with mobile vegetation on the left ventricular aspect. Severe aortic regurgitation directed eccentrically in the LVOT. Left ventricle with normal cavity size and wall thickness. Systolic function normal. Estimated ejection fraction in the range of 50-55% with normal wall motion. Mitral valve with mild regurgitation. Tricuspid valve with mild regurgitation. Pulmonary arteries with moderately increased systolic pressure. Cardiology consulted, appreciate recommendations * AGUSTIN scheduled, however due to patient's declining status, will hold off at this time * Severe aortic insufficiency, would require surgical replacement. Cardiothoracic surgery consulted. Cardiothoracic surgery consulted, appreciate recommendations * Currently not a surgical candidate * Surgery to be considered once pt is stable and extubated. (4) Acute embolic stroke Status: Acute Plan: Patient presented with altered mental status with septic shock found to have endocarditis. Patient currently off sedation with poor neurological exam. CT head: Old infarction with encephalomalacia in the watershed distribution of the right CORINNE and MCA. Brain MRI: Abnormal scan demonstrating evidence of multi-focal nonhemorrhagic acute infarction with the largest in the right frontoparietal region. Diffuse bilateral nature involving both anterior and posterior circulation suggest embolic source. No evidence of mass effect or cerebral edema at this point. Prognosis currently unclear as patient is intubated and sedated Permissive hypertension, however patient currently septic with severe aortic regurgitation Frequent neuro checks Please see plan as above (5) Acute renal failure (ARF) Status: Acute Plan: Patient found to have a BUN of 58 with a creatinine of 3.27 on admission likely secondary to septic shock. Per chart review, admission in 2013 showed creatinine of 0.81. Renal ultrasound: Unremarkable Strict I/Os Avoid nephrotoxic agents Urology consulted to assist with David catheter placement secondary to phimosis Nephrology consulted, appreciate recommendations * Hemodialysis as needed * Possibly has a candidate due to ATN from hypotension. * Monitor BMP (6) Anemia Status: Acute Plan: Patient found to be anemic on admission without prior history. H/H shows declining hemoglobin. Patient transfused 3 units of PRBC on 09/19. Pt with Coffee-ground gastric secretions, suggestive of possible upper GI bleed. H/H today: 7.9/23.1 4 units PRBC transfused since admission, critical care will transfer her one additional unit today,09/24/16 GI consulted, appreciate recommendations and intervention * EGD 09/21: No active bleeding, NG tube suction injury to gastric body * Discontinue Protonix drip * Protonix 40 mg IV twice a day * Adjust tube feeds as needed * Monitor H/H * Transfuse as necessary * Supportive care (7) Nutrition, metabolism, and development symptoms Status: Acute Plan: Fluids: Currently discontinued Diet: NPO as patient is intubated and sedated Electrolytes: Continue to monitor DVT Prophylaxis: Heparin 5000 units Q12hrs GI prophylaxis: Protonix twice a day Problem Qualifiers (1) Acute renal failure (ARF): Qualified Code: N17.9 - Acute renal failure, unspecified acute renal failure type Brian Guadalupe MD R1 Sep 25, 2016 09:02
[2016-09-25] MEDS: SODIUM CHLORIDE 0.9% FLUSH 10 ML FLUSH IV FLUSH SCH ×2 (09:28→21:11)
[2016-09-25] MEDS: DOCUSATE SODIUM 100 MG CAP PO SCH ×2 (09:28→21:11)
[2016-09-25] MEDS: PANTOPRAZOLE SODIUM 40 MG VIAL IV PUSH SCH ×2 (09:28→21:11)
[2016-09-25] MEDS: ALBUMIN HUMAN 25% 25 GM/100 ML BAGP IV PRN (10:36)
--- NOTE | 2016-09-25 10:44 | HHI.CCPN ---
Subjective Remarks/Hospital Course 09/19: This is a 56-year-old male that presented secondary to altered mental status. The patient's sister provided the medical information. The patient is alert and oriented 3 .the patient was noted to have a lesion on his left lower extremity and was seen at [facility] by Dr. Carpio at all is felt to be a malignant lesion however the patient was scheduled for follow-up and was noncompliant .over the last several days the patient had began to feel generalized malaise and he lives with his sister who noted that he began to have altered mental status and he presented to the ED .upon presentation to the ED the patient's blood pressure systolic blood pressure was in the 80s laboratory and imaging studies reveal septic shock , with a lactate of 4.5. The patient was bolused with 4 L of normal saline is currently hemodynamically stable , tachypnea , secondary to a bicarbonate level of 9 . He is reported to have a neoplastic lesion about the region of the left knee posteriorly, recent imaging studies suggest malignant neoplasm. The patient underwent a TTE in the ED by Dr. Coombs was noted to have cardiac vegetations tentative plan for a AGUSTIN in the am. Critical care medicine's consult for management. 09/20: Patient was intubated overnight and placed on mechanical ventilation for worsening respiratory status. He is currently sedated, orally intubated on mechanical ventilation. Transfuse 3 units PRBCs overnight. Has some coffee- ground NG aspirate however no melena or rectal bleeding noted. On Levophed 12 mics per minute and vasopressin low-dose for septic shock. Decreasing urine output and significant metabolic acidosis noted for which nephrology consult was requested this morning, vascath was placed and patient has been initiated on CRRT. Discussed with cardiology, severe aortic regurg with aortic valve vegetation for which patient will eventually need an aortic valve replacement following initial stabilization. Awaiting Dr. Medina evaluation. Dr. Coombs has discussed echo with Dr. Medina. 09/21: no significant improvements. lactate still 10. persists on 2 vasopressors. pH slightly better. CRRT circuit clotted overnight. 09/22: off vasopressors this morning. MRI yesterday with multiple acute strokes, largest in right fronto-parietal region. acidosis better. CRRT clotted at 2100 overnight. plan to likely transition to IHD today. 09/23: neuro exam remains poor. acidosis resolving. IHD yesterday with 4L removed. hgb downtrended to 7 this AM. off vasopressors. 09/24: 4.5L removed yesterday with IHD. still neuro exam remains poor. sputum growing MRSA. vanc trough therapeutic. persistently anemic despite prbc transfusion yesterday. 09/25: 4L removed yesterday on IHD. improving neuro exam and patient following commands today with right upper and lower extremities. nothing on left today. states he is in pain. LFTs continue to downtrend. repeat sputum growing MRSA. hgb improved today. CVP still 15 - 17. Objective Vital Signs Date Time Temp Pulse Resp B/P Pulse Ox O2 Delivery O2 Flow Rate FiO2 09/25/16 10:00 86 09/25/16 09:27 100 35 09/25/16 08:00 98.5 33 119/55 Intake and Output 09/24/16 09/24/16 09/25/16 08:00 16:00 00:00 Intake Total 470 ml 118 ml 800 ml Output Total 150.0 ml 25 ml 2750 ml Balance 320.0 ml 93 ml -1950 ml Result Diagram: 09/25/16 0500 09/25/16 0500 Other Results Microbiology Date/Time Procedure Status Source Growth 09/22/16 17:42 Gram Stain - Final Complete Sputum Endotracheal 09/22/16 17:42 Sputum Culture - Final Complete S. Aureus Mrsa Imaging Last Impressions Tibia/Fibula X-Ray 09/19/16 0000 Signed Impressions: Service Date/Time: Monday, September 19, 2016 07:43 - CONCLUSION: Chronic changes and no evidence for acute fracture. Claudio Barroso MD Renal Ultrasound 09/19/16 0000 Signed Impressions: Service Date/Time: Monday, September 19, 2016 10:40 - CONCLUSION: Unremarkable renal ultrasound. Claudio Barroso MD Lower Extremity MRI 09/19/16 0000 Signed Impressions: Service Date/Time: Monday, September 19, 2016 10:15 - CONCLUSION: Large mass most likely originating from the patient's skin with infiltration of subcutaneous fat and no definite involvement of the muscular structures or marrow. A malignant mass should be entertained and clinical correlation is needed. Claudio Barroso MD Knee X-Ray 09/19/16 0000 Signed Impressions: Service Date/Time: Monday, September 19, 2016 07:43 - CONCLUSION: Osteoarthritis. 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 Claudio Barroso MD Chest X-Ray 09/19/16 0000 Signed Impressions: Service Date/Time: Monday, September 19, 2016 16:50 - CONCLUSION: 1. Minimal basilar atelectasis. Elevated right hemidiaphragm. No effusion. Osteochondral defect right humeral head. Raul Merlos MD Objective Remarks HEENT/ Neuro: orally intubated, Pallor present, no icterus, tongue/ mucosa moist Neck: Right IJ Vas-Cath, left IJ central line in place. trachea midline. Chest/Pulm: on mech vent, equal chest rise, coarse BS bilaterally. CVS: S1-S2 regular, III/ diastolic murmur best heard over aortic area noted. GI/abdomen: soft, nontender, nondistended. no guarding. Extremities: warm bilaterally, no edema. Ulcerated lesion/ mass on left leg behind the knee noted Neuro: RASS -2. FC in RUE/RLE. no movement on left. answers questions by nodding head. Date of Insertion: Sep 19, 2016 Line: Central Venous Catheter Side: Left Location: Jugular A/P Assessment and Plan Assessment: 56yM with infective endocarditis of the [place] aortic valve with subsequent severe acute aortic regurgitation, pulmonary edema, congestive heart failure secondary to valvulopathy, acute mixed septic/cardiogenic shock, new acute strokes secondary to septic emboli, multiorgan system dysfunction, acute liver dysfunction likely secondary to shock liver and possible congestive hepatopathy, acute kidney injury requiring renal replacement therapy, metabolic encephalopathy. He remains very critically ill at this time. Certainly, will need to wait at least a week from time of strokes to pursue cardiac surgery, but now has two indications for urgent AVR. Neuro exam is improving and he is following commands. Continue daily IHD for volume removal. Plan by systems: Neurologic: Old CVA infarct Possible schizophrenia Metabolic encephalopathy secondary to sepsis New Acute CVA secondary to septic emboli continue off sedation. goal RASS -2. frequent neuro checks MRI 09/22: multifocal infarcts, largest in right frontoparietal region. hold acetaminophen given shock liver. repeat head CT 09/24 with evolving right frontal infarct, no midline shift. Respiratory: Acute hypoxic respiratory failure on mechanical ventilation Pulmonary Edema secondary to valvulopathy and cardiogenic shock Continue mechanical ventilation, vent bundle, bronchodilators as needed. will start SBT today given improved mental status. volume removal with PLASTIC FIXTURE BUILDER. Cardiovascular: Aortic valve vegetation Severe aortic regurgitation Septic Shock- resolved. Cardiogenic Shock- resolving. Congestive Heart Failure secondary to valvulopathy Transthoracic echo with aortic valve vegetation with severe aortic regurgitation. Cardiology: [facility] Surgery: Adam -- will need anti-platelet therapy, but with his multiple acute issues and his thrombocytopenia, will hold off on ASA at this time. if platelet count improves , will consider starting. -- lipid panel appropriate. -- goal SBP 110 - 120 to optimize cardiac function. will tolerate MAP > 50 in order to accomplish this. -- will need AVR at some point, will hold off for at least a week post-stroke. Renal: Acute kidney injury secondary to shock Acute intravascular volume overload. Strict intake output, monitor and replete electrolytes, follow BUN/creatinine. -- will need daily IHD for volume removal. continue salmeron catheter. FEN/GI: Acute severe intravascular volume overload Acute protein calorie malnutrition- mild Hyperphosphatemia- resolving. Acute GI bleed- resolving. Lactic Acidosis- resolving. Severe metabolic acidosis- resolved. -- TF nepro @ 40. -- iv bid ppi. -- EGD without evidence of ulcers. -- GI following Heme/ID: Chronic anemia Acute anemia secondary to blood loss from GI bleed Leukocytosis Septic shock- resolved. Bacteremia with Beta Hemolytic Strep Aortic valve endocarditis Hyperlipidemia Thrombocytopenia secondary to consumption secondary to severe AI daily CBC wound culture growing MRSA blood growing beta hemolytic strep sputum growing MRSA Goal vanc trough 15 - 20. Rocephin per ID. Dr. Fonseca ID. 4T score low probability of HIT. Endocrine: Hyperglycemia critical illness Glucose monitoring per ICU protocol-low dose regimen Msk: Rhabdomyolysis- resolved. Probable ulcerated neoplastic lesion left lower extremity behind left knee Most likely squamous cell carcinoma clinically. Status post punch biopsy on by family medicine service awaiting pathology results. -Dependent on results we'll decide further management. Wound care consult -- SSI Prophylaxis: GI Prophylaxis iv bid ppi. DVT Prophylaxis -- SCDs Heparin SQ Lines: LIJ central line placed 09/19 RIJ vascath placed 09/20 Time spent on critical care excluding procedures 32 minutes Perez Aparicio MD Sep 25, 2016 10:44
[2016-09-25] MEDS: GENTAMICIN SULFATE (DIALYSIS USE ONLY) 20 MG/2 ML VIAL IV PRN (11:54)
[2016-09-25] MEDS: HEPARIN SODIUM - IV 10,000 UNITS/10 ML VIAL PRN (11:55)
[2016-09-25] MEDS: cefTRIAXone INJ 2,000 MG in SODIUM CHLORIDE 0.9% INJ 100 ML IV SCH (13:06)
--- NOTE | 2016-09-25 15:23 | HHI.NPPN ---
Subjective History of Present Illness 56-year-old male with a past medical history of hypertension, history of schizophrenia and depression, was brought to the hospital because of altered mental status. I was called to see the patient because of elevated BUN and creatinine. The patient was found to have a creatinine of 3.2 on admission. Previously in 2012 his creatinine was normal. Additional Remarks Patient remain on the vent. off sedation, open eyes. Review of Systems General General Remarks Cannot take, intubated. Objective Data Data 09/24/16 09/25/16 19:00 07:00 Intake Total 368 ml 1105 ml Output Total 2775 ml 25 ml Balance -2407 ml 1080 ml Intake IV Total 118 ml 880 ml Tube Feeding 225 ml Packed Cells 250 ml Output Urine Total 25 ml 25 ml Tube Feeding Residual Discard 0 ml Hemodialysis 2750 ml # Bowel Movements 0 0 Vital Signs Date Time Temp Pulse Resp B/P Pulse Ox O2 Delivery O2 Flow Rate FiO2 09/25/16 14:00 85 09/25/16 12:00 35 09/25/16 12:00 99.1 89 29 107/53 100 09/25/16 12:00 89 09/25/16 10:00 86 09/25/16 09:27 100 35 09/25/16 08:00 98.5 91 33 119/55 100 09/25/16 08:00 91 09/25/16 08:00 35 09/25/16 06:00 90 09/25/16 04:00 98.9 88 37 146/92 100 09/25/16 04:00 35 09/25/16 04:00 90 09/25/16 03:15 100 35 09/25/16 02:00 88 09/25/16 00:00 99.4 90 36 136/40 100 09/25/16 00:00 35 09/25/16 00:00 90 09/24/16 22:00 88 09/24/16 21:40 100 100 09/24/16 20:00 35 09/24/16 20:00 99.4 89 27 124/36 100 09/24/16 20:00 100 35 09/24/16 20:00 88 09/24/16 18:00 92 09/24/16 16:42 100 35 09/24/16 16:00 35 09/24/16 16:00 97.7 90 40 129/44 100 09/24/16 16:00 90 -: 09/25/16 0500 09/25/16 0500 Physical Exam General Appearance Remarks Intubated and awake. Eyes Eye Exam: Pupils Equal Neck Neck Exam: Neck Supple Pulmonary Resp Exam: Crackles, Rhonchi, Decreased Bases, Diminished Breath Sounds, Poor Inspiratory Effort Gastrointestinal/Abdomen GI Exam: Soft, Non-Tender, Bowel Sounds Present, Distended Extremeties Extremities Exam: Moderate Edema, Pitting Edema, Dependent Edema Neurologic Neuro Exam: Awake Assessment/Plan Assessment Summary: RACHAEL/Acute Renal Failure Problem List: (1) Cellulitis (2) Mass of left lower extremity (3) Septic shock (4) Anemia (5) ARF (acute renal failure) Plan Patient has low urine out put. BP is now better and off pressors. Started on HD, and tolerated well. Urine out put is still low. Possibly has RACHAEL due to ATN from Hypotension. Follow urine out put and BMP. HD done today and 4 liters removed. Problem Qualifiers (1) Cellulitis: Qualified Code: L03.116 - Cellulitis of left lower extremity Manoj Liu MD Sep 25, 2016 15:23 Manoj Liu MD Sep 25, 2016 15:23
[2016-09-25] MEDS ORDERED: VANCOMYCIN 1,000 MG/NS 250 ML IV ONE ×2 (16:00)
[2016-09-25] MEDS ORDERED: GLUCAGON 1 MG/ML VIAL OTHER PRN (16:45)
[2016-09-25] MEDS ORDERED: DEXTROSE 50% IN WATER 50 ML VIAL(D50) IV PUSH PRN (16:45)
[2016-09-26] VITALS (18 sets, daily range): BP systolic 111–146; BP diastolic 34–42; PULSE 84–93; RESP 22–28; TEMP 98.2–99.1; O2SAT 96–100
[2016-09-26] MEDS: CHLORHEXIDINE GLUCONATE 2 % 1 PACK (2 CLOTHS) TOP SCH (01:35)
[2016-09-26] MEDS: LINEZOLID 600 MG PREMIX 300 ML IV SCH ×2 (02:14→14:25)
[2016-09-26] MEDS: NOREPINEPHRINE 16 MG/D5W 250 ML IV SCH ×2 (03:08)
[2016-09-26] MEDS: RESP: ALBUTEROL 2.5 MG/IPRATROPIUM 0.5 MG NEB (SCH) INH ×4 (04:22→21:25)
[2016-09-26 05:37] LABS: BICARBONATE 21.9 MEQ/L (21.0-32.0); POTASSIUM 4.7 MEQ/L (3.5-5.1)
[2016-09-26 05:43] LABS: HEMATOCRIT 23.9 % (39.0-51.0); MEAN CELL VOLUME 92.2 FL (80.0-100.0); MEAN CORPUSCULAR HEMOGLOBIN 30.9 PG (27.0-34.0); MEAN CORPUSCULAR HGB CONC 33.5 % (32.0-36.0); PLATELET COUNT 90 TH/MM3 (150-450); RED CELL DISTRIBUTION WIDTH 17.6 % (11.6-17.2); WHITE BLOOD COUNT 17.6 TH/MM3 (4.0-11.0)
[2016-09-26 05:52] LABS: REVIEW FLAG FINAL
[2016-09-26 05:54] LABS: INDIRECT BILIRUBIN 0.7 MG/DL (0.0-0.8); TOTAL BILIRUBIN ADULT 3.7 MG/DL (0.2-1.0)
[2016-09-26] MEDS: INSULIN ASPART SUPPLEMENTAL SCALE SQ SCH ×4 (06:00→18:00)
[2016-09-26] MEDS: HEPARIN SODIUM - SQ 10,000 UNITS/ML VIAL SQ SCH ×2 (06:32→17:44)
[2016-09-26] MEDS: CHLORHEXIDINE 0.12% (ORAL KIT) 15 ML CUP MT SCH ×2 (08:00→21:25)
--- NOTE | 2016-09-26 08:28 | HHI.CCPN ---
Subjective Remarks/Hospital Course 09/19: This is a 56-year-old male that presented secondary to altered mental status. The patient's sister provided the medical information. The patient is alert and oriented 3 .the patient was noted to have a lesion on his left lower extremity and was seen at [facility] by Dr. Carpio at all is felt to be a malignant lesion however the patient was scheduled for follow-up and was noncompliant .over the last several days the patient had began to feel generalized malaise and he lives with his sister who noted that he began to have altered mental status and he presented to the ED .upon presentation to the ED the patient's blood pressure systolic blood pressure was in the 80s laboratory and imaging studies reveal septic shock , with a lactate of 4.5. The patient was bolused with 4 L of normal saline is currently hemodynamically stable , tachypnea , secondary to a bicarbonate level of 9 . He is reported to have a neoplastic lesion about the region of the left knee posteriorly, recent imaging studies suggest malignant neoplasm. The patient underwent a TTE in the ED by Dr. Coombs was noted to have cardiac vegetations tentative plan for a AGUSTIN in the am. Critical care medicine's consult for management. 09/20: Patient was intubated overnight and placed on mechanical ventilation for worsening respiratory status. He is currently sedated, orally intubated on mechanical ventilation. Transfuse 3 units PRBCs overnight. Has some coffee- ground NG aspirate however no melena or rectal bleeding noted. On Levophed 12 mics per minute and vasopressin low-dose for septic shock. Decreasing urine output and significant metabolic acidosis noted for which nephrology consult was requested this morning, vascath was placed and patient has been initiated on CRRT. Discussed with cardiology, severe aortic regurg with aortic valve vegetation for which patient will eventually need an aortic valve replacement following initial stabilization. Awaiting Dr. Medina evaluation. Dr. Coombs has discussed echo with Dr. Medina. 09/21: no significant improvements. lactate still 10. persists on 2 vasopressors. pH slightly better. CRRT circuit clotted overnight. 09/22: off vasopressors this morning. MRI yesterday with multiple acute strokes, largest in right fronto-parietal region. acidosis better. CRRT clotted at 2100 overnight. plan to likely transition to IHD today. 09/23: neuro exam remains poor. acidosis resolving. IHD yesterday with 4L removed. hgb downtrended to 7 this AM. off vasopressors. 09/24: 4.5L removed yesterday with IHD. still neuro exam remains poor. sputum growing MRSA. vanc trough therapeutic. persistently anemic despite prbc transfusion yesterday. 09/25: 4L removed yesterday on IHD. improving neuro exam and patient following commands today with right upper and lower extremities. nothing on left today. states he is in pain. LFTs continue to downtrend. repeat sputum growing MRSA. hgb improved today. CVP still 15 - 17. 09/26: more awake today, moving all 4 extremities, following commands. I placed the patient on a spontaneous breathing trial today and he lasted about 45 minutes but failed for worsening respiratory distress, RR > 45, obvious labored breathing. Objective Vital Signs Date Time Temp Pulse Resp B/P Pulse Ox O2 Delivery O2 Flow Rate FiO2 09/26/16 08:08 100 35 09/26/16 06:00 90 09/26/16 04:00 99.0 27 120/38 Intake and Output 09/25/16 09/25/16 09/26/16 08:00 16:00 00:00 Intake Total 555 ml 520 ml 850 ml Output Total 25.0 ml 4000 ml 0 ml Balance 530.0 ml -3480 ml 850 ml Result Diagram: 09/26/16 0500 09/26/16 0500 Imaging Last Impressions Tibia/Fibula X-Ray 09/19/16 0000 Signed Impressions: Service Date/Time: Monday, September 19, 2016 07:43 - CONCLUSION: Chronic changes and no evidence for acute fracture. Claudio Barroso MD Renal Ultrasound 09/19/16 0000 Signed Impressions: Service Date/Time: Monday, September 19, 2016 10:40 - CONCLUSION: Unremarkable renal ultrasound. Claudio Barroso MD Lower Extremity MRI 09/19/16 0000 Signed Impressions: Service Date/Time: Monday, September 19, 2016 10:15 - CONCLUSION: Large mass most likely originating from the patient's skin with infiltration of subcutaneous fat and no definite involvement of the muscular structures or marrow. A malignant mass should be entertained and clinical correlation is needed. Claudio Barroso MD Knee X-Ray 09/19/16 0000 Signed Impressions: Service Date/Time: Monday, September 19, 2016 07:43 - CONCLUSION: Osteoarthritis. 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 Claudio Barroso MD Chest X-Ray 09/19/16 0000 Signed Impressions: Service Date/Time: Monday, September 19, 2016 16:50 - CONCLUSION: 1. Minimal basilar atelectasis. Elevated right hemidiaphragm. No effusion. Osteochondral defect right humeral head. Raul Merlos MD Objective Remarks HEENT/ Neuro: orally intubated, Pallor present, no icterus, tongue/ mucosa moist Neck: Right IJ Vas-Cath, left IJ central line in place. trachea midline. Chest/Pulm: on mech vent, equal chest rise, coarse BS bilaterally. CVS: S1-S2 regular, III/ diastolic murmur best heard over aortic area noted. GI/abdomen: soft, nontender, nondistended. no guarding. Extremities: warm bilaterally, no edema. Ulcerated lesion/ mass on left leg behind the knee noted Neuro: RASS -2. FC in all 4 extremities today. answers questions by nodding head. Date of Insertion: Sep 19, 2016 Line: Central Venous Catheter Side: Left Location: Jugular A/P Assessment and Plan Assessment: 56yM with infective endocarditis of the [place] aortic valve with subsequent severe acute aortic regurgitation, pulmonary edema, congestive heart failure secondary to valvulopathy, acute mixed septic/cardiogenic shock which is slowly resolving, new acute strokes secondary to septic emboli, multiorgan system dysfunction, acute liver dysfunction likely secondary to shock liver and possible congestive hepatopathy, acute kidney injury requiring renal replacement therapy, metabolic encephalopathy. He remains very critically ill at this time. Certainly, will need to wait at least a week from time of strokes to pursue cardiac surgery, but now has two indications for urgent AVR. Neuro exam is improving and he is following commands. Continue daily IHD for volume removal. Would plan to repeat MRI after 1 week (near 09/29) and if no acute changes, would re-engage cardiac surgery at that point to consider urgent aortic valve replacement. Plan by systems: Neurologic: Old CVA infarct Possible schizophrenia Metabolic encephalopathy secondary to sepsis New Acute CVA secondary to septic emboli continue off sedation. goal RASS -2. frequent neuro checks MRI 09/22: multifocal infarcts, largest in right frontoparietal region. hold acetaminophen given shock liver. repeat head CT 09/24 with evolving right frontal infarct, no midline shift. Respiratory: Acute hypoxic respiratory failure on mechanical ventilation Pulmonary Edema secondary to valvulopathy and cardiogenic shock Continue mechanical ventilation, vent bundle, bronchodilators as needed. failed SBT 09/25 and 09/26 for tachypnea and distress. continue daily SBTs. certainly with his severe aortic regurgitation, I do not know if he will be able to be extubated. volume removal with CONVERSION DEVELOPER. Cardiovascular: Aortic valve vegetation Severe aortic regurgitation Septic Shock- resolved. Cardiogenic Shock- resolving. Congestive Heart Failure secondary to valvulopathy Transthoracic echo with aortic valve vegetation with severe aortic regurgitation. Cardiology: [facility] CT Surgery: Adam -- will need anti-platelet therapy, but with his multiple acute issues and his thrombocytopenia, will hold off on ASA at this time. if platelet count improves , will consider starting. -- lipid panel appropriate. -- goal SBP 110 - 120 to optimize cardiac function. will tolerate MAP > 50 in order to accomplish this. -- will need AVR at some point, will hold off for at least a week post-stroke, re-consider around 09/29 Renal: Acute kidney injury secondary to shock Acute intravascular volume overload. Strict intake output, monitor and replete electrolytes, follow BUN/creatinine. -- will need daily IHD for volume removal. continue salmeron catheter. FEN/GI: Acute severe intravascular volume overload Acute protein calorie malnutrition- mild Hyperphosphatemia- resolving. Acute GI bleed- resolving. Lactic Acidosis- resolving. Severe metabolic acidosis- resolved. -- TF nepro @ 40. -- iv bid ppi. -- EGD without evidence of ulcers. -- GI following Heme/ID: Chronic anemia Acute anemia secondary to blood loss from GI bleed Leukocytosis Septic shock- resolved. Bacteremia with Beta Hemolytic Strep Aortic valve endocarditis Hyperlipidemia Thrombocytopenia secondary to consumption secondary to severe AI daily CBC wound culture growing MRSA blood growing beta hemolytic strep sputum growing MRSA Goal vanc trough 15 - 20. Rocephin per ID. Dr. Fonseca ID. 4T score low probability of HIT. Endocrine: Hyperglycemia critical illness Glucose monitoring per ICU protocol-low dose regimen Msk: Rhabdomyolysis- resolved. Probable ulcerated neoplastic lesion left lower extremity behind left knee Most likely squamous cell carcinoma clinically. Status post punch biopsy on by family medicine service awaiting pathology results. -Dependent on results we'll decide further management. Wound care consult -- SSI Prophylaxis: GI Prophylaxis iv bid ppi. DVT Prophylaxis -- SCDs Heparin SQ Lines: LIJ central line placed 09/19 RIJ vascath placed 09/20 Time spent on critical care excluding procedures 36 minutes Perez Aparicio MD Sep 26, 2016 08:28
[2016-09-26] MEDS: SODIUM CHLORIDE 0.9% FLUSH 10 ML FLUSH IV FLUSH SCH ×2 (09:00→21:24)
--- NOTE | 2016-09-26 09:03 | HHI.FPPN ---
Subjective Remarks Pt seen and examined this morning. HR 80-90s, BP 120-140s/30-40s. Pt remains intubated, not currently sedated. Pt is able to follow verbal commands and was able to move his right hand, and right and left toes. He was not able to move his right hand. Pt failed CPAP trial, no plan for extubation today. Objective Vitals Vital Signs Date Time Temp Pulse Resp B/P Pulse Ox O2 Delivery O2 Flow Rate FiO2 09/26/16 08:08 100 35 09/26/16 06:00 90 09/26/16 04:26 100 35 09/26/16 04:00 99.0 90 27 120/38 100 09/26/16 04:00 90 09/26/16 04:00 35 09/26/16 02:00 90 09/26/16 01:42 96 35 09/26/16 00:00 98.3 84 28 111/42 100 09/26/16 00:00 84 09/26/16 00:00 35 09/25/16 22:01 94 35 09/25/16 22:00 84 09/25/16 20:00 98.6 90 27 127/42 98 09/25/16 20:00 35 09/25/16 20:00 91 09/25/16 18:00 84 09/25/16 16:00 98.0 89 29 116/40 100 09/25/16 16:00 89 09/25/16 16:00 35 09/25/16 15:50 100 35 09/25/16 14:00 85 09/25/16 12:00 35 09/25/16 12:00 99.1 89 29 107/53 100 09/25/16 12:00 89 09/25/16 10:00 86 09/25/16 09:27 100 35 I/O 09/25/16 09/25/16 09/25/16 09/26/16 09/26/16 09/26/16 07:00 15:00 23:00 07:00 15:00 23:00 Intake Total 555 ml 520 ml 850 ml 644 ml Output Total 25 ml 4000 ml 0 ml 0 ml Balance 530 ml -3480 ml 850 ml 644 ml Intake IV Total 330 ml 150 ml 600 ml 344 ml Tube Feeding 225 ml 370 ml 250 ml 300 ml Output Urine Total 25 ml 0 ml 0 ml 0 ml Gastric Drainage Total 0 ml Tube Feeding Residual Discard 0 ml 0 ml Hemodialysis 4000 ml # Bowel Movements 0 0 0 1 Result Diagram: 09/26/16 0500 09/26/16 0500 Objective Remarks GENERAL: 66-year-old Kathi male lying in bed intubated. SKIN: Warm and dry. No rash. CARDIOVASCULAR: Regular rate and rhythm with 3/6 diastolic murmur more pronounced at the right sternal border. RESPIRATORY: Equal diffuse coarse breath sounds. Currently breathing via ventilator without sedation. GASTROINTESTINAL: Abdomen soft, nondistended with +BS. No masses appreciated. MUSCULOSKELETAL: Extremities without cyanosis. 1+ edema of left lower extremity. LLE on admission: 8.5 X 10.5CM circular, fungating, ulcerative lesion on the posterior aspect of the L knee. No hemorrhage or necrosis appreciated. Lesion is foul smelling and appears to involve skin and subcutaneous tissue; does not appear to involve the muscle or bone. 2+ edema from the ankle to the knee. LLE currently: Currently lesion bandaged with sterile gauze, CDI. NEUROLOGICAL: Patient intubated and off sedation. Patient able to move R upper and lower extremity on command, as well as left lower extremity. No movement of left upper extremity appreciated. Patient is able to open his eyes to verbal and tactile sensation. PERRL with mild strabismus. Date of Insertion: Sep 19, 2016 Line: Central Venous Catheter Side: Left Location: Jugular A/P Assessment and Plan Mr. Burnham is a 56 y/o AAM with a PMHx of HTN presenting with AMS and a LLE wound found to be in septic shock, with endocarditis admitted for medical therapy. Discharge Planning Pending clinical improvement. Unclear timeframe at this time. DW: Dr. Aparicio WDW: Dr. Helm Problem List: (1) Septic shock Status: Acute Plan: On admission patient presented with altered mental status left lower extremity lesion. Patient found to be tachycardic to 100 bpm with a white blood cell count of 18.6. Likely source of infection is his left lower extremity lesion. Found to have a lactic acid of 4.5 not responsive to fluid resuscitation. Patient placed on sepsis protocol and transferred to the [facility] for further monitoring. Patient found to have endocarditis with mobile aortic valve vegetation. Blood cultures 2 09/19: Beta hemolytic streptococcus, beta Streptococcus group G; both pansensitive UC: Pending Wound culture x2: MRSA, sensitive to vancomycin Blood culture 09/20: Negative to date Blood culture 09/21: Negative to date Sputum culture 09/22: MRSA, sensitive to vancomycin Intensive care consulted, appreciate recommendations Infectious disease consulted, appreciate recommendations * Continue IV Zyvox (09/24- ) and IV Rocephin (09/22- ) * Head CT 09/24: Evolving right frontal infarct. No midline shift or mass effect. * MRI of brain from 09/21 significant for multifocal nonhemorrhagic acute infarction, the largest in the right frontoparietal region. Diffuse bilateral nature involving both anterior and posterior circulation suggests embolic source. No evidence of mass effect or cerebral edema at this point. * Biopsy of LLE lesion sent for pathology * Repeat BC with no growth to date * Chest x-ray 09/24: Unchanged left lower lobe infiltrate * Hepatic US: Cholelithiasis. Gallbladder wall is at the upper limits of normal in terms of thickness. No pericholecystic fluid.Consider HIDA scan. Common bile duct is dilated measuring 10mm. No discernible stone. Medication history: Vancomycin 1 g twice a day (09/19-09/24); discontinued due to poor renal function Zosyn 2.25 g every 6 hours (09/19-09/22) Hydrocortisone (09/20-09/22) (2) Skin ulcer of left lower leg, limited to breakdown of skin Status: Acute Plan: Patient with circular, fungating, ulcerative lesion on the posterior aspect of the L knee with edema of the lower extremity. Patient denies any pain currently. Lower extremity neurovascularly intact with appropriate capillary refill. Knee x-ray: Chronic changes with no evidence of acute fracture Tubularfibula x-ray: Chronic changes and no evidence of acute fractures. Lower extremity MRI: Large mass most likely originating from the patient's skin with infiltration of subcutaneous fat and no definite involvement of the muscular structures her marrow. A malignant mass should be entertained and clinical correlation is needed. Punch biopsy 09/20: Pending Gen. surgery consulted for possible excision biopsy, appreciate recommendations * No further interventions until pt is extubated and clinically improved -Please see plan as above (3) Endocarditis of aortic valve Status: Acute Plan: On admission patient with elevated CPK to 7480 and troponin to 12.4. Echocardiogram performed and found to have mobile vegetation of the aortic valve. Blood cultures with gram-positive cocci in all 4 vials. TTE 09/20: Aortic valve with mobile vegetation on the left ventricular aspect. Severe aortic regurgitation directed eccentrically in the LVOT. Left ventricle with normal cavity size and wall thickness. Systolic function normal. Estimated ejection fraction in the range of 50-55% with normal wall motion. Mitral valve with mild regurgitation. Tricuspid valve with mild regurgitation. Pulmonary arteries with moderately increased systolic pressure. Cardiology consulted, appreciate recommendations * AGUSTIN scheduled, however due to patient's declining status, will hold off at this time * Severe aortic insufficiency, would require surgical replacement. Cardiothoracic surgery consulted. Cardiothoracic surgery consulted, appreciate recommendations * Currently not a surgical candidate * Surgery to be considered once pt is stable and extubated. (4) Acute embolic stroke Status: Acute Plan: Patient presented with altered mental status with septic shock found to have endocarditis. Patient currently off sedation with poor neurological exam. Head CT 09/24: Evolving right frontal infarct. No midline shift or mass effect. CT head: Old infarction with encephalomalacia in the watershed distribution of the right CORINNE and MCA. Brain MRI: Abnormal scan demonstrating evidence of multi-focal nonhemorrhagic acute infarction with the largest in the right frontoparietal region. Diffuse bilateral nature involving both anterior and posterior circulation suggest embolic source. No evidence of mass effect or cerebral edema at this point. Permissive hypertension, however patient currently septic with severe aortic regurgitation, anticipate possible aortic valve replacement by CT surgery Frequent neuro checks Please see plan as above (5) Acute renal failure (ARF) Status: Acute Plan: Patient found to have a BUN of 58 with a creatinine of 3.27 on admission likely secondary to septic shock. Per chart review, admission in 2012 showed creatinine of 0.81. Creatinine 6.31 on 09/26 Renal ultrasound: Unremarkable Strict I/Os Avoid nephrotoxic agents Urology consulted to assist with David catheter placement secondary to phimosis Nephrology consulted, appreciate recommendations * Hemodialysis as needed * Possibly has a candidate due to ATN from hypotension. * Monitor BMP (6) Anemia Status: Acute Plan: Patient found to be anemic on admission without prior history. H/H shows declining hemoglobin. Patient transfused 3 units of PRBC on 09/19. Pt with Coffee-ground gastric secretions, suggestive of possible upper GI bleed. H/H today: 8.0/23.9 5 units PRBC transfused since admission GI consulted, appreciate recommendations and intervention * Hida scan when stable * Monitor LFTs * EGD 09/21: No active bleeding, NG tube suction injury to gastric body * Protonix 40 mg IV twice a day * Adjust tube feeds as needed * Monitor H/H * Transfuse as necessary * Supportive care (7) Nutrition, metabolism, and development symptoms Status: Acute Plan: Fluids: Currently discontinued Diet: NPO as patient is intubated and sedated Electrolytes: Continue to monitor DVT Prophylaxis: Heparin 5000 units Q12hrs GI prophylaxis: Protonix twice a day Problem Qualifiers (1) Acute renal failure (ARF): Qualified Code: N17.9 - Acute renal failure, unspecified acute renal failure type Sharri Burnham MD R2 Sep 26, 2016 09:03
[2016-09-26] MEDS: PANTOPRAZOLE SODIUM 40 MG VIAL IV PUSH SCH ×2 (09:08→21:24)
[2016-09-26] MEDS: DOCUSATE SODIUM 100 MG CAP PO SCH ×2 (09:08→21:00)
--- NOTE | 2016-09-26 10:01 | HHI.GIFU ---
GI Follow-up Note Consult Follow-up Subjective: Patient laying in bed comfortably, intubated .no further episodes of gi bleeding .Tolerating diet well .Had a bowel movement Objective: PHYSICAL EXAMINATION: Vitals signs stable No fever Vital Signs Date Time Temp Pulse Resp B/P Pulse Ox O2 Delivery O2 Flow Rate FiO2 09/26/16 08:08 100 35 09/26/16 06:00 90 09/26/16 04:26 100 35 09/26/16 04:00 99.0 90 27 120/38 100 09/26/16 04:00 90 09/26/16 04:00 35 09/26/16 02:00 90 HEENT: Pupils round and reactive to light; normocephalic; atraumatic; no jaundice. Throat is clear. NECK: Neck is supple, no JVD, no lymphadenopathy. CHEST: Chest is clear to auscultation and percussion. CARDIAC: Regular rate and rhythm with no murmur gallop or rubs. ABDOMEN: Soft, nondistended, nontender; no hepatosplenomegaly; bowel sounds are present in all four quadrants. EXTREMITIES: No clubbing, cyanosis, edema right calf , bandage appied over wound SKIN: Normal; no rash; no jaundice. 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 Available Data (labs, X- Rays, Procedues) : Laboratory Tests Test 09/25/16 09/26/16 05:00 05:00 White Blood Count 16.3 TH/MM3 17.6 TH/MM3 Red Blood Count 2.74 MIL/MM3 2.60 MIL/MM3 Hemoglobin 8.3 GM/DL 8.0 GM/DL Hematocrit 25.1 % 23.9 % Mean Corpuscular Volume 91.7 FL 92.2 FL Mean Corpuscular Hemoglobin 30.2 PG 30.9 PG Mean Corpuscular Hemoglobin 33.0 % 33.5 % Concent Red Cell Distribution Width 17.8 % 17.6 % Platelet Count 74 TH/MM3 90 TH/MM3 Mean Platelet Volume 10.8 FL 11.7 FL Sodium Level 141 MEQ/L 141 MEQ/L Potassium Level 4.4 MEQ/L 4.7 MEQ/L Chloride Level 100 MEQ/L 100 MEQ/L Carbon Dioxide Level 22.2 MEQ/L 21.9 MEQ/L Anion Gap 19 MEQ/L 19 MEQ/L Blood Urea Nitrogen 108 MG/DL 98 MG/DL Creatinine 6.46 MG/DL 6.31 MG/DL Estimat Glomerular Filtration 11 ML/MIN 11 ML/MIN Rate Random Glucose 156 MG/DL 142 MG/DL Calcium Level 8.3 MG/DL 8.8 MG/DL Total Bilirubin 5.9 MG/DL 3.7 MG/DL Direct Bilirubin 4.9 MG/DL 3.0 MG/DL Indirect Bilirubin 1.0 MG/DL 0.7 MG/DL Aspartate Amino Transf 151 U/L 102 U/L (AST/SGOT) Alanine Aminotransferase 360 U/L 258 U/L (ALT/SGPT) Alkaline Phosphatase 88 U/L 82 U/L Total Protein 6.3 GM/DL 6.8 GM/DL Albumin 1.9 GM/DL 2.2 GM/DL ASSESSMENT/PLAN: gi bleeding secondary ngt suction trauma-hb stable, no further bleeding, tolerating diet well elevated lfts, improving -most likely shock liver , no indication of biliary obstruction gallstones , mild dilated cbd , Recommendations hida scan when stable monitor lft closely supportive care discussed with sister and nursing staff It was a pleasure seeing Jamey Burnham Jr. Thank you for this consult. Entered by: Nupur Shaffer MD Sep 26, 2016 10:01
--- NOTE | 2016-09-26 10:51 | HHI.IDPN ---
Subjective Subjective Remarks Notes reviewed Temps better Had HD yesterday On CPAP, NAD Awake and following some Wound C/S MRSA and Strep BC with Strep - B-hemolytic Strep Group G Repeat BC negative so far Biopsy pending Antibiotics Zyvox Rocephin Lines Vascath TLC Past Medical History Possible schizophrenia, depression Hypertension Chronic wound left leg Allergies: Coded Allergies: *MDRO Multi-Drug Resistant Organism (Verified Adverse Reaction, Unknown, ) MRSA (leg wound) - 09/19/16; (sputum) - 09/22/16 Uncoded Allergies: NKDA (Allergy, Severe, 11/03/11) Objective . Vital Signs Date Time Temp Pulse Resp B/P Pulse Ox O2 Delivery O2 Flow Rate FiO2 09/26/16 08:08 100 35 09/26/16 06:00 90 09/26/16 04:26 100 35 09/26/16 04:00 99.0 90 27 120/38 100 09/26/16 04:00 90 09/26/16 04:00 35 09/26/16 02:00 90 09/26/16 01:42 96 35 09/26/16 00:00 98.3 84 28 111/42 100 09/26/16 00:00 84 09/26/16 00:00 35 09/25/16 22:01 94 35 09/25/16 22:00 84 09/25/16 20:00 98.6 90 27 127/42 98 09/25/16 20:00 35 09/25/16 20:00 91 09/25/16 18:00 84 09/25/16 16:00 98.0 89 29 116/40 100 09/25/16 16:00 89 09/25/16 16:00 35 09/25/16 15:50 100 35 09/25/16 14:00 85 09/25/16 12:00 35 09/25/16 12:00 99.1 89 29 107/53 100 09/25/16 12:00 89 09/25/16 09/25/16 09/26/16 15:00 23:00 07:00 Intake Total 520 ml 850 ml 644 ml Output Total 4000 ml 0 ml 0 ml Balance -3480 ml 850 ml 644 ml Intake IV Total 150 ml 600 ml 344 ml Tube Feeding 370 ml 250 ml 300 ml Output Urine Total 0 ml 0 ml 0 ml Gastric Drainage Total 0 ml Tube Feeding Residual Discard 0 ml 0 ml Hemodialysis 4000 ml # Bowel Movements 0 0 1 . Laboratory Tests Test 09/25/16 09/26/16 05:00 05:00 White Blood Count 16.3 TH/MM3 17.6 TH/MM3 Red Blood Count 2.74 MIL/MM3 2.60 MIL/MM3 Hemoglobin 8.3 GM/DL 8.0 GM/DL Hematocrit 25.1 % 23.9 % Mean Corpuscular Volume 91.7 FL 92.2 FL Mean Corpuscular Hemoglobin 30.2 PG 30.9 PG Mean Corpuscular Hemoglobin 33.0 % 33.5 % Concent Red Cell Distribution Width 17.8 % 17.6 % Platelet Count 74 TH/MM3 90 TH/MM3 Mean Platelet Volume 10.8 FL 11.7 FL Laboratory Tests Test 09/25/16 09/26/16 05:00 05:00 Sodium Level 141 MEQ/L 141 MEQ/L Potassium Level 4.4 MEQ/L 4.7 MEQ/L Chloride Level 100 MEQ/L 100 MEQ/L Carbon Dioxide Level 22.2 MEQ/L 21.9 MEQ/L Anion Gap 19 MEQ/L 19 MEQ/L Blood Urea Nitrogen 108 MG/DL 98 MG/DL Creatinine 6.46 MG/DL 6.31 MG/DL Estimat Glomerular Filtration 11 ML/MIN 11 ML/MIN Rate Random Glucose 156 MG/DL 142 MG/DL Calcium Level 8.3 MG/DL 8.8 MG/DL Total Bilirubin 5.9 MG/DL 3.7 MG/DL Direct Bilirubin 4.9 MG/DL 3.0 MG/DL Indirect Bilirubin 1.0 MG/DL 0.7 MG/DL Aspartate Amino Transf 151 U/L 102 U/L (AST/SGOT) Alanine Aminotransferase 360 U/L 258 U/L (ALT/SGPT) Alkaline Phosphatase 88 U/L 82 U/L Total Protein 6.3 GM/DL 6.8 GM/DL Albumin 1.9 GM/DL 2.2 GM/DL Imaging Last Impressions Chest X-Ray 09/20/16 0600 Signed Impressions: Service Date/Time: Tuesday, September 20, 2016 05:22 - CONCLUSION: 1. The NG tube tip is in the distal esophagus. Recommend advancing the NG tube 10 cm. 2. Mild left lower lung atelectasis. Jason Albert MD Tibia/Fibula X-Ray 09/19/16 Signed Impressions: Service Date/Time: Monday, September 19, 2016 07:43 - CONCLUSION: Chronic changes and no evidence for acute fracture. Claudio Barroso MD Renal Ultrasound 09/19/16 Signed Impressions: Service Date/Time: Monday, September 19, 2016 10:40 - CONCLUSION: Unremarkable renal ultrasound. Claudio Barroso MD Lower Extremity MRI 09/19/16 Signed Impressions: Service Date/Time: Monday, September 19, 2016 10:15 - CONCLUSION: Large mass most likely originating from the patient's skin with infiltration of subcutaneous fat and no definite involvement of the muscular structures or marrow. A malignant mass should be entertained and clinical correlation is needed. Claudio Barroso MD Knee X-Ray 09/19/16 Signed Impressions: Service Date/Time: Monday, September 19, 2016 07:43 - CONCLUSION: Osteoarthritis. Claudio Barroso MD Head CT 09/19/16 Signed Impressions: Service Date/Time: Monday, September 19, 2016 11:32 - CONCLUSION: Old infarction on the right. Claudio Barroso MD Physical Exam GENERAL: awake, following some, on CPAP, NAD. SKIN: Cool and dry, no generalized rash, no embolic lesions noted. HEAD: Atraumatic. Normocephalic. No temporal or scalp tenderness. EYES: Pale conjunctivae, no petechia or hemorrhage. No scleral icterus. No injection or drainage. ENT: Nose without bleeding, or purulent drainage. Endotracheal tube is in the mouth, he has moist oral mucosa. NECK: Trachea midline. No JVD or lymphadenopathy. Supple, no meningeal signs. CARDIOVASCULAR: Regular rate and rhythm, no rub, with murmur heard at the base of the heart. RESPIRATORY: Equal breath sounds bilaterally. Decreased at the bases. No wheezes, rales, or rhonchi. GASTROINTESTINAL: Abdomen soft, slightly globular, nondistended, no reaction to palpation. Bowel sounds are present and normoactive. No hepato-splenomegaly , or palpable masses. MUSCULOSKELETAL: Extremities without clubbing, cyanosis, or mottling. Has some mild pedal edema. Dry dressing L leg wound. No joint effusion. NEUROLOGICAL: awake and following somet PSYCH: Unable to assess LINE: DINAJ with no evidence of infection Assessment & Plan Remarks IMPRESSION Sepsis on presentation, with MOSF, shock - off pressors - has Strep Group G in his BC - has mobile vegetation in his AV and has AI - no hx IVDU - prob source is his large open wound L leg which has been present for a year - no mention of previous dental problem, unable to get good exam of his oropharynx - off pressors MRSA PNA Fevers, better Respiratory failure Renal failure, on HD Septic emboli to brain, multiple Has anemia and leukocytosis UTI Fungating ulcer/mass leg, C/S MRSA and Strep - path pending Elevated LFT, improving - US with CBD dil - no pericholecystic fluid RECOMMENDATION Continue IV Zyvox for MRSA in sputum Continue IV Rocephin for Strep G in BC Monitor progress Wound care Follow path report Follow temps Weaning per [facility] Rosi Fonseca MD Sep 26, 2016 10:51
[2016-09-26] MEDS: cefTRIAXone INJ 2,000 MG in SODIUM CHLORIDE 0.9% INJ 100 ML IV SCH (11:40)
--- NOTE | 2016-09-26 12:11 | HHI.NPPN ---
Subjective History of Present Illness 56-year-old male with a past medical history of hypertension, history of schizophrenia and depression, was brought to the hospital because of altered mental status. I was called to see the patient because of elevated BUN and creatinine. The patient was found to have a creatinine of 3.2 on admission. Previously in 2012 his creatinine was normal. Additional Remarks Patient remain on the vent. off sedation, following verbal commands. Review of Systems General General Remarks Cannot take, intubated. Objective Data Data 09/25/16 09/26/16 19:00 07:00 Intake Total 520 ml 1494 ml Output Total 4000 ml 0 ml Balance -3480 ml 1494 ml Intake IV Total 150 ml 944 ml Tube Feeding 370 ml 550 ml Output Urine Total 0 ml 0 ml Gastric Drainage Total 0 ml Tube Feeding Residual Discard 0 ml 0 ml Hemodialysis 4000 ml # Bowel Movements 0 1 Vital Signs Date Time Temp Pulse Resp B/P Pulse Ox O2 Delivery O2 Flow Rate FiO2 09/26/16 10:00 92 09/26/16 08:08 100 35 09/26/16 08:00 99.1 92 24 146/42 100 09/26/16 08:00 93 09/26/16 08:00 35 09/26/16 06:00 90 09/26/16 04:26 100 35 09/26/16 04:00 99.0 90 27 120/38 100 09/26/16 04:00 90 09/26/16 04:00 35 09/26/16 02:00 90 09/26/16 01:42 96 35 09/26/16 00:00 98.3 84 28 111/42 100 09/26/16 00:00 84 09/26/16 00:00 35 09/25/16 22:01 94 35 09/25/16 22:00 84 09/25/16 20:00 98.6 90 27 127/42 98 09/25/16 20:00 35 09/25/16 20:00 91 09/25/16 18:00 84 09/25/16 16:00 98.0 89 29 116/40 100 09/25/16 16:00 89 09/25/16 16:00 35 09/25/16 15:50 100 35 09/25/16 14:00 85 -: 09/26/16 0500 09/26/16 0500 Physical Exam General Appearance Remarks Intubated and awake. Eyes Eye Exam: Pupils Equal Neck Neck Exam: Neck Supple Pulmonary Resp Exam: Crackles, Rhonchi, Decreased Bases, Diminished Breath Sounds, Poor Inspiratory Effort Gastrointestinal/Abdomen GI Exam: Soft, Non-Tender, Bowel Sounds Present, Distended Extremeties Extremities Exam: Moderate Edema, Pitting Edema, Dependent Edema Neurologic Neuro Exam: Awake Assessment/Plan Assessment Summary: RACHAEL/Acute Renal Failure Problem List: (1) Cellulitis (2) Mass of left lower extremity (3) Septic shock (4) Anemia (5) ARF (acute renal failure) Plan Patient has low urine out put. BP dropped and started on low dose pressors. Urine out put is still low. Possibly has RACHAEL due to ATN from Hypotension. Follow urine out put and BMP. HD done yesterday. Weaning as per CCM. Problem Qualifiers (1) Cellulitis: Qualified Code: L03.116 - Cellulitis of left lower extremity Manoj Liu MD Sep 26, 2016 12:11
--- NOTE | 2016-09-26 12:39 | HHI.FPPN ---
Objective Vitals Vital Signs Date Time Temp Pulse Resp B/P Pulse Ox O2 Delivery O2 Flow Rate FiO2 09/26/16 10:00 92 09/26/16 08:08 100 35 09/26/16 08:00 99.1 92 24 146/42 100 09/26/16 08:00 93 09/26/16 08:00 35 09/26/16 06:00 90 09/26/16 04:26 100 35 09/26/16 04:00 99.0 90 27 120/38 100 09/26/16 04:00 90 09/26/16 04:00 35 09/26/16 02:00 90 09/26/16 01:42 96 35 09/26/16 00:00 98.3 84 28 111/42 100 09/26/16 00:00 84 09/26/16 00:00 35 09/25/16 22:01 94 35 09/25/16 22:00 84 09/25/16 20:00 98.6 90 27 127/42 98 09/25/16 20:00 35 09/25/16 20:00 91 09/25/16 18:00 84 09/25/16 16:00 98.0 89 29 116/40 100 09/25/16 16:00 89 09/25/16 16:00 35 09/25/16 15:50 100 35 09/25/16 14:00 85 I/O 09/25/16 09/25/16 09/25/16 09/26/16 09/26/16 09/26/16 06:59 14:59 22:59 06:59 14:59 22:59 Intake Total 555 ml 520 ml 850 ml 644 ml Output Total 25 ml 4000 ml 0 ml 0 ml 0 ml Balance 530 ml -3480 ml 850 ml 644 ml 0 ml Intake IV Total 330 ml 150 ml 600 ml 344 ml Tube Feeding 225 ml 370 ml 250 ml 300 ml Output Urine Total 25 ml 0 ml 0 ml 0 ml Gastric Drainage Total 0 ml Tube Feeding Residual Discard 0 ml 0 ml 0 ml Hemodialysis 4000 ml # Bowel Movements 0 0 0 1 Result Diagram: 09/26/16 0500 09/26/16 0500 Objective Remarks GENERAL: 66-year-old Kath[place] male lying in bed intubated. SKIN: Warm and dry. No rash. CARDIOVASCULAR: Regular rate and rhythm with 3/6 diastolic murmur more pronounced at the right sternal border. RESPIRATORY: Equal diffuse coarse breath sounds. Currently breathing via ventilator without sedation. GASTROINTESTINAL: Abdomen soft, nondistended with +BS. No masses appreciated. MUSCULOSKELETAL: Extremities without cyanosis. 1+ edema of left lower extremity. LLE on admission: 8.5 X 10.5CM circular, fungating, ulcerative lesion on the posterior aspect of the L knee. No hemorrhage or necrosis appreciated. Lesion is foul smelling and appears to involve skin and subcutaneous tissue; does not appear to involve the muscle or bone. 2+ edema from the ankle to the knee. LLE currently: Currently lesion bandaged with sterile gauze, CDI. NEUROLOGICAL: Patient intubated and off sedation. Patient able to move R lower and upper extremities on command, but his L upper and lower extremities remain flaccid. Patient is able to open his eyes to verbal and tactile sensation. PERRL with mild strabismus. Date of Insertion: Sep 19, 2016 Line: Central Venous Catheter Side: Left Location: Jugular A/P Assessment and Plan Mr. Burnham is a 56 y/o AAM with a PMHx of HTN presenting with AMS and a LLE wound found to be in septic shock, with endocarditis admitted for medical therapy. Discharge Planning Pending clinical improvement. Unclear timeframe at this time. DW: Dr. Aparicio WDW: Dr. Helm Problem List: (1) Septic shock Status: Acute Plan: On admission patient presented with altered mental status left lower extremity lesion. Patient found to be tachycardic to 100 bpm with a white blood cell count of 18.6. Likely source of infection is his left lower extremity lesion. Found to have a lactic acid of 4.5 not responsive to fluid resuscitation. Patient placed on sepsis protocol and transferred to the [facility] for further monitoring. Patient found to have endocarditis with mobile aortic valve vegetation. Blood cultures 2 09/19: Beta hemolytic streptococcus, beta Streptococcus group G; both pansensitive UC: Pending Wound culture x2: MRSA, sensitive to vancomycin Blood culture 09/20: Negative to date Blood culture 09/21: Negative to date Sputum culture 09/22: MRSA, sensitive to vancomycin Intensive care consulted, appreciate recommendations Infectious disease consulted, appreciate recommendations * Continue Vancomycin and Zosyn * MRI of brain from 09/21 significant for multifocal nonhemorrhagic acute infarction, the largest in the right frontoparietal region. Diffuse bilateral nature involving both anterior and posterior circulation suggests embolic source. No evidence of mass effect or cerebral edema at this point. * Biopsy of LLE lesion sent for pathology * Repeat BC with no growth to date * Chest x-ray 09/24: Unchanged left lower lobe infiltrate * Hepatic US: Cholelithiasis. Gallbladder wall is at the upper limits of normal in terms of thickness. No pericholecystic fluid.Consider HIDA scan. Common bile duct is dilated measuring 10mm. No discernible stone. Medications: Vancomycin 1 g twice a day (09/19-09/24); discontinued due to poor renal function Linezolid 600mg B ID (09/24- ) Zosyn 2.25 g every 6 hours (09/19- ) Hydrocortisone (09/20-09/22) Fentanyl, propofol, Versed discontinued (2) Skin ulcer of left lower leg, limited to breakdown of skin Status: Acute Plan: Patient with circular, fungating, ulcerative lesion on the posterior aspect of the L knee with edema of the lower extremity. Patient denies any pain currently. Lower extremity neurovascularly intact with appropriate capillary refill. Knee x-ray: Chronic changes with no evidence of acute fracture Tubularfibula x-ray: Chronic changes and no evidence of acute fractures. Lower extremity MRI: Large mass most likely originating from the patient's skin with infiltration of subcutaneous fat and no definite involvement of the muscular structures her marrow. A malignant mass should be entertained and clinical correlation is needed. Punch biopsy 09/20: Pending Gen. surgery consulted for possible excision biopsy, appreciate recommendations * No further interventions until pt is extubated and clinically improved -Please see plan as above (3) Endocarditis of aortic valve Status: Acute Plan: On admission patient with elevated CPK to 7480 and troponin to 12.4. Echocardiogram performed and found to have mobile vegetation of the aortic valve. Blood cultures with gram-positive cocci in all 4 vials. TTE 09/20: Aortic valve with mobile vegetation on the left ventricular aspect. Severe aortic regurgitation directed eccentrically in the LVOT. Left ventricle with normal cavity size and wall thickness. Systolic function normal. Estimated ejection fraction in the range of 50-55% with normal wall motion. Mitral valve with mild regurgitation. Tricuspid valve with mild regurgitation. Pulmonary arteries with moderately increased systolic pressure. Cardiology consulted, appreciate recommendations * AGUSTIN scheduled, however due to patient's declining status, will hold off at this time * Severe aortic insufficiency, would require surgical replacement. Cardiothoracic surgery consulted. Cardiothoracic surgery consulted, appreciate recommendations * Currently not a surgical candidate * Surgery to be considered once pt is stable and extubated. (4) Acute embolic stroke Status: Acute Plan: Patient presented with altered mental status with septic shock found to have endocarditis. Patient currently off sedation with poor neurological exam. CT head: Old infarction with encephalomalacia in the watershed distribution of the right CORINNE and MCA. Brain MRI: Abnormal scan demonstrating evidence of multi-focal nonhemorrhagic acute infarction with the largest in the right frontoparietal region. Diffuse bilateral nature involving both anterior and posterior circulation suggest embolic source. No evidence of mass effect or cerebral edema at this point. Prognosis currently unclear as patient is intubated and sedated Permissive hypertension, however patient currently septic with severe aortic regurgitation Frequent neuro checks Please see plan as above (5) Acute renal failure (ARF) Status: Acute Plan: Patient found to have a BUN of 58 with a creatinine of 3.27 on admission likely secondary to septic shock. Per chart review, admission in 2012 showed creatinine of 0.81. Renal ultrasound: Unremarkable Strict I/Os Avoid nephrotoxic agents Urology consulted to assist with David catheter placement secondary to phimosis Nephrology consulted, appreciate recommendations * Hemodialysis as needed * Possibly has a candidate due to ATN from hypotension. * Monitor BMP (6) Anemia Status: Acute Plan: Patient found to be anemic on admission without prior history. H/H shows declining hemoglobin. Patient transfused 3 units of PRBC on 09/19. Pt with Coffee-ground gastric secretions, suggestive of possible upper GI bleed. H/H today: 7.9/23.1 4 units PRBC transfused since admission, critical care will transfer her one additional unit today,09/24/16 GI consulted, appreciate recommendations and intervention * EGD 09/21: No active bleeding, NG tube suction injury to gastric body * Discontinue Protonix drip * Protonix 40 mg IV twice a day * Adjust tube feeds as needed * Monitor H/H * Transfuse as necessary * Supportive care (7) Nutrition, metabolism, and development symptoms Status: Acute Plan: Fluids: Currently discontinued Diet: NPO as patient is intubated and sedated Electrolytes: Continue to monitor DVT Prophylaxis: Heparin 5000 units Q12hrs GI prophylaxis: Protonix twice a day Problem Qualifiers (1) Acute renal failure (ARF): Qualified Code: N17.9 - Acute renal failure, unspecified acute renal failure type Brian Guadalupe MD R1 Sep 26, 2016 12:39 Problem Qualifiers (1) Acute renal failure (ARF): Qualified Code: N17.9 - Acute renal failure, unspecified acute renal failure type Brian Guadalpue MD R1 Sep 26, 2016 12:39
[2016-09-26] MEDS ORDERED: VANCOMYCIN INJ 1,000 MG in SODIUM CHLOR 0.9% 250 ML INJ 250 ML IV SCH (13:00)
--- NOTE | 2016-09-26 13:23 | HHI.PR ---
Addendum to Inpatient Note Addendum Reason: Additional Documentation Additional Information OFF Service Note Mr. Burnham is a 56 y/o M who presented on 09/19/16 with AMS and a LLE wound found to have septic shock, ARF, and endocarditis. He was admitted and intubated in the ICU on day of admission due to tachypnea with desaturations. Bedside echocardiogram was performed showing severe aortic regurgitation with a mobile vegetation on the aortic valve. Blood cultures were positive for Beta hemolytic strep group G with wound cultures positive from MRSA and Strep not in groups A, B, or D. He was started on Vancomycin and Zosyn, but has most recently been transitioned to Zyvox and Rocephin per ID with negative repeat cultures. Cardiothoracic surgery was consulted for possible replacement, but currently the patient is too unstable for procedure. He remains intubated with tube feeds at goal and currently undergoing daily CPAP trials. Regarding his LLE wound, on exam the lesion is 8.5X10.5cm circular, fungating, and ulcerative on the posterior aspect of the LLE most likely neoplastic in nature. The lesion was foul smelling with mild purulence, but did not appear necrotic or hemorrhagic. MRI showed a large mass most likely originating from the patient's skin with infiltration of the subcutaneous fat with no definite involvement of the muscular structures or marrow. Punch biopsy was performed with results currently pending. General surgery was consulted for possible excision biopsy as well, but currently the patient is not stable for the procedure. Initial brain MRI showed multifocal nonhemorrhagic acute infarctions with the largest in the R frontoparietal region suggesting embolic source. Repeat CT on showed evolving R frontal infarct without midline shift or mass effect. Neurologically the patient is able to move his R upper and lower extremities as well as his L lower extremity on command. He is unable to move his L upper extremity at this time. His pupils are equal round and reactive to light with mild strabismus. He does respond to tactile and verbal stimulation by opening his eyes. Renally, he has likely suffered from acute tubular renal necrosis secondary to hypotension. Initially placed on continuous renal replacement therapy (CRRT), however this was discontinued due to multiple episodes of clotting. Since that time Nephrology has placed him on intermittent hemodialysis as needed. He was also found to be anemic on admission and has been transfused 5 units over the course of his hospital stay. (Brian Guadalupe MD R1) Brian Guadalupe MD R1 Sep 26, 2016 13:23 Jason Helm MD Sep 26, 2016 16:08
--- NOTE | 2016-09-26 16:24 | MB ---
cc: EVELIO LOPEZ M.D. DATE OF CONSULTATION: 09/26/2016. HISTORY OF PRESENT ILLNESS: He is a 56-year-old -[place] man with history of being admitted on 09/19. Apparently he had a wound on the left posterior calf region and he was not getting adequate medical care and came in with altered mental status. He has a history of hypertension. Evidently he has been diagnosed with endocarditis. This wound lesion turned out to be probable neoplastic. The patient has developed septic shock and renal failure He has been intubated and is requiring some intermittent sedation. Vegetation noted by the echocardiogram on the aortic valve. He needs apparent valve replacement. NEUROLOGICAL EXAMINATION: The neurologic exam showed the patient to be intubated but upon mild stimulation he awakens and follows simple commands. 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 He wiggles toes, perhaps less on the left but difficult to be sure. there is a significant asymmetry. Muscle stretch reflex is absent throughout. Plantar responses are probably flexor bilaterally. Pupils about the same size reactive. He gazed to the right and left and I cannot be certain about visual bynum, though I do not expect a visual field impairment. IMAGING STUDIES: MRI of brain was reviewed. There is this moderate to large size area of acute ischemia right frontal and there are numerous small areas of diffusion abnormalities in the anterior posterior circulation. These small areas of restricted diffusion are compatible with small areas of embolic phenomenon. He subsequently had the CT brain on 09/24 while the MRI was on 09/21. ASSESSMENT: Embolic stroke with a large one on the right frontal lobe and numerous small areas of in the anterior and posterior circulation. This is compatible with septic embolism from the endocarditis. He is apparently in need of heart valve surgery. From a neurologic standpoint, he would be more stable in approximately four to six weeks from the onset of his symptoms or the abnormal MRI which was on 09/21. On the other hand, if surgery is felt to be more urgent, this could be accomplished with a relatively safe profile. He evidently needs continuing aggressive medical care with continuing antibiotics as guided by infectious disease in the meantime. I will also request a carotid ultrasound on him. Thank you for asking us to assist in his care. MD AARTI Andersen/JCSusi /3:04 PM /4:17 PM
[2016-09-27] VITALS (20 sets, daily range): BP systolic 121–133; BP diastolic 35–42; PULSE 84–97; RESP 24–36; TEMP 97.5–99.1; O2SAT 98–100
[2016-09-27] MEDS: LINEZOLID 600 MG PREMIX 300 ML IV SCH ×2 (03:15→14:51)
[2016-09-27] MEDS: CHLORHEXIDINE GLUCONATE 2 % 1 PACK (2 CLOTHS) TOP SCH (03:15)
--- NOTE | 2016-09-27 04:33 | RADRPT ---
EXAM DATE/TIME: 09/27/2016 03:21 [facility] COMPARISON: CHEST SINGLE AP, September 24, 2016, 5:13. INDICATIONS : Shortness of breath. MEDICAL HISTORY : Hypertension. SURGICAL HISTORY : None. ENCOUNTER: Subsequent ACUITY: 1 week PAIN SCORE: Non-responsive. LOCATION: Bilateral chest FINDINGS: The support devices remain in place. There is some interstitial infiltrates bilaterally suggestive of edema. There is no evidence of pneumothorax. The heart size is mildly enlarged but stable. No defini te pleural effusions. No significant changes compared to the prior study. The bony structures are sta ble. CONCLUSION: Mild interstitial edema. Jason Albert MD on September 27, 2016 at 4:31 Board Certified Radiologist. This report was verified electronically.
[2016-09-27] MEDS: RESP: ALBUTEROL 2.5 MG/IPRATROPIUM 0.5 MG NEB (SCH) INH (05:15)
[2016-09-27 05:47] LABS: HEMATOCRIT 22.9 % (39.0-51.0); MEAN CELL VOLUME 93.5 FL (80.0-100.0); MEAN CORPUSCULAR HEMOGLOBIN 30.5 PG (27.0-34.0); MEAN CORPUSCULAR HGB CONC 32.6 % (32.0-36.0); PLATELET COUNT 88 TH/MM3 (150-450); RED BLOOD COUNT 2.45 MIL/MM3 (4.50-5.90); WHITE BLOOD COUNT 16.2 TH/MM3 (4.0-11.0)
[2016-09-27 05:48] LABS: REVIEW FLAG FINAL
[2016-09-27] MEDS: INSULIN ASPART SUPPLEMENTAL SCALE SQ SCH ×4 (06:00→18:00)
[2016-09-27 06:01] LABS: INDIRECT BILIRUBIN 0.6 MG/DL (0.0-0.8); POTASSIUM 5.6 MEQ/L (3.5-5.1); TOTAL BILIRUBIN ADULT 2.8 MG/DL (0.2-1.0)
[2016-09-27] MEDS: HEPARIN SODIUM - SQ 10,000 UNITS/ML VIAL SQ SCH ×2 (06:08→17:16)
[2016-09-27] MEDS: CHLORHEXIDINE 0.12% (ORAL KIT) 15 ML CUP MT SCH ×2 (08:00→20:00)
[2016-09-27] MEDS: SODIUM CHLORIDE 0.9% FLUSH 10 ML FLUSH IV FLUSH SCH ×2 (08:00→20:56)
[2016-09-27] MEDS: DOCUSATE SODIUM 100 MG CAP PO SCH ×2 (09:00→20:14)
[2016-09-27] MEDS: PANTOPRAZOLE SODIUM 40 MG VIAL IV PUSH SCH ×2 (09:00→20:56)
--- NOTE | 2016-09-27 09:02 | HHI.FPPN ---
Subjective Remarks Patient currently intubated but not sedated. Indicates with a thumbs up that he is doing okay. However, he is tired and sleeps during most of the exam. ( Yfn Gomez MD R2) Objective Vitals Vital Signs Date Time Temp Pulse Resp B/P Pulse Ox O2 Delivery O2 Flow Rate FiO2 09/27/16 08:21 99 35 09/27/16 06:00 87 09/27/16 05:19 100 35 09/27/16 04:00 35 09/27/16 04:00 89 09/27/16 04:00 98.9 89 26 122/40 100 09/27/16 02:00 88 09/27/16 00:37 100 35 09/27/16 00:00 99.1 86 24 122/38 100 09/27/16 00:00 86 09/27/16 00:00 35 09/26/16 22:00 87 09/26/16 21:35 97 35 09/26/16 20:00 90 09/26/16 20:00 99.0 90 24 122/36 100 09/26/16 20:00 35 09/26/16 18:00 86 09/26/16 16:44 100 35 09/26/16 16:00 86 09/26/16 16:00 35 09/26/16 16:00 99.0 86 26 118/38 100 09/26/16 14:00 86 09/26/16 12:34 100 35 09/26/16 12:00 98.2 88 22 114/34 100 09/26/16 12:00 35 09/26/16 12:00 88 09/26/16 10:00 92 I/O 09/26/16 09/26/16 09/26/16 09/27/16 09/27/16 09/27/16 07:00 15:00 23:00 07:00 15:00 23:00 Intake Total 644 ml 528 ml 600 ml 635 ml Output Total 0 ml 0 ml 0 ml 0 ml Balance 644 ml 528 ml 600 ml 635 ml Intake IV Total 344 ml 179 ml 300 ml 335 ml Tube Feeding 300 ml 349 ml 300 ml 300 ml Output Urine Total 0 ml 0 ml 0 ml 0 ml Tube Feeding Residual Discard 0 ml 0 ml 0 ml # Bowel Movements 1 2 0 2 (Yfn Gomez MD R2) Result Diagram: 09/27/1615 09/27/1615 Objective Remarks GENERAL: 66-year-old Kathi male lying in bed intubated. SKIN: Warm and dry. No rash. CARDIOVASCULAR: Regular rate and rhythm with 3/6 diastolic murmur more pronounced at the right sternal border. RESPIRATORY: Equal diffuse coarse breath sounds. Currently breathing via ventilator without sedation. GASTROINTESTINAL: Abdomen soft, nondistended with +BS. No masses appreciated. MUSCULOSKELETAL: Extremities without cyanosis. 1+ edema of left lower extremity. LLE on admission: 8.5 X 10.5CM circular, fungating, ulcerative lesion on the posterior aspect of the L knee. No hemorrhage or necrosis appreciated. Lesion is foul smelling and appears to involve skin and subcutaneous tissue; does not appear to involve the muscle or bone. 2+ edema from the ankle to the knee. LLE currently: Currently lesion bandaged with sterile gauze, CDI. NEUROLOGICAL: Patient intubated and off sedation. Patient able to move R upper and lower extremity on command, as well as left lower extremity. No movement of left upper extremity appreciated. Patient is able to open his eyes to verbal and tactile sensation. PERRL with mild strabismus. (Yfn Gomez MD R2) Date of Insertion: Sep 19, 2016 Line: Central Venous Catheter Side: Left Location: Jugular (Yfn Gomez MD R2) A/P Assessment and Plan Mr. Burnham is a 56 y/o AAM with a PMHx of HTN presenting with AMS and a LLE wound found to be in septic shock on admission, with endocarditis; admitted for medical therapy. Discharge Planning Pending clinical improvement. Unclear timeframe at this time. (Yfn Gomez MD R2) Attending Attestation Pt. examined and case discussed with resident physicians I have read the above note and agree with the assessment/plan as discussed with me I was involved in all medical decision making for this patient Jason Helm MD (Jason Helm MD) Problem List: (1) Acute embolic stroke Status: Acute Plan: Embolic stroke from aortic endocarditis Brain MRI 09/21: Abnormal scan demonstrating evidence of multi-focal nonhemorrhagic acute infarction with the largest in the right frontoparietal region. Diffuse bilateral nature involving both anterior and posterior circulation suggest embolic source. No evidence of mass effect or cerebral edema at this point. -Likely repeat MRI sometime this week per critical care Neurosurgery consulted- patient may be more stable in 4-6 weeks (from 09/21) for heart valve surgery. Cardiothoracic surgery consulted, see below (2) Skin ulcer of left lower leg, limited to breakdown of skin Status: Acute Plan: Patient with circular, fungating, ulcerative lesion on the posterior aspect of the L knee with edema of the lower extremity. Patient denies any pain currently. Lower extremity neurovascularly intact with appropriate capillary refill. Concerning for neoplastic process Punch biopsy 09/20: Pending Lower extremity MRI: Large mass most likely originating from the patient's skin with infiltration of subcutaneous fat and no definite involvement of the muscular structures her marrow. A malignant mass should be entertained and clinical correlation is needed. Gen. surgery consulted for possible excision biopsy, appreciate recommendations * No further interventions until pt is extubated and clinically improved (3) Endocarditis of aortic valve Status: Acute Plan: TTE performed on 09/19 and found to have mobile vegetation of the aortic valve. Blood cultures with gram-positive cocci in all 4 vials. Cardiothoracic surgery consulted, appreciate recommendations * Currently not a surgical candidate * Surgery to be considered once pt is stable and extubated. Infectious disease consulted * Continue IV Zyvox (09/24- ) and IV Rocephin (09/22- ) * Repeat blood culture 09/21 shows no growth to date Medication history: Vancomycin 1 g twice a day (09/19-09/24); discontinued due to poor renal function Zosyn 2.25 g every 6 hours (09/19-09/22) Hydrocortisone (09/20-09/22) (4) Acute renal failure (ARF) Status: Acute Plan: Creatinine continues to increase. Possibly has RACHAEL due to ATN from Hypotension. Nephrology consulted * Hemodialysis as needed Strict I/Os Avoid nephrotoxic agents Renal ultrasound 09/19: Unremarkable (5) Anemia Status: Acute Plan: Patient found to be anemic on admission without prior history. Continue to monitor H&H. Patient transfused 3 units of PRBC on 09/19. GI consulted, appreciate recommendations and intervention * Hida scan when stable * EGD 09/21: No active bleeding, NG tube suction injury to gastric body * Protonix 40 mg IV twice a day * Adjust tube feeds as needed * Monitor H/H * Transfuse as necessary * Supportive care (6) Nutrition, metabolism, and development symptoms Status: Acute Plan: Fluids: Currently discontinued Diet: NPO as patient is intubated Electrolytes: Continue to monitor DVT Prophylaxis: Heparin 5000 units Q12hrs GI prophylaxis: Protonix twice a day (7) Septic shock Status: Resolved Plan: On admission patient presented with altered mental status left lower extremity lesion. Patient found to be tachycardic to 100 bpm with a white blood cell count of 18.6. Likely source of infection is his left lower extremity lesion. Found to have a lactic acid of 4.5 not responsive to fluid resuscitation. Patient placed on sepsis protocol and transferred to the [facility] for further monitoring. Patient found to have endocarditis with mobile aortic valve vegetation. Blood cultures 2 09/19: Beta hemolytic streptococcus, beta Streptococcus group G; both pansensitive UC: Pending Wound culture x2: MRSA, sensitive to vancomycin Blood culture 09/20: Negative to date Blood culture 09/21: Negative to date Sputum culture 09/22: MRSA, sensitive to vancomycin Intensive care consulted, appreciate recommendations Infectious disease consulted, appreciate recommendations * Continue IV Zyvox (09/24- ) and IV Rocephin (09/22- ) * Head CT 09/24: Evolving right frontal infarct. No midline shift or mass effect. * MRI of brain from 09/21 significant for multifocal nonhemorrhagic acute infarction, the largest in the right frontoparietal region. Diffuse bilateral nature involving both anterior and posterior circulation suggests embolic source. No evidence of mass effect or cerebral edema at this point. * Biopsy of LLE lesion sent for pathology * Repeat BC with no growth to date * Chest x-ray 09/24: Unchanged left lower lobe infiltrate * Hepatic US: Cholelithiasis. Gallbladder wall is at the upper limits of normal in terms of thickness. No pericholecystic fluid.Consider HIDA scan. Common bile duct is dilated measuring 10mm. No discernible stone. Medication history: Vancomycin 1 g twice a day (09/19-09/24); discontinued due to poor renal function Zosyn 2.25 g every 6 hours (09/19-09/22) Hydrocortisone (09/20-09/22) (Yfn Gomez MD R2) Problem Qualifiers (1) Acute renal failure (ARF): Qualified Code: N17.9 - Acute renal failure, unspecified acute renal failure type Yfn Gomez MD R2 Sep 27, 2016 09:01 Jason Helm MD Sep 27, 2016 18:42
--- NOTE | 2016-09-27 09:15 | HHI.CCPN ---
Subjective Remarks/Hospital Course 09/19: This is a 56-year-old male that presented secondary to altered mental status. The patient's sister provided the medical information. The patient is alert and oriented 3 .the patient was noted to have a lesion on his left lower extremity and was seen at [facility] by Dr. Carpio at all is felt to be a malignant lesion however the patient was scheduled for follow-up and was noncompliant .over the last several days the patient had began to feel generalized malaise and he lives with his sister who noted that he began to have altered mental status and he presented to the ED .upon presentation to the ED the patient's blood pressure systolic blood pressure was in the 80s laboratory and imaging studies reveal septic shock , with a lactate of 4.5. The patient was bolused with 4 L of normal saline is currently hemodynamically stable , tachypnea , secondary to a bicarbonate level of 9 . He is reported to have a neoplastic lesion about the region of the left knee posteriorly, recent imaging studies suggest malignant neoplasm. The patient underwent a TTE in the ED by Dr. Coombs was noted to have cardiac vegetations tentative plan for a AGUSTIN in the am. Critical care medicine's consult for management. 09/20: Patient was intubated overnight and placed on mechanical ventilation for worsening respiratory status. He is currently sedated, orally intubated on mechanical ventilation. Transfuse 3 units PRBCs overnight. Has some coffee- ground NG aspirate however no melena or rectal bleeding noted. On Levophed 12 mics per minute and vasopressin low-dose for septic shock. Decreasing urine output and significant metabolic acidosis noted for which nephrology consult was requested this morning, vascath was placed and patient has been initiated on CRRT. Discussed with cardiology, severe aortic regurg with aortic valve vegetation for which patient will eventually need an aortic valve replacement following initial stabilization. Awaiting Dr. Medina evaluation. Dr. Coombs has discussed echo with Dr. Medina. 09/21: no significant improvements. lactate still 10. persists on 2 vasopressors. pH slightly better. CRRT circuit clotted overnight. 09/22: off vasopressors this morning. MRI yesterday with multiple acute strokes, largest in right fronto-parietal region. acidosis better. CRRT clotted at 2100 overnight. plan to likely transition to IHD today. 09/23: neuro exam remains poor. acidosis resolving. IHD yesterday with 4L removed. hgb downtrended to 7 this AM. off vasopressors. 09/24: 4.5L removed yesterday with IHD. still neuro exam remains poor. sputum growing MRSA. vanc trough therapeutic. persistently anemic despite prbc transfusion yesterday. 09/25: 4L removed yesterday on IHD. improving neuro exam and patient following commands today with right upper and lower extremities. nothing on left today. states he is in pain. LFTs continue to downtrend. repeat sputum growing MRSA. hgb improved today. CVP still 15 - 17. 09/26: more awake today, moving all 4 extremities, following commands. I placed the patient on a spontaneous breathing trial today and he lasted about 45 minutes but failed for worsening respiratory distress, RR > 45, obvious labored breathing. 09/27: He is sedated intubated. Continues to follow simple commands. WBC count trending down. Moving all 4 extremities. RR 35-36 Objective Vital Signs Date Time Temp Pulse Resp B/P Pulse Ox O2 Delivery O2 Flow Rate FiO2 09/27/16 08:42 35 09/27/16 08:21 99 09/27/16 06:00 87 09/27/16 04:00 98.9 26 122/40 Intake and Output 09/26/16 09/26/16 09/27/16 08:00 16:00 00:00 Intake Total 644 ml 528 ml 600 ml Output Total 0 ml 0 ml 0 ml Balance 644 ml 528 ml 600 ml Result Diagram: 09/27/16 0515 09/27/16 0515 Imaging Last Impressions Tibia/Fibula X-Ray 09/19/16 0000 Signed Impressions: Service Date/Time: Monday, September 19, 2016 07:43 - CONCLUSION: Chronic changes and no evidence for acute fracture. Claudio Barroso MD Renal Ultrasound 09/19/16 0000 Signed Impressions: Service Date/Time: Monday, September 19, 2016 10:40 - CONCLUSION: Unremarkable renal ultrasound. Claudio Barroso MD Lower Extremity MRI 09/19/16 0000 Signed Impressions: Service Date/Time: Monday, September 19, 2016 10:15 - CONCLUSION: Large mass most likely originating from the patient's skin with infiltration of subcutaneous fat and no definite involvement of the muscular structures or marrow. A malignant mass should be entertained and clinical correlation is needed. Claudio Barroso MD Knee X-Ray 09/19/16 0000 Signed Impressions: Service Date/Time: Monday, September 19, 2016 07:43 - CONCLUSION: Osteoarthritis. 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 Claudio Barroso MD Chest X-Ray 09/19/16 0000 Signed Impressions: Service Date/Time: Monday, September 19, 2016 16:50 - CONCLUSION: 1. Minimal basilar atelectasis. Elevated right hemidiaphragm. No effusion. Osteochondral defect right humeral head. Raul Merlos MD Objective Remarks HEENT/ Neuro: orally intubated, Pallor present, no icterus, tongue/ mucosa moist Neck: Right IJ Vas-Cath, left IJ central line in place. trachea midline. Chest/Pulm: on mech vent, equal chest rise, coarse BS bilaterally. CVS: S1-S2 regular, III/ diastolic murmur best heard over aortic area noted. GI/abdomen: soft, nontender, nondistended. no guarding. Extremities: warm bilaterally, no edema. Ulcerated lesion/ mass on left leg behind the knee noted Neuro: RASS -2. Following commands in all 4 extremities today. answers questions by nodding head. Moving all extremities spontaneously Date of Insertion: Sep 19, 2016 Line: Central Venous Catheter Side: Left Location: Jugular A/P Assessment and Plan Assessment: 56yM with infective endocarditis of the [place] aortic valve with subsequent severe acute aortic regurgitation, pulmonary edema, congestive heart failure secondary to valvulopathy, acute mixed septic/cardiogenic shock which is slowly resolving, new acute strokes secondary to septic emboli, multiorgan system dysfunction, acute liver dysfunction likely secondary to shock liver and possible congestive hepatopathy, acute kidney injury requiring renal replacement therapy, metabolic encephalopathy. He remains very critically ill at this time. Certainly, will need to wait at least a week from time of strokes to pursue cardiac surgery, but now has two indications for urgent AVR. Neuro exam is improving and he is following commands. Continue daily IHD for volume removal. Would plan to repeat MRI after 1 week (near 09/29) and if no acute changes, would re-engage cardiac surgery at that point to consider urgent aortic valve replacement. Plan by systems: Neurologic: New multifocal infarcts, largest in Right FP region, secondary to septic emboli Old CVA infarct Possible schizophrenia Metabolic encephalopathy secondary to sepsis Propofol for Sedation and ventilator synchrony goal RASS -2. frequent neuro checks MRI 09/22: multifocal infarcts, largest in right frontoparietal region. hold acetaminophen given shock liver. repeat head CT 09/24 with evolving right frontal infarct, no midline shift. Respiratory: Acute hypoxic respiratory failure on mechanical ventilation Pulmonary Edema secondary to acute AR, and LV failure Continue mechanical ventilation, vent bundle, bronchodilators as needed. failed SBT 09/25 and 09/26 for tachypnea and distress. continue daily SBTs. -Certainly with his severe aortic regurgitation,, unclear if he will be able to be extubated,or will remain extubated. volume removal with PRECISION JIG GRINDER. Cardiovascular: Aortic valve vegetation Severe aortic regurgitation Septic Shock- resolved. Cardiogenic Shock- resolving. Congestive Heart Failure secondary to valvulopathy Transthoracic echo with aortic valve vegetation with severe aortic regurgitation. Cardiology: [facility] CT Surgery: Adam -- will need anti-platelet therapy, but with his multiple acute issues and his thrombocytopenia, will hold off on ASA at this time. if platelet count improves , will consider starting. Plt count is 88 today -- lipid panel appropriate. -- goal SBP 110 - 120 to optimize cardiac function. will tolerate MAP > 50 in order to accomplish this. -- will need AVR at urgent/emergently, will hold off for at least a week post- stroke, re-consider around 09/29 Renal: Acute kidney injury secondary to shock Acute intravascular volume overload. Strict intake output, monitor and replete electrolytes, follow BUN/creatinine. -- Daily IHD for volume removal. continue salmeron catheter. FEN/GI: Acute severe intravascular volume overload Acute protein calorie malnutrition- mild Hyperphosphatemia- resolving. Acute GI bleed- resolving. Lactic Acidosis- resolving. Severe metabolic acidosis- resolved. -- TF nepro @ 40. -- iv bid ppi. -- EGD without evidence of ulcers. -- GI following Heme/ID: Leukocytosis trending down Septic shock- resolved. Bacteremia with Beta Hemolytic Strep Aortic valve endocarditis Chronic anemia Acute anemia secondary to blood loss from GI bleed Thrombocytopenia secondary to consumption secondary to severe AI, and sepsis daily CBC wound culture growing MRSA blood growing beta hemolytic strep sputum growing MRSA Goal vanc trough 15 - 20. Rocephin per ID. Dr. Fonseca ID. 4T score low probability of HIT. Endocrine: Hyperglycemia critical illness Glucose monitoring per ICU protocol-low dose regimen Msk: Rhabdomyolysis- resolved. Probable ulcerated neoplastic lesion left lower extremity behind left knee Most likely squamous cell carcinoma clinically. Status post punch biopsy on by family medicine service awaiting pathology results. -Dependent on results we'll decide further management. Wound care consult -- SSI Prophylaxis: GI Prophylaxis iv bid ppi. DVT Prophylaxis -- SCDs Heparin SQ Lines: LIJ central line placed 09/19 RIJ vascath placed 09/20 Time spent on critical care excluding procedures 36 minutes Arun Oseguera MD Sep 27, 2016 09:15
[2016-09-27] MEDS ORDERED: SODIUM BICARBONATE 8.4% INJ 50 MEQ/50 ML SYR IV PUSH ONE (10:00)
--- NOTE | 2016-09-27 12:01 | PD.PN.STU ---
Subjective Remarks Patient resting in bed, still on vent. Will attempt extubation this afternoon. Patient responsive to questions, denies any pain or discomfort. Objective Vitals Vital Signs Date Time Temp Pulse Resp B/P Pulse Ox O2 Delivery O2 Flow Rate FiO2 09/27/16 11:18 99 35 09/27/16 08:42 35 09/27/16 08:21 99 35 09/27/16 08:00 97.5 85 34 124/42 100 09/27/16 08:00 86 09/27/16 06:00 87 09/27/16 05:19 100 35 09/27/16 04:00 35 09/27/16 04:00 89 09/27/16 04:00 98.9 89 26 122/40 100 09/27/16 02:00 88 09/27/16 00:37 100 35 09/27/16 00:00 99.1 86 24 122/38 100 09/27/16 00:00 86 09/27/16 00:00 35 09/26/16 22:00 87 09/26/16 21:35 97 35 09/26/16 20:00 90 09/26/16 20:00 99.0 90 24 122/36 100 09/26/16 20:00 35 09/26/16 18:00 86 09/26/16 16:44 100 35 09/26/16 16:00 86 09/26/16 16:00 35 09/26/16 16:00 99.0 86 26 118/38 100 09/26/16 14:00 86 09/26/16 12:34 100 35 09/26/16 12:00 98.2 88 22 114/34 100 09/26/16 12:00 35 09/26/16 12:00 88 I/O 09/26/16 09/26/16 09/26/16 09/27/16 09/27/16 09/27/16 07:00 15:00 23:00 07:00 15:00 23:00 Intake Total 644 ml 528 ml 600 ml 635 ml Output Total 0 ml 0 ml 0 ml 0 ml Balance 644 ml 528 ml 600 ml 635 ml Intake IV Total 344 ml 179 ml 300 ml 335 ml Tube Feeding 300 ml 349 ml 300 ml 300 ml Output Urine Total 0 ml 0 ml 0 ml 0 ml Tube Feeding Residual Discard 0 ml 0 ml 0 ml # Bowel Movements 1 2 0 2 Result Diagram: 09/27/16 0515 09/27/16 0515 Objective Remarks Physical Exam GEN: On ventilator, no acute distress. Responsive to simple questions. HEENT: Normocephalic; atraumatic; no jaundice. CHEST: OETT to vent CARDIAC: RRR, ABDOMEN: Soft, nondistended, nontender to palpation. No hepatosplenomegaly; bowel sounds are present in all four quadrants. EXTREMITIES: Generalized edema, left leg with bandage placed. SKIN: Drsg LLE d/i CORN PICKER: Awake and alert, opens eyes, responsive to questions. Medications and IVs Current Medications Medications (Trade) Dose Ordered Sig/[place] Route Start Time Stop Time Status Last Admin (Narcan Inj) 0.4 mg UNSCH PRN IV 09/19/16 10:00 (NS Flush) 2 ml UNSCH PRN IV FLUSH 09/19/16 17:45 (NS Flush) 2 ml BID IV FLUSH 09/19/16 21:00 09/27/16 08:00 (Tylenol) 650 mg Q6H PRN PO 09/19/16 17:45 Hold (Zofran Inj) 4 mg Q6H PRN IV 09/19/16 17:45 (Colace) 100 mg BID PO 09/19/16 21:00 09/26/16 09:08 (Heparin Inj) 5,000 units Q12H SQ 09/19/16 18:00 09/27/16 06:08 Miscellaneous Information 1 Q361D XX 09/19/16 17:45 (Chlorhexidine 2% Cloth) Taper DAILY@04 TOP 09/20/16 04:00 09/16/17 03:59 09/25/16 04:00 (Chlorhexidine 2% Cloth) 3 pack UNSCH PRN TOP 09/19/16 17:45 Chlorhexidine Gluconate 15 ml 15 ml BID@08,20 MT 09/20/16 08:00 09/27/16 08:00 Protamine Sulfate 250 mg/Sodium Chloride 250 ml @ 0 mls/hr TITRATE IV 09/20/16 12:15 09/21/16 19:49 Heparin Sodium/ Dextrose 250 ml @ 5 mls/hr TITRATE IV 09/20/16 12:15 Sodium Chloride 1,000 ml @ 0 mls/hr UNSCH PRN OTHER 09/20/16 12:15 09/22/16 15:02 (KCl 10 Meq Premix Inj) 100 ml @ 0 mls/hr UNSCH PRN IV 09/20/16 21:15 Pantoprazole Sodium 40 mg 40 mg Q12H IV PUSH 09/22/16 09:00 09/27/16 09:00 Ceftriaxone Sodium 2000 mg/ Sodium Chloride 100 ml @ 200 mls/hr Q24H IV 09/22/16 12:00 09/26/16 11:40 (NS 1000 ml Inj) 1,000 ml @ 0 mls/hr Q0M PRN IV 09/22/16 14:50 09/22/16 15:20 Heparin Sodium (Porcine) 8000 units 8,000 units UNSCH PRN IVF 09/22/16 15:00 Sodium Chloride 1,000 ml @ 200 mls/hr Q5H PRN IV 09/22/16 14:50 (NS 1000 ml Inj) 1,000 ml @ 0 mls/hr Q0M PRN IV 09/22/16 14:50 (Mannitol Inj) 12.5 gm UNSCH PRN IV 09/22/16 15:00 (Albumin 25% Inj) 25 gm UNSCH PRN IV 09/22/16 15:00 09/25/16 10:36 (NS Flush) 5 ml UNSCH PRN IV FLUSH 09/22/16 15:00 (Heparin Inj) UNSCH PRN .XX 09/22/16 15:00 09/25/16 11:55 (Gentamicin (Dialysis) Inj) 20 mg UNSCH PRN IV 09/22/16 15:00 09/25/16 11:54 (Zofran Inj) 4 mg UNSCH PRN IV 09/22/16 15:00 (Tylenol) 650 mg UNSCH PRN PO 09/22/16 15:00 (Nitrostat Sl) 0.4 mg UNSCH PRN SL 09/22/16 15:00 Gelatin 1 foam 1 foam UNSCH PRN TOP 09/22/16 15:00 (Zyvox 600 Mg Premix) 300 ml @ 300 mls/hr Q12H IV 09/24/16 15:00 09/27/16 03:15 (fentaNYL INJ) 25 mcg Q30M PRN IV PUSH 09/25/16 11:45 09/26/16 17:44 (NovoLOG SUPPLEMENTAL SCALE) 1 Q6HR SQ 09/25/16 18:00 (D50w (Vial) Inj) 25 ml UNSCH PRN IV PUSH 09/25/16 16:45 Glucagon 1 mg 1 mg UNSCH PRN OTHER 09/25/16 16:45 (Levophed Inj/ D5W Inj) 250 ml @ 0 mls/hr TITRATE IV 09/26/16 03:00 09/26/16 03:08 A/P Assessment and Plan ASSESSMENT: - Coffee ground gastric secretions and anemia. Pt is in ICU for severe sepsis/ endocarditis/bacteremia, possible source infected lesion LLE (S/P Bx and C/S). Pt was brought for AMS and decompensated overnight, requiring intubation- vasopressors. HH dropped 6.5/20.0 on 09/19. S/P EGD (09/21/16)----> 1. Esophagitis ngt suction trauma in gastric body no active bleeding 2. Retroflexed views revealed a hiatal hernia. No further episodes. S/P 4 units of PRBC. HH 7.2/21.4 ---> 09/23, Today HH 7.5/22.9 Protonix. - Anemia, secondary to acute blood loss. S/P 4 units PRBC. HH 7.2/21.4 ---> , today HH 7.5/22.9 continue with PPI - Elevated LFTs, Shocked liver. On admission, T. Bili 1.3, AST 208, ALT 60, Alk PHosph 83. These then spiked on 09/20 and are now trending down. Today's labs: T. Reji 2.2 AST 84 ALT 206 Alk Phosph 87. Hepatitis panel negative. Liver US 09/24 cholelithiasis with no pericholecystic fluid or wall thickening. Suspect this is due to shock liver and levels are now trending downward. Patient has no RUQ tenderness on exam. Will continue to monitor liver chemistries and future HIDA scan if clinically indicated. - Sepsis/Bacteremia/Endocarditis. ? Source infected lesion LLE. S/P 2D echo, mobile vegetation with severe aortic regurgitation on aortic valve. Cardiology following. - Acute renal failure, now on HD. - Resp. Failure. Vent. per CCM. Possible extubation today. - LLE wound. Family reports that this has been increasing in size and he was previously told that this was cancer and it needed to be removed, but he never followed up. Per primary - awaiting biopsy results. PLAN: - Nepro 60cc/hr as recommended by Accounting Clerks Supervisor - Accounting Clerks Supervisor consult for TF recommendations - Protonix 40mg IV daily - Monitor HH - Transfuse as necessary - Continue to follow liver panel for decreasing trends most likely due to shocked liver, HIDA scan if indicated - Supportive care - Further recommendations to follow based on results of above Maricel Dominguez M3 Sep 27, 2016 12:01
--- NOTE | 2016-09-27 12:25 | HHI.GIFU ---
Subjective Remarks Resting in bed. Still intubated on mechanical ventilator, but alert and following commands. No abdominal pain. Nurse reports possible extubation today. (Isa Samuels) Objective Vitals I&O Vital Signs Date Time Temp Pulse Resp B/P Pulse Ox O2 Delivery O2 Flow Rate FiO2 09/27/16 11:18 99 35 09/27/16 10:00 89 09/27/16 08:42 35 09/27/16 08:21 99 35 09/27/16 08:00 97.5 85 34 124/42 100 09/27/16 08:00 86 09/27/16 06:00 87 09/27/16 05:19 100 35 09/27/16 04:00 35 09/27/16 04:00 89 09/27/16 04:00 98.9 89 26 122/40 100 09/27/16 02:00 88 09/27/16 00:37 100 35 09/27/16 00:00 99.1 86 24 122/38 100 09/27/16 00:00 86 09/27/16 00:00 35 09/26/16 22:00 87 09/26/16 21:35 97 35 09/26/16 20:00 90 09/26/16 20:00 99.0 90 24 122/36 100 09/26/16 20:00 35 09/26/16 18:00 86 09/26/16 16:44 100 35 09/26/16 16:00 86 09/26/16 16:00 35 09/26/16 16:00 99.0 86 26 118/38 100 09/26/16 14:00 86 09/26/16 12:34 100 35 I/O 09/26/16 09/26/16 09/26/16 09/27/16 09/27/16 09/27/16 07:00 15:00 23:00 07:00 15:00 23:00 Intake Total 644 ml 528 ml 600 ml 635 ml Output Total 0 ml 0 ml 0 ml 0 ml Balance 644 ml 528 ml 600 ml 635 ml Intake IV Total 344 ml 179 ml 300 ml 335 ml Tube Feeding 300 ml 349 ml 300 ml 300 ml Output Urine Total 0 ml 0 ml 0 ml 0 ml Tube Feeding Residual Discard 0 ml 0 ml 0 ml # Bowel Movements 1 2 0 2 Laboratory Laboratory Tests Test 09/27/16 05:15 White Blood Count 16.2 Red Blood Count 2.45 Hemoglobin 7.5 Hematocrit 22.9 Mean Corpuscular Volume 93.5 Mean Corpuscular Hemoglobin 30.5 Mean Corpuscular Hemoglobin 32.6 Concent Red Cell Distribution Width 19.0 Platelet Count 88 Mean Platelet Volume 11.8 Sodium Level 139 Potassium Level 5.6 Chloride Level 97 Carbon Dioxide Level 19.0 Anion Gap 23 Blood Urea Nitrogen 143 Creatinine 8.63 Estimat Glomerular Filtration 8 Rate Random Glucose 144 Calcium Level 8.8 Total Bilirubin 2.8 Direct Bilirubin 2.2 Indirect Bilirubin 0.6 Aspartate Amino Transf 84 (AST/SGOT) Alanine Aminotransferase 206 (ALT/SGPT) Alkaline Phosphatase 87 Total Protein 6.7 Albumin 2.0 Date/Time Procedure Status Source Growth 09/22/16 17:42 Gram Stain - Final Complete Sputum Endotracheal 09/22/16 17:42 Sputum Culture - Final Complete S. Aureus [facility] Imaging Last Impressions Chest X-Ray 09/27/16 0600 Signed Impressions: Service Date/Time: Tuesday, September 27, 2016 03:21 - CONCLUSION: Mild interstitial edema. Jason Albert MD Liver Ultrasound 09/24/16 0000 Signed Impressions: Service Date/Time: Saturday, September 24, 2016 22:17 - CONCLUSION: 1. Cholelithiasis. The gallbladder wall is at the upper limits of normal in terms of thickness. I see no pericholecystic fluid. If there is concern for acute cholecystitis consider HIDA scan. 2. Common bile duct is dilated measuring 10 mm. No discernible stone observed. Froilan Ba Jr., MD Head CT 09/24/16 0000 Signed Impressions: Service Date/Time: Saturday, September 24, 2016 21:43 - CONCLUSION: 1. Evolving right frontal infarct. 2. No midline shift or mass effect. Fitz Carrasco MD Brain MRI 09/21/16 0000 Signed Impressions: Service Date/Time: Wednesday, September 21, 2016 08:47 - CONCLUSION: Abnormal scan demonstrating evidence of multifocal nonhemorrhagic acute infarction, the largest is in the right frontoparietal region. The diffuse bilateral nature involving both anterior and posterior circulation suggests embolic source. No evidence of mass effect or cerebral edema at this point. Froilan James MD Tibia/Fibula X-Ray 09/19/16 0000 Signed Impressions: Service Date/Time: Monday, September 19, 2016 07:43 - CONCLUSION: Chronic changes and no evidence for acute fracture. Claudio Barroso MD Renal Ultrasound 09/19/16 0000 Signed Impressions: Service Date/Time: Monday, September 19, 2016 10:40 - CONCLUSION: Unremarkable renal ultrasound. Claudio Barroso MD Lower Extremity MRI 09/19/16 0000 Signed Impressions: Service Date/Time: Monday, September 19, 2016 10:15 - CONCLUSION: Large mass most likely originating from the patient's skin with infiltration of subcutaneous fat and no definite involvement of the muscular structures or marrow. A malignant mass should be entertained and clinical correlation is needed. Claudio Barroso MD Knee X-Ray 09/19/16 0000 Signed Impressions: Service Date/Time: Monday, September 19, 2016 07:43 - CONCLUSION: Osteoarthritis. Claudio Barroso MD Physical Exam GEN: Sedated on vent. HD HEENT: Normocephalic; atraumatic CHEST: OETT to vent. Diminished CARDIAC: RRR, ABDOMEN: Soft, nondistended, nontender; no hepatosplenomegaly; bowel sounds are present in all four quadrants. EXTREMITIES: Generalized edema. SKIN: Drsg LLE d/i PULP MAKING PLANT OPERATOR: Alert, follows commands (Isa Samuels) Assessment and Plan Plan ASSESSMENT: - Coffee ground gastric secretions and anemia. Pt is in ICU for severe sepsis/ endocarditis/bacteremia, possible source infected lesion LLE (S/P Bx and C/S). Pt was brought for AMS and decompensated overnight, requiring intubation- vasopressors. HH dropped 6.5/20.0 on 09/19. S/P EGD (09/21/16)----> 1. Esophagitis ngt suction trauma in gastric body no active bleeding 2. Retroflexed views revealed a hiatal hernia. No further episodes. S/P 4 units of PRBC. HH 7.5/22.9. Protonix. Okay to start TF if not extubated. - Anemia, secondary to acute blood loss. S/P 4 units PRBC. HH 7.5/22.9. PPI - Elevated LFTs, Shocked liver. Improving, most likely related to shocked liver. Liver Ultrasound (09/24/16)----> 1. Cholelithiasis. The gallbladder wall is at the upper limits of normal in terms of thickness. I see no pericholecystic fluid. If there is concern for acute cholecystitis consider HIDA scan. 2. Common bile duct is dilated measuring 10 mm. No discernible stone observed. Consider HIDA scan when more stable. Right now, he is not having any abdominal pain and his LFTs are improving. Hepatitis panel negative. Iron saturation 66.8%. - Sepsis/Bacteremia/Endocarditis. ? Source infected lesion LLE. S/P 2D echo, mobile vegetation with severe aortic regurgitation on aortic valve. Cardiology following. - Acute renal failure, now on HD. - Resp. Failure. Vent. per CCM. - LLE wound. Family reports that this has been increasing in size and he was previously told that this was cancer and it needed to be removed, but he never followed up. Per primary PLAN: - Okay to start Nepro and increase to GR if not extubated today - Protonix 40mg IV daily - Monitor HH - Transfuse as necessary - Monitor CBC, LFTs - Supportive care - Consider HIDA Scan when stable- to further evaluate abnoraml US with cholelithiasis, gallbladder wall at the upper limits of normal in terms of thickness,and CBD 10mm. - Further recommendations to follow based on results of above - PT seen and examined by Dr. Aguero and myself and this note is written on his behalf (Isa Samuels) Physician Comments Patient seen and examined Agree with above Continue with current supportive care Monitor labs No evidence of any active bleeding at this point LFT elevation is improving this is probably multifactorial and related to the sepsis Not much to add from a GI standpoint we will sign off Please reconsult as needed or necessary (Dav Aguero MD) Isa Samuels Sep 27, 2016 12:25 Dav Aguero MD Sep 27, 2016 22:39
[2016-09-27] MEDS: cefTRIAXone INJ 2,000 MG in SODIUM CHLORIDE 0.9% INJ 100 ML IV SCH (13:05)
[2016-09-27] MEDS ORDERED: SODIUM POLYSTYRENE SULFONATE SUSP 15 GM/60 ML CUP NG ONE (17:15)
[2016-09-27 21:11] LABS: MEAN CORPUSCULAR HGB CONC 29.5 % (32.0-36.0)
[2016-09-28] VITALS (22 sets, daily range): BP systolic 75–150; BP diastolic 30–50; PULSE 65–109; RESP 27–40; TEMP 97.5–100.3; O2SAT 0–100
[2016-09-28] MEDS ORDERED: DEXMEDETOMIDINE INJ 200 MCG in SODIUM CHLORIDE 0.9% INJ 50 ML IV SCH (01:30)
[2016-09-28] MEDS ORDERED: PROPOFOL 1000 MG/100 ML INJ 100 ML IV SCH (01:45)
[2016-09-28] MEDS: LINEZOLID 600 MG PREMIX 300 ML IV SCH ×2 (02:02→14:42)
[2016-09-28] MEDS: CHLORHEXIDINE GLUCONATE 2 % 1 PACK (2 CLOTHS) TOP SCH (03:58)
[2016-09-28] MEDS ORDERED: NOREPINEPHRINE-DEXTROSE DRIP 250 ML IV ONE ×2 (04:30→11:43)
[2016-09-28 04:31] LABS: AUTOMATED NEUTROPHIL # 15.4 TH/MM3 (1.8-7.7); BASOPHIL % 0.1 % (0.0-2.0); EOSINOPHIL % 0.1 % (0.0-4.0); HEMATOCRIT 26.7 % (39.0-51.0); LYMPH % 7.8 % (9.0-44.0); LYMPHOCYTE # 1.4 TH/MM3 (1.0-4.8); MEAN CELL VOLUME 104.8 FL (80.0-100.0); MONO % 4.7 % (0.0-8.0); NEUT % 87.3 % (16.0-70.0); PLATELET COUNT 105 TH/MM3 (150-450); RED BLOOD COUNT 2.55 MIL/MM3 (4.50-5.90); RED CELL DISTRIBUTION WIDTH 20.7 % (11.6-17.2); WHITE BLOOD COUNT 17.6 TH/MM3 (4.0-11.0)
[2016-09-28 04:34] LABS: HEMO FLAGS AUTO DIFF
[2016-09-28 04:48] LABS: POTASSIUM 7.7 MEQ/L (3.5-5.1)
[2016-09-28 04:58] LABS: MAGNESIUM 3.9 MG/DL (1.5-2.5)
[2016-09-28] MEDS ORDERED: SODIUM POLYSTYRENE SULFONATE SUSP 15 GM/60 ML CUP OG-TUBE ONE ×2 (05:00)
[2016-09-28] MEDS ORDERED: EPINEPHrine HCL (1:10,000) 1 MG/10 ML SYRINGE IV ONE (05:00)
[2016-09-28] MEDS ORDERED: SODIUM BICARBONATE 8.4% INJ 50 MEQ/50 ML SYR IV ONE ×4 (05:00→15:15)
[2016-09-28] MEDS ORDERED: SODIUM BICARBONATE 8.4% INJ 50 MEQ/50 ML SYR IV PUSH ONE (05:00)
[2016-09-28 05:03] LABS: BICARBONATE 7.1 MEQ/L (21.0-32.0); INDIRECT BILIRUBIN 0.7 MG/DL (0.0-0.8); TOTAL BILIRUBIN ADULT 3.4 MG/DL (0.2-1.0)
[2016-09-28] MEDS: VASOPRESSIN INJ 40 UNITS in DEXTROSE 5% IN WATER 100ML INJ 98 ML IV SCH ×4 (05:07→20:08)
[2016-09-28] MEDS ORDERED: VASOPRESSIN INJ 20 UNITS/ML VIAL ONE (05:12)
[2016-09-28] MEDS ORDERED: RESP: ALBUTEROL 2.5 MG/3 ML NEB (SCH) NEB ONE (05:15)
[2016-09-28] MEDS ORDERED: CALCIUM CHLORIDE INJ 1 GM in DEXTROSE 5% IN WATER 100ML INJ 100 ML IV ONE ×2 (05:15)
[2016-09-28] MEDS ORDERED: DEXTROSE 10% INJ 1,000 ML IV SCH (05:15)
[2016-09-28] MEDS ORDERED: DEXTROSE 10% INJ 500 ML IV SCH (05:15)
[2016-09-28] MEDS: SODIUM BICARBONATE 8.4% INJ 150 MEQ in WATER STERILE FOR INJ 850 ML IV SCH ×3 (05:30→18:55)
[2016-09-28 05:34] LABS: APTT (PATIENT) 37.5 SEC (24.3-30.1); INTERNATIONAL NORMALIZED RATIO 1.9 RATIO
[2016-09-28 05:42] LABS: SCAN/DIFF AUTO DIFF CONFIRMED
[2016-09-28 05:45] LABS: BLOOD GAS BASE EXCESS -25.3 mmol/L (-2-2); BLOOD GAS HCO3 4 mmol/L (22-26); BLOOD GAS METHEMOGLOBIN 1.6 % (0-2); BLOOD GAS O2 HGB SATURATION 93 % (90-100); BLOOD GAS PCO2 20 mmHg (38-42); BLOOD GAS PO2 138 mmHg (61-120); BLOOD GAS TOTAL HGB 7.4 G/DL (12.0-16.0); CRITICAL VALUE YES; FIO2 35 %; OXYGEN DEVICE VENTILATOR; TEMP CORR TO 98.6; VENT SETTINGS AC12/525/PEEP5
[2016-09-28] MEDS ORDERED: SODIUM POLYSTYRENE SULFONATE 30 GM/120 ML ENEMA RECTAL ONE (05:45)
[2016-09-28 05:46] LABS: DRAW SITE ART LINE; STAT YES
--- NOTE | 2016-09-28 05:46 | PD.PROCEDR ---
Procedure Note Procedure Date: 09/28/16 Procedure: Cardiopulmonary resucitation Indication: PEA cardiac arrest Details of procedure: Patients morning labs with potassium 7.7. Ordered calcium chloride 1 gram, bicarb 2 amps, albuterol neb, kayexalate 30 gram. Given D50 for hypoglycemia and started on D10 @ 30/hr. Hypotensive, started on levophed and stress dose hydrocortisone. Called Dr. Liu at 5:15 to arrange for stat dialysis. Will attempt HD for solute clearance, if unable to tolearate due to BP, may need CRRT. Patient developed PEA cardiac arrest. Per ACLS protocol pt received CPR , manual bag-valve ventilation via ETT, epinephrine x2, CaCl2 x1, bicarb x2 amps. . After 3-4 minutes resuscitation ROSC occurred. Harleen Rodriguez MD Sep 28, 2016 05:46
--- NOTE | 2016-09-28 05:55 | RADRPT ---
EXAM DATE/TIME: 09/28/2016 04:14 [facility] COMPARISON: CHEST SINGLE AP, September 27, 2016, 3:21. INDICATIONS : Shortness of breath. MEDICAL HISTORY : Hypertension. SURGICAL HISTORY : None. ENCOUNTER: Subsequent ACUITY: 1 week PAIN SCORE: Non-responsive. LOCATION: Bilateral chest FINDINGS: The support devices are in place. There is no pneumothorax. There is a mild infiltrate in the right l chyna base. Otherwise, no new or significant changes are seen compared to the prior examination. CONCLUSION: No significant interval change. Jason Albert MD on September 28, 2016 at 5:52 Board Certified Radiologist. This report was verified electronically.
--- NOTE | 2016-09-28 05:55 | PD.PROCEDR ---
Procedure Note Procedure Date: 09/28/16 Procedure: Cardioversion Indication: Ventricular tachycardia Details of procedure: Pt developed V tach with a pulse. He underwent synchronized cardioversion at 200 J and was in NSR. Given bicarb 2 amps. Giving Kayexalate enema to help temporize while dialysis team comes in stat. Bicarb drip previously ordered as well as other medications per prior note. I contacted his sister, Sandee, and discussed his poor prognosis and that we may not be able to sustain pulse despite efforts. Also discussed risk of further neurologic injury with cardiac arrest overlying recent embolic strokes. She states she wishes for him to remain full code, as that is what he expressed to providers on admission. She states she will come to the hospital. Harleen Rodriguez MD Sep 28, 2016 05:55
[2016-09-28] MEDS: HYDROCORTISONE SOD SUCCINATE 100 MG VIAL IV PUSH SCH ×3 (06:00→21:08)
[2016-09-28] MEDS: INSULIN ASPART SUPPLEMENTAL SCALE SQ SCH ×4 (06:00→17:28)
[2016-09-28] MEDS: HEPARIN SODIUM - SQ 10,000 UNITS/ML VIAL SQ SCH ×2 (06:28→17:28)
[2016-09-28 08:16] LABS: BLOOD GAS BASE EXCESS -25.9 mmol/L (-2-2); BLOOD GAS CARBOXYHEMOGLOBIN 0.7 % (0-4); BLOOD GAS HCO3 4 mmol/L (22-26); BLOOD GAS METHEMOGLOBIN 1.4 % (0-2); BLOOD GAS O2 HGB SATURATION 97 % (90-100); BLOOD GAS OXYGEN CONTENT 11.4 Vol % (12.0-20.0); BLOOD GAS PCO2 18 mmHg (38-42); BLOOD GAS PO2 524 mmHg (61-120); BLOOD GAS TOTAL HGB 7.3 G/DL (12.0-16.0); TEMP CORR TO 98.6
[2016-09-28 08:17] LABS: CRITICAL VALUE YES; OXYGEN DEVICE VENTILATOR
[2016-09-28 08:18] LABS: DRAW SITE ART LINE; FIO2 100 %; STAT YES
--- NOTE | 2016-09-28 08:34 | EKG ---
Date Performed: 09/28/2016 Time Performed: 04:38:42 PTAGE: 56 years EKG: Sinus rhythm . Right axis deviation Right bundle branch block Anteroseptal infarct - age undetermined Inferior/lat eral ST-T changes suggest myocardial injury/ischemia Abnormal ECG PREVIOUS TRACING : 09/19/2016 17.29 Compared to previous tracing, axis has shifted rightward, i nferior and lateral ST/T changes have worsened, QRS duration has increased. DOCTOR: Sachin Medina Interpretating Date/Time 09/28/2016 08:32:44
[2016-09-28] MEDS: SODIUM CHLORIDE 0.9% FLUSH 10 ML FLUSH IV FLUSH SCH ×2 (08:51→21:00)
[2016-09-28] MEDS: DOCUSATE SODIUM 100 MG CAP PO SCH ×2 (08:51→19:47)
[2016-09-28] MEDS: NOREPINEPHRINE 16 MG/D5W 250 ML IV SCH ×6 (10:09→20:09)
--- NOTE | 2016-09-28 10:27 | HHI.CCPN ---
Subjective Remarks/Hospital Course 09/19: This is a 56-year-old male that presented secondary to altered mental status. The patient's sister provided the medical information. The patient is alert and oriented 3 .the patient was noted to have a lesion on his left lower extremity and was seen at [facility] by Dr. Carpio at all is felt to be a malignant lesion however the patient was scheduled for follow-up and was noncompliant .over the last several days the patient had began to feel generalized malaise and he lives with his sister who noted that he began to have altered mental status and he presented to the ED .upon presentation to the ED the patient's blood pressure systolic blood pressure was in the 80s laboratory and imaging studies reveal septic shock , with a lactate of 4.5. The patient was bolused with 4 L of normal saline is currently hemodynamically stable , tachypnea , secondary to a bicarbonate level of 9 . He is reported to have a neoplastic lesion about the region of the left knee posteriorly, recent imaging studies suggest malignant neoplasm. The patient underwent a TTE in the ED by Dr. Coombs was noted to have cardiac vegetations tentative plan for a AGUSTIN in the am. Critical care medicine's consult for management. 09/20: Patient was intubated overnight and placed on mechanical ventilation for worsening respiratory status. He is currently sedated, orally intubated on mechanical ventilation. Transfuse 3 units PRBCs overnight. Has some coffee- ground NG aspirate however no melena or rectal bleeding noted. On Levophed 12 mics per minute and vasopressin low-dose for septic shock. Decreasing urine output and significant metabolic acidosis noted for which nephrology consult was requested this morning, vascath was placed and patient has been initiated on CRRT. Discussed with cardiology, severe aortic regurg with aortic valve vegetation for which patient will eventually need an aortic valve replacement following initial stabilization. Awaiting Dr. Medina evaluation. Dr. Coombs has discussed echo with Dr. Medina. 09/21: no significant improvements. lactate still 10. persists on 2 vasopressors. pH slightly better. CRRT circuit clotted overnight. 09/22: off vasopressors this morning. MRI yesterday with multiple acute strokes, largest in right fronto-parietal region. acidosis better. CRRT clotted at 2100 overnight. plan to likely transition to IHD today. 09/23: neuro exam remains poor. acidosis resolving. IHD yesterday with 4L removed. hgb downtrended to 7 this AM. off vasopressors. 09/24: 4.5L removed yesterday with IHD. still neuro exam remains poor. sputum growing MRSA. vanc trough therapeutic. persistently anemic despite prbc transfusion yesterday. 09/25: 4L removed yesterday on IHD. improving neuro exam and patient following commands today with right upper and lower extremities. nothing on left today. states he is in pain. LFTs continue to downtrend. repeat sputum growing MRSA. hgb improved today. CVP still 15 - 17. 09/26: more awake today, moving all 4 extremities, following commands. I placed the patient on a spontaneous breathing trial today and he lasted about 45 minutes but failed for worsening respiratory distress, RR > 45, obvious labored breathing. 09/27: He is sedated intubated. Continues to follow simple commands. WBC count trending down. Moving all 4 extremities. RR 35-36 09/28: Am labs showed potassium 7.7. Patient received calcium chloride 1 gram, bicarb 2 amps, albuterol neb, kayexalate 30 gram. Patient was hypoglycemia and received D50 and was started on D10 @ 30/hr. For shock was started on levophed and stress dose hydrocortisone, vasopressin was added. Dr. Rodriguez called Dr. Liu to arrange for stat dialysis. Patient developed PEA cardiac arrest secondary to hyperkalemia. Per ACLS protocol pt received CPR, epinephrine x2, CaCl2 x1, bicarb x2 amps. After 3-4 minutes resuscitation ROSC. Pt developed V tach with a pulse, underwent synchronized cardioversion at 200 J and was in NSR. Placed on bicarb drip. Sister at bedside updated. HD planned soon when I rounded at 6.30 AM. Repeat Labs after HD Objective Vital Signs Date Time Temp Pulse Resp B/P Pulse Ox O2 Delivery O2 Flow Rate FiO2 09/28/16 06:00 72 09/28/16 05:36 100 100 09/28/16 04:00 99.0 38 111/31 Intake and Output 09/27/16 09/27/16 09/28/16 08:00 16:00 00:00 Intake Total 635 ml 515 ml 589 ml Output Total 0 ml 50 ml 200 ml Balance 635 ml 465 ml 389 ml Result Diagram: 09/28/16 0420 09/28/16419 Other Results Laboratory Tests Test 09/28/16 09/28/16 05:16 08:00 Blood Gas Puncture Site ART LINE ART LINE Blood Gas Patient Temperature 98.6 98.6 Blood Gas HCO3 4 mmol/L 4 mmol/L (22-26) (22-26) Blood Gas Base Excess -25.3 mmol/L -25.9 mmol/L (-2-2) (-2-2) Blood Gas Oxygen Saturation 93 % (90-100) 97 % (90-100) Arterial Blood pH 6.96 6.94 (7.380-7.420) (7.380-7.420) Arterial Blood Partial 20 mmHg (38-42) 18 mmHg (38-42) Pressure CO2 Arterial Blood Partial 138 mmHg 524 mmHg Pressure O2 (61-120) (61-120) Arterial Blood Oxygen Content 10.0 Vol % 11.4 Vol % (12.0-20.0) (12.0-20.0) Arterial Blood 1.0 % (0-4) 0.7 % (0-4) Carboxyhemoglobin Arterial Blood Methemoglobin 1.6 % (0-2) 1.4 % (0-2) Blood Gas Hemoglobin 7.4 G/DL 7.3 G/DL (12.0-16.0) (12.0-16.0) Oxygen Delivery Device VENTILATOR VENTILATOR Blood Gas Ventilator Setting AC12/525/PEEP5 Blood Gas Inspired Oxygen 35 % 100 % Imaging Last Impressions Tibia/Fibula X-Ray 09/19/16 0000 Signed Impressions: Service Date/Time: Monday, September 19, 2016 07:43 - CONCLUSION: Chronic changes and no evidence for acute fracture. Claudio Barroso MD Renal Ultrasound 09/19/16 0000 Signed Impressions: Service Date/Time: Monday, September 19, 2016 10:40 - CONCLUSION: Unremarkable renal ultrasound. Claudio Barroso MD Lower Extremity MRI 09/19/16 0000 Signed Impressions: Service Date/Time: Monday, September 19, 2016 10:15 - CONCLUSION: Large mass most likely originating from the patient's skin with infiltration of subcutaneous fat and no definite involvement of the muscular structures or marrow. A malignant mass should be entertained and clinical correlation is needed. Claudio Barroso MD Knee X-Ray 09/19/16 0000 Signed Impressions: Service Date/Time: Monday, September 19, 2016 07:43 - CONCLUSION: Osteoarthritis. 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 Claudio Barroso MD Chest X-Ray 09/19/16 0000 Signed Impressions: Service Date/Time: Monday, September 19, 2016 16:50 - CONCLUSION: 1. Minimal basilar atelectasis. Elevated right hemidiaphragm. No effusion. Osteochondral defect right humeral head. Raul Merlos MD Objective Remarks HEENT/ Neuro: orally intubated, Pallor present, no icterus, tongue/ mucosa moist Neck: Right IJ Vas-Cath, left IJ central line in place. trachea midline. Chest/Pulm: on mech vent, equal chest rise, coarse BS bilaterally. Tachypneic in 40s CVS: S1-S2 regular, III/ diastolic murmur best heard over aortic area noted. GI/abdomen: soft, nontender, nondistended. no guarding. Extremities: warm bilaterally, no edema. 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 He remains very critically ill at this time. Certainly, will need to wait at least a week from time of strokes to pursue cardiac surgery, but now has two indications for urgent AVR. Neuro exam is improving and he is following commands. Continue daily IHD for volume removal. Would plan to repeat MRI after 1 week (near 09/29) and if no acute changes, would re-engage cardiac surgery at that point to consider urgent aortic valve replacement. developed PEA arrest due to hyperkalemia on 09/28/16 AM. See code blue/CPR notes Plan by systems: Neurologic: New multifocal infarcts, largest in Right FP region, secondary to septic emboli Old CVA infarct Possible schizophrenia Metabolic encephalopathy secondary to sepsis Propofol, fentanyl for Sedation and ventilator synchrony Sedation hold and neuro exam after HD given PEA arrest 09/28 AM goal RASS -1. frequent neuro checks MRI 09/22: multifocal infarcts, largest in right frontoparietal region. hold acetaminophen given shock liver. repeat head CT 09/24 with evolving right frontal infarct, no midline shift. Respiratory: Acute hypoxic respiratory failure on mechanical ventilation Pulmonary Edema secondary to acute AR, and LV failure Continue mechanical ventilation, vent bundle, bronchodilators as needed. failed SBT 09/25 and 09/26, 09/27 for tachypnea and distress. continue daily SBTs. -Certainly with his severe aortic regurgitation,, unclear if he will be able to be extubated,or will remain extubated. volume removal with AQUATIC PHYSIOTHERAPIST. Cardiovascular: PEA arrest due to hyperkalemia 09/28/16 Shock multifactorial Aortic valve vegetation Severe aortic regurgitation Septic Shock- resolved. Cardiogenic Shock- resolving. Congestive Heart Failure secondary to valvulopathy s/p aggressive treatment of hyperkalemia and itchiness protocol per Dr. Rodriguez- see her separate procedure note Patient getting emergent hemodialysis now Continue bicarbonate drip Transthoracic echo with aortic valve vegetation with severe aortic regurgitation. Cardiology: [facility] Surgery: Adam -- will need anti-platelet therapy, but with his multiple acute issues and his thrombocytopenia, will hold off on ASA at this time. if platelet count improves , will consider starting. Plt count is 105 today-hold off 24 hrs due to PEA arrest -- lipid panel appropriate. -- goal SBP 110 - 120 to optimize cardiac function. will tolerate MAP > 50 in order to accomplish this. -- will need AVR at urgent/emergently, will hold off for at least a week post- stroke, re-consider around 09/29, but check neuro exam due to recent code Renal: Severe hypokalemia Acute kidney injury secondary to shock Acute intravascular volume overload. -- STAT HD -- Strict intake output, monitor and replete electrolytes, follow BUN/ creatinine. -- Daily IHD for volume removal. continue salmeron catheter. FEN/GI: Lactic Acidosis Severe metabolic acidosis Acute severe intravascular volume overload Acute protein calorie malnutrition- mild Hyperphosphatemia- resolving. Acute GI bleed- resolving. -- TF nepro @ 40. -- iv bid ppi. -- EGD without evidence of ulcers. -- GI following -- Bicarb infusion -- Repeat CMP lactate at 1 Heme/ID: Leukocytosis trending down Septic shock- resolved. Bacteremia with Beta Hemolytic Strep Aortic valve endocarditis Chronic anemia Acute anemia secondary to blood loss from GI bleed Thrombocytopenia secondary to consumption secondary to severe AI, and sepsis daily CBC wound culture growing MRSA blood growing beta hemolytic strep sputum growing MRSA Goal vanc trough 15 - 20. Rocephin per ID. Dr. Fonseca ID. 4T score low probability of HIT. Endocrine: Hyperglycemia critical illness Glucose monitoring per ICU protocol-low dose regimen Msk: Rhabdomyolysis- resolved. Probable ulcerated neoplastic lesion left lower extremity behind left knee Most likely squamous cell carcinoma clinically. Status post punch biopsy on by family medicine service awaiting pathology results. -Dependent on results we'll decide further management. Wound care consult -- SSI Prophylaxis: GI Prophylaxis iv bid ppi. DVT Prophylaxis -- SCDs Heparin SQ Lines: J central line placed 09/19 RIJ vascath placed 09/20 Time spent on critical care excluding procedures 80 minutes Arun Oseguera MD Sep 28, 2016 10:27
[2016-09-28] MEDS ORDERED: fentaNYL DRIP 250 ML IV SCH (10:30)
[2016-09-28] MEDS: CHLORHEXIDINE 0.12% (ORAL KIT) 15 ML CUP MT SCH ×2 (10:35→20:00)
[2016-09-28] MEDS: PANTOPRAZOLE SODIUM 40 MG VIAL IV PUSH SCH ×2 (10:35→21:08)
--- NOTE | 2016-09-28 11:04 | HHI.NPPN ---
Subjective History of Present Illness 56-year-old male with a past medical history of hypertension, history of schizophrenia and depression, was brought to the hospital because of altered mental status. I was called to see the patient because of elevated BUN and creatinine. The patient was found to have a creatinine of 3.2 on admission. Previously in 2012 his creatinine was normal. Additional Remarks Patient had cardiac arrest in AM, with PEA, and now intubated. Review of Systems General General Remarks Cannot take, intubated. Objective Data Data 09/27/16 09/28/16 19:00 07:00 Intake Total 515 ml 589 ml Output Total 50 ml 700 ml Balance 465 ml -111 ml Intake IV Total 170 ml 293 ml Tube Feeding 345 ml 296 ml Output Urine Total 0 ml 0 ml Stool Total 50 ml 700 ml Gastric Drainage Total 0 ml Vital Signs Date Time Temp Pulse Resp B/P Pulse Ox O2 Delivery O2 Flow Rate FiO2 09/28/16 08:55 100 50 09/28/16 06:00 72 09/28/16 05:36 100 100 09/28/16 04:04 95 35 09/28/16 04:00 78 09/28/16 04:00 99.0 78 38 111/31 98 09/28/16 04:00 35 09/28/16 02:00 79 09/28/16 00:07 100 35 09/28/16 00:00 98.4 77 40 150/39 98 09/28/16 00:00 77 09/28/16 00:00 35 09/27/16 22:00 96 09/27/16 20:23 100 35 09/27/16 20:00 99.0 96 28 123/35 99 09/27/16 20:00 35 09/27/16 18:00 97 09/27/16 16:47 98 35 09/27/16 16:00 97.6 96 26 121/39 99 09/27/16 16:00 97 09/27/16 16:00 35 09/27/16 14:00 89 09/27/16 14:00 84 35 121/36 100 09/27/16 14:00 35 09/27/16 13:50 100 35 09/27/16 13:40 100 35 09/27/16 12:00 93 09/27/16 12:00 97.6 86 36 133/40 99 09/27/16 11:18 99 35 -: 09/28/16 0420 09/28/16 0420 Physical Exam General Appearance Remarks Intubated and off sedation. Eyes Eye Exam: Pupils Equal Neck Neck Exam: Neck Supple Pulmonary Resp Exam: Crackles, Rhonchi, Decreased Bases, Diminished Breath Sounds, Poor Inspiratory Effort Gastrointestinal/Abdomen GI Exam: Soft, Non-Tender, Bowel Sounds Present, Distended Extremeties Extremities Exam: Moderate Edema, Pitting Edema, Dependent Edema Neurologic Neuro Exam: Obtunded Assessment/Plan Assessment Summary: RACHAEL/Acute Renal Failure Problem List: (1) Cellulitis (2) Mass of left lower extremity (3) Septic shock (4) Anemia (5) ARF (acute renal failure) Plan Patient has low urine out put. BP dropped and started on low dose pressors. Urine out put is still low. Possibly has RACHAEL due to ATN from Hypotension. Develop PEA, and intubated again. Has sever metabolic acidosis and Hyperkalemia. Started on HD and will do daily HD for next few days. Problem Qualifiers (1) Cellulitis: Qualified Code: L03.116 - Cellulitis of left lower extremity Manoj Liu MD Sep 28, 2016 11:03
--- NOTE | 2016-09-28 11:23 | HHI.HCPN ---
Call from nurse Grullon to report patient was CODED this morning, family at bedside. Upon arrival to unit, Dr. Oseguera asked me to hold off speaking with family until he can do another neurologic assessment. He feels patient should remain FULL CODE for now. Palliative care will be available as needed. PHAN CARLSON Sep 28, 2016 11:23
[2016-09-28] MEDS: GENTAMICIN SULFATE (DIALYSIS USE ONLY) 20 MG/2 ML VIAL IV PRN (11:37)
[2016-09-28] MEDS: HEPARIN SODIUM - IV 10,000 UNITS/10 ML VIAL PRN (11:37)
[2016-09-28] MEDS: ALBUMIN HUMAN 25% 25 GM/100 ML BAGP IV PRN (11:37)
[2016-09-28] MEDS ORDERED: TERBUTALINE INJ 1 MG/ML AMP SQ PRN (12:00)
[2016-09-28] MEDS: cefTRIAXone INJ 2,000 MG in SODIUM CHLORIDE 0.9% INJ 100 ML IV SCH (12:07)
--- NOTE | 2016-09-28 12:20 | HHI.FPPN ---
Subjective Remarks Pt seen and examined this morning. Nursing provided updates on patient as of this morning. This morning patient coded requiring CPR including chest compressions, epinephrine x 2, and synchronized cardioversion at 200 J for V- tach. He converted to NSR and ROSC was achieved. Patient was also found to be hyperkalemia, severely hypoglycemic, and acidotic with pH 6.94, bicarb 4, and severe lactic acidosis of 23.7. He is now on bicarb and D10 drips, Levophed, and stress-dose steroids. He also underwent emergency dialysis this morning. Patient currently sedated on fentanyl and not following commands but per nursing he was able to follow some prior to my exam. (Miladys Kelly MD) Objective Vitals Vital Signs Date Time Temp Pulse Resp B/P Pulse Ox O2 Delivery O2 Flow Rate FiO2 09/28/16 10:00 103 09/28/16 08:55 100 50 09/28/16 08:00 50 09/28/16 08:00 72 09/28/16 06:00 72 09/28/16 05:36 100 100 09/28/16 04:04 95 35 09/28/16 04:00 78 09/28/16 04:00 99.0 78 38 111/31 98 09/28/16 04:00 35 09/28/16 02:00 79 09/28/16 00:07 100 35 09/28/16 00:00 98.4 77 40 150/39 98 09/28/16 00:00 77 09/28/16 00:00 35 09/27/16 22:00 96 09/27/16 20:23 100 35 09/27/16 20:00 99.0 96 28 123/35 99 09/27/16 20:00 35 09/27/16 18:00 97 09/27/16 16:47 98 35 09/27/16 16:00 97.6 96 26 121/39 99 09/27/16 16:00 97 09/27/16 16:00 35 09/27/16 14:00 89 09/27/16 14:00 84 35 121/36 100 09/27/16 14:00 35 09/27/16 13:50 100 35 09/27/16 13:40 100 35 I/O 09/27/16 09/27/16 09/27/16 09/28/16 4/25/17 4/25/17 06:59 14:59 22:59 06:59 14:59 22:59 Intake Total 635 ml 515 ml 589 ml Output Total 0 ml 50 ml 200 ml 500 ml 3000 ml Balance 635 ml 465 ml 389 ml -500 ml -3000 ml Intake IV Total 335 ml 170 ml 293 ml Tube Feeding 300 ml 345 ml 296 ml Output Urine Total 0 ml 0 ml 0 ml Stool Total 50 ml 200 ml 500 ml Gastric Drainage Total 0 ml Tube Feeding Residual Discard 0 ml Hemodialysis 3000 ml # Bowel Movements 2 (Miladys Kelly MD) Result Diagram: 09/28/1641909/28/16419 Objective Remarks GENERAL: Kathi male lying in bed intubated and sedated. SKIN: Warm and dry. No rash. CARDIOVASCULAR: 3/6 systolic and diastolic murmur heard best over right sternal border. RESPIRATORY: Mechanically ventilated. Equal diffuse coarse breath sounds. GASTROINTESTINAL: Abdomen soft, nondistended with +BS. No masses appreciated. MUSCULOSKELETAL: Extremities without cyanosis. 1+ edema of left lower extremity. LLE on admission: 8.5 X 10.5CM circular, fungating, ulcerative lesion on the posterior aspect of the L knee. No hemorrhage or necrosis appreciated. Lesion is foul smelling and appears to involve skin and subcutaneous tissue; does not appear to involve the muscle or bone. 2+ edema from the ankle to the knee. LLE currently: Currently lesion bandaged with sterile gauze, CDI. NEUROLOGICAL: Patient intubated and sedated. Not following commands. (Miladys Kelly MD) Date of Insertion: Sep 19, 2016 Line: Central Venous Catheter Side: Left Location: Jugular (Miladys Kelly MD) A/P Assessment and Plan 56 year old male with HTN admitted for AMS and LLE fungating wound found to be in septic shock with associated infective endocarditis, bacteremia, and septic emboli to the brain. Discharge Planning Unclear discharge timetable at this time as condition is critical. (Miladys Kelly MD) Problem List: (1) Cardiac arrest Status: Acute Plan: Patient with worsening multiorgan damage after he coded x 2 this morning. PEA this morning likely from severe hyperkalemia. Patient received calcium chloride, bicarb , albuterol, and Kayexalate. Per ACLS protocol, he received CPR, epinephrine x 2, and achieved ROSC only to subsequently develop V tach for which he underwent synchronized cardioversion at 200 J. He was found to also be severely hypoglycemic and given D50 for hypoglycemia. He is now on a D10 and bicarb drip and for the hypotension he is on Levophed, dopamine, and vasopressin. - Post-cardiac arrest labs significant for lactic acid 23.7, AST 4222, ALT 919, INR 2.8, pH 6.96, and bicarb 4 - Critical care managing patient - Palliative care on board (2) Hyperkalemia Status: Acute Plan: Patient with severe hyperkalemia this morning at 7.7 leading to PEA with subsequent CPR and ROSC. Down to 4.8 this afternoon after calcium chloride, albuterol, and Kayexalate. EKG showed no peaked T-waves but did not new right axis deviation, increasing QT interval, and worsening inferior and lateral ST/T wave changes. (3) Respiratory failure Status: Acute Plan: Patient intubated and sedated. Vent settings and breathing trials per critical care. (4) Septic shock Status: Acute Plan: Patient with (eyak valve) infective aortic endocarditis and Strep bacteremia with likely source being chronic left lower extremity fungating wound that is growing MRSA and Strep. Patient with multisystem end-organ damage (RACHAEL, hepatitis, lactic acidosis, brain infarcts) - Infectious disease and critical care managing patient - Continue IV Zyvox (09/24-) and Rocephin (09/22-) History: On admission patient presented with altered mental status and fungating, long- standing left lower extremity wound. Patient was tachycardic with leukocytosis and lactic acidosis. He did not respond to aggressive IV fluid boluses and required admission to the unit for pressors and subsequent intubation. - Blood cultures x 2 09/19: Beta hemolytic streptococcus, beta Streptococcus group G; both pansensitive - UC negative - Wound culture x 2: MRSA, sensitive to vancomycin - Blood culture 09/20: Negative to date - Blood culture 09/21: Negative to date - Sputum culture 09/22: MRSA, sensitive to vancomycin Antibiotic history: - Vancomycin 1 g twice a day (09/19-09/24); discontinued due to poor renal function - Zosyn 2.25 g every 6 hours (09/19-09/22) (5) Endocarditis of aortic valve Status: Acute Plan: TTE performed on 09/19 demonstrating mobile vegetation of eyak aortic valve with severe aortic insufficiency. Blood cultures positive for Group G strep in four virals on 09/19. Repeat blood cultures from 09/20 and 09/21 NGTD. Likely source is fungating, possibly malignant mass on left lower extremity. Patient with no history of IVDU. - ID consulted; currently on Zyvox and Rocephin - CT surgery consulted; patient not a surgical candidate at this time (6) Acute embolic stroke Status: Acute Plan: MRI 09/21 demonstrating multifocal infarcts suggestive of embolic phenomenon. Head CT 09/24 with evolving right frontal infarct without midline shift or mass effect. - At this time patient not stable enough for AV repair - Planning to reassess MRI over next couple days to assess stability - Monitor neuro status (7) Skin ulcer of left lower leg, limited to breakdown of skin Status: Acute Plan: Patient with circular, fungating, ulcerative lesion of left popliteal fossa. Wound cultures growing MRSA and Strep. Biopsy from 09/20 pending. MRI demonstrating a large mass most likely originating from the patient's skin with infiltration of subcutaneous fat and no definite involvement of the muscular structures concerning for malignancy. (8) Acute renal failure (ARF) Status: Acute Plan: Patient with no urine output in the past three days and creatinine up to 11.74 just prior to coding this AM. Underwent emergent dialysis after ROSC with 3L output. - Nephrology consulted; planning on daily HD - Avoid nephrotoxic agents - Strict I/Os - Renal ultrasound 09/19 was unremarkable (9) Anemia Status: Acute Plan: Patient with anemia of chronic diseae and acute anemia secondary to severe illness. S/P 3 units PRBC on 09/19. - GI consulted early in admission; EGD on 09/21 with no active bleeding - Monitor H&H and transfuse as needed (10) Nutrition, metabolism, and development symptoms Status: Acute Plan: - Fluids: Via tube feeds - Electrolytes: Monitor and replete per [facility] protocol - Nutrition: Nepro TF at 40 ml/hr - DVT prophylaxis: Heparin 5000 units Q12 - GI prophylaxis: Protonix 40 mg IV BID dw Dr. Helm (Miladys Kelly MD) Problem Qualifiers (1) Acute renal failure (ARF): Qualified Code: N17.9 - Acute renal failure, unspecified acute renal failure type Miladys Kelly MD Sep 28, 2016 12:20 Jason Helm MD Sep 28, 2016 16:24 (1) Acute renal failure (ARF): Qualified Code: N17.9 - Acute renal failure, unspecified acute renal failure type Miladys Kelly MD Sep 28, 2016 12:20
[2016-09-28] MEDS: DOPamine INJ PREMIX 500 ML IV SCH ×2 (12:25→21:21)
--- NOTE | 2016-09-28 13:09 | HHI.IDPN ---
Subjective Subjective Remarks Notes reviewed D/W RN Coded x 2 behavior management specialist On 3 pressors currently, maria elena and levophed, and dopamine Got HD today - took out 3L Had very high K this morning 7+ Temps better Tachypneic, on the vent He is awake, and following some Wound C/S MRSA and Strep BC with Strep - B-hemolytic Strep Group G Repeat BC negative so far Biopsy pending Antibiotics Zyvox Rocephin Lines Vascath TLC Past Medical History Possible schizophrenia, depression Hypertension Chronic wound left leg Allergies: Coded Allergies: *MDRO Multi-Drug Resistant Organism (Verified Adverse Reaction, Unknown, ) MRSA (leg wound) - 09/19/16; (sputum) - 09/22/16 Uncoded Allergies: NKDA (Allergy, Severe, 11/03/11) Objective . Vital Signs Date Time Temp Pulse Resp B/P Pulse Ox O2 Delivery O2 Flow Rate FiO2 09/28/16 12:13 100 50 09/28/16 10:00 103 09/28/16 08:55 100 50 09/28/16 08:00 50 09/28/16 08:00 72 09/28/16 06:00 72 09/28/16 05:36 100 100 09/28/16 04:04 95 35 09/28/16 04:00 78 09/28/16 04:00 99.0 78 38 111/31 98 09/28/16 04:00 35 09/28/16 02:00 79 09/28/16 00:07 100 35 09/28/16 00:00 98.4 77 40 150/39 98 09/28/16 00:00 77 09/28/16 00:00 35 09/27/16 22:00 96 09/27/16 20:23 100 35 09/27/16 20:00 99.0 96 28 123/35 99 09/27/16 20:00 35 09/27/16 18:00 97 09/27/16 16:47 98 35 09/27/16 16:00 97.6 96 26 121/39 99 09/27/16 16:00 97 09/27/16 16:00 35 09/27/16 14:00 89 09/27/16 14:00 84 35 121/36 100 09/27/16 14:00 35 09/27/16 13:50 100 35 09/27/16 13:40 100 35 09/27/16 09/27/16 09/28/16 15:00 23:00 07:00 Intake Total 515 ml 589 ml Output Total 50 ml 200 ml 500 ml Balance 465 ml 389 ml -500 ml Intake IV Total 170 ml 293 ml Tube Feeding 345 ml 296 ml Output Urine Total 0 ml 0 ml Stool Total 50 ml 200 ml 500 ml Gastric Drainage Total 0 ml . Laboratory Tests Test 09/27/16 09/28/16 05:15 04:20 White Blood Count 16.2 TH/MM3 17.6 TH/MM3 Red Blood Count 2.45 MIL/MM3 2.55 MIL/MM3 Hemoglobin 7.5 GM/DL 7.9 GM/DL Hematocrit 22.9 % 26.7 % Mean Corpuscular Volume 93.5 FL 104.8 FL Mean Corpuscular Hemoglobin 30.5 PG 31.0 PG Mean Corpuscular Hemoglobin 32.6 % 29.5 % Concent Red Cell Distribution Width 19.0 % 20.7 % Platelet Count 88 TH/MM3 105 TH/MM3 Mean Platelet Volume 11.8 FL 10.8 FL Neutrophils (%) (Auto) 87.3 % Lymphocytes (%) (Auto) 7.8 % Monocytes (%) (Auto) 4.7 % Eosinophils (%) (Auto) 0.1 % Basophils (%) (Auto) 0.1 % Neutrophils # (Auto) 15.4 TH/MM3 Lymphocytes # (Auto) 1.4 TH/MM3 Monocytes # (Auto) 0.8 TH/MM3 Eosinophils # (Auto) 0.0 TH/MM3 Basophils # (Auto) 0.0 TH/MM3 CBC Comment AUTO DIFF Differential Comment AUTO DIFF CONFIRMED Laboratory Tests Test 09/27/16 09/28/16 09/28/16 05:15 04:20 05:10 Sodium Level 139 MEQ/L 143 MEQ/L Potassium Level 5.6 MEQ/L 7.7 MEQ/L Chloride Level 97 MEQ/L 95 MEQ/L Carbon Dioxide Level 19.0 MEQ/L 7.1 MEQ/L Anion Gap 23 MEQ/L 41 MEQ/L Blood Urea Nitrogen 143 MG/DL 174 MG/DL Creatinine 8.63 MG/DL 11.74 MG/DL Estimat Glomerular Filtration 8 ML/MIN 5 ML/MIN Rate Random Glucose 144 MG/DL 15 MG/DL Calcium Level 8.8 MG/DL 9.1 MG/DL Total Bilirubin 2.8 MG/DL 3.4 MG/DL Direct Bilirubin 2.2 MG/DL 2.7 MG/DL Indirect Bilirubin 0.6 MG/DL 0.7 MG/DL Aspartate Amino Transf 84 U/L 113 U/L (AST/SGOT) Alanine Aminotransferase 206 U/L 192 U/L (ALT/SGPT) Alkaline Phosphatase 87 U/L 90 U/L Total Protein 6.7 GM/DL 7.1 GM/DL Albumin 2.0 GM/DL 2.1 GM/DL Phosphorus Level 19.4 MG/DL Magnesium Level 3.9 MG/DL Lactic Acid Level 23.7 mmol/L Imaging Last Impressions Chest X-Ray 09/20/16 0600 Signed Impressions: Service Date/Time: Tuesday, September 20, 2016 05:22 - CONCLUSION: 1. The NG tube tip is in the distal esophagus. Recommend advancing the NG tube 10 cm. 2. Mild left lower lung atelectasis. Jason Albert MD Tibia/Fibula X-Ray 09/19/16 0000 Signed Impressions: Service Date/Time: Monday, September 19, 2016 07:43 - CONCLUSION: Chronic changes and no evidence for acute fracture. Claudio Barroso MD Renal Ultrasound 09/19/16 0000 Signed Impressions: Service Date/Time: Monday, September 19, 2016 10:40 - CONCLUSION: Unremarkable renal ultrasound. Claudio Barroso MD Lower Extremity MRI 09/19/16 0000 Signed Impressions: Service Date/Time: Monday, September 19, 2016 10:15 - CONCLUSION: Large mass most likely originating from the patient's skin with infiltration of subcutaneous fat and no definite involvement of the muscular structures or marrow. A malignant mass should be entertained and clinical correlation is needed. Claudio Barroso MD Knee X-Ray 09/19/16 0000 Signed Impressions: Service Date/Time: Monday, September 19, 2016 07:43 - CONCLUSION: Osteoarthritis. 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 Claudio Barroso MD Physical Exam GENERAL: awake, following some, tachypneic on the vent. SKIN: Cool and dry, no generalized rash, no embolic lesions noted. HEAD: Atraumatic. Normocephalic. No temporal or scalp tenderness. EYES: Pale conjunctivae, no petechia or hemorrhage. No scleral icterus. No injection or drainage. ENT: Nose without bleeding, or purulent drainage. Endotracheal tube is in the mouth, he has moist oral mucosa. NECK: Trachea midline. No JVD or lymphadenopathy. Supple, no meningeal signs. CARDIOVASCULAR: Regular rate and rhythm, no rub, with murmur heard at the base of the heart. RESPIRATORY: Equal breath sounds bilaterally. Decreased at the bases. No wheezes, rales, or rhonchi. GASTROINTESTINAL: Abdomen soft, slightly globular, nondistended, not tender. Bowel sounds are present and normoactive. No hepato-splenomegaly, or palpable masses. MUSCULOSKELETAL: Extremities without clubbing, cyanosis, or mottling. Has some mild pedal edema. Dry dressing L leg wound. No joint effusion. NEUROLOGICAL: awake and following some PSYCH: Unable to assess LINE: LIJ with no evidence of infection Assessment & Plan Remarks IMPRESSION Sepsis on presentation, with MOSF, due to Strep AV IE - off pressors - has Strep Group G in his BC - has mobile vegetation in his AV and has AI - no hx IVDU - prob source is his large open wound L leg which has been present for a year - no mention of previous dental problem, unable to get good exam of his oropharynx - off pressors MRSA PNA Fevers, better Respiratory failure Renal failure, on HD Septic emboli to brain, multiple Has anemia and leukocytosis UTI Fungating ulcer/mass leg, C/S MRSA and Strep - path pending Elevated LFT, improving - US with CBD dil - no pericholecystic fluid S/P cardiac arrest - on 3 pressors now RECOMMENDATION Continue IV Zyvox for MRSA in sputum Continue IV Rocephin for Strep G in BC Monitor progress Wound care Follow path report Follow josh Julian/W Rosi Stokes MD Sep 28, 2016 13:09
[2016-09-28 13:33] LABS: INTERNATIONAL NORMALIZED RATIO 2.8 RATIO
[2016-09-28 13:36] LABS: PROTHROMBIN TIME - PATIENT 31.8 SEC (9.8-11.6)
[2016-09-28 13:41] LABS: BASOPHIL # 0.1 TH/MM3 (0-0.2); BASOPHIL % 0.3 % (0.0-2.0); HEMATOCRIT 24.7 % (39.0-51.0); LYMPH % 3.8 % (9.0-44.0); LYMPHOCYTE # 1.2 TH/MM3 (1.0-4.8); MEAN CELL VOLUME 97.5 FL (80.0-100.0); MEAN CORPUSCULAR HEMOGLOBIN 30.8 PG (27.0-34.0); MEAN CORPUSCULAR HGB CONC 31.5 % (32.0-36.0); MONO % 8.2 % (0.0-8.0); NEUT % 87.7 % (16.0-70.0); PLATELET COUNT 81 TH/MM3 (150-450); RED BLOOD COUNT 2.54 MIL/MM3 (4.50-5.90); RED CELL DISTRIBUTION WIDTH 19.9 % (11.6-17.2); WHITE BLOOD COUNT 30.8 TH/MM3 (4.0-11.0)
[2016-09-28 13:45] LABS: HEMO FLAGS AUTO DIFF
[2016-09-28 14:08] LABS: ALKALINE PHOSPHATASE 105 U/L (45-117); ALT (GPT) 919 U/L (12-78); ANION GAP 37 MEQ/L (5-15); AST (GOT) 4222 U/L (15-37); BICARBONATE 12.3 MEQ/L (21.0-32.0); BLOOD UREA NITROGEN 101 MG/DL (7-18); CHLORIDE 92 MEQ/L (98-107); GLOMERULAR FILTRATION RATE 11 ML/MIN (>89); MAGNESIUM 2.6 MG/DL (1.5-2.5); POTASSIUM 4.8 MEQ/L (3.5-5.1); SODIUM (NA) 141 MEQ/L (136-145); TOTAL BILIRUBIN ADULT 5.7 MG/DL (0.2-1.0)
[2016-09-28 14:23] LABS: BANDS 4 % (0-6); CORRECTED NUCLEATED RBC 2 /100 WBC (0-0); METAMYELOCYTES 1 % (0-1); NEUTROPHIL # MANUAL DIFF 28.6 TH/MM3 (1.8-7.7); POLYS (SEG NEUTROPHILS) 88 % (16-70); WBC DIFF SAMPLE 100
[2016-09-28 14:24] LABS: PLATELET ESTIMATE SMEAR LOW (NORMAL); PLATELET MORPHOLOGY NORMAL (NORMAL)
[2016-09-28 14:29] LABS: KERATOCYTES OCC (NORMAL); SCAN/DIFF FINAL DIFF MANUAL
[2016-09-28 14:52] LABS: BLOOD GAS BASE EXCESS -17.4 mmol/L (-2-2); BLOOD GAS CARBOXYHEMOGLOBIN 1.4 % (0-4); BLOOD GAS HCO3 9 mmol/L (22-26); BLOOD GAS O2 HGB SATURATION 97 % (90-100); BLOOD GAS OXYGEN CONTENT 11.1 Vol % (12.0-20.0); BLOOD GAS PCO2 21 mmHg (38-42); BLOOD GAS PO2 174 mmHg (61-120); BLOOD GAS TOTAL HGB 7.9 G/DL (12.0-16.0); TEMP CORR TO 98.6
[2016-09-28 14:53] LABS: CRITICAL VALUE YES; DRAW SITE ART LINE; FIO2 50 %; NUMBER OF ARTERIAL PUNCTURES 0; OXYGEN DEVICE VENTILATOR; STAT NO; ULNAR PULSE PRESENT; VENT SETTINGS AC20/725/PEEP5
[2016-09-28 17:05] LABS: BLOOD GAS HCO3 7 mmol/L (22-26); BLOOD GAS METHEMOGLOBIN 1.1 % (0-2); BLOOD GAS O2 HGB SATURATION 95 % (90-100); BLOOD GAS OXYGEN CONTENT 12.3 Vol % (12.0-20.0); BLOOD GAS PCO2 21 mmHg (38-42); BLOOD GAS PO2 137 mmHg (61-120); CRITICAL VALUE YES; OXYGEN DEVICE VENTILATOR; TEMP CORR TO 98.6
[2016-09-28 17:06] LABS: BLOOD GAS VENOUS BASE EXCESS -19.2 mmol/L (-2-2); BLOOD GAS VENOUS HCO3 9 mmol/L (22-26); BLOOD GAS VENOUS O2 CONTENT 5.6 Vol % (9.0-17.0); BLOOD GAS VENOUS O2 HGB SAT 49 % (70-76); BLOOD GAS VENOUS PCO2 29 mmHg (44-48); BLOOD GAS VENOUS PO2 43 mmHg (35-40); CRITICAL VALUE YES; DRAW SITE ART LINE; DRAW SITE SWAN GANZ LINE; FIO2 50 %; NUMBER OF ARTERIAL PUNCTURES 0; OXYGEN DEVICE VENTILATOR; STAT NO; TEMP CORR TO 98.6; ULNAR PULSE PRESENT; VENT SETTINGS AC20/725/PEEP5
--- NOTE | 2016-09-28 23:35 | DEATH SUM ---
Summary Demographics Date Pronounced : Sep 28, 2016 Time Of : 22:20 Preliminary Cause of : Cardiac arrest Mark Schofield MD Sep 28, 2016 23:35
--- NOTE | 2016-09-29 09:36 | HHI.DS ---
Summary Note Date of : Sep 28, 2016 Time Of : 2219 Admission Date Sep 19, 2016 at 08:40 Admitting Diagnosis Septic Shock (Cellulitic LLE Mass); Anemia Diagnosis at Time of : (1) PEA (Pulseless electrical activity) ICD Code: I46.9 Diagnosis: Principal (2) Shock ICD Code: R57.9 Diagnosis: Principal (3) Respiratory failure ICD Code: J96.90 Diagnosis: Principal (4) Hyperkalemia ICD Code: E87.5 Diagnosis: Principal (5) Septic shock ICD Code: A41.9 Diagnosis: Principal (6) Acute embolic stroke ICD Code: I63.9 Diagnosis: Principal (7) Cellulitis ICD Code: L03.90 Diagnosis: Principal (8) encephalopathy Diagnosis: Principal (9) GI blood loss Diagnosis: Principal (10) endocarditis, with severe aortic regurg Diagnosis: Principal (11) acute renal failure Diagnosis: Principal (12) Troponin level elevated ICD Code: R74.8 Diagnosis: Principal (13) Anemia ICD Code: D64.9 Diagnosis: Principal (14) Metabolic acidemia ICD Code: E87.2 Diagnosis: Principal (15) Lactic acidemia ICD Code: E87.2 Diagnosis: Principal (16) Mass of left lower extremity ICD Code: R22.42 Diagnosis: Secondary Brief History This is a 56-year-old male that presented secondary to altered mental status. The patient's sister provided the medical information. The patient is alert and oriented 3 .the patient was noted to have a lesion on his left lower extremity and was seen at [facility] by Dr. Carpio at all is felt to be a malignant lesion however the patient was scheduled for follow-up and was noncompliant .over the last several days the patient had began to feel generalized malaise and he lives with his sister who noted that he began to have altered mental status and he presented to the ED .upon presentation to the ED the patient's blood pressure systolic blood pressure was in the 80s laboratory and imaging studies reveal septic shock , with a lactate of 4.5. The patient was bolused with 4 L of normal saline is currently hemodynamically stable , tachypnea , secondary to a bicarbonate level of 9 . He is reported to have a neoplastic lesion about the region of the left knee posteriorly, recent imaging studies suggest malignant neoplasm. The patient underwent a TTE in the ED by Dr. Ryder was noted to have cardiac vegetations tentative plan for a AGUSTIN in the am. Critical care medicine's consult for management. CBC/BMP: 09/28/16 1310 09/28/16 1310 Significant Findings Laboratory Tests Test 09/27/16 09/28/16 09/28/16 09/28/16 05:15 04:20 05:10 05:16 White Blood Count 16.2 TH/MM3 17.6 TH/MM3 (4.0-11.0) (4.0-11.0) Red Blood Count 2.45 MIL/MM3 2.55 MIL/MM3 (4.50-5.90) (4.50-5.90) Hemoglobin 7.5 GM/DL 7.9 GM/DL (13.0-17.0) (13.0-17.0) Hematocrit 22.9 % 26.7 % (39.0-51.0) (39.0-51.0) Red Cell Distribution Width 19.0 % 20.7 % (11.6-17.2) (11.6-17.2) Platelet Count 88 TH/MM3 105 TH/MM3 (150-450) (150-450) Mean Platelet Volume 11.8 FL (7.0-11.0) Potassium Level 5.6 MEQ/L 7.7 MEQ/L (3.5-5.1) (3.5-5.1) Chloride Level 97 MEQ/L 95 MEQ/L (98-107) (98-107) Carbon Dioxide Level 19.0 MEQ/L 7.1 MEQ/L (21.0-32.0) (21.0-32.0) Anion Gap 23 MEQ/L (5-15) 41 MEQ/L (5-15) Blood Urea Nitrogen 143 MG/DL 174 MG/DL (7-18) (7-18) Creatinine 8.63 MG/DL 11.74 MG/DL (0.60-1.30) (0.60-1.30) Estimat Glomerular Filtration 8 ML/MIN (>89) 5 ML/MIN (>89) Rate Random Glucose 144 MG/DL 15 MG/DL (74-106) (74-106) Total Bilirubin 2.8 MG/DL 3.4 MG/DL (0.2-1.0) (0.2-1.0) Direct Bilirubin 2.2 MG/DL 2.7 MG/DL (0.0-0.2) (0.0-0.2) Aspartate Amino Transf 84 U/L (15-37) 113 U/L (15-37) (AST/SGOT) Alanine Aminotransferase 206 U/L (12-78) 192 U/L (12-78) (ALT/SGPT) Albumin 2.0 GM/DL 2.1 GM/DL (3.4-5.0) (3.4-5.0) Mean Corpuscular Volume 104.8 FL (80.0-100.0) Mean Corpuscular Hemoglobin 29.5 % Concent (32.0-36.0) Neutrophils (%) (Auto) 87.3 % (16.0-70.0) Lymphocytes (%) (Auto) 7.8 % (9.0-44.0) Neutrophils # (Auto) 15.4 TH/MM3 (1.8-7.7) Phosphorus Level 19.4 MG/DL (2.5-4.9) Magnesium Level 3.9 MG/DL (1.5-2.5) Prothrombin Time 22.0 SEC (9.8-11.6) Activated Partial 37.5 SEC Thromboplast Time (24.3-30.1) Lactic Acid Level 23.7 mmol/L (0.4-2.0) Blood Gas HCO3 4 mmol/L (22-26) Blood Gas Base Excess -25.3 mmol/L (-2-2) Arterial Blood pH 6.96 (7.380-7.420) Arterial Blood Partial 20 mmHg (38-42) Pressure CO2 Arterial Blood Partial 138 mmHg Pressure O2 (61-120) Arterial Blood Oxygen Content 10.0 Vol % (12.0-20.0) Blood Gas Hemoglobin 7.4 G/DL (12.0-16.0) Test 09/28/16 09/28/16 09/28/16 09/28/16 08:00 13:10 14:47 16:50 Blood Gas HCO3 4 mmol/L 9 mmol/L 7 mmol/L (22-26) (22-26) (22-26) Blood Gas Base Excess -25.9 mmol/L -17.4 mmol/L -21.0 mmol/L (-2-2) (-2-2) (-2-2) Arterial Blood pH 6.94 7.24 7.13 (7.380-7.420) (7.380-7.420) (7.380-7.420) Arterial Blood Partial 18 mmHg (38-42) 21 mmHg (38-42) 21 mmHg (38-42) Pressure CO2 Arterial Blood Partial 524 mmHg 174 mmHg 137 mmHg Pressure O2 (61-120) (61-120) (61-120) Arterial Blood Oxygen Content 11.4 Vol % 11.1 Vol % (12.0-20.0) (12.0-20.0) Blood Gas Hemoglobin 7.3 G/DL 7.9 G/DL 9.0 G/DL (12.0-16.0) (12.0-16.0) (12.0-16.0) White Blood Count 30.8 TH/MM3 (4.0-11.0) Red Blood Count 2.54 MIL/MM3 (4.50-5.90) Hemoglobin 7.8 GM/DL (13.0-17.0) Hematocrit 24.7 % (39.0-51.0) Mean Corpuscular Hemoglobin 31.5 % Concent (32.0-36.0) Red Cell Distribution Width 19.9 % (11.6-17.2) Platelet Count 81 TH/MM3 (150-450) Neutrophils (%) (Auto) 87.7 % (16.0-70.0) Lymphocytes (%) (Auto) 3.8 % (9.0-44.0) Monocytes (%) (Auto) 8.2 % (0.0-8.0) Neutrophils # (Auto) 27.0 TH/MM3 (1.8-7.7) Monocytes # (Auto) 2.5 TH/MM3 (0-0.9) Neutrophils % (Manual) 88 % (16-70) Lymphocytes % 2 % (9-44) Neutrophils # (Manual) 28.6 TH/MM3 (1.8-7.7) Nucleated Red Blood Cells 2 /100 WBC (0-0) Platelet Estimate LOW (NORMAL) Prothrombin Time 31.8 SEC (9.8-11.6) Chloride Level 92 MEQ/L (98-107) Carbon Dioxide Level 12.3 MEQ/L (21.0-32.0) Anion Gap 37 MEQ/L (5-15) Blood Urea Nitrogen 101 MG/DL (7-18) Creatinine 6.62 MG/DL (0.60-1.30) Estimat Glomerular Filtration 11 ML/MIN (>89) Rate Random Glucose 136 MG/DL (74-106) Lactic Acid Level 18.3 mmol/L (0.4-2.0) Magnesium Level 2.6 MG/DL (1.5-2.5) Total Bilirubin 5.7 MG/DL (0.2-1.0) Aspartate Amino Transf 4222 U/L (AST/SGOT) (15-37) Alanine Aminotransferase 919 U/L (12-78) (ALT/SGPT) Albumin 2.9 GM/DL (3.4-5.0) Venous Blood pH 7.10 (7.360-7.400) Venous Blood Partial Pressure 29 mmHg (44-48) CO2 Venous Blood Partial Pressure 43 mmHg (35-40) O2 Venous Blood HCO3 9 mmol/L (22-26) Venous Blood Oxygen Saturation 49 % (70-76) Venous Blood Oxygen Content 5.6 Vol % (9.0-17.0) Venous Blood Base Excess -19.2 mmol/L (-2-2) Imaging Last Impressions Tibia/Fibula X-Ray 09/19/16 0000 Signed Impressions: Service Date/Time: Monday, September 19, 2016 07:43 - CONCLUSION: Chronic changes and no evidence for acute fracture. Claudio Barroso MD Renal Ultrasound 09/19/16 0000 Signed Impressions: Service Date/Time: Monday, September 19, 2016 10:40 - CONCLUSION: Unremarkable renal ultrasound. Claudio Barroso MD Lower Extremity MRI 09/19/16 0000 Signed Impressions: Service Date/Time: Monday, September 19, 2016 10:15 - CONCLUSION: Large mass most likely originating from the patient's skin with infiltration of subcutaneous fat and no definite involvement of the muscular structures or marrow. A malignant mass should be entertained and clinical correlation is needed. Claudio Barroso MD Knee X-Ray 09/19/16 0000 Signed Impressions: Service Date/Time: Monday, September 19, 2016 07:43 - CONCLUSION: Osteoarthritis. 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 Claudio Barroso MD Chest X-Ray 09/19/16 0000 Signed Impressions: Service Date/Time: Monday, September 19, 2016 16:50 - CONCLUSION: 1. Minimal basilar atelectasis. Elevated right hemidiaphragm. No effusion. Osteochondral defect right humeral head. Raul Merlos MD Hospital Course 09/19: This is a 56-year-old male that presented secondary to altered mental status. The patient's sister provided the medical information. The patient is alert and oriented 3 .the patient was noted to have a lesion on his left lower extremity and was seen at [facility] by Dr. Crapio at all is felt to be a malignant lesion however the patient was scheduled for follow-up and was noncompliant .over the last several days the patient had began to feel generalized malaise and he lives with his sister who noted that he began to have altered mental status and he presented to the ED .upon presentation to the ED the patient's blood pressure systolic blood pressure was in the 80s laboratory and imaging studies reveal septic shock , with a lactate of 4.5. The patient was bolused with 4 L of normal saline is currently hemodynamically stable , tachypnea , secondary to a bicarbonate level of 9 . He is reported to have a neoplastic lesion about the region of the left knee posteriorly, recent imaging studies suggest malignant neoplasm. The patient underwent a TTE in the ED by Dr. Coombs was noted to have cardiac vegetations tentative plan for a AGUSTIN in the am. Critical care medicine's consult for management. 09/20: Patient was intubated overnight and placed on mechanical ventilation for worsening respiratory status. He is currently sedated, orally intubated on mechanical ventilation. Transfuse 3 units PRBCs overnight. Has some coffee- ground NG aspirate however no melena or rectal bleeding noted. On Levophed 12 mics per minute and vasopressin low-dose for septic shock. Decreasing urine output and significant metabolic acidosis noted for which nephrology consult was requested this morning, vascath was placed and patient has been initiated on CRRT. Discussed with cardiology, severe aortic regurg with aortic valve vegetation for which patient will eventually need an aortic valve replacement following initial stabilization. Awaiting Dr. Medina evaluation. Dr. Coombs has discussed echo with Dr. Medina. 09/21: no significant improvements. lactate still 10. persists on 2 vasopressors. pH slightly better. CRRT circuit clotted overnight. 09/22: off vasopressors this morning. MRI yesterday with multiple acute strokes, largest in right fronto-parietal region. acidosis better. CRRT clotted at 2100 overnight. plan to likely transition to IHD today. 09/23: neuro exam remains poor. acidosis resolving. IHD yesterday with 4L removed. hgb downtrended to 7 this AM. off vasopressors. 09/24: 4.5L removed yesterday with IHD. still neuro exam remains poor. sputum growing MRSA. vanc trough therapeutic. persistently anemic despite prbc transfusion yesterday. 09/25: 4L removed yesterday on IHD. improving neuro exam and patient following commands today with right upper and lower extremities. nothing on left today. states he is in pain. LFTs continue to downtrend. repeat sputum growing MRSA. hgb improved today. CVP still 15 - 17. 09/26: more awake today, moving all 4 extremities, following commands. I placed the patient on a spontaneous breathing trial today and he lasted about 45 minutes but failed for worsening respiratory distress, RR > 45, obvious labored breathing. 09/27: He is sedated intubated. Continues to follow simple commands. WBC count trending down. Moving all 4 extremities. RR 35-36 09/28: Am labs showed potassium 7.7. Patient received calcium chloride 1 gram, bicarb 2 amps, albuterol neb, kayexalate 30 gram. Patient was hypoglycemia and received D50 and was started on D10 @ 30/hr. For shock was started on levophed and stress dose hydrocortisone, vasopressin was added. Dr. Rodriguez called Dr. Liu to arrange for stat dialysis. Patient developed PEA cardiac arrest secondary to hyperkalemia. Per ACLS protocol pt received CPR, epinephrine x2, CaCl2 x1, bicarb x2 amps. After 3-4 minutes resuscitation ROSC. Pt developed V tach with a pulse, underwent synchronized cardioversion at 200 J and was in NSR. Placed on bicarb drip. Sister at bedside updated. HD planned soon when I rounded at 6.30 AM. Repeat Labs after HD Over the course of the day despite hemodialysis and continuous bicarbonate infusion his acidosis continued to worsen, with refractory shock. He was maxed out on Levophed dopamine and vasopressin without improvement. I discussed with patient's sister Alex Solis and brother Wang Burnham. Both want to CODE STATUS changed to be a DNR. She at 2220 on Sep 28, 2016. Family was made aware by staff Time Of : 22:20 Arun Oseguera MD Sep 29, 2016 09:36
== END 2016-09-29 01:55 | disposition expired | DRG 870 ==
LOC: NEPC 06:49 → NEDA 08:40 → NEDH 21:28 → N03B 21:50
PROVIDERS: ADMIT Family Medicine; ATTEND Family Medicine
PROC: 5A1955Z Respiratory Ventilation, Greater than 96 Consecutive Hours (ICD-10-PCS; principal; 2016-09-19)
PROC: 02HV33Z Insertion of Infusion Device into Superior Vena Cava, Percutaneous Approach (ICD-10-PCS; 2016-09-19)
PROC: 0BH17EZ Insertion of Endotracheal Airway into Trachea, Via Natural or Artificial Opening (ICD-10-PCS; 2016-09-19)
PROC: 0CJS8ZZ Inspection of Larynx, Via Natural or Artificial Opening Endoscopic (ICD-10-PCS; 2016-09-19)
PROC: B544ZZA Ultrasonography of Left Jugular Veins, Guidance (ICD-10-PCS; 2016-09-19)
PROC: 0T9B70Z Drainage of Bladder with Drainage Device, Via Natural or Artificial Opening (ICD-10-PCS; 2016-09-19)
PROC: 30233N1 Transfusion of Nonautologous Red Blood Cells into Peripheral Vein, Percutaneous Approach (ICD-10-PCS; 2016-09-19)
PROC: B543ZZA Ultrasonography of Right Jugular Veins, Guidance (ICD-10-PCS; 2016-09-20)
PROC: 02HV33Z Insertion of Infusion Device into Superior Vena Cava, Percutaneous Approach (ICD-10-PCS; 2016-09-20)
PROC: B246ZZ4 Ultrasonography of Right and Left Heart, Transesophageal (ICD-10-PCS; 2016-09-20)
PROC: 0JBP3ZX Excision of Left Lower Leg Subcutaneous Tissue and Fascia, Percutaneous Approach, Diagnostic (ICD-10-PCS; 2016-09-20)
PROC: 03HY32Z Insertion of Monitoring Device into Upper Artery, Percutaneous Approach (ICD-10-PCS; 2016-09-21)
PROC: 0DJ08ZZ Inspection of Upper Intestinal Tract, Via Natural or Artificial Opening Endoscopic (ICD-10-PCS; 2016-09-21)
PROC: 5A1D60Z (ICD-10-PCS; 2016-09-22)
PROC: 5A12012 Performance of Cardiac Output, Single, Manual (ICD-10-PCS; 2016-09-28)
PROC: 5A2204Z Restoration of Cardiac Rhythm, Single (ICD-10-PCS; 2016-09-28)
DX: A41.81 Sepsis due to Enterococcus (principal); J96.01 Acute respiratory failure with hypoxia; N17.0 Acute kidney failure with tubular necrosis; I63.40 Cerebral infarction due to embolism of unspecified cerebral artery; K72.00 Acute and subacute hepatic failure without coma; J15.212 Pneumonia due to Methicillin resistant Staphylococcus aureus; R57.0 Cardiogenic shock; J18.9 Pneumonia, unspecified organism; R65.21 Severe sepsis with septic shock; G93.41 Metabolic encephalopathy; I11.0 Hypertensive heart disease with heart failure; I33.0 Acute and subacute infective endocarditis; E46 Unspecified protein-calorie malnutrition; L97.929 Non-pressure chronic ulcer of unspecified part of left lower leg with unspecified severity; L03.116 Cellulitis of left lower limb; E87.2 Acidosis; N39.0 Urinary tract infection, site not specified; D62 Acute posthemorrhagic anemia; I76 Septic arterial embolism; I47.2 Ventricular tachycardia; M62.82 Rhabdomyolysis; K92.2 Gastrointestinal hemorrhage, unspecified; C49.22 Malignant neoplasm of connective and soft tissue of left lower limb, including hip; N47.1 Phimosis; E86.0 Dehydration; R73.9 Hyperglycemia, unspecified; E16.2 Hypoglycemia, unspecified; I46.8 Cardiac arrest due to other underlying condition; E87.5 Hyperkalemia; K20.9 Esophagitis, unspecified; I08.3 Combined rheumatic disorders of mitral, aortic and tricuspid valves; E78.5 Hyperlipidemia, unspecified; E83.39 Other disorders of phosphorus metabolism; D69.59 Other secondary thrombocytopenia; K80.20 Calculus of gallbladder without cholecystitis without obstruction; B95.62 Methicillin resistant Staphylococcus aureus infection as the cause of diseases classified elsewhere; H50.9 Unspecified strabismus; K44.9 Diaphragmatic hernia without obstruction or gangrene; F17.210 Nicotine dependence, cigarettes, uncomplicated; F20.9 Schizophrenia, unspecified; F32.9 Major depressive disorder, single episode, unspecified; Y90.0 Blood alcohol level of less than 20 mg/100 ml; F10.10 Alcohol abuse, uncomplicated; Z23 Encounter for immunization; Z66 Do not resuscitate; Z68.28 Body mass index [BMI] 28.0-28.9, adult; Z86.73 Personal history of transient ischemic attack (TIA), and cerebral infarction without residual deficits; Z91.19 Patient's noncompliance with other medical treatment and regimen
CPT/HCPCS: 31500; 36430; 36556; 36600; 36620; 70450; 70551; 71010; 73560; 73590; 73718; 76705; 76775; 76937; 80048; 80053; 80061; 80074; 80076; 80202; 80307; 81001; 82140; 82533; 82550; 82552; 82805; 82948; 83010; 83540; 83550; 83605; 83615; 83735; 84100; 84155; 84439; 84443; 84481; 84484; 85007; 85014; 85018; 85025; 85027; 85384; 85610; 85730; 86403; 86850; 86900; 86901; 86920; 86927; 87040; 87070; 87077; 87086; 87147; 87184; 87186; 87205; 87641; 88305; 90686; 90732; 90935; 93005; 93306; 94002; 94003; 94150; 94640; 94664; 96365; 96374; 96375; C9113; J0171; J0610; J0696; J1265; J1580; J1644; J1720; J1815; J2020; J2250; J2543; J2720; J3010; J3370; J3480; J7030; J7040; J7050; J7060; J7120; J7613; P9016; P9017; P9047; Q2038